=== PATIENT | female | born 1980 | race Caucasian/White ===

== ENCOUNTER → 2023-08-28 | Outpatient (CLI) | payer OTHER, SELFPAY ==
[2023-08-28 17:58] LABS: Absolute Lymphocyte Count 3.56 X10^3/uL (0.83-4.51); Absolute Neutrophil Count 7.2 X10^3/uL (2.0-7.7); Basophil# 0.05 X10^3/uL; Basophil% 0.4 % (0-1); Eosinophil# 0.13 X10^3/uL; Eosinophils% 1.1 % (0-5); Hematocrit 44.1 % (37-47); Hemoglobin 13.8 g/dL (12.0-15.0); Lymphocyte # 3.56 X10^3/ul (0.83-4.51); Lymphocyte % 30.3 % (19-41); Mean Corp Hgb Conc 31.3 g/dL (32-36); Mean Corpuscular Hgb 25.1 pg (27.0-32.0); Mean Corpuscular Volume 80.2 fL (81-99); Mean Platelet Vol. 11.2 fl (6.2-12.0); Monocyte# 0.76 X10^3/uL; Monocyte% 6.5 % (0-10); NRBC Flagged by Analyzer 0 % (0-5); Neutrophil # 7.21 X10^3/uL (2.7-7.7); Neutrophil % 61.4 % (47-70); Platelet Count 301 K/mm3 (150-450); RBC Distribution Width CV 13.3 % (11.6-14.6); RBC Distribution Width SD 37.7 fl (35.1-43.9); White Blood Count 11.8 K/mm3 (4.4-11.0)
[2023-08-28 18:30] LABS: Hemoglobin A1c 9.2 % (3.8-5.6)
[2023-08-28 18:40] LABS: ALB/GLOB Ratio 0.8 RATIO (0.9-2.4); AST(SGOT) 50 U/L (15-37); Alanine Aminotransfer ALT/SGPT 44 U/L (13-56); Albumin, Serum 3.8 g/dL (3.2-5.0); Alkaline Phosphatase 54 U/L (45-117); Anion Gap 11 (5-15); BUN 14 mg/dL (7-18); BUN/Creat Ratio 18.9 RATIO (10-20); Calcium,Total 10.2 mg/dL (8.5-10.1); Chloride 105 mmol/L (98-107); Cholesterol 243 mg/dL (200); Creatinine, Serum 0.74 mg/dL (0.55-1.02); EST Glomerular Filtration Rate 91 mL/min (>60); Est Glom Filt Rate - Afr Amer 110 mL/min (>60); Globulin 4.6 g/dL (2.2-4.2); Glucose 117 mg/dL (74-106); High Density Lipoprotein 41 mg/dL; Potassium 3.7 mmol/L (3.5-5.1); Protein, Total 8.4 g/dL (6.4-8.2); Sodium Level 137 mmol/L (136-145); Thyroid Stim Hormone (TSH) 1.43 uIU/mL (0.358-3.74); Triglycerides 240 mg/dL; Very Low Density Lipoprotein 48 mg/dL (5-40)
== END | disposition home or self-care (01) ==
PROVIDERS: Visit Provider Family Medicine
DX: E11.9 Type 2 diabetes mellitus without complications (principal)
CPT/HCPCS: 36415; 80053; 80061; 82043; 82570; 83036; 84443; 85025

== ENCOUNTER → 2023-09-01 | Outpatient (CLI) | payer BC, SELFPAY ==
[2023-09-01 13:06] LABS: PTHIN 22.9 pg/mL (18.4-80.1)
[2023-09-01 13:27] LABS: Hepatitis B Surface Antibody Non-Reactive; Hepatitis B Surface Antigen Non-Reactive (Nonreactive); Hepatitis C Antibody Non-Reactive (Nonreactive)
[2023-09-02 15:09] LABS: PROEL- Alpha-1 Globulin 0.4 g/dL (0.0-0.4); PROEL- Alpha-2 Globulin 1.1 g/dL (0.4-1.0); PROEL- Beta Globulin 1.4 g/dL (0.7-1.3); PROEL- Gamma Globulin 1.1 g/dL (0.4-1.8); PROEL-M-Spike Not Observed g/dL (Not Observed)
== END | disposition home or self-care (01) ==
LOC: MFPLAB 11:12 → MTLAB 11:17
PROVIDERS: PCP Family Medicine; Referring Provider Family Medicine; Visit Provider Family Medicine
DX: R79.89 Other specified abnormal findings of blood chemistry (principal); E83.52 Hypercalcemia; E88.09 Other disorders of plasma-protein metabolism, not elsewhere classified
CPT/HCPCS: 36415; 82784; 83970; 84165; 86334; 86706; 86803; 87340

== ENCOUNTER → 2023-09-18 | Outpatient (CLI) | payer BC, SELFPAY ==
[2023-09-18 13:33] LABS: ALB/GLOB Ratio 0.9 RATIO (0.9-2.4); AST(SGOT) 21 U/L (15-37); Alanine Aminotransfer ALT/SGPT 29 U/L (13-56); Albumin, Serum 3.8 g/dL (3.2-5.0); Alkaline Phosphatase 55 U/L (45-117); Anion Gap 9 (5-15); BUN 14 mg/dL (7-18); BUN/Creat Ratio 19.1 RATIO (10-20); Calcium,Total 8.9 mg/dL (8.5-10.1); Chloride 105 mmol/L (98-107); Creatinine, Serum 0.73 mg/dL (0.55-1.02); EST Glomerular Filtration Rate 92 mL/min (>60); Est Glom Filt Rate - Afr Amer 112 mL/min (>60); Globulin 4.4 g/dL (2.2-4.2); Glucose 101 mg/dL (74-106); Potassium 4.3 mmol/L (3.5-5.1); Protein, Total 8.2 g/dL (6.4-8.2); Sodium Level 136 mmol/L (136-145)
[2023-09-21 15:07] LABS: Albumin 3.9 g/dL (2.9-4.4); Alpha-1-Globulins 0.4 g/dL (0.0-0.4); Gamma Globulin 0.9 g/dL (0.4-1.8); Immunoglobulin A 157 mg/dL (87-352); Immunoglobulin G 978 mg/dL (586-1602); Immunoglobulin M 133 mg/dL (26-217); PROEL- TOTAL PROTEIN 7.4 g/dL (6.0-8.5)
== END | disposition home or self-care (01) ==
LOC: MTLAB 11:22
PROVIDERS: PCP Family Medicine; Referring Provider Family Medicine; Visit Provider Family Medicine
DX: E11.8 Type 2 diabetes mellitus with unspecified complications (principal)
CPT/HCPCS: 36415; 80053; 82784; 84165; 86334

== ENCOUNTER → 2023-11-11 | Outpatient (CLI) | payer BC, SELFPAY ==
[2023-11-11 10:10] LABS: Absolute Lymphocyte Count 2.72 X10^3/uL (0.83-4.51); Absolute Neutrophil Count 6.3 X10^3/uL (2.0-7.7); Basophil# 0.03 X10^3/uL; Basophil% 0.3 % (0-1); Eosinophil# 0.17 X10^3/uL; Eosinophils% 1.7 % (0-5); Hematocrit 43.9 % (37-47); Hemoglobin 13.7 g/dL (12.0-15.0); Lymphocyte # 2.72 X10^3/ul (0.83-4.51); Lymphocyte % 27.3 % (19-41); Mean Corp Hgb Conc 31.2 g/dL (32-36); Mean Corpuscular Volume 80.3 fL (81-99); Mean Platelet Vol. 10.2 fl (6.2-12.0); Monocyte# 0.68 X10^3/uL; Monocyte% 6.8 % (0-10); NRBC Flagged by Analyzer 0 % (0-5); Neutrophil # 6.34 X10^3/uL (2.7-7.7); Neutrophil % 63.6 % (47-70); Platelet Count 324 K/mm3 (150-450); RBC Distribution Width CV 12.8 % (11.6-14.6); RBC Distribution Width SD 37.1 fl (35.1-43.9); Red Blood Count 5.47 M/mm3 (4.2-5.4)
[2023-11-11 10:24] LABS: Hemoglobin A1c 6.2 % (3.8-5.6)
[2023-11-11 10:30] LABS: ALB/GLOB Ratio 0.9 RATIO (0.9-2.4); AST(SGOT) 15 U/L (15-37); Alanine Aminotransfer ALT/SGPT 27 U/L (13-56); Albumin, Serum 3.9 g/dL (3.2-5.0); Alkaline Phosphatase 63 U/L (45-117); Anion Gap 7 (5-15); BUN 13 mg/dL (7-18); BUN/Creat Ratio 16.1 RATIO (10-20); Calcium,Total 9.7 mg/dL (8.5-10.1); Chloride 102 mmol/L (98-107); Cholesterol 194 mg/dL (200); Creatinine, Serum 0.81 mg/dL (0.55-1.02); EST Glomerular Filtration Rate 82 mL/min (>60); Est Glom Filt Rate - Afr Amer 100 mL/min (>60); Globulin 4.2 g/dL (2.2-4.2); Glucose 92 mg/dL (74-106); High Density Lipoprotein 38 mg/dL; Protein, Total 8.1 g/dL (6.4-8.2); Sodium Level 136 mmol/L (136-145); Triglycerides 116 mg/dL; Very Low Density Lipoprotein 23 mg/dL (5-40)
== END | disposition home or self-care (01) ==
PROVIDERS: PCP Family Medicine; Referring Provider Family Medicine; Visit Provider Family Medicine
DX: E11.29 Type 2 diabetes mellitus with other diabetic kidney complication (principal)
CPT/HCPCS: 36415; 80053; 80061; 82043; 82570; 83036; 85025

== ENCOUNTER → 2024-02-03 | Outpatient (CLI) | payer BC, SELFPAY ==
[2024-02-03 12:24] LABS: Absolute Neutrophil Count 5.7 X10^3/uL (2.0-7.7); Basophil# 0.02 X10^3/uL; Basophil% 0.2 % (0-1); Eosinophils% 2.2 % (0-5); Hematocrit 42.9 % (37-47); Hemoglobin 13.5 g/dL (12.0-15.0); Lymphocyte % 29.4 % (19-41); Mean Corp Hgb Conc 31.5 g/dL (32-36); Mean Corpuscular Hgb 25.1 pg (27.0-32.0); Mean Corpuscular Volume 79.9 fL (81-99); Mean Platelet Vol. 10.9 fl (6.2-12.0); Monocyte# 0.59 X10^3/uL; Monocyte% 6.4 % (0-10); NRBC Flagged by Analyzer 0 % (0-5); Neutrophil # 5.65 X10^3/uL (2.7-7.7); Neutrophil % 61.5 % (47-70); Platelet Count 293 K/mm3 (150-450); RBC Distribution Width CV 14.1 % (11.6-14.6); RBC Distribution Width SD 40.7 fl (35.1-43.9); Red Blood Count 5.37 M/mm3 (4.2-5.4); White Blood Count 9.2 K/mm3 (4.4-11.0)
[2024-02-03 12:40] LABS: Microalbumin,Random Urine 53.6 mg/L (NO RANGE EST.); Microalbumin:Creatinine Ratio 50.6 mg/g CRE (<30 mg/g CRE)
[2024-02-03 12:49] LABS: ALB/GLOB Ratio 1.1 RATIO (0.9-2.4); AST(SGOT) 16 U/L (15-37); Alanine Aminotransfer ALT/SGPT 22 U/L (13-56); Albumin, Serum 3.9 g/dL (3.2-5.0); Alkaline Phosphatase 59 U/L (45-117); Anion Gap 2 (5-15); BUN 13 mg/dL (7-18); BUN/Creat Ratio 17.8 RATIO (10-20); Calcium,Total 9.6 mg/dL (8.5-10.1); Chloride 108 mmol/L (98-107); Cholesterol 121 mg/dL (200); Creatinine, Serum 0.73 mg/dL (0.55-1.02); EST Glomerular Filtration Rate 92 mL/min (>60); Est Glom Filt Rate - Afr Amer 111 mL/min (>60); Globulin 3.7 g/dL (2.2-4.2); Glucose 97 mg/dL (74-106); High Density Lipoprotein 46 mg/dL; Potassium 4.3 mmol/L (3.5-5.1); Protein, Total 7.6 g/dL (6.4-8.2); Sodium Level 138 mmol/L (136-145); Triglycerides 87 mg/dL; Very Low Density Lipoprotein 17 mg/dL (5-40)
[2024-02-03 13:58] LABS: Hemoglobin A1c 5.9 % (3.8-5.6)
== END | disposition home or self-care (01) ==
LOC: MTLAB 09:38
PROVIDERS: PCP Family Medicine; Referring Provider Family Medicine; Visit Provider Family Medicine
DX: E11.29 Type 2 diabetes mellitus with other diabetic kidney complication (principal)
CPT/HCPCS: 36415; 80053; 80061; 82043; 82570; 83036; 85025

== ENCOUNTER → 2024-06-08 | Outpatient (CLI) | payer BC, SELFPAY ==
[2024-06-08 09:05] LABS: Bacteria 0 SEEN /hpf (None Seen); Mucous, Urine 0 SEEN /hpf (<or=2+); Red Blood Cells-Urine 0 SEEN /hpf (0-5); White Blood Cells 0 SEEN /hpf (0-5)
[2024-06-08 10:16] LABS: Color, Urine Yellow (Yellow); Glucose, Dipstick Normal (Normal); Ketone-Dipstick Negative (Negative); Leukocyte Esterase-Dipstick Negative /ul (Negative); Nitrite-Dipstick Negative (Negative); Occult Blood-Urine Negative /ul (Negative); Protein-Dipstick Negative (Negative); Specific Gravity, Urine 1.005 (1.002-1.030); Urine Bilirubin Dipstick Negative (Negative); Urine Clarity Sl. Cloudy (Clear); Urine Urobilinogen Normal (Normal)
[2024-06-08 10:17] LABS: Absolute Lymphocyte Count 3.07 X10^3/uL (0.83-4.51); Absolute Neutrophil Count 6.5 X10^3/uL (2.0-7.7); Basophil# 0.03 X10^3/uL; Basophil% 0.3 % (0-1); Eosinophils% 1.9 % (0-5); Hematocrit 41.5 % (37-47); Hemoglobin 13.3 g/dL (12.0-15.0); Lymphocyte # 3.07 X10^3/ul (0.83-4.51); Lymphocyte % 29.3 % (19-41); Mean Corpuscular Hgb 25.5 pg (27.0-32.0); Mean Corpuscular Volume 79.5 fL (81-99); Mean Platelet Vol. 10.2 fl (6.2-12.0); Monocyte# 0.65 X10^3/uL; Monocyte% 6.2 % (0-10); NRBC Flagged by Analyzer 0 % (0-5); Neutrophil % 61.9 % (47-70); Platelet Count 283 K/mm3 (150-450); RBC Distribution Width CV 13.1 % (11.6-14.6); RBC Distribution Width SD 37.2 fl (35.1-43.9); Red Blood Count 5.22 M/mm3 (4.2-5.4); White Blood Count 10.5 K/mm3 (4.4-11.0)
[2024-06-08 10:22] LABS: Squamous Epithelial Cells - UA 0-5 SEEN /hpf (5-10)
[2024-06-08 10:43] LABS: Hemoglobin A1c 6.1 % (3.8-5.6)
[2024-06-08 10:51] LABS: AST(SGOT) 11 U/L (15-37); Alanine Aminotransfer ALT/SGPT 23 U/L (13-56); Albumin, Serum 3.9 g/dL (3.2-5.0); Alkaline Phosphatase 51 U/L (45-117); Anion Gap 8 (5-15); BUN 15 mg/dL (7-18); BUN/Creat Ratio 24.8 RATIO (10-20); Calcium,Total 9.5 mg/dL (8.5-10.1); Chloride 104 mmol/L (98-107); Cholesterol 120 mg/dL (200); EST Glomerular Filtration Rate 114 mL/min (>60); Est Glom Filt Rate - Afr Amer 138 mL/min (>60); Globulin 4.1 g/dL (2.2-4.2); Glucose 103 mg/dL (74-106); High Density Lipoprotein 53 mg/dL; Potassium 4.1 mmol/L (3.5-5.1); Sodium Level 137 mmol/L (136-145); Triglycerides 81 mg/dL; Very Low Density Lipoprotein 16 mg/dL (5-40)
[2024-06-08 13:41] LABS: Microalbumin,Random Urine 20.4 mg/L (NO RANGE EST.); Microalbumin:Creatinine Ratio 85.7 mg/g CRE (<30 mg/g CRE)
== END | disposition home or self-care (01) ==
LOC: MTLAB 08:58
PROVIDERS: PCP Family Medicine; Referring Provider Family Medicine; Visit Provider Family Medicine
DX: E11.8 Type 2 diabetes mellitus with unspecified complications (principal)
CPT/HCPCS: 80053; 80061; 81001; 82043; 82570; 83036; 85025

== ENCOUNTER → 2024-09-30 | Outpatient (CLI) | payer BC, SELFPAY ==
[2024-09-30 10:57] LABS: ALB/GLOB Ratio 1.4 RATIO (0.9-2.4); AST(SGOT) 18 U/L (<=31); Alanine Aminotransfer ALT/SGPT 14 U/L (<=34); Albumin, Serum 4.3 g/dL (3.5-5.0); Alkaline Phosphatase 58 U/L (35-104); Anion Gap 11 (5-15); BUN 20 mg/dL (4-19); Calcium,Total 9.5 mg/dL (7.6-11.0); Carbon Dioxide 21.6 mmol/L (21.0-32.0); Chloride 105 mmol/L (98-108); Creatinine, Serum 0.89 mg/dL (0.70-1.20); EST Glomerular Filtration Rate 82 (>60); Globulin 3.1 g/dL (2.2-4.2); Glucose 112 mg/dL (70-99); Potassium 4.2 mmol/L (3.3-5.1); Protein, Total 7.4 g/dL (5.9-8.4); Sodium Level 138 mmol/L (133-145); Total Bilirubin 0.64 mg/dL (0.00-1.30)
[2024-09-30 11:57] LABS: Microalbumin,Random Urine 49.8 mg/L (NO RANGE EST.); Microalbumin:Creatinine Ratio 805.8 mg/g CRE
== END | disposition home or self-care (01) ==
LOC: MTLAB 08:40
PROVIDERS: PCP Family Medicine; Referring Provider Family Medicine; Visit Provider Family Medicine
DX: E11.8 Type 2 diabetes mellitus with unspecified complications (principal)
CPT/HCPCS: 36415; 80053; 82043; 82570; 83036

== ENCOUNTER 2024-12-26 04:42 | Emergency (ER) | payer BC, SELFPAY ==
[2024-12-26 04:42] VITALS: BP 141/87; PULSE 85; RESP 16; TEMP 36.9; O2SAT 99; BMI 36.1
--- NOTE | 2024-12-26 04:54 | EX.ED.DYSGE1 ---
HPI History of Present Illness Chief Complaint: Bite Detail of Chief Complaint: Cat scratches left hand. Cat bites scalp. Informant: patient Onset/Context/Timing Onset: Today Context: Sudden Onset Timing: Continuous Current Severity: Moderate Maximum Severity: Moderate Narrative Narrative: 44-year-old female history of diabetes. Has both a dog and cat at home. The cat got scared by the dog. When the patient went to count a separate and removed from the cat scratched her hand on the left multiple times and bit her in the scalp several areas causing lacerations. This occurred within the last hour. She is unsure of her last tetanus that will be updated. She is right-hand dominant. Denies any other complaints. Said the cat is normally well mannered. Has not been sick. Prior similar symptoms: No Recent Illness/Hospitalization: No [facility], [facility] Medical History Kidney malignancy Home Medications ?Medication ?Instructions ?Recorded ?Last Taken ?Type losartan 100 mg tablet 100 mg PO DAILY 12/26/24 Unknown History metformin 1,000 mg tablet 1,000 mg PO BID 12/26/24 Unknown History norethindrone (contraceptive) 0.35 0.35 mg PO DAILY 12/26/24 Unknown History mg tablet (Deblitane) rosuvastatin 5 mg tablet 5 mg PO QPM 12/26/24 Unknown History spironolactone 50 mg tablet 50 mg PO DAILY 12/26/24 Unknown History Allergy/AdvReac Type Severity Reaction Status Date / Time No Known Allergies Allergy Verified 12/26/24 04:43 Surgical History H/O excision of mass H/O hernia repair Social History Smoking Status: Former smoker ROS ROS ED ROS Narrative Denies recent illness. Constitutional Constitutional ED: Denies chills Eyes Eyes: Denies blurry vision ENT ENT ED: Denies ear pain Cardiovascular Cardiovascular: Denies chest pain Respiratory/Chest Respiratory/Chest: Denies cough or dyspnea Gastrointestinal Gastrointestinal: Denies abdominal pain Genitourinary Genitourinary ED: Denies dysuria or hematuria Musculoskeletal Musculoskeletal: Denies arthralgias Integumentary Denies abscess Neurologic Neurologic: Denies headache(s) Psychiatric Psychiatric: Denies anxiety Endocrine Endocrinology: Denies cold intolerance Hematologic/Lymphatic Hematologic/Lymphatic: Reports none Allergic/Immunologic Allergic/Immunologic ED: Denies mouth swelling, tongue swelling or urticaria EXAM Physical Exam Narrative Exam Narrative: Well-appearing 44-year-old female. Vital signs stable afebrile. Companied by her . No acute distress. H EENT exam pupils round react light. Moist pink membranes. Right lateral posterior scalp there are at least two 1 inch lacerations on the repaired. No active bleeding. Neck nontender. Trachea midline. Lungs clear equal and symmetrical bilaterally. Heart regular rhythm no murmur. Chest wall ribs nontender. Abdomen soft nontender. Moving all 4 extremities. Normal range of motion. Normal strength. Multiple cat scratches to her left hand and fingers. Nothing needs repaired. She has full flexion extension all digits of the hand. There is no signs of flexor or extensor tenosynovitis. No swelling. Neurovascularly intact. Right upper extremity and legs are unremarkable. Back nontender. Neurologically she is awake alert. Answer questions following commands. Const Vital Signs: 12/26/24 04:42 Temperature 98.5 F Temperature Source Oral Pulse Rate 85 Respiratory Rate 16 Blood Pressure 141/87 H Blood Pressure Mean 105 Pulse Ox 99 Positive well nourished and well developed; Negative for cachectic, contractures or unkempt General Appearance ED: well developed and NAD; Negative for unkempt, cachectic, contractures, cyanotic, diaphoretic or pallor Nutritional Appearance: Negative for cachectic HEENT Reports moist mucous membranes HEENT Narrative: Right lateral posterior scalp 2 different lacerations from cat bites. Eyes PERRL and EOMs intact bilaterally Neck no lymphadenopathy, supple and no JVD Chest Wall inspection of chest normal and palpation of chest normal Resp normal respiratory effort and clear to auscultation bilaterally Cardio regular rate, regular rhythm, S1 normal heart sound, S2 normal heart sound and no murmurs GI normal to inspection, nondistended, normoactive bowel sounds, non-tender, non-distended and no masses Auscultation: normoactive bowel sounds Palpation: soft; Negative for tender or guarding Back/Spine no CVA tenderness Extremity normal to inspection Extremity Narrative: Except multiple cat scratches with dried blood on the left hand. Full flexion extension of all digits. No swelling. No flexor nor extensor tenosynovitis. No cellulitis. No lymphangitic streaking. General Extremety ED: Negative for edema or tenderness General Extremity: Negative for edema Neuro oriented x3 and CN's II-XII intact bilaterally Sensorium / Orientation: alert Motor Exam: strength 5/5 throughout Psych mental status grossly normal Appearance: Negative for unkempt Skin no rashes or lesions noted, No no wounds and skin turgor normal Skin Narrative: Cat scratches left hand. Cat bite lacerations right posterior scalp x 2. General Skin Exam: elasticity normal; Negative for jaundice or pallor Wounds: wounds noted MDM MDM MDM Narrative Medical decision making narrative: 44-year-old diabetic was scratched all over her left hand by her cat. It is at least 2 scalp lacerations. Tetanus will be updated. All wounds to be cleaned. She replaced on Augmentin 875 twice daily for 5 days for the hand injuries. I will need to repair the scalp lacerations. Discharge Plan Triage Chief Complaint: Bite ED Provider: Scooby Haas Dx/Rx/DC Orders Prescriptions: No Action metformin 1,000 mg tablet 1,000 mg PO BID norethindrone (contraceptive) [Deblitane] 0.35 mg tablet 0.35 mg PO DAILY losartan 100 mg tablet 100 mg PO DAILY spironolactone 50 mg tablet 50 mg PO DAILY rosuvastatin 5 mg tablet 5 mg PO QPM Primary Care Provider: Shahriar Hendrix Referrals: Shahriar Hendrix MD [Primary Care Provider] - Print Language: Setswana
[2024-12-26] MEDS: Lidocaine 1% /Epi 1:100 (20ml) 20 ML Vial INFILT (04:57)
--- OUTSIDE RECORDS SUMMARY | 2024-12-26 04:59 | XMS RPT_ITS | CCD ---
Author Organization [facility] Care Team Providers Care Senior Web Applications Developer Name Role Phone No, Physician Primary Care Provider Unavailabl e NO, PHYSICIAN Primary Care Unavailable ANGELICA BURNETT Referring Unavailable FRANK MORALES Consulting Unavailable FRANK MORALES Admitting Unavailable KLEBER JUAREZ Attending Unavaila DUONG Finn Consulting Unavailable No, Physician Primary Care Provider Unavailivonne Montalvo MD, Aleksandar Gardner Primary Care Provider Aleksandar Montalvo MD Primary Care Provider [phone] Etelvina, Physician Primary Care Provider UnavailZahra Hardin MD Primary Care Provider [phone] HEIDI PA Referring Unavailable HEIDI PA Attending Unavailable ZAHRA HENDRIX Primary Care Unavailable ZAHRA HENDRIX Primary Care Unavailable HEIDI PA Attending Unavailable ETELVINA, PHYSICIAN Primary Care Unavailable HEIDI PA Attending Unavailable 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 Zahra Hendrix MD Primary Care Provider [phone] Dr. Zahra Hendrix MD Attending Provider [phone] Dr. Zahra Hendrix MD Referring Provider Zahra Hendrix Referring Unavailable Zahra Hendrix Primary Care Unavailable Zahra Hendrix Attending Unavailable Zahra Hendrix Referring Unavailable Zahra Hendrix Primary Care Unavailable Zahra Hendrix Attending Unavailable Zahra Hendrix Referring Unavailable aZhra Hendrix Primary Care Unavailable Zahra Hendrix Attending Unavailable Zahra Hendrix Primary Care Unavailable Zahra Hendrix Attending Unavailable Zahra Hendrix Referring Unavailable HEIDI PA Attending Unavailable ZAHRA HENDRIX Primary Care Unavailable HEIDI PA Referring Unavailable ZAHRA HENDRIX Primary Care Unavailable HEIDI PA Referring Unavailable HEIDI PA Attending Unavailable Medications Current Medications Medication Drug Class(es) Dates Sig (Normalized) Sig (Original) Bacillus coagulans / Inulin (20 sources) take 2 capsules by mouth once daily in the morning Bacillus coagulans/inulin (PROBIOTIC WITH PREBIOTIC ORAL) Take 2 capsules by mouth every morning . Active take 2 capsules by m outh once daily in the morning Bacillus coagulans/inulin (PROBIOTIC WIT H PREBIOTIC ORAL) Take 2 capsules by mouth every morning . 0 Suspended take 2 capsules by m outh once daily in the morning Bacillus coagulans/inulin (PROBIOTIC WIT H PREBIOTIC ORAL) Take 2 capsules by mouth every morning . 0 Active cranberry extract/vitamin C (AZO CRANBERRY PLUS VIT C ORAL) (20 sources) take 2 tablets by mouth once daily cranberry extract/vitamin C (AZO CRANBERRY PLUS VIT C ORAL) Take 2 tablets by mouth nightly . Active take 2 tablets by mouth once aylin ly cranberry extract/vitamin C (AZO CRANBERRY PLUS VIT C ORAL) Take 2 tablets by mouth nightly . 0 Suspended take 2 tablets by mouth once aylin ly cranberry extract/vitamin C (AZO CRANBERRY PLUS VIT C ORAL) Take 2 tablets by mouth nightly . 0 Active doxycycline hyclate 100 mg oral tablet (2 sources) Tetracycline-class Drug Start: 08-05-2023 End: 08-12-2023 take 1 tablet by mouth twice daily doxycycline (VIBRA-TABS) 100 mg tablet Take 1 tablet by mouth two times a day for 7 days. 14 tablet 0 08/05/2023 08/12/2023 Active Comment on above: Take 1 tablet by jayy th two times a day for 7 days. ibuprofen 800 mg oral tablet (1 source) Nonsteroidal Anti-inflammatory Drug Start: 12-14-2020 End: 01-13-2021 take 1 tablet by mouth every six hours as needed ibuprofen (ADVIL,MOTRIN) 800 MG tablet Take 1 (one) tablet (800 mg total) by mouth every 6 (six) hours as needed for pain . 30 tablet 0 12/14/2020 01/13/2021 Active Lactobac no.41/Bifidobact no.7 (PROBIOTIC-10 ORAL) (13 sources) Lactobac no.41/Bifidobact no.7 (PROBIOTIC-10 ORAL) Take by mouth once daily. Active Lactobac no.41/B ifidobact no.7 (PROBIOTIC-10 ORAL) Take by mouth once daily. 0 Active Lactobac no.41/B ifidobact no.7 (PROBIOTIC-10 ORAL) Take by mouth. 0 Active Comment on above: Take by mouth. Take by mouth once d aily. LORazepam 1 mg oral tablet (5 sources) Benzodiazepine Start: 12-08-19 End: 12-09-19 LORazepam (ATIVAN) 1 MG tablet Indications: Liver lesion Take 2 (two) tablets (2 mg total) by mouth once as needed for anxiety (take 1-2 hours prior to your MRI) . 1 tablet 12/09/2023 Active losartan potassium 100 mg oral tablet (5 sources) Angiotensin 2 Receptor Elza Start: 11-19-19 take 1 tablet by mouth once daily losartan (COZAAR) 100 MG tablet Take 1 (one) tablet (100 mg total) by mouth daily . 11/19/2023 Active metFORMIN hydrochloride 1000 mg oral tablet (5 sources) Biguanide Start: 11-25-19 take 1 tablet by mouth twice daily metFORMIN (GLUCOPHAGE) 1000 MG tablet 1 (one) tablet by mouth twice a day 11/25/2023 Active naloxone (NARCAN) 4 mg/actuation [place] (4 sources) Start: 12-08-19 naloxone (NARCAN) 4 mg/actuation [place] Administer 1 spray into one nostril for known or suspected opioid overdose. If patient worsens or does not respond, may repeat in 2-3 minutes. . 2 each 1 12/08/2023 Active norethindrone 0.35 mg oral tablet (10 sources) Start: 08-05-19 24 End: 08-09-19 take 1 tablet by mouth once daily Norethindrone, Contraceptive, 0.35 mg tablet Take 1 tablet by mouth once daily. 90 tablet 3 08/08/2024 Active Comment on above: Take 1 tablet by jayy th once daily. polyethylene glycol 3350 141171 mg / potassium chloride 2970 mg / sodium bicarbonate 6740 mg / sodium chloride 5860 mg / sodium sulfate 90845 mg powder for oral solution (1 source) Osmotic Laxative Start: 11-01-19 End: 11-01-19 polyethylene glycol (Golytely) 236-22.74-6.74 -5.86 gram solution Take 4,000 mL by mouth once 1 day prior to surgery for 1 dose . 4000 mL 0 10/31/2020 10/31/2020 Active rosuvastatin calcium 5 mg oral tablet (5 sources) HMG-CoA Reductase Inhibitor Start: 11-19-19 take 1 tablet by mouth once daily rosuvastatin (CRESTOR) 5 MG tablet Take 1 (one) tablet (5 mg total) by mouth nightly . 11/19/2023 Active Start: 08-10-2023 take 5 mg by mouth once daily rosuvastatin 5 mg cpSP Take 5 mg by mouth once daily. 08/10/2023 Active spironolactone 50 mg oral tablet (20 sources) Aldosterone Antagonist Start: 05-27-2020 End: 05-27-2020 take 50 mg by mouth once daily 50 mg, Oral, Daily, First dose on 05/27/20 at 0900 CATEGORY C HAZARDOUS DRUG use safe handling precautions. Use reference link to view PPE guidelines. Minimize crushing/splitting only to situations where clinically necessary. Start: 04-13-2020 End: 08-08-2024 take 1 tablet by mouth once daily spironolactone (ALDACTONE) 50 mg tablet Take 1 tablet by mouth once daily. 90 tablet 4 08/08/2024 Active Comment on above: Take 1 tablet by jayy th once daily. Completed/Discontinued Medications Medication Drug Class(es) Dates Sig (Normalized) Sig (Original) acetaminophen 325 mg / HYDROcodone bitartrate 5 mg oral tablet (4 sources) Opioid Agonist Start: 05-27-2020 End: 06-11-2020 HYDROcodone-acetamin ophen (NORCO) 5-325 mg per tablet Indications: Pyelonephritis, acute , Nephrolithiasis Take one every 8 hours as needed. . 15 tablet 0 05/27/2020 06/11/2020 Discontinued calcium chloride 0.0014 meq/ml / potassium chloride 0.004 meq/ml / sodium chloride 0.103 meq/ml / sodium lactate 0.028 meq/ml injectable solution (1 source) Start: 06-11-2020 End: 06-11-2020 take 100 mL intravenous route every hour 100 mL/hr, Intravenous, Continuous, Starting Mon 21 at 1915, PACU (only) ceFAZolin 2000 mg injection (2 sources) Cephalosporin Antibacterial Start: 06-11-2020 End: 06-11-2020 ceFAZolin (ANCEF) IVPB 2 g (premix) cefTRIAXone 1000 mg injection (2 sources) Cephalosporin Antibacterial Start: 05-28-2020 End: 05-27-2020 take 1000 mg intravenous route every twenty-four hours 1,000 mg, Intravenous, at 100 mL/hr, Every 24 hours, First dose on Thu05/28/20 at 0000 Indication: UTI Start: 05-26-2020 End: 05-27-2020 cefTRIAXone (ROCEPHIN) IVPB 1 g (premix) cephalexin 500 mg oral capsule (20 sources) Cephalosporin Antibacterial Start: 12-14-2020 End: 12-29-2023 take 1 capsule by mouth twice daily cephALEXin (KEFLEX) 500 MG capsule Take 1 (one) capsule (500 mg total) by mouth 2 (two) times a day . 14 capsule 12/14/2020 12/29/2023 Discontinued (Patient's Request) Start: 10-06-2020 End: 10-16-2020 take 1 capsule by mouth three times daily cephALEXin (KEFLEX) 500 MG capsule Take 1 (one) capsule (500 mg total) by mouth 3 (three) times a day for 10 days . 30 capsule 0 10/06/2020 10/16/2020 Active Start: 05-19-2020 End: 05-27-2020 take 1 capsule by mouth four times daily cephALEXin (KEFLEX) 500 MG capsule Take 1 (one) capsule (500 mg total) by mouth 4 (four) times a day for 7 days . 28 capsule 0 05/19/2020 05/27/2020 Discontinued (Stop Taking at Discharge) cranberry fruit concentrate (AZO CRANBERRY ORAL) (11 sources) End: 08-08-2024 cranberry fruit concentrate (AZO CRANBERRY ORAL) Take by mouth once daily. 08/08/2024 Discontinued cranberry fruit concentrate (AZO CRANBERRY ORAL) Take by mouth once daily. Active cranberry fruit concentrate (AZO CRANBERRY ORAL) Take by mouth once daily. 0 Active cranberry fruit concentrate (AZO CRANBERRY ORAL) Take by mouth. 0 Active Comment on above: Take by mouth. Take by mouth once d aily. DAILY VITAMINS FOR WOMEN TAB (11 sources) Start: 04-10-2005 End: 08-08-2024 take 1 tablet by mouth once daily DAILY VITAMINS FOR WOMEN TAB Take by mouth once daily. 0 04/10/2005 08/08/2024 Discontinued Start: 04-10-2005 take 1 tablet by jayy th once daily DAILY VITAMINS FOR WOMEN TAB Take by mouth once daily. 0 04/10/2005 Active Start: 04-10-2005 DAILY VITAMINS FOR WOMEN TAB take one daily 0 04/10/2005 Active Comment on above: take one daily Take by mouth once d aily. 1 ml dexamethasone phosphate 4 mg/ml injection (2 sources) Corticosteroid Start: 2020 End: 2020 dexamethasone (DECADRON) injection diazePAM 5 mg oral tablet (9 sources) Benzodiazepine Start: 2020 End: 2020 take 1 tablet by mouth once, then take 1 tablet by mouth every hour diazePAM (VALIUM) 5 MG tablet Indications: Kidney stone Take 1 (one) tablet (5 mg total) by mouth once Take one hour prior to the procedure for 1 dose . 1 tablet 0 10/15/2020 11/23/2020 Discontinued docusate sodium 100 mg oral capsule (4 sources) Start: 2020 End: 2020 take 1 capsule by mouth three times daily as needed for constipation docusate sodium (COLACE) 100 MG capsule Take 1 (one) capsule (100 mg total) by mouth 3 (three) times a day as needed for constipation . 90 capsule 0 05/27/2020 06/11/2020 Discontinued Ethinyl Estradiol / Levonorgestrel (20 sources) Progestin, Estrogen, Progestin-containing Intrauterine Device Start: 2023 End: 2023 take 1 tablet by mouth once daily levonorgestrel-ethi nyl estradiol (RYANNE, Casey,) 0.15-0.03 mg per tab Indications: Encounter for surveillance of contraceptive pills Take 1 tablet by mouth once daily. 84 tablet 0 07/20/2023 08/05/2023 Discontinued Start: 07-20-2023 take 1 tablet by jayy th once daily levonorgestrel-ethinyl estradiol (RYANNE , 28,) 0.15-0.03 mg per tab Indications: Encounter for surveillance of contraceptive pills Take 1 tablet by mouth once daily. 84 tablet 0 07/20/2023 Active Start: 07-14-2023 End: 07-20-2023 take 1 tablet by mouth once daily levonorgestrel-ethinyl estradiol (LILLOW , 28,) 0.15-0.03 mg per tab Indications: Encounter for surveillance of contraceptive pills Take 1 tablet by mouth once daily. 84 tablet 0 07/14/2023 07/20/2023 Discontinued Start: 07-14-2023 take 1 tablet by jayy th once daily levonorgestrel-ethinyl estradiol (LILLOW , 28,) 0.15-0.03 mg per tab Indications: Encounter for surveillance of contraceptive pills Take 1 tablet by mouth once daily. 84 tablet 0 07/14/2023 Active Start: 07-31-2022 take 1 tablet by jayy th once daily levonorgestrel-ethinyl estradiol (LILLOW , 28,) 0.15-0.03 mg per tab Indications: Encounter for surveillance of contraceptive pills Take 1 tablet by mouth once daily. 84 tablet 4 07/31/2022 Active Start: 12-13-2021 End: 07-31-2022 take 1 tablet by mouth once daily levonorgestrel-ethinyl estradiol (LILLOW , 28,) 0.15-0.03 mg per tab Indications: Encounter for surveillance of contraceptive pills Take 1 tablet by mouth once daily. 84 tablet 4 12/13/2021 07/31/2022 Discontinued Start: 12-13-2021 take 1 tablet by jayy th once daily levonorgestrel-ethinyl estradiol (LILLOW , 28,) 0.15-0.03 mg per tab Indications: Encounter for surveillance of contraceptive pills Take 1 tablet by mouth once daily. 84 tablet 4 12/13/2021 Active Start: 07-29-2021 End: 12-13-2021 take 1 tablet by mouth once daily levonorgestrel-ethinyl estradiol (LILLOW , 28,) 0.15-0.03 mg per tab Indications: Encounter for surveillance of contraceptive pills Take 1 tablet by mouth once daily. 84 tablet 5 07/29/2021 12/13/2021 Discontinued Start: 07-29-2021 take 1 tablet by jayy th once daily levonorgestrel-ethinyl estradiol (LILLOW , 28,) 0.15-0.03 mg per tab Indications: Encounter for surveillance of contraceptive pills Take 1 tablet by mouth once daily. 84 tablet 5 07/29/2021 Active Start: 07-27-2020 End: 07-29-2021 take 1 tablet by mouth once daily levonorgestrel-ethinyl estradiol (LILLOW , 28,) 0.15-0.03 mg per tab Indications: Encounter for surveillance of contraceptive pills Take 1 tablet by mouth once daily. 84 tablet 5 07/27/2020 07/29/2021 Discontinued Start: 04-18-2020 End: 12-29-2023 take 1 tablet by mouth once daily in the morning [place], 28, 0.15-0.03 mg per tablet Take 1 (one) tablet by mouth every morning . 04/18/2020 12/29/2023 Discontinued (Patient's Request) Start: 04-18-2020 take 1 tablet by jayy th once daily in the morning [place], 28, 0.15-0.03 mg per tablet Take 1 (one) tablet by mouth every morning . 04/18/2020 Active Start: 04-18-2020 take 1 tablet by jayy th once daily in the morning [place], 28, 0.15-0.03 mg per tablet Take 1 (one) tablet by mouth every morning . 0 04/18/2020 Active Start: 04-18-2020 take 1 tablet by jayy th once daily in the morning [place], 28, 0.15-0.03 mg per tablet Take 1 tablet by mouth every morning . 0 04/18/2020 Suspended Start: 04-18-2020 take 1 tablet by jayy th once daily in the morning [place], 28, 0.15-0.03 mg per tablet Take 1 tablet by mouth every morning . 0 04/18/2020 Active Start: 04-18-2020 take 1 tablet by jayy th once daily [place], 28, 0.15-0.03 mg per tablet Take 1 tablet by mouth daily . 0 04/18/2020 Suspended Start: 04-18-2020 take 1 tablet by jayy th once daily [place], 28, 0.15-0.03 mg per tablet Take 1 tablet by mouth daily . 0 04/18/2020 Active End: 11-23-2020 take 1 tablet by mouth once daily in the morning, then take 0.15 tablet by mouth once levonorgestrel-ethinyl estradiol (NORDETTE) 0.15-0.03 mg per tablet Take 1 tablet by mouth every morning . 0 11/23/2020 Discontinued Comment on above: Take 1 tablet by jayy once daily. 20 ml fentaNYL 0.05 mg/ml injection (2 sources) Opioid Agonist Start: 06-11-2020 End: 06-11-2020 fentaNYL (SUBLIMAZE) injection gadoterate meglumine (DOTAREM) injection 17 mL (1 source) Start: 10-22-2020 End: 10-22-2020 gadoterate meglumine (DOTAREM) injection 17 mL 1 ml hydrALAZINE hydrochloride 20 mg/ml injection (1 source) Arteriolar Vasodilator Start: 06-11-2020 End: 06-11-2020 hydrALAZINE (APRESOLINE) injection 10 mg 1 ml HYDROmorphone hydrochloride 1 mg/ml injection (3 sources) Opioid Agonist Start: 06-11-2020 End: 06-11-2020 0.5 mg, Intravenous, Every 5 min PRN, Pain, Starting 06/11/20 at 1816, For 6 doses, PACU (only) [] Give if fentanyl not effective or not ordered. [] Do not give more than 3 mg total. Start: 05-26-2020 End: 05-27-2020 HYDROmorphone (DILAUDID) inj ection 1 mg 1 ml ketorolac tromethamine 30 mg/ml injection (2 sources) Nonsteroidal Anti-inflammatory Drug, Cyclooxygenase Inhibitor Start: 05-27-2020 End: 05-27-2020 take 15 mg intravenous route every six hours as needed 15 mg, Intravenous, Every 6 hours PRN, mild pain, Starting 05/27/20 at 0507, For 48 hours [] Ketorolac (TORADOL) has an automatic 48 hour stop date. Start: 05-19-2020 End: 05-19-2020 ketorolac (TORADOL) injectio n 15 mg 4 ml labetalol hydrochloride 5 mg/ml cartridge (1 source) beta-Adrenergic Elza Start: 06-11-2020 End: 06-11-2020 5 mg, Intravenous, Every 5 min PRN, SBP greater than 180 or DBP greater than 120, Starting 06/11/20 at 1816, For 4 doses, PACU (only) [] Do not give more than 20 mg total. [] Hold for HR less than 50. levoFLOXacin 750 mg oral tablet (4 sources) Quinolone Antimicrobial Start: 05-27-2020 End: 06-11-2020 take 1 tablet by mouth once daily levoFLOXacin (LEVAQUIN) 750 MG tablet Take 1 (one) tablet (750 mg total) by mouth daily . 7 tablet 0 05/27/2020 06/11/2020 Discontinued Lidocaine (2 sources) Antiarrhythmic, Amide Local Anesthetic Start: 06-11-2020 End: 06-11-2020 lidocaine 20 mg/mL (2 %) injection Meperidine (1 source) Opioid Agonist Start: 06-11-2020 End: 06-11-2020 12.5 mg, Intravenous, Every 5 min PRN, shivering, Starting 06/11/20 at 1816, For 2 doses, PACU (only) Do not give more than 25 mg total. RESTRICTED to use in rigors OR pain management in patients with a documented opioid allergy. Please select this medication s indication. Rigors 5 ml midazolam 1 mg/ml injection (2 sources) Benzodiazepine Start: 06-11-2020 End: 06-11-2020 midazolam (VERSED) injection miSOPROStol 0.2 mg oral tablet (5 sources) Prostaglandin E1 Analog Start: 08-05-2023 End: 08-08-2024 miSOPROStol (CYTOTEC) 200 mcg tablet Insert 2 tablets vaginally prior to the procedure. 2 tablet 08/05/2023 08/08/2024 Discontinued Comment on above: Insert 2 tablets vag inally prior to the procedure. naloxone (NARCAN) injection 0.1 mg (1 source) Start: 06-11-2020 End: 06-11-2020 naloxone (NARCAN) injection 0.1 mg naproxen 500 mg delayed release oral tablet (11 sources) Nonsteroidal Anti-inflammatory Drug Start: 05-19-2020 End: 06-18-2020 take 1 tablet by mouth twice daily as needed naproxen (EC NAPROSYN) 500 MG EC tablet Take 1 (one) tablet (500 mg total) by mouth 2 (two) times a day as needed . 30 tablet 0 05/19/2020 06/11/2020 Discontinued 2 ml ondansetron 2 mg/ml injection (20 sources) Serotonin-3 Receptor Antagonist Start: 06-11-2020 End: 06-11-2020 take 4 mg intravenous route every twenty-four hours as needed 4 mg, Intravenous, Once as needed, nausea, vomiting, Starting 06/11/20 at 1816, For 1 dose, PACU (only) Administer first as needed for nausea/vomiting, or as directed by anesthesia Start: 06-11-2020 End: 06-11-2020 ondansetron (ZOFRAN) injecti on Start: 05-27-2020 End: 11-23-2020 take 1 tablet by mouth every eight hours as needed ondansetron (ZOFRAN-ODT) 8 MG disintegrating tablet Dissolve 1 (one) tablet (8 mg total) on top of tongue every 8 (eight) hours as needed . 20 tablet 0 05/27/2020 11/23/2020 Discontinued Start: 05-26-2020 End: 05-27-2020 take 4 mg intravenous route every six hours as needed 4 mg, Intravenous, Every 6 hours PRN, nausea, vomiting, Starting 05/27/20 at 0507 Start: 05-19-2020 End: 06-11-2020 take 1 tablet by mouth every four hours as needed ondansetron (Zofran ODT) 4 MG disintegrating tablet Dissolve 1 (one) tablet (4 mg total) on top of tongue every 4 (four) hours as needed for nausea . 10 tablet 0 05/19/2020 06/11/2020 Discontinued phenazopyridine hydrochloride 200 mg oral tablet (20 sources) Start: 05-27-2020 End: 11-23-2020 phenazopyridine (PYRIDIUM) 200 MG tablet Take one every 8 hours as needed. Ok to substitute for OTC Azo if pyridium is not covered. . 90 tablet 0 05/27/2020 11/23/2020 Discontinued potassium citrate 15 meq extended release oral tablet (20 sources) Start: 01-06-2023 End: 01-01-2024 take 1 tablet by mouth once daily potassium citrate (UROCIT-K) 15 mEq TbER Take 1 (one) tablet (15 mEq total) by mouth daily . 30 tablet 11 01/06/2023 12/29/2023 Discontinued Start: 06-17-2021 End: 04-04-2023 take 1 tablet by mouth three times daily at mealtime potassium citrate (UROCIT-K) 15 mEq TbER Indications: Renal cell carcinoma, unspecified laterality (HCC) Take 1 (one) tablet (15 mEq total) by mouth 3 (three) times a day with meals . 180 tablet 3 04/09/2022 04/04/2023 Active Start: 04-29-2021 End: 04-24-2022 take 1 tablet by mouth twice daily potassium citrate (UROCIT-K) 15 mEq TbER Indications: Renal cell carcinoma, unspecified laterality (HCC) Take 1 (one) tablet (15 mEq total) by mouth 2 (two) times a day . 180 tablet 3 04/29/2021 06/17/2021 Discontinued (Reorder) Start: 04-22-2021 End: 04-26-2021 take 1 tablet by mouth twice daily potassium citrate (UROCIT-K) 15 mEq TbER Take 1 (one) tablet (15 mEq total) by mouth 2 (two) times a day . 60 tablet 11 04/22/2021 04/26/2021 Discontinued (Reorder) End: 08-08-2024 potassium citrate 99 mg cap Take by mouth once daily. 08/08/2024 Discontinued Comment on above: Take by mouth once d aily. 2 ml prochlorperazine 5 mg/ml injection (1 source) Phenothiazine Start: 2020 End: 2020 take 5 mg intravenous route every twenty-four hours as needed 5 mg, Intravenous, Once as needed, nausea, Starting 06/11/20 at 1816, For 1 dose, PACU (only) Administ er if ondansetron (Zofran), promethazine (Phenergan), and Metocolopramide (Reglan) ineffective or not ordered, or as directed by anesthesia, as needed for nausea/vomiting 10 ml propofol 10 mg/ml injection (2 sources) General Anesthetic Start: 2020 End: 2020 propofoL (DIPRIVAN) injection 72 hr scopolamine 0.0139 mg/hr transdermal system (1 source) Anticholinergic Start: 2020 End: 2020 scopolamine (TRANSDERM-SCOP) 1 mg over 3 days patch 1 patch 1000 ml sodium chloride 9 mg/ml injection (3 sources) Start: 2020 End: 2020 sodium chloride 0.9% (NS) Start: 05-27-2020 End: 05-27-2020 75 mL/hr, Intravenous, Catie nuous, Starting 05/27/20 at 0600, For 16 hours 125 mL/hr for 2 Liters, then convert to saline lock tamsulosin hydrochloride 0.4 mg oral capsule (6 sources) alpha-Adrenergic Elaz Start: 06-04-2020 End: 07-02-2020 take 1 capsule by mouth at bedtime tamsulosin (FLOMAX) 0.4 mg capsule Take 1 (one) capsule (0.4 mg total) by mouth at bedtime for 21 days . 21 capsule 0 06/04/2020 06/11/2020 Discontinued (Reorder) traMADol hydrochloride 50 mg oral tablet (20 sources) Opioid Agonist Start: 11-30-2020 End: 12-29-2023 take 1 tablet by mouth every six hours as needed for pain traMADoL (ULTRAM) 50 mg tablet Indications: Renal mass Take 1 (one) tablet (50 mg total) by mouth every 6 (six) hours as needed for pain . 10 tablet 11/30/2020 12/29/2023 Discontinued (Patient's Request) Start: 06-11-2020 End: 11-23-2020 take 1 tablet by mouth every six hours as needed for pain traMADoL (ULTRAM) 50 mg tablet Indications: Nephrolithiasis Take 1 (one) tablet (50 mg total) by mouth every 6 (six) hours as needed for pain . 10 tablet 0 06/11/2020 11/23/2020 Discontinued Problems Active Problems Problem Classification Problem Date Documented Date Episodic/Chronic Cancer of kidney and renal pelvis (20 sources) Renal cell carcinoma; Translations: [Malignant neoplasm of unspecified kidney, except renal pelvis] Onset: 10-09-2020 Chronic Contraceptive and procreative management (5 sources) Oral contraception; Translations: [Encounter for surveillance of contraceptive pills] Episodic Diabetes mellitus with complications (2 sources) Type 2 diabetes mellitus with unspecified complications; Translations: [Type 2 diabetes mellitus with other diabetic kidney complication] Onset: 03-03-2024 Chronic Diabetes mellitus without complication (3 sources) Type 2 diabetes mellitus; Translations: [Type 2 diabetes mellitus without complications] 08-08-2024 Chronic Diseases of white blood cells (1 source) Leukocytosis; Translations: [Elevated white blood cell count, unspecified] Chronic Disorders of lipid metabolism (13 sources) Mixed hyperlipidemia; Translations: [Mixed hyperlipidemia] Onset: 02-06-2021 02-06-2021 Chronic Essential hypertension (1 source) Hypertensive disorder; Translations: [Essential (primary) hypertension] 08-05-2023 Chronic Immunizations and screening for infectious disease (9 sources) Patient encounter status; Translations: [Encounter for screening for human papillomavirus (HPV)] Episodic Menstrual disorders (1 source) Mid-cycle bleeding; Translations: [Ovulation bleeding] 08-05-2023 Chronic Other diseases of kidney and ureters (20 sources) Renal mass; Translations: [Other specified disorders of kidney and ureter] Onset: 10-31-2020 Chronic Other female genital disorders (1 source) Abnormal uterine bleeding; Translations: [Abnormal uterine and vaginal bleeding, unspecified] 08-05-2023 Chronic Other female genital disorders (1 source) Pain in female genitalia on intercourse; Translations: [Unspecified dyspareunia] 08-05-2023 Chronic Other female genital disorders (1 source) Burning sensation of vagina; Translations: [Unspecified condition associated with female genital organs and menstrual cycle] Episodic Other female genital disorders (1 source) Polyp of cervix; Translations: [Polyp of cervix uteri] 08-05-2023 Episodic Other female genital disorders (1 source) Vaginal dryness; Translations: [Other specified noninflammatory disorders of vagina] 08-05-2023 Episodic Other liver diseases (3 sources) Lesion of liver; Translations: [Liver disease, unspecified] 12-08-2023 Chronic Other liver diseases (2 sources) Liver disease, unspecified; Translations: [Liver disease, unspecified] Onset: 12-24-2023 Chronic Other nutritional; endocrine; and metabolic disorders (4 sources) Obesity; Translations: [Obesity, unspecified] Chronic Other nutritional; endocrine; and metabolic disorders (13 sources) Obese class II; Translations: [Obesity, unspecified] Onset: 01-10-2021 01-10-2021 Chronic Other screening for suspected conditions (not mental disorders or infectious disease) (3 sources) Cancer cervix screening status; Translations: [Encounter for screening for malignant neoplasm of cervix] Onset: 08-11-2024 Episodic Other skin disorders (4 sources) Acne; Translations: [Acne, unspecified] Episodic Other skin disorders (1 source) Night sweats; Translations: [Generalized hyperhidrosis] 08-05-2023 Episodic Substance-related disorders (4 sources) Smoker; Translations: [Nicotine dependence, unspecified, uncomplicated] Chronic Unclassified (2 sources) Patient encounter status 08-08-2024 Urinary tract infections (8 sources) Acute urinary tract infection; Translations: [Acute pyelonephritis] Episodic Past or Other Problems Problem Classification Problem Date Documented Da te Episodic/Chronic Calculus of urinary tract (20 sources) Kidney stone; Translations: [Ureteric stone] Onset: 05-21-2020 05-21-2020 Episodic Diabetes mellitus without complication (13 sources) Impaired fasting glycemia; Translations: [Impaired fasting glucose] Onset: 02-06-2021 Resolved: 08-08-2024 02-06-2021 Episodic Results Test Name Value Interpretation Reference Range Facility CT ABDOMEN PELVIS WITH AND W ITHOUT IV CONTRAST ONLYon 12-02-2024 CT ABDOMEN PELVIS WITH AND WITHOUT IV CONTRAST ONLY EXAMINATION: CT ABDOMEN PELVIS WITH AND WITHOUT IV CONTRAST ONLY HISTORY: ORDERING SYSTEM PROVIDED HISTORY: Renal cell carcinoma, unspecified laterality (HCC), TECHNOLOGIST PROVIDED HISTORY: Illness/Other Reason for exam: Kidney cancer, active surveillance, renal cell carcinoma surveillance Encounter Type: Subsequent/Follow-up Additional signs and symptoms: . ORDERING SYSTEM PROVIDED DIAGNOSIS CODES: C64.9 Renal cell carcinoma, unspecified laterality (HCC) COMPARISON: CT abdomen and pelvis 12/04/2023, 10/06/2020. TECHNIQUE: Unenhanced helical imaging of the abdomen. Subsequently following the uneventful administration of 100 mL Isovue-370 IV contrast, helical imaging is repeated at 90 seconds delay through the abdomen and then at 300 seconds through the abdomen and pelvis. Multiplanar reformatted images are submitted. Dose reduction techniques were achieved by using automated exposure control and/or adjustment of mA and/or kV according to patient size and/or use of iterative reconstruction technique. FINDINGS: ABDOMEN: LOWER CHEST: The imaged lung bases are clear. SOLID ORGANS: The spleen, adrenals, pancreas, biliary ducts are within normal limits. No biliary or pancreatic duct dilatation. Cholelithiasis. No findings of cholecystitis. Liver morphology, density, size are normal. No hepatic lesions. The left kidney and ureter are normal. Patient is post partial nephrectomy at the right anteroinferior pole renal cortex with trace residual cortical scarring. No suspicious mass. No perinephric fluid collection. No urinary tract calculi and no hydronephrosis. BOWEL: The stomach, proximal small bowel and imaged portions of the colon are normal in course and caliber. No bowel wall thickening or pneumatosis. MESENTERY AND RETROPERITONEUM: The aorta and IVC are intact. Aortic caliber is normal. The IVC is adequately distended. No free fluid, fluid collection or adenopathy. OSSEOUS STRUCTURES: No acute osseous abnormality. ABDOMINAL WALL AND SOFT TISSUES: No acute abnormality. PELVIS: GENITOURINARY: The distal ureters, urinary bladder, vagina and imaged urethra are all within normal limits. Right ovarian 2.4 x 3.1 cm cyst. (Image 119, series 303). The uterus and left ovary are intact. No distal urinary tract calculi. BOWEL: Distal small bowel, cecum, ascending and distal descending as well as rectosigmoid colon all intact. No bowel wall thickening. Appendix is normal. MESENTERY: No free fluid, fluid collection or adenopathy. VASCULATURE: Pelvic vasculature is patent. OSSEOUS STRUCTURES: No acute osseous abnormality. ABDOMINAL WALL AND SOFT TISSUES: No acute abnormality. No inguinal adenopathy. IMPRESSION: 1. Status post right inferior pole anterior cortex renal mass resection with minimal cortical scarring. No findings of local recurrence. No postsurgical fluid collection. 2. No findings of metastatic disease in the abdomen or pelvis. 3. Cholelithiasis, stable. No findings of cholecystitis. 4. Normal appendix. No adenopathy. [employer] Workstation ID: [id number] Dictated by: ESTRELLA CAO on Sat Dec 03, 2024 4:49:45 AM EDT Transcribed by: KERRY SPENCE on Sat Dec 03, 2024 4:54:50 AM EDT Finalized by: ESTRELLA CAO on Sat Dec 03, 2024 5:57:33 PM EDT [facility] Comment on above: Order Comment: Injur y/Trauma or Illness?:Illness/Other How long have you had these symptoms (acute/chronic)?:Acute Reason for exam?:Kidney cancer, active surveillance, renal cell carcinoma surveillance Type of Exam?:Subsequent/Follow-up Additional signs and symptoms?:. POC CREATININE - Johnny 07-2 Creatinine [Mass/Vol] 0.7 mg/dL Normal 0.4-1.1 [facility] XR CHEST AP/PA AND LATon XR CHEST AP/PA AND LAT EXAMINATION: XR CHEST AP/PA AND LAT 12/02/2024 11:41 am HISTORY: ORDERING SYSTEM PROVIDED HISTORY: Renal cell carcinoma, unspecified laterality (HCC), TECHNOLOGIST PROVIDED HISTORY: Illness/Other Reason for exam: renal cell carcinoma surveillance Cancer History: Unknown Surgery, RadiationHistory: Unknown Encounter Type: Initial Additional signs and symptoms: . ORDERING SYSTEM PROVIDED DIAGNOSIS CODES: C64.9 Renal cell carcinoma, unspecified laterality (HCC) COMPARISON: 12/04/2023 FINDINGS: No focal consolidations or pleural effusions. Cardiomediastinal silhouette is unremarkable. No acute osseous abnormality. IMPRESSION: No acute disease. Workstation ID: [id number] Dictated by: AGUSTIN GRAY on ThuDec 02, 2024 1:03:57 PM EDT Transcribed by: AGUSTIN GRAY on ThuDec 02, 2024 1:03:57 PM EDT Finalized by: AGUSTIN GRAY on ThuDec 02, 2024 1:03:57 PM EDT [facility] Comment on above: Order Comment: Injur y/Trauma or Illness?:Illness/Other How long have you had these symptoms (acute/chronic)?:Acute Reason for exam?:renal cell carcinoma surveillance History of cancer?:Unknown Surgeries, chemotherapy, or radiation?:Unknown Type of Exam?:Initial Additional signs and symptoms?:. Microalb:Creat Ratio,Random URon 11-01-2024 MALB:CREAT 80.6 mg/g CRE Normal [facility] Comment on above: Order Comment: Order Date: 06/15/24 Order Info: [id number] - MIACRE Result Comment: AMENDED REPORT 11/01/24 1039 MALB:CREAT previously reported as: 805.8 mg/g CRE Performed By: #### L [id number], L502.0250, L500.4050 #### [facility] [address] [place], [address] Anion gap in Serum or Plasma Ordered By: Zahra Hendrix on 09-30-2024 Anion gap [Moles/Vol] 11 mmol/L 5-15 [facility] BUN/creatinine ratioOrdered By: Zahra Hendrix on 09-30-2024 Urea nitrogen/Creatinine [Mass ratio] 22.0 mg/mg High 10-20 [facility] Bilirubin, totalOrdered By: Zahra Hendrix on 09-30-2024 Bilirubin [Mass/Vol] 0.64 mg/dL 0.00-1.30 [facility] Carbon dioxide, total [Moles /volume] in Central venous bloodOrdered By: Zahra Hendrix on 09-30-2024 CO2 [Moles/Vol] 21.6 mmol/L 21.0-32.0 [facility] Chloride assayOrdered By: Ana Laura Hendrix on 09-30-2024 Chloride [Moles/Vol] 105 mmol/L 98-108 [facility] Comprehensive Metabolic Prof ilon 09-30-2024 Albumin [Mass/Vol] 4.3 g/dL Normal 3.5-5.0 [facility] Comment on above: Order Comment: Order Date: 06/15/24 Order Info: 0786-1 - CMP Performed By: #### L [id number], L502.0250, L500.4050 #### [facility] [address] [place], [address] Albumin/Globulin [Mass ratio] 1.4 {ratio} Normal 0.9-2.4 [facility] Comment on above: Order Comment: Order Date: 06/15/24 Order Info: 0786-1 - CMP Performed By: #### L [id number], L502.0250, L500.4050 #### [facility] [address] [place], [address] ALK PHOS 58 U/L Normal 35-104 [facility] Comment on above: Order Comment: Order Date: 06/15/24 Order Info: 0786-1 - CMP Performed By: #### L [id number], L502.0250, [id number] #### [facility] [address] [place], [address] ALT [Catalytic activity/Vol] 14 U/L Normal <=34 [facility] Comment on above: Order Comment: Order Date: 06/15/24 Order Info: 0786-1 - CMP Performed By: #### L [id number], L502.0250, L500.4050 #### [facility] [address] [place], [address] AST [Catalytic activity/Vol] 18 U/L Normal <=31 [facility] Comment on above: Order Comment: Order Date: 06/15/24 Order Info: 0786-1 - CMP Performed By: #### L [id number], L502.0250, L500.4050 #### [facility] [address] [place], [address] Bilirubin [Mass/Vol] 0.64 mg/dL Normal 0.00-1.30 [facility] Comment on above: Order Comment: Order Date: 06/15/24 Order Info: 0786-1 - CMP Performed By: #### L [id number], L502.0250, L500.4050 #### [facility] [address] [place], [address] BUN/CRE 22.0 RATIO High 10-20 [facility] Comment on above: Order Comment: Order Date: 06/15/24 Order Info: 0786-1 - CMP Performed By: #### L [id number], L502.0250, L500.4050 #### [facility] [address] [place], [address] Calcium [Mass/Vol] 9.5 mg/dL Normal 7.6-11.0 [facility] Comment on above: Order Comment: Order Date: 06/15/24 Order Info: 0786-1 - CMP Performed By: #### L [id number], L502.0250, L500.4050 #### [facility] [address] [place], [address] Chloride [Moles/Vol] 105 mmol/L Normal 98-108 [facility] Comment on above: Order Comment: Order Date: 06/15/24 Order Info: 0786-1 - CMP Performed By: #### L [id number], L502.0250, L500.4050 #### [facility] [address] [place], [address] CO2 [Moles/Vol] 21.6 mmol/L Normal 21.0-32.0 [facility] Comment on above: Order Comment: Order Date: 06/15/24 Order Info: 0786-1 - CMP Performed By: #### L [id number], L502.0250, [id number] #### [facility] [address] [place], [address] Creatinine [Mass/Vol] 0.89 mg/dL Normal 0.70-1.20 [facility] Comment on above: Order Comment: Order Date: 06/15/24 Order Info: 0786-1 - CMP Performed By: #### L [id number], L502.0250, L500.4050 #### [facility] [address] [place], [address] GAP 11 Normal 5-15 [facility] Comment on above: Order Comment: Order Date: 06/15/24 Order Info: 0786-1 - CMP Performed By: #### L [id number], L502.0250, L500.4050 #### [facility] [address] [place], [address] GFR/1.73 sq M.predicted among non-blacks MDRD (S/P/Bld) [Vol rate/Area] 82 mL/min/{1.73_m2} Normal >60 [facility] Comment on above: Order Comment: Order Date: 06/15/24 Order Info: 0786-1 - CMP Result Comment: mL/m in/1.73m2 CKD-EPI Creatinine Equation (2020) Performed By: #### L [id number], L502.0250, L500.4050 #### [facility] [address] [place], [address] Globulin (S) [Mass/Vol] 3.1 g/dL Normal 2.2-4.2 [facility] Comment on above: Order Comment: Order Date: 06/15/24 Order Info: 0786-1 - CMP Performed By: #### L [id number], L502.0250, L500.4050 #### [facility] [address] [place], [address] Glucose [Mass/Vol] 112 mg/dL High 70-99 [facility] Comment on above: Order Comment: Order Date: 06/15/24 Order Info: 0786-1 - CMP Performed By: #### L [id number], L502.0250, L500.4050 #### [facility] [address] [place], [address] Potassium [Moles/Vol] 4.2 mmol/L Normal 3.3-5.1 [facility] Comment on above: Order Comment: Order Date: 06/15/24 Order Info: 0786-1 - CMP Performed By: #### L 501.9985, L502.0250, [id number] #### [facility] [address] [place], [address] Sodium [Moles/Vol] 138 mmol/L Normal 133-145 [facility] Comment on above: Order Comment: Order Date: 06/15/24 Order Info: 0786-1 - CMP Performed By: #### L [id number], L502.0250, L500.4050 #### [facility] [address] [place], [address] T PROT 7.4 g/dL Normal 5.9-8.4 [facility] Comment on above: Order Comment: Order Date: 06/15/24 Order Info: 0786-1 - CMP Performed By: #### L [id number], L502.0250, [id number] #### [facility] [address] [place], [address] Urea nitrogen [Mass/Vol] 20 mg/dL High 4-19 [facility] Comment on above: Order Comment: Order Date: 06/15/24 Order Info: 0786-1 - CMP Performed By: #### L [id number], L502.0250, L500.4050 #### [facility] [address] [place], [address] Glomerular filtration rate ( GFR) estimation/1.73 sq m using serum, plasma, or whole bOrdered By: Zahra Hendrix on 09-30-2024 GFR/1.73 sq M.predicted among non-blacks MDRD (S/P/Bld) [Vol rate/Area] 82 mL/min/{1.73_m2} >60 [facility] Comment on above: mL/min/1.73m2 CKD-EP I Creatinine Equation (2020) Hemoglobin A1con 09-30-2024 HbA1c (Bld) [Mass fraction] 6.0 % High <=5.6 [facility] Comment on above: Order Comment: Order Date: 06/15/24 Order Info: 4548-4 - A1C Result Comment: Norm al < 5.7 % Prediabetic 5.7 - 6.4 % Diabetic >or= 6.5 % Please note range changes. Performed By: #### L [id number], L502.0250, L500.4050 #### [facility] [address] [place], [address] Hemoglobin A1c percentageOrd ered By: Zahra Hendrix on 09-30-2024 HbA1c (Bld) [Mass fraction] 6.0 % High <5.7 [facility] Comment on above: Normal < 5.7 % Predi abetic 5.7 - 6.4 % Diabetic >or= 6.5 % Please note range changes. Laboratory - Chemistry and C hemistry - challengeOrdered By: Zahra Hendrix on 09-30-2024 AST [Catalytic activity/Vol] 18 U/L <32 [facility] Potassium measurement (mass/ volume)Ordered By: Zahra Hendrix on 09-30-2024 Potassium (Unsp spec) [Mass/Vol] 4.2 mmol/L 3.3-5.1 [facility] Random urine creatinine [place] urement (mass/volume)Ordered By: Zahra Hendrix on 09-30-2024 Creatinine Unsp time (U) [Mass/Vol] 61.80 mg/dL 28.00-217.00 [facility] Serum creatinine measurement (mass/volume)Ordered By: Zahra Hendrix on 09-30-2024 Creatinine [Mass/Vol] 0.89 mg/dL 0.70-1.20 [facility] Serum globulin measurementOr dered By: Zahra Hendrix on 09-30-2024 Globulin (S) [Mass/Vol] 3.1 g/dL 2.2-4.2 [facility] Serum glucose measurement (m ass/volume)Ordered By: Zahra Hendrix on 09-30-2024 Glucose [Mass/Vol] 112 mg/dL High 70-99 [facility] Serum or plasma alanine meneses otransferase (ALT) measurementOrdered By: Zahra Hendrix on 09-30-2024 ALT [Catalytic activity/Vol] 14 U/L <35 [facility] Serum or plasma albumin [place] urement (mass/volume)Ordered By: Zahra Hendrix on 09-30-2024 Albumin [Mass/Vol] 4.3 g/dL 3.5-5.0 [facility] Serum or plasma albumin/glob ulin mass ratioOrdered By: Zahra Hendrix on 09-30-2024 Albumin/Globulin [Mass ratio] 1.4 {ratio} 0.9-2.4 [facility] Serum or plasma alkaline anali sphatase measurementOrdered By: Zahra Hendrix on 09-30-2024 ALP [Catalytic activity/Vol] 58 U/L 35-104 [facility] Serum or plasma calcium [place] urement (mass/volume)Ordered By: Zahra Hendrix on 09-30-2024 Calcium [Mass/Vol] 9.5 mg/dL 7.6-11.0 [facility] Serum or plasma urea nitroge n measurement (mass/volume)Ordered By: Zahra Hendrix on 09-30-2024 Urea nitrogen [Mass/Vol] 20 mg/dL High 4-19 [facility] Sodium levelOrdered By: Zahra Hendrix on 09-30-2024 Sodium [Moles/Vol] 138 mmol/L 133-145 [facility] Total proteinOrdered By: Joseph Hendrix on 09-30-2024 Protein [Mass/Vol] 7.4 g/dL 5.9-8.4 [facility] Urine albumin measurement [facility] detection limit of 20 mg/L or less (mass/volume)Ordered By: Zahra Hendrix on 09-30-2024 Albumin DL <= 20 mg/L (U) [Mass/Vol] 49.8 mg/L NO RANGE EST. [facility] DEJUAN SCREENING W TOMOon 08-11 DEJUAN SCREENING W TIKI * * *Final Report* * * DATE OF EXAM: Aug 11 2024 8:16AM [facility] 0582 - DEJUAN SCREENING W TIKI / PROCEDURE REASON: Encounter for screening mammogram for breast cancer * * * * Physician Interpretation * * * * RESULT: [address] [place] [address] #[id number] - DEJUAN SCREENING W TIKI HISTORY: 44 year-old patient seen for screening. Patient is asymptomatic in both breasts. Patient states no personal history of breast cancer. The patient has a family history of breast cancer. COMPARISON STUDIES: The present examination has been compared to prior imaging studies dated 10/15/2020 (mammogram), 10/16/2021 (mammogram) and 08/06/2023 (mammogram). MAMMOGRAM TECHNIQUE: The study was acquired using full field digital technology and interpreted from soft copy. Digital Breast Tomosynthesis (DBT) images were obtained and used to assist in the interpretation of this examination. MAMMOGRAM FINDINGS: The breasts are almost entirely fatty. No suspicious masses, calcifications or other abnormalities are seen in either breast. There are no significant interval changes. IMPRESSION: There is no mammographic evidence of malignancy in either breast. Routine screening mammogram is recommended. Annual mammogram will be due in 1 year. BI-RADS Category 1: Negative RISK: Based on the Tyrer-Cuzick (TC) risk assessment model, this patient has a 4.8% lifetime risk of developing breast cancer, meaning they are at average risk for developing breast cancer. However, this is only an estimate based on available history provided on the patient's questionnaire. We encourage all patients to talk with their providers about these results, further recommendations for managing breast health, and appropriate supplemental screening options if the patient has dense breast tissue. Interpreting Radiologist: Jessi Nunez M.D. Electronically signed on: 08/13/2024 Kiln Worker: [email or web address] Transcribe Date/Time: Aug 11 2024 8:05A Dictated by: JESSI NUNEZ MD This examination was interpreted and the report reviewed and electronically signed by: JESSI NUNEZ MD on Aug 13 2024 5:53AM EST [id number] Normal [facility] CNOVon 08-08-2024 CNOV Office Visit (OBGYWM ) CLARYGISELE Javier ([id number]) 1980 F Date Time Provider Department 08/08/24 9:00 AM LORETO PERALTA OBGYWM During your visit today, we recorded the following information about you: Blood pressure Weight Height Last Period 128/66 77.7 kg 1.483 m 07/05/24 Loreto Peralta APRN.WET END TESTER 08/08/2024 9:37 AM Signed 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 Gisele is a 44 year old who presents for an annual gynecologic exam without complaints. Still get period: Yes, 0326/2025 cycles 28 days with 1-3 of flow. Menses: cycles every 28 days and 1-3 days of flow. Contraception: progesterone only HPV vaccine: No Last Pap: 07/2023 normal HPV: 07/2023 negative History of abnormal pap: Yes ASCUS 2016 Last mammogram: 2023 normal Sexually active: Yes OB History Gravida0 Para0 Term0 Preterm0 AB0 Living0 SAB0 IAB0 Ectopic0 Multiple0 Live Births0 Internal Medicine Nurse History LMP: 07/05/2024, Having periods Age at Menarche: 13 Age at First : Age at Menopause: Internal Medicine Nurse History Comments: Sexual Activity: Yes; Male; levlen Contraception: Pill Menstrual Tracking History Flowsheet Row Office Visit from 08/08/2024 in OB/Gynecology Period Cycle (Days) 28 Period Duration (Days) 4 Menstrual Flow Light PAST MEDICAL HISTORY Diagnosis Date Calculus of kidney 05/27/2020 Uric acid Diabetes type 2, controlled (HCC) Pt reported August 2023 Hyperlipidemia, mixed 02/06/2021 Impaired fasting glucose 02/06/2021 Obesity, Class II, BMI 35-39.9 01/10/2021 Papillary renal cell carcinoma (HCC) 10/[address] Hussain Pa, Urology. Pyelonephritis 05/27/2020 Right UPJ stone PAST SURGICAL HISTORY Procedure Laterality Date CYSTOSCOPY, URETERAL STENT CHANGE/INSERTION 05/27/2020 CYSTOSCOPY,URETEROSCOP Y,LITHOTRIPSY Right 06/11/2020 LAPAROSC PARTIAL NEPHRECTOMY Right 11/30/2020 MYRINGOTOMY ASPIRAND/EUSTACHIAN TUBE NFLTJ ANES Myringotomy/tubes PAST SURGICAL HISTORY OF herniorrhaphy PAST SURGICAL HISTORY OF BOIL REMOVES FROM TAILBONE AREA TONSILLECTOMY PRIMARY/SECONDARY FAMILY HISTORY Problem Relation Age of Onset Diabetes Mother Hypertension Mother Kidney failure Mother other (pulmonary hypertension) Mother Diabetes Father No Known Problems Sister Hypertension Maternal Grandmother Diabetes Maternal Grandmother borderline Colon Cancer Maternal Grandfather Hypertension Maternal Grandfather Cancer Other uterine cancer Heart Other heart attack SOCIAL HISTORY Social History Tobacco Use Smoking status: Former Current packs/day: 0.00 Average packs/day: 1 pack/day for 10.8 years (10.8 ttl pk-yrs) Types: Cigarettes Start date: 05/11/1989 Quit date: 03/03/2000 Years since quittin.4 Smokeless tobacco: Never Vaping Use Vaping status: Never Used Substance Use Topics Alcohol use: Not Currently Drug use: Not Currently Types: Marijuana REVIEW OF SYSTEMS Abdomen: No abdominal pain, nausea, vomiting, diarrhea, or constipation. No bloating, early satiety, indigestion, or increased flatulence. Bladder: No dysuria, gross hematuria, urinary frequency, urinary urgency, or incontinence. Breast: No breast lumps, nipple d/c, overlying skin changes, redness or skin retraction. Allergies and current medication updated:Yes SENSITIVE EXAM: The sensitive examination was discussed with the Patient or Patient's Authorized Furnace Tapper. As applicable, any other physician, advance practice provider, medical student, or other health professional student that will be observing or involved in the sensitive examination for educational or training purposes was discussed with the Patient or Authorized Furnace Tapper. The Patient or Authorized Furnace Tapper has agreed to proceed with the sensitive examination. (Sensitive examination includes inspection and/or palpation of the breasts, pelvis, prostate and anorectal regions). EXAM: BP 128/66 Ht 4' 10.386 (1.48m) Wt 171 lb 3.2 oz (77.7kg) LMP 07/05/2024 BMI 35.31 kg/(m2). GENERAL: pleasant, female in no apparent distress HEENT: Normocephalic, atraumatic, mucus membranes moist, and no lesions DERMATOLOGY: Normal, without lesions, non-icteric, and non-hirsute BREAST: soft, non-tender, symmetric, no dominant mass, normal nipple-areolar complex, no lymphadenopathy, and no nipple discharge CHEST: Normal inspiratory effort ABDOMEN: soft, non-tender, and no masses PELVIC: external genitalia normal, normal Bartholin's glands, urethra, Braymer's glands, no vulvar lesions, no cervical lesions, physiologic discharge present, normal appearing perineal body and perianal region BIMANUAL: uterus normal size, shape and consistency, no adnexal masses, and non-tender RECTOVAGINAL: deferred. NEURO: alert and oriented x3,exam grossly non-focal EXTREMITIES: normal ASSESSMENT/PLAN: 1) Health maintenance: Pap/HPV up t (more content not included)... Normal [facility] CBC W/Diff, Automatedon 05-12 Absolute Lymph 3.07 X10 3/uL Normal 0.83-4.51 [facility] Comment on above: Order Comment: Order Date: 09/18/23 Order Info: 0779-1 - MIACRE Performed By: #### L 500.4050, L502.0250, L500.4100, L100.0100, L501.9985 #### [facility] [address] [place], [address] Absolute Neut 6.5 X10 3/uL Normal 2.0-7.7 [facility] Comment on above: Order Comment: Order Date: 09/18/23 Order Info: 0779-1 - MIACRE Performed By: #### L 500.4050, L502.0250, L500.4100, L100.0100, L501.9985 #### [facility] [address] [place], [address] Basophils/100 WBC (Bld) 0.3 % Normal 0-1 [facility] Comment on above: Order Comment: Order Date: 09/18/23 Order Info: 0779-1 - MIACRE Performed By: #### L 500.4050, L502.0250, L500.4100, L100.0100, L501.9985 #### [facility] [address] [place], [address] Eosinophils/100 WBC (Bld) 1.9 % Normal 0-5 [facility] Comment on above: Order Comment: Order Date: 09/18/23 Order Info: 0779-1 - MIACRE Performed By: #### L 500.4050, L502.0250, L500.4100, L100.0100, L501.9985 #### [facility] [address] [place], [address] Erythrocyte distribution width (RBC) [Ratio] 13.1 % Normal 11.6-14.6 [facility] Comment on above: Order Comment: Order Date: 09/18/23 Order Info: 0779-1 - MIACRE Performed By: #### L 500.4050, L502.0250, L500.4100, L100.0100, L501.9985 #### [facility] [address] [place], [address] Hematocrit (Bld) [Volume fraction] 41.5 % Normal 37-47 [facility] Comment on above: Order Comment: Order Date: 09/18/23 Order Info: 0779-1 - MIACRE Performed By: #### L 500.4050, L502.0250, L500.4100, L100.0100, L501.9985 #### [facility] [address] [place], [address] Hemoglobin (Bld) [Mass/Vol] 13.3 g/dL Normal 12.0-15.0 [facility] Comment on above: Order Comment: Order Date: 09/18/23 Order Info: 0779-1 - MIACRE Performed By: #### L 500.4050, L502.0250, L500.4100, L100.0100, L501.9985 #### [facility] [address] [place], [address] IG% 0.400 Normal 0.0-0.9 [facility] Comment on above: Order Comment: Order Date: 09/18/23 Order Info: 0779-1 - MIACRE Result Comment: IG% - Immature Granulocytes (promyelocytes, myelocytes and metamyelocytes) > 1% indicates that a LEFT SHIFT is Present. Performed By: #### L 500.4050, L502.0250, L500.4100, L100.0100, L501.9985 #### [facility] [address] [place], [address] Lymphocytes/100 WBC (Bld) 29.3 % Normal 19-41 [facility] Comment on above: Order Comment: Order Date: 09/18/23 Order Info: 0779-1 - MIACRE Performed By: #### L 500.4050, L502.0250, L500.4100, L100.0100, L501.9985 #### [facility] [address] [place], [address] MCH (RBC) [Entitic mass] 25.5 pg Low 27.0-32.0 [facility] Comment on above: Order Comment: Order Date: 09/18/23 Order Info: 0779-1 - MIACRE Performed By: #### L 500.4050, L502.0250, L500.4100, L100.0100, L501.9985 #### [facility] [address] [place], [address] MCHC (RBC) [Mass/Vol] 32.0 g/dL Normal 32-36 [facility] Comment on above: Order Comment: Order Date: 09/18/23 Order Info: 0779-1 - MIACRE Performed By: #### L 500.4050, L502.0250, L500.4100, L100.0100, L501.9985 #### [facility] [address] [place], [address] MCV (RBC) [Entitic vol] 79.5 fL Low 81-99 [facility] Comment on above: Order Comment: Order Date: 09/18/23 Order Info: 0779-1 - MIACRE Performed By: #### L 500.4050, L502.0250, L500.4100, L100.0100, L501.9985 #### [facility] [address] [place], [address] Monocytes/100 WBC (Bld) 6.2 % Normal 0-10 [facility] Comment on above: Order Comment: Order Date: 09/18/23 Order Info: 0779-1 - MIACRE Performed By: #### L 500.4050, L502.0250, L500.4100, L100.0100, L501.9985 #### [facility] [address] [place], [address] Neutrophils/100 WBC (Bld) 61.9 % Normal 47-70 [facility] Comment on above: Order Comment: Order Date: 09/18/23 Order Info: 0779-1 - MIACRE Performed By: #### L 500.4050, L502.0250, L500.4100, L100.0100, L501.9985 #### [facility] [address] [place], [address] Nucleated RBC (Bld) [#/Vol] 0 10*3/uL Normal 0-5 [facility] Comment on above: Order Comment: Order Date: 09/18/23 Order Info: 0779-1 - MIACRE Performed By: #### L 500.4050, L502.0250, L500.4100, L100.0100, L501.9985 #### [facility] [address] [place], [address] Platelet mean volume (Bld) [Entitic vol] 10.2 fL Normal 6.2-12.0 [facility] Comment on above: Order Comment: Order Date: 09/18/23 Order Info: 0779-1 - MIACRE Performed By: #### L 500.4050, L502.0250, L500.4100, L100.0100, L501.9985 #### [facility] [address] [place], [address] Platelets (Bld) [#/Vol] 283 10*3/uL Normal 150-450 [facility] Comment on above: Order Comment: Order Date: 09/18/23 Order Info: 0779-1 - MIACRE Performed By: #### L 500.4050, L502.0250, L500.4100, L100.0100, L501.9985 #### [facility] [address] [place], [address] RBC (Bld) [#/Vol] 5.22 10*6/uL Normal 4.2-5.4 [facility] Comment on above: Order Comment: Order Date: 09/18/23 Order Info: 0779-1 - MIACRE Performed By: #### L 500.4050, L502.0250, L500.4100, L100.0100, L501.9985 #### [facility] [address] [place], [address] RDW SD 37.2 fl Normal 35.1-43.9 [facility] Comment on above: Order Comment: Order Date: 09/18/23 Order Info: 0779-1 - MIACRE Performed By: #### L 500.4050, L502.0250, L500.4100, L100.0100, L501.9985 #### [facility] [address] [place], [address] WBC (Bld) [#/Vol] 10.5 10*3/uL Normal 4.4-11.0 [facility] Comment on above: Order Comment: Order Date: 09/18/23 Order Info: 0779-1 - MIACRE Performed By: #### L 500.4050, L502.0250, L500.4100, L100.0100, L501.9985 #### [facility] [address] [place], [address] Comprehensive Metabolic Prof ilon 06-08-2024 Albumin [Mass/Vol] 3.9 g/dL Normal 3.2-5.0 [facility] Comment on above: Order Comment: Order Date: 09/18/23 Order Info: 0779-1 - MIACRE Performed By: #### L 500.4050, L502.0250, L500.4100, L100.0100, L501.9985 #### [facility] [address] [place], [address] Albumin/Globulin [Mass ratio] 1.0 {ratio} Normal 0.9-2.4 [facility] Comment on above: Order Comment: Order Date: 09/18/23 Order Info: 0779-1 - MIACRE Performed By: #### L 500.4050, L502.0250, L500.4100, L100.0100, L501.9985 #### [facility] [address] [place], [address] ALK P 51 U/L Normal 45-117 [facility] Comment on above: Order Comment: Order Date: 09/18/23 Order Info: 0779-1 - MIACRE Performed By: #### L 500.4050, L502.0250, L500.4100, L100.0100, L501.9985 #### [facility] [address] [place], [address] ALT [Catalytic activity/Vol] 23 U/L Normal 13-56 [facility] Comment on above: Order Comment: Order Date: 09/18/23 Order Info: 0779-1 - MIACRE Performed By: #### L 500.4050, L502.0250, L500.4100, L100.0100, L501.9985 #### [facility] [address] [place], [address] AST [Catalytic activity/Vol] 11 U/L Low 15-37 [facility] Comment on above: Order Comment: Order Date: 09/18/23 Order Info: 0779-1 - MIACRE Performed By: #### L 500.4050, L502.0250, L500.4100, L100.0100, L501.9985 #### [facility] [address] [place], [address] Bilirubin [Mass/Vol] 1.10 mg/dL High 0.20-1.00 [facility] Comment on above: Order Comment: Order Date: 09/18/23 Order Info: 0779-1 - MIACRE Result Comment: For patients on eltrombopag therapy, use of Dimension [place] TBIL is not recommended. Performed By: #### L 500.4050, L502.0250, L500.4100, L100.0100, L501.9985 #### [facility] [address] [place], [address] BUN/CRE 24.8 RATIO High 10-20 [facility] Comment on above: Order Comment: Order Date: 09/18/23 Order Info: 0779-1 - MIACRE Performed By: #### L 500.4050, L502.0250, L500.4100, L100.0100, L501.9985 #### [facility] [address] [place], [address] CA,Total 9.5 mg/dL Normal 8.5-10.1 [facility] Comment on above: Order Comment: Order Date: 09/18/23 Order Info: 0779-1 - MIACRE Performed By: #### L 500.4050, L502.0250, L500.4100, L100.0100, L501.9985 #### [facility] [address] [place], [address] Chloride [Moles/Vol] 104 mmol/L Normal 98-107 [facility] Comment on above: Order Comment: Order Date: 09/18/23 Order Info: 0779-1 - MIACRE Performed By: #### L 500.4050, L502.0250, L500.4100, L100.0100, L501.9985 #### [facility] [address] [place], [address] CO2 [Moles/Vol] 25.0 mmol/L Normal 21.0-32.0 [facility] Comment on above: Order Comment: Order Date: 09/18/23 Order Info: 0779-1 - MIACRE Performed By: #### L 500.4050, L502.0250, L500.4100, L100.0100, L501.9985 #### [facility] [address] [place], [address] Creatinine [Mass/Vol] 0.60 mg/dL Normal 0.55-1.02 [facility] Comment on above: Order Comment: Order Date: 09/18/23 Order Info: 0779-1 - MIACRE Result Comment: The validity of the calculated GFR GFRAA in patients over 70 years has not been determined. Clinical correlation is essential. Performed By: #### L 500.4050, L502.0250, L500.4100, L100.0100, L501.9985 #### [facility] [address] [place], [address] EST GFR - AA 138 mL/min Normal >60 [facility] Comment on above: Order Comment: Order Date: 09/18/23 Order Info: 0779-1 - MIACRE Result Comment: Afri can Eritrean GFR Calc Performed By: #### L 500.4050, L502.0250, L500.4100, L100.0100, L501.9985 #### [facility] [address] [place], [address] GAP 8 Normal 5-15 [facility] Comment on above: Order Comment: Order Date: 09/18/23 Order Info: 0779-1 - MIACRE Performed By: #### L 500.4050, L502.0250, L500.4100, L100.0100, L501.9985 #### [facility] [address] [place], [address] GFR/1.73 sq M.predicted among non-blacks MDRD (S/P/Bld) [Vol rate/Area] 114 mL/min/{1.73_m2} Normal >60 [facility] Comment on above: Order Comment: Order Date: 09/18/23 Order Info: 0779-1 - MIACRE Result Comment: Non- GFR Calc Performed By: #### L 500.4050, L502.0250, L500.4100, L100.0100, L501.9985 #### [facility] [address] [place], [address] Globulin (S) [Mass/Vol] 4.1 g/dL Normal 2.2-4.2 [facility] Comment on above: Order Comment: Order Date: 09/18/23 Order Info: 0779-1 - MIACRE Performed By: #### L 500.4050, L502.0250, L500.4100, L100.0100, L501.9985 #### [facility] [address] [place], [address] Glucose [Mass/Vol] 103 mg/dL Normal 74-106 [facility] Comment on above: Order Comment: Order Date: 09/18/23 Order Info: 0779-1 - MIACRE Result Comment: Fast ing Glucose result from 100 to 125 mg/dL suggests IMPAIRED HOMEOSTASIS per A.D.A. criteria. Performed By: #### L 500.4050, L502.0250, L500.4100, L100.0100, L501.9985 #### [facility] [address] [place], [address] Potassium [Moles/Vol] 4.1 mmol/L Normal 3.5-5.1 [facility] Comment on above: Order Comment: Order Date: 09/18/23 Order Info: 0779-1 - MIACRE Performed By: #### L 500.4050, L502.0250, L500.4100, L100.0100, L501.9985 #### [facility] [address] [place], [address] Sodium [Moles/Vol] 137 mmol/L Normal 136-145 [facility] Comment on above: Order Comment: Order Date: 09/18/23 Order Info: 0779-1 - MIACRE Performed By: #### L 500.4050, L502.0250, L500.4100, L100.0100, L501.9985 #### [facility] [address] [place], [address] T PROT 8.0 g/dL Normal 6.4-8.2 [facility] Comment on above: Order Comment: Order Date: 09/18/23 Order Info: 0779-1 - MIACRE Performed By: #### L 500.4050, L502.0250, L500.4100, L100.0100, L501.9985 #### [facility] [address] [place], [address] Urea nitrogen [Mass/Vol] 15 mg/dL Normal 7-18 [facility] Comment on above: Order Comment: Order Date: 09/18/23 Order Info: 0779-1 - MIACRE Performed By: #### L 500.4050, L502.0250, L500.4100, L100.0100, L501.9985 #### [facility] [address] [place], [address] Hemoglobin A1con 06-08-2024 HbA1c (Bld) [Mass fraction] 6.1 % High 3.8-5.6 [facility] Comment on above: Order Comment: Order Date: 09/18/23 Order Info: 0779-1 - MIACRE Result Comment: Norm al < 5.7 % Prediabetic 5.7 - 6.4 % Diabetic >or= 6.5 % Please note range changes. Performed By: #### L 500.4050, L502.0250, L500.4100, L100.0100, L501.9985 #### [facility] [address] [place], [address] Lipid Profileon 06-08-2024 Cholesterol [Mass/Vol] 120 mg/dL Normal [address] [facility] Comment on above: Order Comment: Order Date: 09/18/23 Order Info: 0779-1 - MIACRE Result Comment: <200 mg/dL Desirable 200-240 mg/dL Borderline >240 mg/dL High Risk Performed By: #### L 500.4050, L502.0250, L500.4100, L100.0100, L501.9985 #### [facility] [address] [place], [address] Cholesterol in HDL [Mass/Vol] 53 mg/dL Normal [facility] Comment on above: Order Comment: Order Date: 09/18/23 Order Info: 0779-1 - MIACRE Result Comment: The drugs N-Acetylcysteine and Metamizole may falsely depress this assay. Reference Range HDL <40 mg/dL Low HDL Cholesterol HDL >or= 60 mg/dL High HDL Cholesterol Performed By: #### L 500.4050, L502.0250, L500.4100, L100.0100, L501.9985 #### [facility] [address] [place], [address] Cholesterol in LDL [Mass/Vol] 51 mg/dL Normal 0-130 [facility] Comment on above: Order Comment: Order Date: 09/18/23 Order Info: 0779-1 - MIACRE Performed By: #### L 500.4050, L502.0250, L500.4100, L100.0100, L501.9985 #### [facility] [address] [place], [address] Cholesterol in VLDL [Mass/Vol] 16 mg/dL Normal 5-40 [facility] Comment on above: Order Comment: Order Date: 09/18/23 Order Info: 0779-1 - MIACRE Performed By: #### L 500.4050, L502.0250, L500.4100, L100.0100, L501.9985 #### [facility] [address] [place], [address] Triglyceride [Mass/Vol] 81 mg/dL Normal [facility] Comment on above: Order Comment: Order Date: 09/18/23 Order Info: 0779-1 - MIACRE Result Comment: The drugs N-Acetylcysteine and Metamizole may falsely depress this assay. Serum Triglycerides Reference Interval Normal <150 mg/dL Borderline high 150 - 199 mg/dL High 200 - 499 mg/dL Very High > or = 500 mg/dL Performed By: #### L 500.4050, L502.0250, L500.4100, L100.0100, L501.9985 #### [facility] [address] [place], [place], [address] Microalb:Creat Ratio,Random URon 06-08-2024 Creatinine [Mass/Vol] 23.80 mg/dL Normal NO RANGE EST. [facility] Comment on above: Order Comment: Order Date: 09/18/23 Order Info: 0779-1 - MIACRE Performed By: #### L 500.4050, L502.0250, L500.4100, L100.0100, L501.9985 #### [facility] [address] [place], [address] MALB:CRE 85.7 mg/g CRE High <30 mg/g CRE [facility] Comment on above: Order Comment: Order Date: 09/18/23 Order Info: 0779-1 - MIACRE Performed By: #### L 500.4050, L502.0250, L500.4100, L100.0100, L501.9985 #### [facility] [address] [place], [address] MICROALBUMIN,UR 20.4 mg/L Normal NO RANGE EST. [facility] Comment on above: Order Comment: Order Date: 09/18/23 Order Info: 0779-1 - MIACRE Performed By: #### L 500.4050, L502.0250, L500.4100, L100.0100, L501.9985 #### [facility] [address] [place], [address] Urinalysis, Completeon 06-08 EPI,SQUAMOUS 0-5 SEEN Normal 5-10 [facility] Comment on above: Order Comment: Order Date: 09/18/23 Order Info: 0779-1 - MIACRE Performed By: #### L 500.4050, L502.0250, L500.4100, L100.0100, L501.9985 #### [facility] [address] [place], [address] BACTERIA 0 SEEN Normal None Seen [facility] Comment on above: Order Comment: Order Date: 09/18/23 Order Info: 0779-1 - MIACRE Performed By: #### L 500.4050, L502.0250, L500.4100, L100.0100, L501.9985 #### [facility] [address] [place], [address] Mucus Ql (Urine sed) 0 SEEN Normal [facility] Comment on above: Order Comment: Order Date: 09/18/23 Order Info: 0779-1 - MIACRE Performed By: #### L 500.4050, L502.0250, L500.4100, L100.0100, L501.9985 #### [facility] [address] [place], [address] RBC 0 SEEN Normal 0-5 [facility] Comment on above: Order Comment: Order Date: 09/18/23 Order Info: 0779-1 - MIACRE Performed By: #### L 500.4050, L502.0250, L500.4100, L100.0100, L501.9985 #### [facility] [address] [place], [address] WBC 0 SEEN Normal 0-5 [facility] Comment on above: Order Comment: Order Date: 09/18/23 Order Info: 0779-1 - MIACRE Performed By: #### L 500.4050, L502.0250, L500.4100, L100.0100, L501.9985 #### [facility] [address] [place], [address] CBC W/Diff, Automatedon - Absolute Lymph 2.70 X10 3/uL Normal 0.83-4.51 [facility] Comment on above: Order Comment: Order Date: 11/19/23 Order Info: 0184-1 - CBCD Performed By: #### L 500.4100, L501.9985, L502.0250, L100.0100, L500.4050 #### [facility] [address] [place], [address] Absolute Neut 5.7 X10 3/uL Normal 2.0-7.7 [facility] Comment on above: Order Comment: Order Date: 11/19/23 Order Info: 0184-1 - CBCD Performed By: #### L 500.4100, L501.9985, L502.0250, L100.0100, L500.4050 #### [facility] [address] [place], [address] Basophils/100 WBC (Bld) 0.2 % Normal 0-1 [facility] Comment on above: Order Comment: Order Date: 11/19/23 Order Info: 018-1 - CBCD Performed By: #### L 500.4100, L501.9985, L502.0250, L100.0100, L500.4050 #### [facility] [address] [place], [address] Eosinophils/100 WBC (Bld) 2.2 % Normal 0-5 [facility] Comment on above: Order Comment: Order Date: 11/19/23 Order Info: 0184-1 - CBCD Performed By: #### L 500.4100, L501.9985, L502.0250, L100.0100, L500.4050 #### [facility] [address] [place], [address] Erythrocyte distribution width (RBC) [Ratio] 14.1 % Normal 11.6-14.6 [facility] Comment on above: Order Comment: Order Date: 11/19/23 Order Info: 0184-1 - CBCD Performed By: #### L 500.4100, L501.9985, L502.0250, L100.0100, L500.4050 #### [facility] [address] [place], [address] Hematocrit (Bld) [Volume fraction] 42.9 % Normal 37-47 [facility] Comment on above: Order Comment: Order Date: 11/19/23 Order Info: 0184-1 - CBCD Performed By: #### L 500.4100, L501.9985, L502.0250, L100.0100, L500.4050 #### [facility] [address] [place], [address] Hemoglobin (Bld) [Mass/Vol] 13.5 g/dL Normal 12.0-15.0 [facility] Comment on above: Order Comment: Order Date: 11/19/23 Order Info: 0184-1 - CBCD Performed By: #### L 500.4100, L501.9985, L502.0250, L100.0100, L500.4050 #### [facility] [address] [place], [address] IG% 0.300 Normal 0.0-0.9 [facility] Comment on above: Order Comment: Order Date: 11/19/23 Order Info: 0184-1 - CBCD Result Comment: IG% - Immature Granulocytes (promyelocytes, myelocytes and metamyelocytes) > 1% indicates that a LEFT SHIFT is Present. Performed By: #### L 500.4100, L501.9985, L502.0250, L100.0100, L500.4050 #### [facility] [address] [place], [address] Lymphocytes/100 WBC (Bld) 29.4 % Normal 19-41 [facility] Comment on above: Order Comment: Order Date: 11/19/23 Order Info: 0184-1 - CBCD Performed By: #### L 500.4100, L501.9985, L502.0250, L100.0100, L500.4050 #### [facility] [address] [place], [address] MCH (RBC) [Entitic mass] 25.1 pg Low 27.0-32.0 [facility] Comment on above: Order Comment: Order Date: 11/19/23 Order Info: 0184-1 - CBCD Performed By: #### L 500.4100, L501.9985, L502.0250, L100.0100, L500.4050 #### [facility] [address] [place], [address] MCHC (RBC) [Mass/Vol] 31.5 g/dL Low 32-36 [facility] Comment on above: Order Comment: Order Date: 11/19/23 Order Info: 0184-1 - CBCD Performed By: #### L 500.4100, L501.9985, L502.0250, L100.0100, L500.4050 #### [facility] [address] [place], [address] MCV (RBC) [Entitic vol] 79.9 fL Low 81-99 [facility] Comment on above: Order Comment: Order Date: 11/19/23 Order Info: 0184-1 - CBCD Performed By: #### L 500.4100, L501.9985, L502.0250, L100.0100, L500.4050 #### [facility] [address] [place], [address] Monocytes/100 WBC (Bld) 6.4 % Normal 0-10 [facility] Comment on above: Order Comment: Order Date: 11/19/23 Order Info: 0184-1 - CBCD Performed By: #### L 500.4100, L501.9985, L502.0250, L100.0100, L500.4050 #### [facility] [address] [place], [address] Neutrophils/100 WBC (Bld) 61.5 % Normal 47-70 [facility] Comment on above: Order Comment: Order Date: 11/19/23 Order Info: 0184-1 - CBCD Performed By: #### L 500.4100, L501.9985, L502.0250, L100.0100, L500.4050 #### [facility] [address] [place], [address] Nucleated RBC (Bld) [#/Vol] 0 10*3/uL Normal 0-5 [facility] Comment on above: Order Comment: Order Date: 11/19/23 Order Info: 0184-1 - CBCD Performed By: #### L 500.4100, L501.9985, L502.0250, L100.0100, L500.4050 #### [facility] [address], [address] Platelet mean volume (Bld) [Entitic vol] 10.9 fL Normal 6.2-12.0 [facility] Comment on above: Order Comment: Order Date: 11/19/23 Order Info: 0184- - CBCD Performed By: #### L 500.4100, L501.9985, L502.0250, L100.0100, L500.4050 #### [facility] [address], [address] Platelets (Bld) [#/Vol] 293 10*3/uL Normal 150-450 [facility] Comment on above: Order Comment: Order Date: 11/19/23 Order Info: 0184-1 - CBCD Performed By: #### L 500.4100, L501.9985, L502.0250, L100.0100, L500.4050 #### [facility] [address], [address] RBC (Bld) [#/Vol] 5.37 10*6/uL Normal 4.2-5.4 [facility] Comment on above: Order Comment: Order Date: 11/19/23 Order Info: 0184-1 - CBCD Performed By: #### L 500.4100, L501.9985, L502.0250, L100.0100, L500.4050 #### [facility] [address] [place], [place], [id number] [phone] RDW SD 40.7 fl Normal 35.1-43.9 [facility] Comment on above: Order Comment: Order Date: 11/19/23 Order Info: 0184-1 - CBCD Performed By: #### L 500.4100, L501.9985, L502.0250, L100.0100, L500.4050 #### [facility] [address] [place], [address] WBC (Bld) [#/Vol] 9.2 10*3/uL Normal 4.4-11.0 [facility] Comment on above: Order Comment: Order Date: 11/19/23 Order Info: 0184-1 - CBCD Performed By: #### L 500.4100, L501.9985, L502.0250, L100.0100, L500.4050 #### [facility] [address] [place], [place], [id number] Comprehensive Metabolic Prof ilon 02-03-2024 Albumin [Mass/Vol] 3.9 g/dL Normal 3.2-5.0 [facility] Comment on above: Order Comment: Order Date: 09/18/23 Order Info: 0779-1 - MIACRE Performed By: #### L 500.4050, L502.0250, L500.4100, L100.0100, L501.9985 #### [facility] [address] [place], [address] Albumin/Globulin [Mass ratio] 1.1 {ratio} Normal 0.9-2.4 [facility] Comment on above: Order Comment: Order Date: 09/18/23 Order Info: 0779-1 - MIACRE Performed By: #### L 500.4050, L502.0250, L500.4100, L100.0100, L501.9985 #### [facility] [address] [place], [address] ALK P 59 U/L Normal 45-117 [facility] Comment on above: Order Comment: Order Date: 09/18/23 Order Info: 0779-1 - MIACRE Performed By: #### L 500.4050, L502.0250, L500.4100, L100.0100, L501.9985 #### [facility] [address] [place], [address] ALT [Catalytic activity/Vol] 22 U/L Normal 13-56 [facility] Comment on above: Order Comment: Order Date: 09/18/23 Order Info: 0779-1 - MIACRE Performed By: #### L 500.4050, L502.0250, L500.4100, L100.0100, L501.9985 #### [facility] [address] [place], [address] AST [Catalytic activity/Vol] 16 U/L Normal 15-37 [facility] Comment on above: Order Comment: Order Date: 09/18/23 Order Info: 0779-1 - MIACRE Performed By: #### L 500.4050, L502.0250, L500.4100, L100.0100, L501.9985 #### [facility] [address] [place], [address] Bilirubin [Mass/Vol] 0.90 mg/dL Normal 0.20-1.00 [facility] Comment on above: Order Comment: Order Date: 09/18/23 Order Info: 0779-1 - MIACRE Result Comment: For patients on eltrombopag therapy, use of Dimension [place]y TBIL is not recommended. Performed By: #### L 500.4050, L502.0250, L500.4100, L100.0100, L501.9985 #### [facility] [address] [place], [address] BUN/CRE 17.8 RATIO Normal 10-20 [facility] Comment on above: Order Comment: Order Date: 09/18/23 Order Info: 0779-1 - MIACRE Performed By: #### L 500.4050, L502.0250, L500.4100, L100.0100, L501.9985 #### [facility] [address] [place], [address] CA,Total 9.6 mg/dL Normal 8.5-10.1 [facility] Comment on above: Order Comment: Order Date: 09/18/23 Order Info: 0779-1 - MIACRE Performed By: #### L 500.4050, L502.0250, L500.4100, L100.0100, L501.9985 #### [facility] [address] [place], [address] Chloride [Moles/Vol] 108 mmol/L High 98-107 [facility] Comment on above: Order Comment: Order Date: 09/18/23 Order Info: 0779-1 - MIACRE Performed By: #### L 500.4050, L502.0250, L500.4100, L100.0100, L501.9985 #### [facility] [address] [place], [address] CO2 [Moles/Vol] 28.0 mmol/L Normal 21.0-32.0 [facility] Comment on above: Order Comment: Order Date: 09/18/23 Order Info: 0779-1 - MIACRE Performed By: #### L 500.4050, L502.0250, L500.4100, L100.0100, L501.9985 #### [facility] [address] [place], [address] Creatinine [Mass/Vol] 0.73 mg/dL Normal 0.55-1.02 [facility] Comment on above: Order Comment: Order Date: 09/18/23 Order Info: 0779-1 - MIACRE Result Comment: The validity of the calculated GFR GFRAA in patients over 70 years has not been determined. Clinical correlation is essential. Performed By: #### L 500.4050, L502.0250, L500.4100, L100.0100, L501.9985 #### [facility] [address] [place], [address] EST GFR - AA 111 mL/min Normal >60 [facility] Comment on above: Order Comment: Order Date: 09/18/23 Order Info: 0779-1 - MIACRE Result Comment: Afri can Eritrean GFR Calc Performed By: #### L 500.4050, L502.0250, L500.4100, L100.0100, L501.9985 #### [facility] [address] [place], [address] GAP 2 Low 5-15 [facility] Comment on above: Order Comment: Order Date: 09/18/23 Order Info: 0779-1 - MIACRE Performed By: #### L 500.4050, L502.0250, L500.4100, L100.0100, L501.9985 #### [facility] [address] [place], [address] GFR/1.73 sq M.predicted among non-blacks MDRD (S/P/Bld) [Vol rate/Area] 92 mL/min/{1.73_m2} Normal >60 [facility] Comment on above: Order Comment: Order Date: 09/18/23 Order Info: 0779-1 - MIACRE Result Comment: Non- GFR Calc Performed By: #### L 500.4050, L502.0250, L500.4100, L100.0100, L501.9985 #### [facility] [address] [place], [address] Globulin (S) [Mass/Vol] 3.7 g/dL Normal 2.2-4.2 [facility] Comment on above: Order Comment: Order Date: 09/18/23 Order Info: 0779-1 - MIACRE Performed By: #### L 500.4050, L502.0250, L500.4100, L100.0100, L501.9985 #### [facility] [address] [place], [address] Glucose [Mass/Vol] 97 mg/dL Normal 74-106 [facility] Comment on above: Order Comment: Order Date: 09/18/23 Order Info: 0779-1 - MIACRE Performed By: #### L 500.4050, L502.0250, L500.4100, L100.0100, L501.9985 #### [facility] [address] [place], [address] Potassium [Moles/Vol] 4.3 mmol/L Normal 3.5-5.1 [facility] Comment on above: Order Comment: Order Date: 09/18/23 Order Info: 0779-1 - MIACRE Performed By: #### L 500.4050, L502.0250, L500.4100, L100.0100, L501.9985 #### [facility] [address] [place], [address] Sodium [Moles/Vol] 138 mmol/L Normal 136-145 [facility] Comment on above: Order Comment: Order Date: 09/18/23 Order Info: 0779-1 - MIACRE Performed By: #### L 500.4050, L502.0250, L500.4100, L100.0100, L501.9985 #### [facility] [address] [place], [address] T PROT 7.6 g/dL Normal 6.4-8.2 [facility] Comment on above: Order Comment: Order Date: 09/18/23 Order Info: 0779-1 - MIACRE Performed By: #### L 500.4050, L502.0250, L500.4100, L100.0100, L501.9985 #### [facility] [address] [place], [address] Urea nitrogen [Mass/Vol] 13 mg/dL Normal 7-18 [facility] Comment on above: Order Comment: Order Date: 09/18/23 Order Info: 0779-1 - MIACRE Performed By: #### L 500.4050, L502.0250, L500.4100, L100.0100, L501.9985 #### [facility] [address] [place], [address] Hemoglobin A1con 02-03-2024 HbA1c (Bld) [Mass fraction] 5.9 % High 3.8-5.6 [facility] Comment on above: Order Comment: Order Date: 09/18/23 Order Info: 0779-1 - MIACRE Result Comment: Norm al < 5.7 % Prediabetic 5.7 - 6.4 % Diabetic >or= 6.5 % Please note range changes. Performed By: #### L 500.4050, L502.0250, L500.4100, L100.0100, L501.9985 #### [facility] [address] [place], [address] Lipid Profileon 02-03-2024 Cholesterol [Mass/Vol] 121 mg/dL Normal [address] [facility] Comment on above: Order Comment: Order Date: 09/18/23 Order Info: 0779-1 - MIACRE Result Comment: <200 mg/dL Desirable 200-240 mg/dL Borderline >240 mg/dL High Risk Performed By: #### L 500.4050, L502.0250, L500.4100, L100.0100, L501.9985 #### [facility] [address] [place], [address] Cholesterol in HDL [Mass/Vol] 46 mg/dL Normal [facility] Comment on above: Order Comment: Order Date: 09/18/23 Order Info: 0779-1 - MIACRE Result Comment: The drugs N-Acetylcysteine and Metamizole may falsely depress this assay. Reference Range HDL <40 mg/dL Low HDL Cholesterol HDL >or= 60 mg/dL High HDL Cholesterol Performed By: #### L 500.4050, L502.0250, L500.4100, L100.0100, L501.9985 #### [facility] [address] [place], [address] Cholesterol in LDL [Mass/Vol] 58 mg/dL Normal 0-130 [facility] Comment on above: Order Comment: Order Date: 09/18/23 Order Info: 0779-1 - MIACRE Performed By: #### L 500.4050, L502.0250, L500.4100, L100.0100, L501.9985 #### [facility] [address] [place], [address] Cholesterol in VLDL [Mass/Vol] 17 mg/dL Normal 5-40 [facility] Comment on above: Order Comment: Order Date: 09/18/23 Order Info: 0779-1 - MIACRE Performed By: #### L 500.4050, L502.0250, L500.4100, L100.0100, L501.9985 #### [facility] [address] [place], [address] Triglyceride [Mass/Vol] 87 mg/dL Normal [facility] Comment on above: Order Comment: Order Date: 09/18/23 Order Info: 0779-1 - MIACRE Result Comment: The drugs N-Acetylcysteine and Metamizole may falsely depress this assay. Serum Triglycerides Reference Interval Normal <150 mg/dL Borderline high 150 - 199 mg/dL High 200 - 499 mg/dL Very High > or = 500 mg/dL Performed By: #### L 500.4050, L502.0250, L500.4100, L100.0100, L501.9985 #### [facility] [address] [place], [address] Microalb:Creat Ratio,Random URon 02-03-2024 Creatinine [Mass/Vol] 106.00 mg/dL Normal NO RANGE EST . [facility] Comment on above: Order Comment: Order Date: 11/19/23 Order Info: 0779-1 - MIACRE Performed By: #### L 500.4100, L501.9985, L502.0250, L100.0100, L500.4050 #### [facility] [address] [place], [address] MALB:CRE 50.6 mg/g CRE High <30 mg/g CRE [facility] Comment on above: Order Comment: Order Date: 11/19/23 Order Info: 0779-1 - MIACRE Performed By: #### L 500.4100, L501.9985, L502.0250, L100.0100, L500.4050 #### [facility] [address] [place], [address] MICROALBUMIN,UR 53.6 mg/L Normal NO RANGE EST. [facility] Comment on above: Order Comment: Order Date: 11/19/23 Order Info: 0779-1 - MIACRE Performed By: #### L 500.4100, L501.9985, L502.0250, L100.0100, L500.4050 #### [facility] [address] [place], [place], [address] MR ABDOMEN WITH AND WITHOUT CONTRASTon 12-24-2023 MR ABDOMEN WITH AND WITHOUT CONTRAST EXAMINATION: MR ABDOMEN WITH AND WITHOUT CONTRAST HISTORY: ORDERING SYSTEM PROVIDED HISTORY: Metastatic disease evaluation; new liver lesion seen on CT. history of partial nephrectomy for renal cell carcinoma., TECHNOLOGIST PROVIDED HISTORY: Illness/Other Reason for exam: HX METS, EVAL NEW LIVER LESION HX OF PARTIAL NEPHRECTOMY FOR RCC Encounter Type: Subsequent/Follow-up Additional signs and symptoms: N/A ORDERING SYSTEM PROVIDED DIAGNOSIS CODES: K76.9 Liver lesion C64.9 Renal cell carcinoma, unspecified laterality (HCC) COMPARISON: CT from 12/04/2023. TECHNIQUE: MRI liver, with and without contrast. CONTRAST: GADOTERATE MEGLUMINE 0.5 MMOL/ML (376.9 MG/ML) INTRAVENOUS SOLUTION - 15 mL, FINDINGS: No pleural or pericardial effusion. No free fluid in the abdomen. Osseous structures are acutely intact. Stomach is negative. No bowel obstruction. No infectious or inflammatory bowel disease. Large and small bowel not completely imaged, limiting evaluation. No enteritis. There is no aortic aneurysm or large vessel occlusion present. No portal vein thrombus. IVC is widely patent. Renal veins are patent. There is no aortocaval, retroperitoneal or mesenteric adenopathy. Normal size and contour of the liver. There is a 1.5 cm arterial phase enhancing lesion in the periphery of the right liver demonstrating subtle increased T2-weighted signal as well. The lesion demonstrates loss of signal on the [id number]-pt-hrujl sequence when compared to the in-phase sequence, series 6, image 29. It appears to retain contrast on more delayed phase images, somewhat heterogenous in nature. It likely represents an adenoma. Additional focal areas of arterial phase enhancement also present in the liver, image 38 and image 19 with similar imaging characteristics, also likely representing small adenomas. None of the lesions in the liver demonstrate concerning washout characteristics to suggest primary neoplastic disease or metastatic disease. Cholelithiasis. No cholecystitis. No biliary ductal dilatation or choledocholithiasis present. Pancreas, spleen and kidneys demonstrate no acute abnormalities. Tiny left adrenal adenoma. No concerning adrenal mass. IMPRESSION: 1. Lesions in the liver likely represent adenomas. No evidence to suggest primary hepatic malignancy or metastatic disease. 2. Cholelithiasis without cholecystitis. 3. Benign left adrenal adenoma. DCW/[facility] Workstation ID: [id number] Dictated by: MICHAELA NGUYEN on ThuDec 28, 2023 2:48:52 PM EDT Transcribed by: SUNNY MAURICE on ThuDec 28, 2023 3:23:42 PM EDT Finalized by: MICHAELA NGUYEN on ThuDec 28, 2023 3:26:38 PM EDT Normal [facility] Comment on above: Order Comment: Injur y/Trauma or Illness?:Illness/Other How long have you had these symptoms (acute/chronic)?:Chronic Reason for exam?:HX METS, EVAL NEW LIVER LESION HX OF PARTIAL NEPHRECTOMY FOR RCC Type of Exam?:Subsequent/Follow-up Additional signs and symptoms?:N/A CBC W/Diff, Automatedon 07-0 Absolute Lymph 2.72 X10 3/uL Normal 0.83-4.51 [facility] Comment on above: Order Comment: Order Date: 09/18/23 Order Info: 0184-1 - CBCD Performed By: #### L 500.4050, L502.0250, L500.4100, L100.0100, L501.9985 #### [facility] [address] [place], [address] Absolute Neut 6.3 X10 3/uL Normal 2.0-7.7 [facility] Comment on above: Order Comment: Order Date: 09/18/23 Order Info: 0184- - CBCD Performed By: #### L 500.4050, L502.0250, L500.4100, L100.0100, L501.9985 #### [facility] [address] [place], [address] Basophils/100 WBC (Bld) 0.3 % Normal 0-1 [facility] Comment on above: Order Comment: Order Date: 09/18/23 Order Info: 0184-1 - CBCD Performed By: #### L 500.4050, L502.0250, L500.4100, L100.0100, L501.9985 #### [facility] [address] [place], [address] Eosinophils/100 WBC (Bld) 1.7 % Normal 0-5 [facility] Comment on above: Order Comment: Order Date: 09/18/23 Order Info: 0184-1 - CBCD Performed By: #### L 500.4050, L502.0250, L500.4100, L100.0100, L501.9985 #### [facility] [address] [place], [address] Erythrocyte distribution width (RBC) [Ratio] 12.8 % Normal 11.6-14.6 [facility] Comment on above: Order Comment: Order Date: 09/18/23 Order Info: 0184-1 - CBCD Performed By: #### L 500.4050, L502.0250, L500.4100, L100.0100, L501.9985 #### [facility] [address] [place], [address] Hematocrit (Bld) [Volume fraction] 43.9 % Normal 37-47 [facility] Comment on above: Order Comment: Order Date: 09/18/23 Order Info: 0184-1 - CBCD Performed By: #### L 500.4050, L502.0250, L500.4100, L100.0100, L501.9985 #### [facility] [address] [place], [address] Hemoglobin (Bld) [Mass/Vol] 13.7 g/dL Normal 12.0-15.0 [facility] Comment on above: Order Comment: Order Date: 09/18/23 Order Info: 0184-1 - CBCD Performed By: #### L 500.4050, L502.0250, L500.4100, L100.0100, L501.9985 #### [facility] [address] [place], [address] IG% 0.300 Normal 0.0-0.9 [facility] Comment on above: Order Comment: Order Date: 09/18/23 Order Info: 0184-1 - CBCD Result Comment: IG% - Immature Granulocytes (promyelocytes, myelocytes and metamyelocytes) > 1% indicates that a LEFT SHIFT is Present. Performed By: #### L 500.4050, L502.0250, L500.4100, L100.0100, L501.9985 #### [facility] [address] [place], [address] Lymphocytes/100 WBC (Bld) 27.3 % Normal 19-41 [facility] Comment on above: Order Comment: Order Date: 09/18/23 Order Info: 0184-1 - CBCD Performed By: #### L 500.4050, L502.0250, L500.4100, L100.0100, L501.9985 #### [facility] [address] [place], [address] MCH (RBC) [Entitic mass] 25.0 pg Low 27.0-32.0 [facility] Comment on above: Order Comment: Order Date: 09/18/23 Order Info: 018- - CBCD Performed By: #### L 500.4050, L502.0250, L500.4100, L100.0100, L501.9985 #### [facility] [address] [place], [address] MCHC (RBC) [Mass/Vol] 31.2 g/dL Low 32-36 [facility] Comment on above: Order Comment: Order Date: 09/18/23 Order Info: 01808-09 - CBCD Performed By: #### L 500.4050, L502.0250, L500.4100, L100.0100, L501.9985 #### [facility] [address] [place], [address] MCV (RBC) [Entitic vol] 80.3 fL Low 81-99 [facility] Comment on above: Order Comment: Order Date: 09/18/23 Order Info: 01808-09 - CBCD Performed By: #### L 500.4050, L502.0250, L500.4100, L100.0100, L501.9985 #### [facility] [address] [place], [address] Monocytes/100 WBC (Bld) 6.8 % Normal 0-10 [facility] Comment on above: Order Comment: Order Date: 09/18/23 Order Info: 018- - CBCD Performed By: #### L 500.4050, L502.0250, L500.4100, L100.0100, L501.9985 #### [facility] [address] [place], [address] Neutrophils/100 WBC (Bld) 63.6 % Normal 47-70 [facility] Comment on above: Order Comment: Order Date: 09/18/23 Order Info: 0184-1 - CBCD Performed By: #### L 500.4050, L502.0250, L500.4100, L100.0100, L501.9985 #### [facility] [address] [place], [address] Nucleated RBC (Bld) [#/Vol] 0 10*3/uL Normal 0-5 [facility] Comment on above: Order Comment: Order Date: 09/18/23 Order Info: 0184- - CBCD Performed By: #### L 500.4050, L502.0250, L500.4100, L100.0100, L501.9985 #### [facility] [address] [place], [address] Platelet mean volume (Bld) [Entitic vol] 10.2 fL Normal 6.2-12.0 [facility] Comment on above: Order Comment: Order Date: 09/18/23 Order Info: 0184-1 - CBCD Performed By: #### L 500.4050, L502.0250, L500.4100, L100.0100, L501.9985 #### [facility] [address] [place], [address] Platelets (Bld) [#/Vol] 324 10*3/uL Normal 150-450 [facility] Comment on above: Order Comment: Order Date: 09/18/23 Order Info: 0184-1 - CBCD Performed By: #### L 500.4050, L502.0250, L500.4100, L100.0100, L501.9985 #### [facility] [address] [place], [address] RBC (Bld) [#/Vol] 5.47 10*6/uL High 4.2-5.4 [facility] Comment on above: Order Comment: Order Date: 09/18/23 Order Info: 0184-1 - CBCD Performed By: #### L 500.4050, L502.0250, L500.4100, L100.0100, L501.9985 #### [facility] [address] [place], [place], [address] RDW SD 37.1 fl Normal 35.1-43.9 [facility] Comment on above: Order Comment: Order Date: 09/18/23 Order Info: 0184-1 - CBCD Performed By: #### L 500.4050, L502.0250, L500.4100, L100.0100, L501.9985 #### [facility] [address] [place], [address] WBC (Bld) [#/Vol] 10.0 10*3/uL Normal 4.4-11.0 [facility] Comment on above: Order Comment: Order Date: 09/18/23 Order Info: 0184-1 - CBCD Performed By: #### L 500.4050, L502.0250, L500.4100, L100.0100, L501.9985 #### [facility] [address] [place], [address] Comprehensive Metabolic Prof ilon 11-11-2023 Albumin [Mass/Vol] 3.9 g/dL Normal 3.2-5.0 [facility] Comment on above: Order Comment: Order Date: 09/18/23 Order Info: 0786-1 - CMP Order Info: [id number] - LIPID Performed By: #### L 500.4050, L502.0250, L500.4100, L100.0100, L501.9985 #### [facility] [address] [place], [place], [address] Albumin/Globulin [Mass ratio] 0.9 {ratio} Normal 0.9-2.4 [facility] Comment on above: Order Comment: Order Date: 09/18/23 Order Info: 0786-1 - CMP Order Info: [id number] - LIPID Performed By: #### L 500.4050, L502.0250, L500.4100, L100.0100, L501.9985 #### [facility] [address] [place], [address] ALK P 63 U/L Normal 45-117 [facility] Comment on above: Order Comment: Order Date: 09/18/23 Order Info: 0786-1 - CMP Order Info: [id number] - LIPID Performed By: #### L 500.4050, L502.0250, L500.4100, L100.0100, L501.9985 #### [facility] [address] [place], [address] ALT [Catalytic activity/Vol] 27 U/L Normal 13-56 [facility] Comment on above: Order Comment: Order Date: 09/18/23 Order Info: 0786-1 - CMP Order Info: [id number] - LIPID Performed By: #### L 500.4050, L502.0250, L500.4100, L100.0100, L501.9985 #### [facility] [address] [place], [address] AST [Catalytic activity/Vol] 15 U/L Normal 15-37 [facility] Comment on above: Order Comment: Order Date: 09/18/23 Order Info: 0786-1 - CMP Order Info: [id number] - LIPID Performed By: #### L 500.4050, L502.0250, L500.4100, L100.0100, L501.9985 #### [facility] [address] [place], [address] Bilirubin [Mass/Vol] 1.00 mg/dL Normal 0.20-1.00 [facility] Comment on above: Order Comment: Order Date: 09/18/23 Order Info: 0786-1 - CMP Order Info: [id number] - LIPID Result Comment: For patients on eltrombopag therapy, use of Dimension [place]y TBIL is not recommended. Performed By: #### L 500.4050, L502.0250, L500.4100, L100.0100, L501.9985 #### [facility] [address] [place], [address] BUN/CRE 16.1 RATIO Normal 10-20 [facility] Comment on above: Order Comment: Order Date: 09/18/23 Order Info: 0786-1 - CMP Order Info: [id number] - LIPID Performed By: #### L 500.4050, L502.0250, L500.4100, L100.0100, L501.9985 #### [facility] [address] [place], [address] CA,Total 9.7 mg/dL Normal 8.5-10.1 [facility] Comment on above: Order Comment: Order Date: 09/18/23 Order Info: 0786-1 - CMP Order Info: [id number] - LIPID Performed By: #### L 500.4050, L502.0250, L500.4100, L100.0100, L501.9985 #### [facility] [address] [place], [address] Chloride [Moles/Vol] 102 mmol/L Normal 98-107 [facility] Comment on above: Order Comment: Order Date: 09/18/23 Order Info: [id number] - CMP Order Info: [id number] - LIPID Performed By: #### L 500.4050, L502.0250, L500.4100, L100.0100, L501.9985 #### [facility] [address] [place], [address] CO2 [Moles/Vol] 27.0 mmol/L Normal 21.0-32.0 [facility] Comment on above: Order Comment: Order Date: 09/18/23 Order Info: [id number] - CMP Order Info: [id number] - LIPID Performed By: #### L 500.4050, L502.0250, L500.4100, L100.0100, L501.9985 #### [facility] [address] [place], [address] Creatinine [Mass/Vol] 0.81 mg/dL Normal 0.55-1.02 [facility] Comment on above: Order Comment: Order Date: 09/18/23 Order Info: [id number] - CMP Order Info: [id number] - LIPID Result Comment: The validity of the calculated GFR GFRAA in patients over 70 years has not been determined. Clinical correlation is essential. Performed By: #### L 500.4050, L502.0250, L500.4100, L100.0100, L501.9985 #### [facility] [address] [place], [address] EST GFR - AA 100 mL/min Normal >60 [facility] Comment on above: Order Comment: Order Date: 09/18/23 Order Info: [id number] - CMP Order Info: [id number] - LIPID Result Comment: Afri can Eritrean GFR Calc Performed By: #### L 500.4050, L502.0250, L500.4100, L100.0100, L501.9985 #### [facility] [address] [place], [place], [id number] GAP 7 Normal 5-15 [facility] Comment on above: Order Comment: Order Date: 09/18/23 Order Info: [id number] - CMP Order Info: [id number] - LIPID Performed By: #### L 500.4050, L502.0250, L500.4100, L100.0100, L501.9985 #### [facility] [address] [place], [place], [id number] GFR/1.73 sq M.predicted among non-blacks MDRD (S/P/Bld) [Vol rate/Area] 82 mL/min/{1.73_m2} Normal >60 [facility] Comment on above: Order Comment: Order Date: 09/18/23 Order Info: [id number] - CMP Order Info: [id number] - LIPID Result Comment: Non- GFR Calc Performed By: #### L 500.4050, L502.0250, L500.4100, L100.0100, L501.9985 #### [facility] [address] [place], [address] Globulin (S) [Mass/Vol] 4.2 g/dL Normal 2.2-4.2 [facility] Comment on above: Order Comment: Order Date: 09/18/23 Order Info: [id number] - CMP Order Info: [id number] - LIPID Performed By: #### L 500.4050, L502.0250, L500.4100, L100.0100, L501.9985 #### [facility] [address] [place], [address] Glucose [Mass/Vol] 92 mg/dL Normal 74-106 [facility] Comment on above: Order Comment: Order Date: 09/18/23 Order Info: [id number] - CMP Order Info: [id number] - LIPID Performed By: #### L 500.4050, L502.0250, L500.4100, L100.0100, L501.9985 #### [facility] [address] [place], [address] Potassium [Moles/Vol] 4.0 mmol/L Normal 3.5-5.1 [facility] Comment on above: Order Comment: Order Date: 09/18/23 Order Info: [id number] - CMP Order Info: [id number] - LIPID Performed By: #### L 500.4050, L502.0250, L500.4100, L100.0100, L501.9985 #### [facility] [address] [place], [address] Sodium [Moles/Vol] 136 mmol/L Normal 136-145 [facility] Comment on above: Order Comment: Order Date: 09/18/23 Order Info: [id number] - CMP Order Info: [id number] - LIPID Performed By: #### L 500.4050, L502.0250, L500.4100, L100.0100, L501.9985 #### [facility] [address] [place], [address] T PROT 8.1 g/dL Normal 6.4-8.2 [facility] Comment on above: Order Comment: Order Date: 09/18/23 Order Info: [id number] - CMP Order Info: [id number] - LIPID Performed By: #### L 500.4050, L502.0250, L500.4100, L100.0100, L501.9985 #### [facility] [address] [place], [address] Urea nitrogen [Mass/Vol] 13 mg/dL Normal 7-18 [facility] Comment on above: Order Comment: Order Date: 09/18/23 Order Info: [id number] - CMP Order Info: [id number] - LIPID Performed By: #### L 500.4050, L502.0250, L500.4100, L100.0100, L501.9985 #### [facility] [address] [place], [address] Hemoglobin A1con 11-11-2023 HbA1c (Bld) [Mass fraction] 6.2 % High 3.8-5.6 [facility] Comment on above: Order Comment: Order Date: 09/18/23 Order Info: [id number] - A1C Result Comment: Norm al < 5.7 % Prediabetic 5.7 - 6.4 % Diabetic >or= 6.5 % Please note range changes. Performed By: #### L 500.4050, L502.0250, L500.4100, L100.0100, L501.9985 #### [facility] [address] [place], [address] Lipid Profileon 11-11-2023 Cholesterol [Mass/Vol] 194 mg/dL Normal 200 [facility] Comment on above: Order Comment: Order Date: 09/18/23 Order Info: [id number] - CMP Order Info: [id number] - LIPID Result Comment: <200 mg/dL Desirable 200-240 mg/dL Borderline >240 mg/dL High Risk Performed By: #### L 500.4050, L502.0250, L500.4100, L100.0100, L501.9985 #### [facility] [address] [place], [address] Cholesterol in HDL [Mass/Vol] 38 mg/dL Low [facility] Comment on above: Order Comment: Order Date: 09/18/23 Order Info: [id number] - CMP Order Info: [id number] - LIPID Result Comment: The drugs N-Acetylcysteine and Metamizole may falsely depress this assay. Reference Range HDL <40 mg/dL Low HDL Cholesterol HDL >or= 60 mg/dL High HDL Cholesterol Performed By: #### L 500.4050, L502.0250, L500.4100, L100.0100, L501.9985 #### [facility] [address] [place], [address] Cholesterol in LDL [Mass/Vol] 133 mg/dL High 0-130 [facility] Comment on above: Order Comment: Order Date: 09/18/23 Order Info: [id number] - CMP Order Info: [id number] - LIPID Performed By: #### L 500.4050, L502.0250, L500.4100, L100.0100, L501.9985 #### [facility] [address] [place], [address] Cholesterol in VLDL [Mass/Vol] 23 mg/dL Normal 5-40 [facility] Comment on above: Order Comment: Order Date: 09/18/23 Order Info: [id number] - CMP Order Info: [id number] - LIPID Performed By: #### L 500.4050, L502.0250, L500.4100, L100.0100, L501.9985 #### [facility] [address] [place], [address] Triglyceride [Mass/Vol] 116 mg/dL Normal [facility] Comment on above: Order Comment: Order Date: 09/18/23 Order Info: [id number] - CMP Order Info: [id number] - LIPID Result Comment: The drugs N-Acetylcysteine and Metamizole may falsely depress this assay. Serum Triglycerides Reference Interval Normal <150 mg/dL Borderline high 150 - 199 mg/dL High 200 - 499 mg/dL Very High > or = 500 mg/dL Performed By: #### L 500.4050, L502.0250, L500.4100, L100.0100, L501.9985 #### [facility] [address] [place], [address] Microalb:Creat Ratio,Random URon 11-11-2023 Creatinine [Mass/Vol] 254.00 mg/dL Normal NO RANGE EST . [facility] Comment on above: Order Comment: Order Date: 09/18/23 Order Info: [id number] - MIACRE Performed By: #### L 500.4050, L502.0250, L500.4100, L100.0100, L501.9985 #### [facility] [address] [place], [address] MALB:CRE 63.0 mg/g CRE High <30 mg/g CRE [facility] Comment on above: Order Comment: Order Date: 09/18/23 Order Info: [id number] - MIACRE Performed By: #### L 500.4050, L502.0250, L500.4100, L100.0100, L501.9985 #### [facility] [address] [place], [address] MICROALBUMIN,UR 160.0 mg/L Normal NO RANGE EST. [facility] Comment on above: Order Comment: Order Date: 09/18/23 Order Info: [id number] - MIACRE Performed By: #### L 500.4050, L502.0250, L500.4100, L100.0100, L501.9985 #### [facility] [address] [place], [address] Albumin Elph [Mass/Vol]Order ed By: Zahra Hendrix on 09-01-2023 Albumin [Mass/Vol] 4.0 g/dL 2.9-4.4 [facility] No Panel InformationOrdered By: Zahra Hendrix on 09-01-2023 Addendum Document Comment . [facility] Comment on above: The SPE pattern demo nstrates an increase in the betafraction. This may be due to increases in transferrin, beta-lipoprotein (hypercholesterolemia), or immunoglobulins, asseen in polyclonal or monoclonal gammopathies. Ifclinically indicated, the presence of a monoclonalgammopathy may be confirmed by immunofixation or serum freelight chain quantitation.Performed at: [facility] [id number] Director: Derian Zuluaga PhD, Phone: [phone] Xncjc-9-Rvfyuhgti 0.4 g/dL 0.0-0.4 [facility] Uggva-3-Fjejdlpst 1.1 g/dL 0.4-1.0 [facility] Gamma Globulins 1.1 g/dL 0.4-1.8 [facility] Hepatitis B Surface Antigen Non-Reactive Nonreactive [facility] Hepatitis C Antibody Non-Reactive Nonreactive [facility] Comment on above: Non Reactive: < 0.8 Equivocal: >/= 0.8 to < 1.0 Reactive: >/= 1.0The CDC requires that a reactive/equivocal HCV antibody result be sent out for confirmation. HCV Quant by PCR testing. Parathyroid Hormone (Intact) 22.9 pg/mL 18.4-80.1 [facility] Protein Fractions Elph [Inte rp]Ordered By: Zahra Hendrix on 09-01-2023 Protein Fractions [Interp] Comment . [facility] Comment on above: Protein electrophore sis scan will follow via computer,mail, or enrollment clerk delivery. Serum albumin to globulin ra osvaldo by protein electrophoresisOrdered By: Zahra Hendrix on 09-01-2023 Albumin/Globulin Elph [Mass ratio] 1.0 0.7-1.7 [facility] Serum globulin measurement ( mass/volume)Ordered By: Zahra Hendrix on 09-01-2023 Globulin (S) [Mass/Vol] 4.0 g/dL 2.2-3.9 [facility] Serum hepatitis B virus surf jessi antibody IgG detectionOrdered By: Zahra Hendrix on 09-01-2023 HBV surface IgG Ql (S) Non-Reactive [facility] Comment on above: Non Reactive: Incons istent with immunity less than <10 mIU/mL Reactive: Consistent with immunity greater than or equal to 10 mIU/mL Serum or plasma beta globuli n measurement by electrophoresis (mass/volume)Ordered By: Zahra Hendrix on 09-01-2023 Beta globulin Elph [Mass/Vol] 1.4 g/dL 0.7-1.3 [facility] Serum or plasma protein mono clonal measurement by electrophoresis (mass/volume)Ordered By: Zahra Hendrix on 09-01-2023 Protein.monoclonal Elph [Mass/Vol] Not Observed g/dL Not Observed [facility] Total protein bloodOrdered B y: Zahra Hendrix on 09-01-2023 Protein [Mass/Vol] 8.0 g/dL 6.0-8.5 [facility] Absolute lymphocyte countOrd ered By: Zahra Hendrix on 08-28-2023 Lymphocytes Auto (Unsp spec) [#/Vol] 3.56 10*3/uL 0.83-4.51 [facility] Automated lymphocyte count a s percentage of total leukocytesOrdered By: Zahra Hendrix on 08-28-2023 Lymphocytes/100 WBC Auto (Unsp spec) 30.3 % 19-41 [facility] Basophil percentageOrdered B y: Zahra Hendrix on 08-28-2023 Basophils/100 WBC (Bld) 0.4 % 0-1 [facility] Bilirubin [Mass/Vol] 0.50 mg/dL 0.20-1.00 [facility] Comment on above: For patients on eltr ombopag therapy, use of Dimension [place] TBIL is not recommended. Chloride [Moles/Vol] 105 mmol/L 98-107 [facility] Cholesterol [Mass/Vol] 243 mg/dL <200 [facility] Comment on above: <200 mg/dL Desirable 200-240 mg/dL Borderline >240 mg/dL High Risk Eosinophils/100 WBC (Bld) 1.1 % 0-5 [facility] Glucose [Mass/Vol] 117 mg/dL 74-106 [facility] Comment on above: Fasting Glucose resu lt from 100 to 125 mg/dL suggests IMPAIRED HOMEOSTASIS per A.D.A. criteria. Hemoglobin (Bld) [Mass/Vol] 13.8 g/dL 12.0-15.0 [facility] Monocytes/100 WBC (Bld) 6.5 % 0-10 [facility] Neutrophils (Bld) [#/Vol] 7.2 10*3/uL 2.0-7.7 [facility] Neutrophils/100 WBC (Bld) 61.4 % 47-70 [facility] Potassium [Moles/Vol] 3.7 mmol/L 3.5-5.1 [facility] Protein [Mass/Vol] 8.4 g/dL 6.4-8.2 [facility] Sodium [Moles/Vol] 137 mmol/L 136-145 [facility] Triglyceride [Mass/Vol] 240 mg/dL <199 [facility] Comment on above: The drugs N-Acetylcy steine and Metamizole may falsely depress this assay.Serum Triglycerides Reference Interval Normal <150 mg/dL Borderline high 150 - 199 mg/dL High 200 - 499 mg/dL Very High > or = 500 mg/dL WBC (Bld) [#/Vol] 11.8 10*3/uL 4.4-11.0 [facility] Determination of erythrocyte mean corpuscular volume (MCV)Ordered By: Zahra Hendrix on 08-28-2023 MCV (RBC) [Entitic vol] 80.2 fL 81-99 [facility] Erythrocyte distribution wid th ratioOrdered By: Zahra Hendrix on 08-28-2023 Erythrocyte distribution width (RBC) [Ratio] 13.3 % 11.6-14.6 [facility] Erythrocyte distribution wid th standard deviationOrdered By: Zahra Hendrix on 08-28-2023 Erythrocyte distribution width (RBC) [Entitic vol] 37.7 fL 35.1-43.9 [facility] Hematocrit Auto (Bld) [Volum e fraction]Ordered By: Zahra Hendrix on 08-28-2023 Hematocrit (Bld) [Volume fraction] 44.1 % 37-47 [facility] Immature granulocytes/100 WB C Auto (Bld)Ordered By: Zahra Hendrix on 08-28-2023 Immature granulocytes/100 WBC (Bld) 0.300 % 0.0-0.9 [facility] Comment on above: IG% - Immature Granu locytes (promyelocytes, myelocytes and metamyelocytes) > 1% indicates that a LEFT SHIFT is Present. Laboratory - Chemistry and C hemistry - challengeOrdered By: Zahra Hendrix on 08-28-2023 Albumin/Globulin [Mass ratio] 0.8 {ratio} 0.9-2.4 [facility] ALP [Catalytic activity/Vol] 54 U/L 45-117 [facility] ALT [Catalytic activity/Vol] 44 U/L 13-56 [facility] Cholesterol in HDL [Mass/Vol] 41 mg/dL >40 [facility] Comment on above: The drugs N-Acetylcy steine and Metamizole may falsely depress this assay. Reference Range HDL <40 mg/dL Low HDL Cholesterol HDL >or= 60 mg/dL High HDL Cholesterol Cholesterol in LDL [Mass/Vol] 154 mg/dL 0-130 [facility] CO2 [Moles/Vol] 21.0 mmol/L 21.0-32.0 [facility] Globulin (S) [Mass/Vol] 4.6 g/dL 2.2-4.2 [facility] Urea nitrogen/Creatinine [Mass ratio] 18.9 mg/mg 10-20 [facility] - Hematology and Cell countsOrdered By: Zahra Hendrix on 08-28-2023 MCH (RBC) [Entitic mass] 25.1 pg 27.0-32.0 [facility] MCHC (RBC) [Mass/Vol] 31.3 g/dL 32-36 [facility] Nucleated RBC/100 WBC (Bld) [Ratio] 0 % 0-5 [facility] Platelet mean volume (Bld) [Entitic vol] 11.2 fL 6.2-12.0 [facility] Platelets (Bld) [#/Vol] 301 10*3/uL 150-450 [facility] No Panel InformationOrdered By: Zahra Hendrix on 08-28-2023 Estimated GFR (MDRD) Amer 110 mL/min >60 [facility] Comment on above: GFR Calc Estimated GFR (MDRD) Non-Af Amer 91 mL/min >60 [facility] Comment on above: Non- GFR Calc Urine Microalbumin/Creatinine Ratio 308.0 mg/g CRE <30 [facility] VLDL Cholesterol 48 mg/dL 5-40 [facility] RBC Auto (Bld) [#/Vol]Ordere d By: Zahra Hendrix on 08-28-2023 RBC (Bld) [#/Vol] 5.50 10*6/uL 4.2-5.4 [facility] Serum or plasma calcium [place] urement (mass/volume)Ordered By: Zahra Hendrix on 08-28-2023 Calcium [Mass/Vol] 10.2 mg/dL 8.5-10.1 [facility] Serum or plasma creatinine m easurement (mass/volume)Ordered By: Zahra Hendrix on 08-28-2023 Creatinine [Mass/Vol] 0.74 mg/dL 0.55-1.02 [facility] Comment on above: The validity of the calculated GFR & GFRAA in patients over 70 years has not been determined. Clinical correlation is essential. Serum or plasma thyroid stim ulating hormone (TSH) measurement (units/volume)Ordered By: Zahra Hendrix on 08-28-2023 TSH Qn 1.43 uIU/mL 0.358-3.74 [facility] Serum or plasma urea nitroge n measurement (mass/volume)Ordered By: Zahra Hendrix on 08-28-2023 Urea nitrogen [Mass/Vol] 14 mg/dL 7-18 [facility] Thin prep Papanicolaou smear with manual screeningOrdered By: Zahra Hendrix on 08-28-2023 Thin prep Papanicolaou smear with manual screening 3.8 g/dL 3.2-5.0 [facility] Thin prep Papanicolaou smear with manual screening 50 U/L 15-37 [facility] Thin prep Papanicolaou smear with manual screening 11 5-15 [facility] Thin prep Papanicolaou smear with manual screening 272.0 mg/L NO RANGE EST. [facility] Urine creatinine measurement (mass/volume)Ordered By: Zahra Hendrix on 08-28-2023 Creatinine (U) [Mass/Vol] 88.30 mg/dL NO RANGE EST. [facility] Whole blood hemoglobin A1c/t otal hemoglobin ratio (mass fraction)Ordered By: Zahra Hendrix on 08-28-2023 HbA1c (Bld) [Mass fraction] 9.2 % 3.8-5.6 [facility] Comment on above: Normal < 5.7 % Predi abetic 5.7 - 6.4 % Diabetic >or= 6.5 % Please note range changes. Trip 08-18-2023 RUKHSANA Telephone (OBGYWM) GISELE GALLAGHER ([id number]) 1980 F Date Time Provider Department 08/18/23 CASSI DAWN During your visit today, we recorded the following information about you: Cassi Dawn APRN.CNP 08/18/2023 2:34 PM Signed Please call lab to see if HPV can be added on. Cassi Dawn APRN.Angela Mcbride RN 08/18/2023 3:41 PM Signed Spoke to lab client services and they will add on HPV. Angela Vance RN Allergies As of Date: 08/18/2023 (No Known Allergies) Date Reviewed: 08/05/2023 Reviewed by: Cassi Dawn APRN.KAILEE - Fully Assessed Reason for Visit: Orders [681] Primary Visit Diagnosis:Screening for human papillomavirus (HPV) [Z11.51] Order(s):HPV W/GENOTYPE THIN PREP [SQHPVHRT] Order #: [id number] Prescriptions as of 08/19/2023 - spironolactone (ALDACTONE) 50 mg tablet Take 1 tablet by mouth once daily. - Norethindrone, Contraceptive, 0.35 mg tablet Take 1 tablet by mouth once daily. - miSOPROStol (CYTOTEC) 200 mcg tablet Insert 2 tablets vaginally prior to the procedure. - potassium citrate 99 mg cap Take by mouth once daily. - cranberry fruit concentrate (AZO CRANBERRY ORAL) Take by mouth once daily. - Lactobac no.41/Bifidobact no.7 (PROBIOTIC-10 ORAL) Take by mouth once daily. - DAILY VITAMINS FOR WOMEN TAB Take by mouth once daily. 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 0 - 34.0 pg [facility] MCHC (RBC) [Mass/Vol] 32.6 g/dL 30.5 - 36.0 g/dL [facility] MCV (RBC) [Entitic vol] 78.5 fL Low 80.0 - 100.0 fL [facility] Nucleated RBC (Bld) [#/Vol] <0.01 k/uL [facility] Platelet mean volume (Bld) [Entitic vol] 9.9 fL 9.0 - 12.7 fL [facility] Platelets (Bld) [#/Vol] 281 10*3/uL 150 - 400 k/uL [facility] RBC (Bld) [#/Vol] 5.59 10*6/uL High 3.90 - 5.2 0 m/uL [facility] WBC (Bld) [#/Vol] 10.95 10*3/uL 3.70 - 11 .00 k/uL [facility] Comprehensive metabolic 2000 panelon 08-05-2023 Albumin [Mass/Vol] 4.3 g/dL 3.9 - 4.9 g/dL [facility] ALP [Catalytic activity/Vol] 63 U/L 34 - 123 U/L [facility] ALT [Catalytic activity/Vol] 21 U/L 7 - 38 U/L [facility] Anion gap [Moles/Vol] 13 mmol/L 9 - 18 mmol/L [facility] AST [Catalytic activity/Vol] 38 U/L High 13 - 35 U/L [facility] Bilirubin [Mass/Vol] 0.4 mg/dL 0.2 - 1 .3 mg/dL [facility] Calcium [Mass/Vol] 10.1 mg/dL 8.5 - 10. 2 mg/dL [facility] Chloride [Moles/Vol] 100 mmol/L 97 - 10 5 mmol/L [facility] CO2 [Moles/Vol] 23 mmol/L 22 - 30 mmol/L [facility] Creatinine [Mass/Vol] 0.59 mg/dL 0.58 - 0.96 mg/dL [facility] Estimated Glomerular Filtration Rate 115 mL/min/1.73m >=60 mL/min/1.73m [facility] Glucose [Mass/Vol] 221 mg/dL High 74 - 99 mg/dL [facility] Potassium [Moles/Vol] 4.1 mmol/L 3.7 - 5.1 mmol/L [facility] Protein [Mass/Vol] 7.9 g/dL 6.3 - 8.0 g/dL [facility] Sodium [Moles/Vol] 136 mmol/L 136 - 144 mmol/L [facility] Urea nitrogen [Mass/Vol] 12 mg/dL 7 - 21 mg/d L [facility] UA DIP, URINE (POC)on 2021 BILIRUBIN UA (POCT) Negative Negative [facility] CLARITY UA (POCT) Clear [facility] COLOR UA (POCT) Yellow [facility] GLUCOSE UA (POCT) Negative Negative mg/dL [facility] HEMOGLOBIN/BLOOD UA (POCT) Large Abnormal Negative [facility] KETONE UA (POCT) Negative Negative mg/dL [facility] LEUKOCYTES UA (POCT) Negative Negative [facility] NITRITE UA (POCT) Negative Negative [facility] PH UA (POCT) 5.0 4.5 - 8.0 [facility] Protein Ql (U) 30 mg/dL Abnormal Negative mg/dL [facility] SPECIFIC GRAVITY UA (POCT) >=1.030 1.005 - 1.030 [facility] UROBILINOGEN UA (POCT) 0.2 E.U./dL Areli l E.U./dL [facility] POC Urinalysis Dipstick, Aut oOrdered By: Martínez Juan on 06-17-2021 Bilirubin Ql (U) Negative Negative [facility] Glucose Ql (U) Negative Normal, Negative mg/dL [facility] Hemoglobin Ql (U) Small Abnormal Negative [facility] Interpretation and review of laboratory results Abnormal [facility] Ketones Ql (U) Negative Negative mg/dL [facility] Leukocyte esterase Test strip Ql (U) Trace Abnormal Negative [facility] Nitrite Ql (U) Negative Negative [facility] pH (U) 5.5 [pH] [facility] Protein Ql (U) 30 Abnormal Negative mg/dL [facility] Specific gravity (U) [Rel density] 1.030 Abnormal [facility] Urobilinogen Qn (U) 0.2 mg/dL <2.0, 0. 2, Normal, Negative, 1.0, 2.0, <1.0 [facility] Basic metabolic 2000 panelOr dered By: Heidi Pa on 11-23-2020 Anion gap [Moles/Vol] 17 mmol/L 10 - 2 0 mmol/L [facility] Calcium [Mass/Vol] 10.0 mg/dL 8.4 - 10. 2 mg/dL [facility] Chloride [Moles/Vol] 102 mmol/L 98 - 10 8 mmol/L [facility] Creatinine [Mass/Vol] 0.66 mg/dL 0.40 - 1.10 [facility] GFR/1.73 sq M.predicted CKD-EPI (S/P/Bld) [Vol rate/Area] 111 >=60 mL/min/1.73 m2 [facility] Glucose [Mass/Vol] 77 mg/dL 65 - 99 mg/dL [facility] HCO3 [Moles/Vol] 23 mmol/L 21 - 32 mmol/L [facility] Interpretation and review of laboratory results Normal [facility] Potassium [Moles/Vol] 4.5 mmol/L 3.5 - 5.1 mmol/L [facility] Sodium [Moles/Vol] 137 mmol/L 135 - 145 mmol/L [facility] Urea nitrogen [Mass/Vol] 9 mg/dL 8 - 25 mg/d L [facility] Urea nitrogen/Creatinine [Mass ratio] 13.6 mg/mg [facility] The eGFR should be used for monitoring renal function only and not for medication dosing. [facility] CBC panel Auto (Bld)Ordered By: Reginald Shields on 11-23-2020 Erythrocyte distribution width (RBC) [Entitic vol] 13.5 % 11.6 - 14.8 % [facility] Hematocrit (Bld) [Volume fraction] 49.3 % High 36.0 - 46.0 % [facility] Hemoglobin (Bld) [Mass/Vol] 15.3 g/dL 12.0 - 16.0 g/dL [facility] Interpretation and review of laboratory results Abnormal [facility] MCH (RBC) [Entitic mass] 26.2 pg 26. 0 - 34.0 pg [facility] MCHC (RBC) [Mass/Vol] 31.0 g/dL 31.0 - 37.0 g/dL [facility] MCV (RBC) [Entitic vol] 84.4 fL 80.0 - 100.0 fL [facility] Nucleated RBC (Bld) [#/Vol] 0.00 10*3/uL [facility] Nucleated RBC/100 WBC (Bld) [Ratio] 0.0 % [facility] Platelet mean volume (Bld) [Entitic vol] 10.9 fL 9.4 - 12.4 fL [facility] Platelets (Bld) [#/Vol] 296 10*3/uL [facility] RBC (Bld) [#/Vol] 5.84 10*6/uL High [facility] ealth WBC (Bld) [#/Vol] 14.22 10*3/uL High [facility] CBC panel Auto (Bld)Ordered By: Heidi Pa on 10-29-2020 Erythrocyte distribution width (RBC) [Entitic vol] 13.8 % 11.6 - 14.8 % [facility] Hematocrit (Bld) [Volume fraction] 47.0 % High 36.0 - 46.0 % [facility] Hemoglobin (Bld) [Mass/Vol] 14.7 g/dL 12.0 - 16.0 g/dL [facility] Interpretation and review of laboratory results Abnormal [facility] MCH (RBC) [Entitic mass] 25.3 pg Low 26. 0 - 34.0 pg [facility] MCHC (RBC) [Mass/Vol] 31.3 g/dL 31.0 - 37.0 g/dL [facility] MCV (RBC) [Entitic vol] 80.8 fL 80.0 - 100.0 fL [facility] Nucleated RBC (Bld) [#/Vol] 0.00 10*3/uL [facility] Nucleated RBC/100 WBC (Bld) [Ratio] 0.0 % [facility] Platelet mean volume (Bld) [Entitic vol] 11.8 fL 9.4 - 12.4 fL [facility] Platelets (Bld) [#/Vol] 307 10*3/uL [facility] RBC (Bld) [#/Vol] 5.82 10*6/uL High [facility] ealt WBC (Bld) [#/Vol] 14.03 10*3/uL High [facility] Comprehensive metabolic 2000 panelOrdered By: Heidi Pa on 10-29-2020 Albumin [Mass/Vol] 3.9 g/dL 3.2 - 5.2 g/dL [facility] ALP [Catalytic activity/Vol] 61 U/L 40 - 140 U/L [facility] ALT [Catalytic activity/Vol] 22 U/L 14 - 65 U/L [facility] Anion gap [Moles/Vol] 15 mmol/L 10 - 2 0 mmol/L [facility] AST [Catalytic activity/Vol] 10 U/L 0 - 45 U/L [facility] Bilirubin [Mass/Vol] 0.4 mg/dL 0.0 - 1 .3 mg/dL [facility] Calcium [Mass/Vol] 9.6 mg/dL 8.4 - 10. 2 mg/dL [facility] Chloride [Moles/Vol] 105 mmol/L 98 - 10 8 mmol/L [facility] Creatinine [Mass/Vol] 0.91 mg/dL 0.40 - 1.10 [facility] GFR/1.73 sq M.predicted CKD-EPI (S/P/Bld) [Vol rate/Area] 79 >=60 mL/min/1.73 m2 [facility] Glucose [Mass/Vol] 189 mg/dL High 65 - 99 mg/dL [facility] HCO3 [Moles/Vol] 24 mmol/L 21 - 32 mmol/L [facility] Interpretation and review of laboratory results Abnormal [facility] Potassium [Moles/Vol] 4.3 mmol/L 3.5 - 5.1 mmol/L [facility] Protein [Mass/Vol] 8.6 g/dL High 6.0 - 8.0 g/dL [facility] Sodium [Moles/Vol] 140 mmol/L 135 - 145 mmol/L [facility] Urea nitrogen [Mass/Vol] 10 mg/dL 8 - 25 mg/d L [facility] Urea nitrogen/Creatinine [Mass ratio] 11.0 mg/mg [facility] The eGFR should be used for monitoring renal function only and not for medication dosing. [facility] Laboratory - Chemistry and C hemistry - challengeOrdered By: Heidi Pa on 10-29-2020 Bilirubin Ql (U) Negative Negative [facility] Glucose Ql (U) Negative Normal, Negative mg/dL [facility] Ketones Ql (U) Negative Negative mg/dL [facility] pH (U) 5.5 [pH] [facility] Specific gravity (U) [Rel density] 1.025 [facility] Urobilinogen Qn (U) 0.2 mg/dL <2.0, 0. 2, Normal, Negative, 1.0, 2.0, <1.0 [facility] Laboratory - Hematology and Cell countsOrdered By: Heidi Pa on 10-29-2020 Hemoglobin Ql (U) Small Abnormal Negative [facility] Laboratory - UrinalysisOrder ed By: Heidi Pa on 10-29-2020 Nitrite Ql (U) Negative Negative [facility] POC Urinalysis Dipstick, Aut oOrdered By: Heidi Pa on 10-29-2020 Interpretation and review of laboratory results Abnormal [facility] Leukocyte esterase Test strip Ql (U) Trace Abnormal Negative [facility] Protein Ql (U) 30 Abnormal Negative mg/dL [facility] XR CHEST AP/PA AND LATOrdere d By: Heidi Pa on 10-29-2020 No acute cardiopulmonary process. No suspicious focal airspace opacities. ST/lab Workstation ID: [id number] [facility] EXAMINATION: XR CHEST AP/PA AND LAT HISTORY: ORDERING SYSTEM PROVIDED HISTORY: renal mass staging, TECHNOLOGIST PROVIDED HISTORY: Illness/Other Reason for exam: pre-op for surgery for removal of right renal mass, pt states no chest symptoms at this time Cancer History: Unknown Surgery, RadiationHistory: Unknown Encounter Type: Initial Additional signs and symptoms: . ORDERING SYSTEM PROVIDED DIAGNOSIS CODES: N28.89 Renal mass COMPARISON: None. FINDINGS: Two-view chest x-ray. No pneumothorax, pleural effusion or focal airspace consolidation. Heart is normal in size. Bony thorax is unremarkable. [facility] [place], Rad In Fu ji Speechq - 10/29/2020 8:27 PM EDT EXAMINATION: XR CHEST AP/PA AND LAT HISTORY: ORDERING SYSTEM PROVIDED HISTORY: renal mass staging, TECHNOLOGIST PROVIDED HISTORY: Illness/Other Reason for exam: pre-op for surgery for removal of right renal mass, pt states no chest symptoms at this time Cancer History: Unknown Surgery, RadiationHistory: Unknown Encounter Type: Initial Additional signs and symptoms: . ORDERING SYSTEM PROVIDED DIAGNOSIS CODES: N28.89 Renal mass COMPARISON: None. FINDINGS: Two-view chest x-ray. No pneumothorax, pleural effusion or focal airspace consolidation. Heart is normal in size. Bony thorax is unremarkable. IMPRESSION: No acute cardiopulmonary process. No suspicious focal airspace opacities. ST/lab Workstation ID: [id number] [facility] RADIOLOGY SCANSOrdered By: Local Dirt on 10-22-2020 Ordered by an unspecified provider. [facility] Otheron 07-12-2020 Bilirubin Ql (U) Negative Negative [facility] Hemoglobin Ql (U) Moderate Abnormal Negative [facility] Interpretation and review of laboratory results Abnormal [facility] Nitrite Ql (U) Negative Negative [facility] pH (U) 5.5 [pH] [facility] Protein Ql (U) Negative Negative mg/dL [facility] Urobilinogen Qn (U) 0.2 mg/dL <2.0, 0. 2, Normal, Negative, 1.0, 2.0, <1.0 [facility] Urinalysison 07-12-2020 Glucose Ql (U) Negative Normal, Negative mg/dL [facility] Ketones Ql (U) Negative Negative mg/dL [facility] Leukocyte esterase Test strip Ql (U) Trace Abnormal Negative [facility] Specific gravity (U) [Rel density] 1.025 [facility] AIRWAY SUPRAGLOTTICon 2020 ABEL Cole 06/11/2020 4:47 PM Supraglottic Airway Mask ventilation: ventilated by mask Final type: LMA Final size: 3 Insertion attempts: 1 Placement verification: auscultation and end tidal CO2 Secured by: tape Lip/tooth/tongue trauma: no [facility] POC , Urineon 06-11 HCG ( test) Ql (U) Negative Negative [facility] Internal Control Pass [facility] Interpretation and review of laboratory results Normal [facility] Urine Aerobic Cultureon 05-12 Bacteria identified Aer cx Nom (Unsp spec) No Growth (<1,000 CFU/mL) [facility] Otheron 06-04-2020 Bilirubin Ql (U) Negative Negative [facility] Hemoglobin Ql (U) Large Abnormal Negative [facility] Interpretation and review of laboratory results Abnormal [facility] Nitrite Ql (U) Negative Negative [facility] pH (U) 5.0 [pH] [facility] Protein Ql (U) 300 Abnormal Negative mg/dL [facility] Urobilinogen Qn (U) 0.2 mg/dL <2.0, 0. 2, Normal, Negative, 1.0, 2.0, <1.0 [facility] Urinalysison 06-04-2020 Glucose Ql (U) Negative Normal, Negative mg/dL [facility] Ketones Ql (U) Negative Negative mg/dL [facility] Leukocyte esterase Test strip Ql (U) Small Abnormal Negative [facility] Specific gravity (U) [Rel density] 1.030 Abnormal [facility] US RENAL AND BLADDERon 05-27 1. There is a calcul us at the ureteropelvic junction/renal pelvis involving the right kidney measuring 7 x 8 x 3 mm in size with hydronephrosis of mild degree involving the right kidney, unchanged since the previous CT examination. 2. Normal left kidney and bladder. 3. Small approximately 16% postvoid residual. [employer] Workstation ID: [id number] [facility] EXAMINATION: RENAL, BLADDER ULTRASOUND: 05/26/2020 HISTORY: Stone. Right flank pain last Thursday and today. COMPARISON FILMS: Enhanced CT scan of the abdomen and pelvis: 05/20/2020. FINDINGS: Static images from real-time examination using grayscale, color sonography are provided which demonstrate there is mild hydronephrosis of the right kidney. There is no mass, perinephric fluid collections. The overall size of the right kidney is 12.7 x 5.2 x 6.7 cm with a volume of 230.9 mL. The cortical thickness is 1.1 cm. There is a echogenic focus with shadowing at the renal pelvis corresponding to the calculus seen on the previous examination, measuring 7.4 x 8.3 x 2.6 mm. No other calculi are seen. Left kidney measures 12.1 x 6.0 x 5.1 cm with a volume of 195.2 mL with cortical thickness of 1.6 cm. There is no mass, hydronephrosis, nephrolithiasis or perinephric fluid collections. The bladder is not well distended. The bladder measures 5.6 x 4.2 x 5.2 cm without thickening of the wall, internal echoes or septations. The prevoid volume is 63.7 mL. Due to incomplete distention the nondependent wall measures 5.4 mm. Left ureteral jet was noted. No right ureteral jet was seen under real-time. Postvoid the bladder measures 5.1 x 1.6 x 1.9 cm with residual volume of 8.1 mL. [facility], Rad In Fu ji Speechq - 05/27/2020 12:10 AM EST EXAMINATION: RENAL, BLADDER ULTRASOUND: 05/26/2020 HISTORY: Stone. Right flank pain last Thursday and today. COMPARISON FILMS: Enhanced CT scan of the abdomen and pelvis: 05/20/2020. FINDINGS: Static images from real-time examination using grayscale, color sonography are provided which demonstrate there is mild hydronephrosis of the right kidney. There is no mass, perinephric fluid collections. The overall size of the right kidney is 12.7 x 5.2 x 6.7 cm with a volume of 230.9 mL. The cortical thickness is 1.1 cm. There is a echogenic focus with shadowing at the renal pelvis corresponding to the calculus seen on the previous examination, measuring 7.4 x 8.3 x 2.6 mm. No other calculi are seen. Left kidney measures 12.1 x 6.0 x 5.1 cm with a volume of 195.2 mL with cortical thickness of 1.6 cm. There is no mass, hydronephrosis, nephrolithiasis or perinephric fluid collections. The bladder is not well distended. The bladder measures 5.6 x 4.2 x 5.2 cm without thickening of the wall, internal echoes or septations. The prevoid volume is 63.7 mL. Due to incomplete distention the nondependent wall measures 5.4 mm. Left ureteral jet was noted. No right ureteral jet was seen under real-time. Postvoid the bladder measures 5.1 x 1.6 x 1.9 cm with residual volume of 8.1 mL. IMPRESSION: 1. There is a calculus at the ureteropelvic junction/renal pelvis involving the right kidney measuring 7 x 8 x 3 mm in size with hydronephrosis of mild degree involving the right kidney, unchanged since the previous CT examination. 2. Normal left kidney and bladder. 3. Small approximately 16% postvoid residual. [employer]/alyssa Workstation ID: [id number] [facility] XR OR ABDOMEN 1 VIEWon 05-27 XR OR ABDOMEN 1 VIEW EXAMINATION: ONE SUPINE XRAY VIEW(S) OF THE ABDOMEN 05/27/2020 7:40 am COMPARISON: Abdomen and pelvis CT 05/19/2020 HISTORY: ORDERING SYSTEM PROVIDED HISTORY: cysto; TECHNOLOGIST PROVIDED HISTORY: Illness/Other Acuity: Acute Reason for Exam: cysto Type of Encounter: Initial Additional signs and symptoms: cysto Fluoro dose in mGy?:8.18 Intraprocedural imaging. TECHNIQUE: Fluoroscopy was provided by the radiology department for procedure. Radiologist was not present during examination. FLUOROSCOPY DOSE AND TYPE OR TIME AND EXPOSURES: Fluoroscopy time 26.5 seconds, Ka,r = 8.18 mGy FINDINGS: 6 spot images of the abdomen and pelvis were obtained. Cannulation of the right ureter via cystoscopy with instillation of contrast. Filling defect in the right renal collecting system corresponding with the calculus seen on CT. No significant right hydroureteronephrosis. Placement of a right ureteral stent in expected position. IMPRESSION: Intraprocedural fluoroscopic spot images as above. Please refer to the procedure note for further details. Workstation ID: [id number] Dictated by: MAGGIE PETERSON on [place] May 27, 2020 10:19:08 AM EST Transcribed by: MAGGIE PETERSON on [place] May 27, 2020 10:19:08 AM EST Finalized by: MAGGIE PETERSON on [place] May 27, 2020 10:19:08 AM EST [facility] Comment on above: Order Comment: Injur y/Trauma or Illness?:Illness/Other How long have you had these symptoms (acute/chronic)?:Acute Reason for exam?:cysto Type of Exam?:Initial Additional signs and symptoms?:cysto Fluoro time in minutes:.44 Fluoro dose in mGy?:8.18 XR OR Abdomen APon EXAMINATION: ONE SUPINE XRAY VIEW(S) OF THE ABDOMEN 05/27/2020 7:40 am COMPARISON: Abdomen and pelvis CT 05/19/2020 HISTORY: ORDERING SYSTEM PROVIDED HISTORY: cysto; TECHNOLOGIST PROVIDED HISTORY: Illness/Other Acuity: Acute Reason for Exam: cysto Type of Encounter: Initial Additional signs and symptoms: cysto Fluoro dose in mGy?:8.18 Intraprocedural imaging. TECHNIQUE: Fluoroscopy was provided by the radiology department for procedure. Radiologist was not present during examination. FLUOROSCOPY DOSE AND TYPE OR TIME AND EXPOSURES: Fluoroscopy time 26.5 seconds, Ka,r = 8.18 mGy FINDINGS: 6 spot images of the abdomen and pelvis were obtained. Cannulation of the right ureter via cystoscopy with instillation of contrast. Filling defect in the right renal collecting system corresponding with the calculus seen on CT. No significant right hydroureteronephrosis. Placement of a right ureteral stent in expected position. [facility], Rad In Fu ji Speechq - 05/27/2020 10:21 AM EST EXAMINATION: ONE SUPINE XRAY VIEW(S) OF THE ABDOMEN 05/27/2020 7:40 am COMPARISON: Abdomen and pelvis CT 05/19/2020 HISTORY: ORDERING SYSTEM PROVIDED HISTORY: cysto; TECHNOLOGIST PROVIDED HISTORY: Illness/Other Acuity: Acute Reason for Exam: cysto Type of Encounter: Initial Additional signs and symptoms: cysto Fluoro dose in mGy?:8.18 Intraprocedural imaging. TECHNIQUE: Fluoroscopy was provided by the radiology department for procedure. Radiologist was not present during examination. FLUOROSCOPY DOSE AND TYPE OR TIME AND EXPOSURES: Fluoroscopy time 26.5 seconds, Ka,r = 8.18 mGy FINDINGS: 6 spot images of the abdomen and pelvis were obtained. Cannulation of the right ureter via cystoscopy with instillation of contrast. Filling defect in the right renal collecting system corresponding with the calculus seen on CT. No significant right hydroureteronephrosis. Placement of a right ureteral stent in expected position. IMPRESSION: Intraprocedural fluoroscopic spot images as above. Please refer to the procedure note for further details. Workstation ID: [id number] [facility] XR OR FLUOROSCOPY TIMEon XR OR FLUOROSCOPY TIME This is an auto finalized result. Please refer to patient chart for further information. further information. further information. [facility] Comment on above: Order Comment: Injur y/Trauma or Illness?:Illness/Other How long have you had these symptoms (acute/chronic)?:Acute Reason for exam?:cysto Type of Exam?:Initial Additional signs and symptoms?:cysto Fluoro time in minutes:.44 Fluoro dose in mGy?:8.18 XR OR Fluoroscopy Timeon This is an auto finalized result. Please refer to patient chart for further information. [facility] BMPon 05-26-2020 Anion gap [Moles/Vol] 13 mmol/L 10 - 2 0 mmol/L [facility] Calcium [Mass/Vol] 9.7 mg/dL 8.4 - 10. 2 mg/dL [facility] Chloride [Moles/Vol] 106 mmol/L 98 - 10 8 mmol/L [facility] Creatinine [Mass/Vol] 1.01 mg/dL 0.40 - 1.10 [facility] GFR/1.73 sq M predicted among non-blacks MDRD (S/P/Bld) [Vol rate/Area] The eGFR should be used for monitoring renal function only and not for medication dosing. [facility] GFR/1.73 sq M.predicted CKD-EPI (S/P/Bld) [Vol rate/Area] 70 >=60 mL/min/1.73 m2 [facility] Glucose [Mass/Vol] 148 mg/dL High 65 - 99 mg/dL [facility] HCO3 [Moles/Vol] 22 mmol/L 21 - 32 mmol/L [facility] Potassium [Moles/Vol] 4.8 mmol/L 3.5 - 5.1 mmol/L [facility] Comment on above: moderate hemolysis, result may be falsely increased. Sodium [Moles/Vol] 136 mmol/L 135 - 145 mmol/L [facility] Urea nitrogen [Mass/Vol] 10 mg/dL 8 - 25 mg/d L [facility] Urea nitrogen/Creatinine [Mass ratio] 9.9 mg/mg Low [facility] CBC WITH AUTO DIFFERENTIALon 05-26-2020 Basophils (Bld) [#/Vol] 0.05 10*3/uL [facility] Basophils/100 WBC (Bld) 0.2 % [facility] Eosinophils (Bld) [#/Vol] 0.06 10*3/uL [facility] Eosinophils/100 WBC (Bld) 0.3 % [facility] Erythrocyte distribution width (RBC) [Entitic vol] 13.4 % 11.6 - 14.8 % [facility] Hematocrit (Bld) [Volume fraction] 47.5 % High 36.0 - 46.0 % [facility] Hemoglobin (Bld) [Mass/Vol] 15.1 g/dL 12.0 - 16.0 g/dL [facility] Immature granulocytes (Bld) [#/Vol] 0.16 10*3/uL [facility] Immature granulocytes/100 WBC (Bld) 0.70 % [facility] Comment on above: The IG parameter is the percentage of metamyelocytes, myelocytes and promyelocytes. An immature granulocyte count (IG) of 1% or more suggests the possibility of infection, an IG count of 3% is very likely related to an infection. Interpretation and review of laboratory results Abnormal [facility] Lymphocytes (Bld) [#/Vol] 2.30 10*3/uL [facility] Lymphocytes/100 WBC (Bld) 9.9 % [facility] MCH (RBC) [Entitic mass] 25.4 pg Low 26. 0 - 34.0 pg [facility] MCHC (RBC) [Mass/Vol] 31.8 g/dL 31.0 - 37.0 g/dL [facility] MCV (RBC) [Entitic vol] 79.8 fL Low 80.0 - 100.0 fL [facility] Monocytes (Bld) [#/Vol] 0.92 10*3/uL High [facility] Monocytes/100 WBC (Bld) 3.9 % [facility] Neutrophils (Bld) [#/Vol] 19.84 10*3/uL High [facility] Neutrophils/100 WBC (Bld) 85.0 % [facility] Nucleated RBC (Bld) [#/Vol] 0.00 10*3/uL [facility] Nucleated RBC/100 WBC (Bld) [Ratio] 0.0 % [facility] Platelet mean volume (Bld) [Entitic vol] 10.7 fL 9.4 - 12.4 fL [facility] Platelets (Bld) [#/Vol] 309 10*3/uL [facility] RBC (Bld) [#/Vol] 5.95 10*6/uL High [facility] WBC (Bld) [#/Vol] 23.33 10*3/uL [facility] Hepatic Function Panel (LFT) on 05-26-2020 Albumin [Mass/Vol] 3.9 g/dL 3.2 - 5.2 g/dL [facility] ALP [Catalytic activity/Vol] 56 U/L 40 - 140 U/L [facility] ALT [Catalytic activity/Vol] 27 U/L 14 - 65 U/L [facility] AST [Catalytic activity/Vol] 33 U/L 0 - 45 U/L [facility] Comment on above: moderate hemolysis, result may be falsely increased. Bilirubin [Mass/Vol] 0.5 mg/dL 0.0 - 1 .3 mg/dL [facility] Bilirubin.conjugated [Mass/Vol] mg/dL 0.0 - 0.4 mg/dL [facility] Protein [Mass/Vol] 8.6 g/dL High 6.0 - 8.0 g/dL [facility] Otheron 05-26-2020 Extra Tube Hold for add-ons. [facility] Comment on above: Auto resulted. Interpretation and review of laboratory results Abnormal [facility] URINALYSISon 05-26-2020 Bacteria Auto Ql (U) Many Abnormal None Se en /hpf [facility] Bilirubin Ql (U) Negative Negative [facility] Clarity Refractometry automated (U) Cloudy Abnormal Clear [facility] Color (U) Yellow Colorless, Yellow [facility] Epithelial cells.squamous Auto (Urine sed) [#/Area] 11 High [facility] Glucose Auto test strip (U) [Mass/Vol] Negative Negative mg/dL [facility] Hemoglobin Auto test strip Ql (U) Moderate Abnormal Negative [facility] Interpretation and review of laboratory results Abnormal [facility] Ketones (U) [Mass/Vol] Trace Abnormal Negat bunny mg/dL [facility] Leukocyte clumps Auto (Urine sed) [#/Area] Rare Abnormal None Seen /hpf [facility] Leukocyte esterase Auto test strip Ql (U) Large Abnormal Negative [facility] Mucus Auto (Urine sed) [#/Area] Rare None Seen, Rare /lpf [facility] Nitrite Auto test strip Ql (U) Negative Negative [facility] pH (U) 5.0 [pH] [facility] Protein (U) [Mass/Vol] 30 Abnormal Negat bunny mg/dL [facility] Comment on above: False positive resul ts may occur in urines with large amounts of hemoglobin, pH greater than 8.0, contrast medium, or disinfectants including ammonium compounds. RBC Auto (Urine sed) [#/Area] 8 High [facility] Specific gravity (U) [Rel density] 1.021 [facility] Transitional cells Computer assisted (U) [#/Area] <1 [facility] Urobilinogen (U) [Mass/Vol] <2.0 <2.0 mg/dL [facility] WBC Auto (Urine sed) [#/Area] 36 High [facility] Microscopic examination is performed on all urinalysis samples and only positive findings are reported. The test for blood on the chemical analytic portion of urinalysis may also be positive due to hemoglobinuria and myoglobinuria and if red blood cells are present they are quantified by microscopic examination. [facility] Urine Pregnancyon 05-26-2020 HCG ( test) Ql (U) Negative Negative [facility] Interpretation and review of laboratory results Normal [facility] Otheron 05-21-2020 Bilirubin Ql (U) Negative Negative [facility] Hemoglobin Ql (U) Moderate Abnormal Negative [facility] Interpretation and review of laboratory results Abnormal [facility] Nitrite Ql (U) Negative Negative [facility] pH (U) 5.5 [pH] [facility] Protein Ql (U) 30 Abnormal Negative mg/dL [facility] Urobilinogen Qn (U) 0.2 mg/dL <2.0, 0. 2, Normal, Negative, 1.0, 2.0, <1.0 [facility] Urinalysison 05-21-2020 Glucose Ql (U) Negative Normal, Negative mg/dL [facility] Ketones Ql (U) Negative Negative mg/dL [facility] Leukocyte esterase Test strip Ql (U) Small Abnormal Negative [facility] Specific gravity (U) [Rel density] 1.020 [facility] CBC WITH AUTO DIFFERENTIALon 05-19-2020 Erythrocyte distribution width (RBC) [Entitic vol] 13.4 % 11.6 - 14.8 % [facility] Hematocrit (Bld) [Volume fraction] 47.1 % High 36 - 46 % [facility] Hemoglobin (Bld) [Mass/Vol] 15.0 g/dL 12 - 16 g/dL [facility] MCH (RBC) [Entitic mass] 25.6 pg Low 26 - 34 pg [facility] MCHC (RBC) [Mass/Vol] 31.8 g/dL 31 - 37 g/dL [facility] MCV (RBC) [Entitic vol] 80.2 fL 80 - 100 fL [facility] Nucleated RBC (Bld) [#/Vol] 0.00 10*3/uL [facility] Nucleated RBC/100 WBC (Bld) [Ratio] 0.0 % [facility] Platelet mean volume (Bld) [Entitic vol] 10.3 fL 9.4 - 12.4 fL [facility] Platelets (Bld) [#/Vol] 307 10*3/uL [facility] RBC (Bld) [#/Vol] 5.87 10*6/uL [facility] ealt WBC (Bld) [#/Vol] 13.54 10*3/uL [facility] CT Abdomen Pelvis With IV Co ntrast Onlyon 05-19-2020 Interface, Rad In [facility] - 05/19/2020 6:43 AM EST EXAMINATION: CT ABDOMEN PELVIS WITH IV CONTRAST ONLY HISTORY: ORDERING SYSTEM PROVIDED HISTORY: right flank, rlq pain, TECHNOLOGIST PROVIDED HISTORY: Illness/Other 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 Coronal and sagittal reformations are performed. Dose reduction techniques were achieved by using automated exposure control and/or adjustment of mA and/or kV according to patient size and/or use of iterative reconstruction technique. FINDINGS: Lung bases are clear. Abdomen: Liver is homogeneous in attenuation without evidence for a focal lesion. Cholelithiasis. No pericholecystic inflammatory changes by CT. No abnormal biliary dilatation. Portal vein is patent. The spleen, adrenal glands and pancreas are unremarkable. No abdominal lymphadenopathy. There is motion degradation at the level of the kidneys. Symmetric enhancement of the kidneys. There is a stone within the right renal pelvis measuring 13 x 5 mm with density of 452 Hounsfield units. There is mild prominence of the right intrarenal collecting system. No left hydronephrosis. Pelvis: No hydroureter. No ureteral or bladder stone. Uterus and adnexa are unremarkable for age. No pelvic free fluid. No pelvic lymphadenopathy. Normal appendix. Small and large bowel without evidence for abnormal bowel thickening, masses or obstruction. No free air. No suspicious osteolytic or osteoblastic lesion. IMPRESSION: 1. Mild prominence of the right intrarenal collecting system with 13 x 5 mm stone within the right renal pelvis. No ureteral or bladder stone. 2. Cholelithiasis. No pericholecystic inflammatory changes by CT. 3. Normal appendix. 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 Coronal and sagittal reformations are performed. Dose reduction techniques were achieved by using automated exposure control and/or adjustment of mA and/or kV according to patient size and/or use of iterative reconstruction technique. FINDINGS: Lung bases are clear. Abdomen: Liver is homogeneous in attenuation without evidence for a focal lesion. Cholelithiasis. No pericholecystic inflammatory changes by CT. No abnormal biliary dilatation. Portal vein is patent. The spleen, adrenal glands and pancreas are unremarkable. No abdominal lymphadenopathy. There is motion degradation at the level of the kidneys. Symmetric enhancement of the kidneys. There is a stone within the right renal pelvis measuring 13 x 5 mm with density of 452 Hounsfield units. There is mild prominence of the right intrarenal collecting system. No left hydronephrosis. Pelvis: No hydroureter. No ureteral or bladder stone. Uterus and adnexa are unremarkable for age. No pelvic free fluid. No pelvic lymphadenopathy. Normal appendix. Small and large bowel without evidence for abnormal bowel thickening, masses or obstruction. No free air. No suspicious osteolytic or osteoblastic lesion. [facility] 1. Mild prominence o f the right intrarenal collecting system with 13 x 5 mm stone within the right renal pelvis. No ureteral or bladder stone. 2. Cholelithiasis. No pericholecystic inflammatory changes by CT. 3. Normal appendix. [facility] Workstation ID: [id number] [facility] Chem 7on 05-19-2020 Anion gap [Moles/Vol] 14 mmol/L 10 - 2 0 mmol/L [facility] Chloride [Moles/Vol] 105 mmol/L 98 - 10 8 mmol/L [facility] Creatinine [Mass/Vol] 0.83 mg/dL 0.40 - 1.10 [facility] GFR/1.73 sq M predicted among non-blacks MDRD (S/P/Bld) [Vol rate/Area] The eGFR should be used for monitoring renal function only and not for medication dosing. [facility] GFR/1.73 sq M.predicted CKD-EPI (S/P/Bld) [Vol rate/Area] 89 >=60 mL/min/1.73 m2 [facility] GFR/1.73 sq M.predicted CKD-EPI (S/P/Bld) [Vol rate/Area] 103 >=60 mL/min/1.73 m2 [facility] Glucose [Mass/Vol] 168 mg/dL High 65 - 99 mg/dL [facility] HCO3 [Moles/Vol] 25 mmol/L 21 - 32 mmol/L [facility] Interpretation and review of laboratory results Abnormal [facility] Potassium [Moles/Vol] 3.9 mmol/L 3.5 - 5.1 mmol/L [facility] Sodium [Moles/Vol] 140 mmol/L 135 - 145 mmol/L [facility] Urea nitrogen [Mass/Vol] 14 mg/dL 8 - 25 mg/d L [facility] Urea nitrogen/Creatinine [Mass ratio] 16.9 mg/mg [facility] MORPHOLOGYon 05-19-2020 RBC morphology finding Nom (Bld) Normal [facility] Comment on above: RBC Indices confirme d with manual peripheral smear review. Manual Differentialon 2020 Band form neutrophils/100 WBC (Bld) 0.0 % [facility] Basophils (Bld) [#/Vol] 0.00 10*3/uL [facility] Basophils/100 WBC (Bld) 0.0 % [facility] Blasts/100 WBC (Bld) 0.0 % [facility] Eosinophils (Bld) [#/Vol] 0.49 10*3/uL [facility] Eosinophils/100 WBC (Bld) 3.6 % [facility] Lymphocytes (Bld) [#/Vol] 4.27 10*3/uL High [facility] Lymphocytes/100 WBC (Bld) 24.3 % [facility] Metamyelocytes/100 WBC (Bld) 0.0 % [facility] Monocytes (Bld) [#/Vol] 0.73 10*3/uL [facility] Monocytes/100 WBC (Bld) 5.4 % [facility] Myelocytes/100 WBC (Bld) 0.0 % [facility] Neutrophils (Bld) [#/Vol] 8.06 10*3/uL High [facility] Neutrophils/100 WBC (Bld) 59.5 % [facility] Other cells/100 WBC Manual cnt (Bld) 0.0 % [facility] Plasma cells/100 WBC (Bld) 0.0 % [facility] Promyelocytes/100 WBC (Bld) 0.0 % [facility] Variant lymphocytes/100 WBC (Bld) 7.2 % [facility] Otheron 05-19-2020 Interpretation and review of laboratory results Abnormal [facility] URINALYSISon 05-19-2020 Bacteria Auto Ql (U) Rare Abnormal None Se en /hpf [facility] Bilirubin Ql (U) Negative Negative [facility] th Clarity Refractometry automated (U) Clear Clear [facility] Color (U) Yellow Colorless, Yellow [facility] Epithelial cells.squamous Auto (Urine sed) [#/Area] 2 [facility] Glucose Auto test strip (U) [Mass/Vol] Negative Negative mg/dL [facility] Hemoglobin Auto test strip Ql (U) Large Abnormal Negative [facility] Hyaline casts Auto (Urine sed) [#/Area] 0-2 0 - 2 /lpf [facility] Interpretation and review of laboratory results Abnormal [facility] Ketones (U) [Mass/Vol] Negative Negat bunny mg/dL [facility] Leukocyte esterase Auto test strip Ql (U) Trace Abnormal Negative [facility] Mucus Auto (Urine sed) [#/Area] Rare None Seen, Rare /lpf [facility] Nitrite Auto test strip Ql (U) Negative Negative [facility] pH (U) 5.5 [pH] [facility] Protein (U) [Mass/Vol] 100 Abnormal Negat bunny mg/dL [facility] RBC Auto (Urine sed) [#/Area] 7 High [facility] Specific gravity (U) [Rel density] 1.030 High [facility] Urobilinogen (U) [Mass/Vol] <2.0 <2.0 mg/dL [facility] WBC Auto (Urine sed) [#/Area] 13 High [facility] Microscopic examination is performed on all urinalysis samples and only positive findings are reported. The test for blood on the chemical analytic portion of urinalysis may also be positive due to hemoglobinuria and myoglobinuria and if red blood cells are present they are quantified by microscopic examination. [facility] Urine Pregnancyon 05-19-2020 HCG ( test) Ql (U) Negative Negative [facility] Interpretation and review of laboratory results Normal [facility] Vital Signs Date Time Vital Sign Value Performing Clinician Faci lity 08-08-2024 08:59-0400 Body height 148.3 cm Loreto Lisha RAPID EXTRACTOR OPERATOR.WET END TESTER Work Phone: [facility] 08-08-2024 08:59-0400 Body mass index (BMI) [Ratio] 35.31 kg/m2 Loreto Whippany RAPID EXTRACTOR OPERATOR.WET END TESTER Work Phone: [facility] 08-08-2024 08:59-0400 Body weight 77.66 kg Loreto Lisha RAPID EXTRACTOR OPERATOR.WET END TESTER Work Phone: [facility] 08-08-2024 08:59-0400 Diastolic blood pressure 66 mm[Hg] Loreto Whippany RAPID EXTRACTOR OPERATOR.WET END TESTER Work Phone: [facility] 08-08-2024 08:59-0400 Systolic blood pressure 128 mm[Hg] Loreto Whippany RAPID EXTRACTOR OPERATOR.WET END TESTER Work Phone: [facility] 08-05-2023 08:14-0400 Body height 148 cm Cassi Hasylvie RAPID EXTRACTOR OPERATOR.WET END TESTER Work Phone: [facility] 08-05-2023 08:14-0400 Body weight 88.81 kg Cassi Haury RAPID EXTRACTOR OPERATOR.WET END TESTER Work Phone: [facility] 08-05-2023 08:14-0400 Diastolic blood pressure 90 mm[Hg] Cassi Haury RAPID EXTRACTOR OPERATOR.WET END TESTER Work Phone: [facility] 08-05-2023 08:14-0400 Heart rate 118 /min Cassi Dawn RAPID EXTRACTOR OPERATOR.WET END TESTER Work Phone: [facility] 08-05-2023 08:14-0400 Respiratory rate 12 /min Cassi Haury RAPID EXTRACTOR OPERATOR.WET END TESTER Work Phone: [facility] 08-05-2023 08:14-0400 SaO2% (BldA) [Mass fraction] 97 % Cassi Haury RAPID EXTRACTOR OPERATOR.WET END TESTER Work Phone: [facility] 08-05-2023 08:14-0400 Systolic blood pressure 146 mm[Hg] Cassi Haury RAPID EXTRACTOR OPERATOR.WET END TESTER Work Phone: [facility] 01-06-2023 11:31-0400 Diastolic blood pressure 92 mm[Hg] Heidi Pa MD Work Phone: [facility] 01-06-2023 11:31-0400 Systolic blood pressure 141 mm[Hg] Heidi Pa MD Work Phone: [facility] 01-06-2023 11:30-0400 Heart rate 111 /min Heidi Pa MD Work Phone: [facility] 01-06-2023 11:30-0400 SaO2% (BldA) [Mass fraction] 98 % Heidi Pa MD Work Phone: [facility] 07-31-2022 09:35-0400 Body height 148.6 cm Loreto Lisha RAPID EXTRACTOR OPERATOR.WET END TESTER Work Phone: [facility] 07-31-2022 09:35-0400 Body weight 92.53 kg Loreto Whippany RAPID EXTRACTOR OPERATOR.WET END TESTER Work Phone: [facility] 07-31-2022 09:35-0400 Diastolic blood pressure 88 mm[Hg] Loreto Whippany RAPID EXTRACTOR OPERATOR.WET END TESTER Work Phone: [facility] 07-31-2022 09:35-0400 Heart rate 108 /min Loreto Lisha RAPID EXTRACTOR OPERATOR.WET END TESTER Work Phone: [facility] 07-31-2022 09:35-0400 Respiratory rate 14 /min Loreto Lisha RAPID EXTRACTOR OPERATOR.WET END TESTER Work Phone: [facility] 07-31-2022 09:35-0400 SaO2% (BldA) [Mass fraction] 97 % Loreto Whippany RAPID EXTRACTOR OPERATOR.WET END TESTER Work Phone: [facility] 07-31-2022 09:35-0400 Systolic blood pressure 140 mm[Hg] Loreto Lisha RAPID EXTRACTOR OPERATOR.WET END TESTER Work Phone: [facility] 12-10-2021 09:11-0400 Diastolic blood pressure 93 mm[Hg] Heidi Pa MD Work Phone: [facility] 12-10-2021 09:11-0400 Heart rate 87 /min Heidi Pa MD Work Phone: [facility] 12-10-2021 09:11-0400 SaO2% (BldA) [Mass fraction] 98 % Heidi Pa MD Work Phone: [facility] 12-10-2021 09:11-0400 Systolic blood pressure 148 mm[Hg] Heidi Pa MD Work Phone: [facility] 07-29-2021 10:00-0400 Body height 146.7 cm Loreto Whippany RAPID EXTRACTOR OPERATOR.WET END TESTER Work Phone: [facility] 07-29-2021 10:00-0400 Body weight 89.81 kg Loreto Lisha RAPID EXTRACTOR OPERATOR.WET END TESTER Work Phone: [facility] 06-17-2021 09:33-0500 Diastolic blood pressure 95 mm[Hg] Heidi Pa MD Work Phone: [facility] 06-17-2021 09:33-0500 Heart rate 125 /min Heidi Pa MD Work Phone: [facility] 06-17-2021 09:33-0500 SaO2% (BldA) [Mass fraction] 96 % Heidi Pa MD Work Phone: [facility] 06-17-2021 09:33-0500 Systolic blood pressure 140 mm[Hg] Heidi Pa MD Work Phone: [facility] 12-17-2020 08:51-0400 Diastolic blood pressure 92 mm[Hg] Heidi Pa MD Work Phone: [facility] 12-17-2020 08:51-0400 Heart rate 100 /min Heidi Pa MD Work Phone: [facility] 12-17-2020 08:51-0400 SaO2% (BldA) [Mass fraction] 98 % Heidi Pa MD Work Phone: [facility] 12-17-2020 08:51-0400 Systolic blood pressure 134 mm[Hg] Heidi Pa MD Work Phone: [facility] 11-23-2020 13:18-0400 Body height 149.9 cm Jeanne Ondecker DO Work Phone: [facility] 11-23-2020 13:18-0400 Body mass index (BMI) [Ratio] 37.96 kg/m2 Jeanne Ondecker DO Work Phone: [facility] 11-23-2020 13:18-0400 Body temperature 99.1 [degF] Jeanne Ondecker DO Work Phone: [facility] 11-23-2020 13:18-0400 Body weight 85.25 kg Jeanne Ondecker DO Work Phone: [facility] 11-23-2020 13:18-0400 Diastolic blood pressure 97 mm[Hg] Jeanne Ondecker DO Work Phone: [facility] 11-23-2020 13:18-0400 Heart rate 86 /min Jeanne Ondecker DO Work Phone: [facility] 11-23-2020 13:18-0400 Respiratory rate 16 /min Jeanne Ondecker DO Work Phone: [facility] 11-23-2020 13:18-0400 SaO2% (BldA) [Mass fraction] 98 % Jeanne Ondecker DO Work Phone: [facility] 11-23-2020 13:18-0400 Systolic blood pressure 149 mm[Hg] Jeanne Buckner DO Work Phone: [facility] 10-29-2020 08:46-0400 Body mass index (BMI) [Ratio] 38.25 kg/m2 Heidi Pa MD Work Phone: [facility] 10-29-2020 08:46-0400 Body weight 85.91 kg Heidi Pa MD Work Phone: [facility] 10-29-2020 08:46-0400 Diastolic blood pressure 97 mm[Hg] Heidi Pa MD Work Phone: [facility] 10-29-2020 08:46-0400 Heart rate 121 /min Heidi Pa MD Work Phone: [facility] 10-29-2020 08:46-0400 Systolic blood pressure 156 mm[Hg] Heidi Pa MD Work Phone: [facility] 10-01-2020 09:04-0400 Diastolic blood pressure 83 mm[Hg] Heidi Pa MD Work Phone: [facility] 10-01-2020 09:04-0400 Heart rate 80 /min Heidi Pa MD Work Phone: [facility] 10-01-2020 09:04-0400 SaO2% (BldA) [Mass fraction] 97 % Heidi Pa MD Work Phone: [facility] 10-01-2020 09:04-0400 Systolic blood pressure 133 mm[Hg] Heidi Pa MD Work Phone: [facility] 07-12-2020 14:01-0500 BP Diastolic 91 mm[Hg] Rasheeda Boyer [facility] 07-12-2020 14:01-0500 BP Systolic 132 mm[Hg] Rasheeda Boyer [facility] 07-12-2020 14:01-0500 Pulse (Heart Rate) 88 /min Rahseeda Boyer [facility] 07-12-2020 14:01-0500 Pulse Oximetry 97 % Rasheeda Boyer [facility] 06-11-2020 19:00-0500 Body Temperature 97.9 [degF] [facility] 06-11-2020 19:00-0500 BP Diastolic 86 mm[Hg] [facility] 06-11-2020 19:00-0500 BP Systolic 131 mm[Hg] [facility] 06-11-2020 19:00-0500 Pulse (Heart Rate) 86 /min [facility] 06-11-2020 19:00-0500 Pulse Oximetry 98 % [facility] 06-11-2020 19:00-0500 Respiratory Rate 14 /min [facility] 06-11-2020 12:51-0500 BMI (Body Mass Index) 39.18 kg/m2 [facility] 06-11-2020 12:51-0500 Body weight 88 kg [facility] 06-11-2020 12:51-0500 Height 149.9 cm [facility] 06-04-2020 10:29-0500 BMI (Body Mass Index) 40.4 kg/m2 [facility] 06-04-2020 10:29-0500 Body weight 90.72 kg [facility] 06-04-2020 10:29-0500 BP Diastolic 99 mm[Hg] [facility] 06-04-2020 10:29-0500 BP Systolic 154 mm[Hg] [facility] 06-04-2020 10:29-0500 Height 149.9 cm [facility] 06-04-2020 10:29-0500 Pulse (Heart Rate) 96 /min [facility] 06-04-2020 10:29-0500 Pulse Oximetry 96 % [facility] 05-27-2020 14:13-0500 Body Temperature 97.81 [degF] Generic [facility] 05-27-2020 14:13-0500 BP Diastolic 87 mm[Hg] Generic [facility] 05-27-2020 14:13-0500 BP Systolic 150 mm[Hg] Generic [facility] 05-27-2020 14:13-0500 Pulse (Heart Rate) 85 /min [facility] 05-27-2020 14:13-0500 Pulse Oximetry 96 % [facility] 05-27-2020 12:50-0500 Respiratory Rate 14 /min [facility] 05-27-2020 03:57-0500 BMI (Body Mass Index) 40.4 kg/m2 [facility] 05-27-2020 03:57-0500 Body weight 90.72 kg Generic [facility] 05-27-2020 03:57-0500 Height 149.9 cm [facility] 05-27-2020 01:56-0500 Body Temperature 98.4 [degF] [facility] 05-27-2020 01:56-0500 BP Diastolic 100 mm[Hg] [facility] 05-27-2020 01:56-0500 BP Systolic 177 mm[Hg] [facility] 05-27-2020 01:56-0500 Pulse (Heart Rate) 87 /min [facility] 05-27-2020 01:56-0500 Pulse Oximetry 98 % [facility] 05-27-2020 01:56-0500 Respiratory Rate 16 /min [facility] 05-21-2020 09:16-0500 BMI (Body Mass Index) 40.4 kg/m2 [facility] 05-21-2020 09:16-0500 Body weight 90.72 kg [facility] 05-21-2020 09:16-0500 BP Diastolic 93 mm[Hg] [facility] 05-21-2020 09:16-0500 BP Systolic 150 mm[Hg] [facility] 05-21-2020 09:16-0500 Height 149.9 cm [facility] 05-21-2020 09:16-0500 Pulse (Heart Rate) 69 /min [facility] 05-21-2020 09:16-0500 Pulse Oximetry 98 % [facility] 05-19-2020 06:38-0500 BP Diastolic 87 mm[Hg] [facility] 05-19-2020 06:38-0500 BP Systolic 157 mm[Hg] [facility] 05-19-2020 06:38-0500 Pulse (Heart Rate) 83 /min [facility] 05-19-2020 06:38-0500 Pulse Oximetry 98 % [facility] 05-19-2020 06:38-0500 Respiratory Rate 18 /min [facility] 05-19-2020 04:17-0500 BMI (Body Mass Index) 40.4 kg/m2 [facility] 05-19-2020 04:17-0500 Body Temperature 98.29 [degF] [facility] 05-19-2020 04:17-0500 Body weight 90.72 kg [facility] 05-19-2020 04:17-0500 Height 149.9 cm [facility] Encounters Encounter Date Encounter Type Care Provider Facility Start: 12-02-2024 End: 12-02-2024 ambulatory [facility] Start: 09-30-2024 End: 09-30-[address] Zahra Hendrix MD Work Phone: [facility] Work Phone: Start: 09-30-2024 End: 09-30-[address] Zahra Hendrix MD -Laboratory [place] Work Phone: Start: 09-30-2024 End: 09-30-2024 ambulatory Zahra Hendrix Facility:[facility] Start: 08-15-2024 End: 10-15-2024 Follow-up encounter Cassi Dawn APRN.CNP Work Phone: OB/Gynecology Start: 08-11-2024 End: 08-11-2024 ambulatory CASSI DAWN Facility:[facility] Start: 08-11-2024 End: 08-11-2024 Subsequent hospital visit by physician Screen Mammo [facility] Mammogram Start: 08-08-2024 End: 08-08-2024 ambulatory LORETO PERALTA Facility:[facility] Start: 08-08-2024 End: 08-08-2024 Patient encounter procedure Loreto Peralta APRN.WET END TESTER Work Phone: OB/Gynecology Comment on above: Encounter for gyneco logical examination (general) (routine) without abnormal findings (Primary Dx); Encounter for screening mammogram for breast cancer Start: 08-08-2024 End: 08-08-2024 Patient encounter status Loreto Peralta RAPID EXTRACTOR OPERATOR.WET END TESTER Work Phone: [facility] Start: 06-08-2024 End: 06-08-2024 ambulatory [facility] Facility:[facility] Start: 05-26-2024 End: 05-26-2024 ambulatory Anne Jonas [facility] [place] Start: 02-03-2024 End: 02-03-2024 ambulatory [facility] Facility:[facility] Start: 12-29-2023 End: 12-29-2023 Office outpatient visit 25 minutes Heidi Pa MD Work Phone: [facility] Comment on above: Kidney stone (Primar y Dx) Start: 12-29-2023 End: 12-29-2023 Orders Only Heidi Pa MD Work Phone: [facility] Start: 12-24-2023 End: 12-24-2023 ambulatory HEIDI PA [facility] Start: 12-09-2023 End: 12-09-2023 Orders Only Heidi Pa MD Work Phone: [facility] Comment on above: Liver lesion Start: 12-08-2023 End: 12-08-2023 Orders Only Heidi Pa MD Work Phone: [facility] Comment on above: Liver lesion (Primar y Dx); Renal cell carcinoma, unspecified laterality (HCC) Liver lesion (Primar y Dx) Start: 11-18-2023 End: 11-18-2023 Orders Only Aaron Damon RN [facility] Comment on above: Renal cell carcinoma , unspecified laterality (HCC) (Primary Dx) Start: 11-11-2023 End: 11-11-2023 ambulatory Zahra Hendrix Facility:[facility] Start: 09-01-2023 End: 09-01-2023 ambulatory [facility] Work Phone: Start: 09-01-2023 End: 09-01-2023 Patient encounter procedure [facility] Work Phone: Start: 08-28-2023 End: 08-28-2023 ambulatory [facility] Work Phone: Start: 08-28-2023 End: 08-28-2023 Patient encounter procedure [facility] Start: 08-18-2023 Telephone encounter Cassi armijo APRN.WET END TESTER Work Phone: OB/Gynecology Comment on above: Orders Start: 08-07-2023 Documentation procedure Mammog richard Coordinator [facility] Start: 08-07-2023 Letter encounter Mammography Coordinator [facility] Department Start: 08-05-2023 End: 08-05-2023 Patient encounter procedure Cassi Dawn APRN.WET END TESTER Work Phone: OB/Gynecology Comment on above: Encounter for gyneco logical examination (general) (routine) with abnormal findings (Primary Dx); Encounter for screening mammogram for breast cancer; Hypertension, unspecified type; Abnormal uterine bleeding; Screening for cervical cancer; Encounter for screening for human papillomavirus (HPV); Intermenstrual bleeding; Cervical polyp; Dyspareunia in female; Vaginal dryness; Night sweats Start: 08-05-2023 End: 08-05-2023 Patient encounter status Cassi Dawn APRN.WET END TESTER Work Phone: [facility] Work Phone: Start: 07-20-2023 Telephone encounter Loreto fountain APRN.WET END TESTER Work Phone: OB/Gynecology Comment on above: Medication Problem Start: 07-15-2023 ambulatory Aleksandar freire MD Work Phone: Internal Medicine [facility] Start: 01-06-2023 End: 01-06-2023 Refill Martínez Juan RN [facility] Comment on above: Renal cell carcinoma , unspecified laterality (HCC) Start: 01-06-2023 End: 01-06-2023 Office outpatient visit 25 minutes Heidi Pa MD Work Phone: [facility] Comment on above: Renal cell carcinoma , unspecified laterality (HCC) (Primary Dx); Kidney stone Start: 07-31-2022 End: 07-31-2022 Patient encounter procedure Loreto Lisha RAPID EXTRACTOR OPERATOR.WET END TESTER Work Phone: OB/Gynecology Comment on above: Encounter for gyneco logical examination (general) (routine) without abnormal findings (Primary Dx); Encounter for screening mammogram for breast cancer; Encounter for surveillance of contraceptive pills Start: 07-31-2022 End: 07-31-2022 Patient encounter status Loreto Lihsa RAPID EXTRACTOR OPERATOR.WET END TESTER Work Phone: OB/Gynecology Start: 12-13-2021 Refill Loreto Whippany RAPID EXTRACTOR OPERATOR.WET END TESTER Work Phone: OB/Gynecology Comment on above: Refill Request Start: 12-10-2021 End: 12-10-2021 Office outpatient visit 25 minutes Heidi Pa MD Work Phone: [facility] Comment on above: Renal cell carcinoma , unspecified laterality (HCC) (Primary Dx) Start: 10-11-2021 Orders Only Martínez Juan RN [facility] Comment on above: Renal cell carcinoma , unspecified laterality (HCC) (Primary Dx) Start: 10-06-2021 Refill Loreto Lisha RAPID EXTRACTOR OPERATOR.WET END TESTER Work Phone: OB/Gynecology Comment on above: Refill Request Start: 07-29-2021 End: 07-29-2021 Patient encounter procedure Loreto Whippany RAPID EXTRACTOR OPERATOR.WET END TESTER Work Phone: OB/Gynecology Comment on above: Encounter for gyneco logical examination (general) (routine) without abnormal findings (Primary Dx); Encounter for surveillance of contraceptive pills; Encounter for screening mammogram for breast cancer; Vaginal burning; Screening for malignant neoplasm of cervix; Encounter for screening for human papillomavirus (HPV) Start: 07-29-2021 End: 07-29-2021 Patient encounter status Loreto Peralta APRN.KAILEE Work Phone: OB/Gynecology Start: 06-17-2021 End: 06-17-2021 Office outpatient visit 25 minutes Heidi Pa MD Work Phone: [facility] Comment on above: Renal cell carcinoma , unspecified laterality (HCC) (Primary Dx) Start: 05-27-2021 Orders Only Martínez Juan RN [facility] Comment on above: Renal cell carcinoma , unspecified laterality (HCC) (Primary Dx) Start: 04-26-2021 Refill Martínez Juan RN [facility] Comment on above: Renal cell carcinoma , unspecified laterality (HCC) (Primary Dx) Start: 12-17-2020 End: 12-17-2020 Postop follow up visit related to original px Heidi Pa MD Work Phone: [facility] Comment on above: Renal cell carcinoma , unspecified laterality (HCC) (Primary Dx) Start: 11-30-2020 End: 11-30-2020 Orders Only Heidi Pa MD Work Phone: [facility] Comment on above: Renal mass (Primary Dx); Leukocytosis, unspecified type Start: 11-26-2020 End: 11-26-2020 Documentation procedure Kaden Dubois MD Work Phone: [facility] Start: 11-23-2020 End: 11-23-2020 Office consultation new/estab patient 60 min Heidi Pa MD Work Phone: [facility] Comment on above: Preop examination (P rimary Dx); Kidney mass; Preop cardiovascular exam; Smoker; Obesity, unspecified classification, unspecified obesity type, unspecified whether serious comorbidity present; Acne, unspecified acne type Start: 11-23-2020 End: 11-23-2020 Patient encounter status Heidi Pa MD Work Phone: [facility] Start: 11-23-2020 End: 11-23-2020 Preprocedural examination done Heidi Pa MD Work Phone: [facility] Start: 10-31-2020 End: 10-31-2020 Admission to same day surgery center Heidi Pa MD Work Phone: [facility] Comment on above: Renal mass (Primary Dx) Start: 10-29-2020 End: 10-29-2020 Subsequent hospital visit by physician Heidi Pa MD Work Phone: [facility] Comment on above: Arrived Start: 10-29-2020 End: 10-29-2020 Office outpatient visit 40 minutes Heidi Pa MD Work Phone: [facility] Comment on above: Acute UTI (Primary D x); Renal mass Start: 10-22-2020 End: 10-22-2020 Subsequent hospital visit by physician Heidi Pa MD Work Phone: [facility] Comment on above: Arrived Start: 10-15-2020 End: 10-15-2020 Orders Only Heidi Pa MD Work Phone: [facility] Comment on above: Kidney stone (Primar y Dx) Start: 10-09-2020 End: 10-09-2020 Orders Only Kaden Wang LPN [facility] Comment on above: Acute UTI (Primary D x) Start: 10-05-2020 End: 10-05-2020 Orders Only Martínez Juan RN [facility] Comment on above: Uric acid kidney sto ne (Primary Dx); Urinary tract infection without hematuria, site unspecified Start: 10-01-2020 End: 10-01-2020 Office outpatient visit 25 minutes Heidi Pa MD Work Phone: [facility] Comment on above: Uric acid kidney sto ne (Primary Dx); Urinary tract infection without hematuria, site unspecified Start: 07-12-2020 End: 07-12-2020 Orders Only Kaden Felipe [facility] Comment on above: Kidney stone (Primar y Dx) Start: 07-12-2020 End: 07-12-2020 Office outpatient visit 10 minutes Rasheeda Thakur Merlin Work Phone: [facility] Comment on above: Kidney stone (Primar y Dx) Start: 06-11-2020 End: 06-11-2020 Anesthesia consultation Pawel Heath Work Phone: [facility] Start: 06-11-2020 End: 06-11-2020 Subsequent hospital visit by physician Heidi Pa Work Phone: [facility] Comment on above: Nephrolithiasis (Anabel kaden Dx); Kidney stone Start: 06-04-2020 End: 06-04-2020 Office outpatient visit 40 minutes [employer] Work Phone: [facility] Comment on above: Kidney stone (Primar y Dx) Start: 05-27-2020 End: 05-27-2020 Patient encounter procedure PHYSICIAN [facility] Start: 05-27-2020 End: 05-27-2020 [facility]: [facility] Comment on above: Nephrolithiasis (Anabel kaden Dx); Kidney stone; Pyelonephritis, acute Start: 05-26-2020 End: 05-27-2020 Emergency department patient visit Graham Rojas Work Phone: [facility] Comment on above: Right ureteral calcu shabnam (Primary Dx); Acute UTI Start: 05-21-2020 End: 05-21-2020 Orders Only Martínez Juan [facility] Comment on above: Kidney stone (Primar y Dx) Start: 05-21-2020 End: 05-21-2020 Office outpatient new 60 minutes [employer] Pa Work Phone: [facility] Comment on above: Kidney stone (Primar y Dx) Start: 05-19-2020 End: 05-19-2020 Emergency department patient visit Oleg Pa Work Phone: [facility] Comment on above: Kidney stone on righ t side (Primary Dx) Procedures Date Procedure Procedure Detail Performing Clinician Start: 09-30-2024 Urine microalbumin/creatinine ratio measurement Dr. Zahra Hendrix MD Work Phone: Start: 12-29-2023 Follow-up visit Follow-up ZAHRA HENDRIX Start: 08-06-2023 Mammography Heidi Pa MD Work Phone: Start: 08-05-2023 Microscopic observation [Identifier] in Cervix by Cyto stain Heidi Pa MD Work Phone: Start: 10-16-2021 Mammography Heidi Pa MD Work Phone: Start: 07-29-2021 Urnls dip stick/tablet rgnt auto w/o microscopy Loreto Whippany RAPID EXTRACTOR OPERATOR.WET END TESTER Work Phone: Start: 06-17-2021 Urnls dip stick/tablet rgnt auto w/o microscopy Heidi Pa MD Work Phone: Start: 01-08-2021 Adult depression screening assessment [facility] RAPID EXTRACTOR OPERATOR.WET END TESTER Work Phone: Start: 11-23-2020 Basic metabolic panel calcium total Heidi Pa MD Work Phone: Start: 10-29-2020 Comprehensive metabolic panel Heidi duong MD Work Phone: Start: 10-29-2020 Radiologic exam chest 2 views Heidi duong MD Work Phone: Start: 10-29-2020 Urnls dip stick/tablet rgnt auto w/o microscopy Heidi Pa MD Work Phone: Start: 10-22-2020 RADIOLOGY SCANS Provider Not In Syst em Start: 10-15-2020 Mammography Heidi Pa MD Work Phone: Start: 07-12-2020 Urnls dip stick/tablet rgnt auto w/o microscopy Rasheeda Ofelázaro Boyer Work Phone: Start: 06-11-2020 AIRWAY SUPRAGLOTTIC Blade Sr Work Phone: Start: 06-11-2020 Choriogonadotropin ( test) [Presence] in Urine Pawel Heath Work Phone: Start: 06-04-2020 Bacteria identified in Unspecified specimen by Aerobe culture Heidi Pa Work Phone: Start: 06-04-2020 Urnls dip stick/tablet rgnt auto w/o microscopy Heidi Pa Work Phone: Start: 05-27-2020 Radiologic exam abdomen 1 view Duong Ibarra Work Phone: Start: 05-27-2020 XR OR FLUOROSCOPY TIME Duong Ibarra Work Phone: Start: 05-26-2020 Ultrasonography of retroperitoneum Angelica Mily Burnett Work Phone: Start: 05-26-2020 Basic metabolic 2000 panel - Serum or Plasma Angelica Burnett Work Phone: Start: 05-26-2020 Choriogonadotropin ( test) [Presence] in Urine Angelica Burnett Work Phone: Start: 05-26-2020 Complete blood count with white cell differential, automated Angelica Mily Burnett Work Phone: Start: 05-26-2020 Complete blood count with white cell differential, manual Angelica Mily Burnett Work Phone: Start: 05-26-2020 Hepatic function 2000 panel - Serum or Plasma Angelica Majanoe Burnett Work Phone: Start: 05-26-2020 LAVENDER TOP Graham Dianna Egal Work Phone: Start: 05-26-2020 LIGHT BLUE TOP Graham Dianna Egal Work Phone: Start: 05-26-2020 MINT GREEN TOP Graham Bustamante Egal Work Phone: Start: 05-26-2020 RAINBOW DRAW Graham Bustamante Egal Work Phone: Start: 05-26-2020 Urinalysis Graham Bustamante Egal Work Phone: Start: 05-21-2020 Urnls dip stick/tablet rgnt auto w/o microscopy Raunak Pa Work Phone: Start: 05-19-2020 Ct abdomen & pelvis w/contrast material Oleg Pa Work Phone: Start: 05-19-2020 Choriogonadotropin ( test) [Presence] in Urine Oleg Pa Work Phone: Start: 05-19-2020 Urinalysis Oleg Pa Work Phone: Start: 05-19-2020 Basic metabolic 1998 panel - Serum or Plasma Oleg Pa Work Phone: Start: 05-19-2020 Complete blood count with white cell differential, automated Oleg Pa Work Phone: Start: 05-19-2020 Complete blood count with white cell differential, manual Oleg Pa Work Phone: Start: 05-19-2020 Manual Differential panel - Blood Oleg Pa Work Phone: Start: 05-19-2020 Red blood cell morphology Oleg Pa Work Phone: Plan of Treatment Date Care Activity Detail Author Start: 01-10-2031 Tetanus vaccination Tetanus: Every 10yrs [facility] Start: 01-10-2031 Urine microalbumin profile [facility] Start: 08-04-2028 Screening for malignant neoplasm of cervix [facility] Start: 08-04-2026 Screening for malignant neoplasm of cervix Pap Smear [facility] Start: 07-29-2026 HPV TESTING HPV TESTING [facility] Start: 07-29-2026 PAP TESTING PAP TESTING [facility] Start: 07-29-2026 Screening for malignant neoplasm of cervix [facility] Start: 08-17-2025 End: 08-17-2025 Patient encounter procedure Mammogram Comment on above: Encounter for screening mammogram for br east cancer [Z12.31] ANNUAL Start: 08-11-2025 Screening for malignant neoplasm of breast Mammogram Screening [facility] Start: 01-09-2025 Influenza vaccination Influenza Vaccine (Season Ended) [facility] Start: 12-28-2024 End: 12-28-2024 Patient encounter procedure 12/28/2024 10:30 AM EDT Office Visit [facility] [address] [place] [address] Dr Boyle [address] [place] [id number] Heidi Pa MD [address] [address] [facility] Start: 08-11-2024 End: 08-11-2024 Patient encounter procedure 08/11/2024 8:10 AM EDT Appointment Mammogram [address] [place] [address] MAMMOGRAM SCREENING Mammogram Comment on above: MAMMOGRAM SCREENING Start: 08-10-2024 End: 08-10-2024 Patient encounter procedure 08/10/2024 7:30 AM EDT Appointment Mammogram [address] [place] [address] Encounter for screening mammogram for breast cancer [Z12.31] Mammogram Comment on above: Encounter for screening mammogram for br east cancer [Z12.31] Start: 08-08-2024 End: 08-08-2024 Patient encounter procedure 08/08/2024 9:00 AM EDT Office Visit OB/Gynecology [address] [place] [address] Loreto ePralta APRN.WET END TESTER [address] [place] [address] Annual OB/Gynecology Comment on above: Annual Start: 08-05-2024 Screening for malignant neoplasm of breast [facility] Start: 07-20-2024 HPV TESTING HPV TESTING [facility] Start: 07-20-2024 PAP TESTING PAP TESTING [facility] Start: 02-05-2024 Hemoglobin A1c measurement A1C [facility] Start: 01-10-2024 Covid-19 Vaccine ( season) Covid-19 Vaccine () [facility] Start: 01-10-2024 Influenza vaccination [facility] Start: 12-29-2023 End: 12-29-2023 Patient encounter procedure [facility] Start: 12-24-2023 End: 12-24-2023 Patient encounter procedure 12/24/2023 11:15 AM EDT Appointment [facility] [address] [place] [address] Heidi Pa MD [address] [place] [address] [facility] Start: 12-04-2023 End: 12-04-2023 Patient encounter procedure [facility] Start: 11-05-2023 Hemoglobin A1c measurement HbA1C [facility] Start: 09-04-2023 Serum immunofixation [facility] Start: 08-05-2023 End: 11-04-2023 Hemoglobin A1c in Blood [facility] Work Phone: Comment on above: Expected: 08/05/2023, Expires: Start: 08-05-2023 End: 11-04-2023 Thyrotropin [Units/volume] in Serum or Plasma [facility] Work Phone: Comment on above: Expected: 08/05/2023, Expires: Start: 08-05-2023 End: 11-04-2023 Thyroxine (T4) free [Mass/volume] in Serum or Plasma [facility] Work Phone: Comment on above: Expected: 08/05/2023, Expires: Start: 07-09-2023 End: 07-08-2024 CT of abdomen and pelvis CT Abdomen Pelvis With And Without Contrast Imaging Routine Renal cell carcinoma, unspecified laterality (HCC) Kidney stone Expected: 07/09/2023, Expires: 07/08/2024 [facility] Work Phone: Comment on above: Expected: 07/09/2023, Expires: 5 Start: 05-11-2023 Behavioral Health Screening Behavioral Health Screening [facility] Start: 05-11-2023 Depression Assessment Depression Assessment [facility] Start: 01-09-2023 Covid-19 Vaccine () Covid-19 Vaccine () [facility] Start: 01-09-2023 Influenza vaccination [facility] Start: 10-16-2022 Mammography MAMMOGRAM [facility] Start: 10-16-2022 Screening for malignant neoplasm of breast [facility] Start: 06-12-2022 End: 06-12-2023 CT Abdomen With And Without Contrast CT Abdomen With And Without Contrast Imaging Routine Renal cell carcinoma, unspecified laterality (HCC) Expected: 06/12/2022, Expires: 06/12/2023 [facility] Comment on above: Expected: 06/12/2022, Expires: 4 Start: 06-12-2022 End: 06-12-2023 Standard chest X-ray XR Chest AP/PA and LAT Imaging Routine Renal cell carcinoma, unspecified laterality (HCC) Expected: 06/12/2022, Expires: 06/12/2023 [facility] Comment on above: Expected: 06/12/2022, Expires: 4 Start: 05-11-2022 DEPRESSION ASSESSMENT DEPRESSION ASSESSMENT [facility] Start: 01-16-2022 Hepatitis B surface antibody level LDL Cholesterol [facility] Start: 01-10-2022 Annual PCP Team Chronic Disease Visit Annual PCP Team Chronic Disease Visit [facility] Start: 01-09-2022 Influenza vaccination [facility] Start: 01-08-2022 Adult depression screening assessment DEPRESSION SCREENING [facility] Start: 12-09-2021 End: 12-09-2021 Patient encounter procedure 12/09/2021 Office Visit Urology Heidi Pa MD [address] [address] [facility] Start: 12-02-2021 End: 12-02-2021 Patient encounter procedure 12/02/2021 Appointment Radiology Heidi Pa MD [address] [place] [address] [facility] [address] Scan Start: 11-07-2021 Influenza vaccination INFLUENZA (#1) [facility] Comment on above: Postponed from 01/09/2021 (Declined at t his time) Start: 10-15-2021 Mammography MAMMOGRAM [facility] Start: 10-15-2021 Screening for malignant neoplasm of breast Mammogram [facility] Start: 10-15-2021 Screening mammography Mammogram [facility] Start: 07-29-2021 End: 09-28-2021 Microscopic observation [Identifier] in Vaginal fluid by Gram stain BACT/BELLE VAG GRAM STAIN Microbiology Routine Vaginal burning Expected: 07/29/2021, Expires: 09/28/2021 [facility] Work Phone: Comment on above: Expected: 07/29/2021, Expires: 2 Start: 06-17-2021 End: 06-17-2022 CT Abdomen With And Without Contrast CT Abdomen With And Without Contrast Imaging Routine Renal cell carcinoma, unspecified laterality (HCC) Expected: 06/17/2021, Expires: 06/17/2022 [facility] Comment on above: Expected: 06/17/2021, Expires: 3 Start: 06-17-2021 End: 06-17-2021 Patient encounter procedure [facility] Start: 06-03-2021 End: 06-03-2021 Patient encounter procedure [facility] CT Scan Start: 04-15-2021 End: 04-15-2021 Patient encounter procedure 04/15/2021 Office Visit Urology Heidi Pa MD [address] [place] [address] [phone] [facility] Start: 01-30-2021 COVID-19 VACCINE (3 - Booster for Moderna series) COVID-19 VACCINE (3 - Booster for Moderna series) [facility] Start: 01-09-2021 Influenza vaccination [facility] Start: 12-24-2020 End: 12-24-2020 Follow-up encounter 12/24/2020 Follow-Up Urology Heidi Pa MD [address] [place] [address] [phone] [facility] Start: 12-17-2020 End: 12-17-2021 CT Abdomen With And Without Contrast CT Abdomen With And Without Contrast Imaging Routine Renal cell carcinoma, unspecified laterality (HCC) Expected: 12/17/2020, Expires: 12/17/2021 [facility] Comment on above: Expected: 12/17/2020, Expires: Start: 11-30-2020 End: 11-30-2020 Admission to same day surgery center 11/30/2020 Surgery Heidi Pa MD [address] [place] [address] [phone] ROBOTIC ASSISTED LAPAROSCOPIC PARTIAL NEPHRECTOMYWITH INTRA OPERATIVE ULTRASOUND [facility] Comment on above: ROBOTIC ASSISTED LAPAROSCOPIC PARTIAL NE PHRECTOMYWITH INTRA OPERATIVE ULTRASOUND Start: 11-30-2020 Subsequent hospital visit by physician 11/30/2020 Hospital Encounter Heidi Pa MD [address] [place] [address] [phone] [facility] Start: 11-23-2020 End: 11-23-2020 Patient encounter procedure 11/23/2020 Office Visit Pre-Admission Testing [facility] Start: 10-25-2020 COVID-19 VACCINE (3 - Booster for Moderna series) COVID-19 VACCINE (3 - Booster for Moderna series) [facility] Start: 10-22-2020 End: 10-22-2020 Patient encounter procedure 10/22/2020 Appointment Radiology Heidi Pa MD [address] [place] [address] [phone] [facility] Start: 10-09-2020 End: 10-09-2021 MRI of abdomen MR Abdomen With And Without Contrast Imaging Routine Acute UTI Expected: 10/09/2020, Expires: 10/09/2021 [facility] Comment on above: Expected: 10/09/2020, Expires: 2 Start: 10-01-2020 End: 10-01-2020 Office Visit 10/01/2020 Office Visit Urology Heidi Pa MD [address] [place] [address] [phone] [facility] Start: 09-27-2020 COVID-19 Vaccine (3 - Moderna risk 4-dose series) COVID-19 Vaccine (3 - Moderna risk 4-dose series) [facility] Start: 09-27-2020 COVID-19 Vaccine (3 - Moderna risk series) COVID-19 Vaccine (3 - Moderna risk series) [facility] Start: 09-24-2020 End: 09-24-2020 Appointment 09/24/2020 Appointment Radiology Heidi Pa MD [address] [place] [address] [phone] [facility] Start: 09-08-2020 End: 06-11-2021 Radiography of [id number] XR Abdomen AP Imaging Routine Nephrolithiasis Expected: 09/08/2020, Expires: 06/11/2021 [facility] Comment on above: Expected: 09/08/2020, Expires: 2 Start: 09-08-2020 End: 06-11-2021 Ultrasonography of retroperitoneum US Renal and Bladder Imaging Routine Nephrolithiasis Expected: 09/08/2020, Expires: 06/11/2021 [facility] Comment on above: Expected: 09/08/2020, Expires: 2 Start: 2020 Screening mammography Mammogram [facility] Start: 06-11-2020 End: 06-11-2020 Hospital Encounter [facility] Comment on above: CYSTOSCOPY WITH RETROGRADE STONE MANIPUL ATION STENT INSERTION Laser lithotripsy Fluoroscopy- C Arm Start: 06-08-2020 End: 06-04-2021 Covid-19/Influenza Order Algorithm Covid-19/Influenza Order Algorithm Microbiology Routine Kidney stone Expected: 06/08/2020, Expires: 06/04/2021 [facility] Comment on above: Expected: 06/08/2020, Expires: 2 Start: 06-07-2020 End: 06-07-2020 Office Visit 06/07/2020 Office Visit Lab Heidi Pa MD [address] [place] [address] [phone] [facility] Start: 05-28-2020 End: 05-28-2020 Hospital Encounter [facility] Comment on above: Kidney stone CYSTOSCOPY WITH RETR OGRADE STONE MANIPULATION STENT INSERTION Laser lithotripsy Fluoroscopy- C Arm Start: 05-25-2020 End: 05-25-2020 Anesthesia Event 05/25/2020 Anesthesia Event Michaela Foley MD [address] [place] [address] [phone] [facility] Start: 05-25-2020 End: 05-21-2021 Covid-19/Influenza Order Algorithm Covid-19/Influenza Order Algorithm Microbiology Routine Kidney stone Expected: 05/25/2020, Expires: 05/21/2021 [facility] Comment on above: Expected: 05/25/2020, Expires: 2 Start: 05-24-2020 End: 05-24-2020 Office Visit 05/24/2020 Office Visit Lab Heidi Pa MD [address] [place] [address] [phone] [facility] [place] Start: 01-10-2020 Influenza vaccination given Sequential Influenza Vaccine (#1) [facility] Start: 2010 Screening for malignant neoplasm of cervix [facility] Start: 2001 Screening for malignant neoplasm of cervix Pap Smear [facility] Start: 07-18-1999 Hepatitis B Vaccine (1 of 3 - 19+ 3-dose series) Hepatitis B Vaccine (1 of 3 - 19+ 3-dose series) [facility] Start: 07-18-1999 Pneumococcal vaccination Pneumococcal Vaccine (1 of 2 - PCV) [facility] Start: 1998 Anxiety Screening Anxiety Screening [facility] Start: 1998 Depression Screening Depression Screening [facility] Start: 1998 Hepatitis C antibody, confirmatory test Hepatitis C Screening [facility] Start: 1998 Hepatitis C screening Hepatitis C Screening [facility] Start: 1996 COVID-19 Vaccine (1 of 2) COVID-19 Vaccine (1 of 2) [facility] Start: 07-18-1995 HIV screening HIV Screening [facility] Start: 1992 Adolescent depression screening assessment Depression Screening (PHQ9) [facility] Start: 1992 COVID-19 Vaccine (1) COVID-19 Vaccine (1) [facility] Start: 1992 Depression screening using PHQ-9 (Patient Health Questionnaire 9) score [facility] Start: 1990 Diabetic foot examination Diabetic Foot Exam [facility] Start: 1990 Glaucoma screening [facility] Start: 1990 Hepatitis B screening Urine Albumin:Creatinine Ratio [facility] Start: 1990 Urine screening for protein Urine Microalbumin [facility] Start: 1986 PNEUMOCOCCAL (1 - PCV) PNEUMOCOCCAL (1 - PCV) [facility] Start: 1986 Pneumococcal Vaccine: Ped or At-Risk (1 - PCV) Pneumococcal Vaccine: Ped or At-Risk (1 - PCV) [facility] Start: 1986 Pneumococcal Vaccine: Ped or At-Risk (1 of 2 - PCV) Pneumococcal Vaccine: Ped or At-Risk (1 of 2 - PCV) [facility] Start: 1986 Pneumococcal Vaccine: Ped or At-Risk (1 of 2 - PPSV23) Pneumococcal Vaccine: Ped or At-Risk (1 of 2 - PPSV23) [facility] Start: 1986 Pneumococcal Vaccine: Ped or At-Risk (1 of 4 - PCV13) Pneumococcal Vaccine: Ped or At-Risk (1 of 4 - PCV13) [facility] Start: 07-18-1983 History and physical examination, annual for health maintenance Wellness Visit [facility] Start: 1980 HEPATITIS B (1 of 3 - 3-dose series) HEPATITIS B (1 of 3 - 3-dose series) [facility] Start: 1980 Screening for malignant neoplasm of cervix Pap Smear [facility] Start: 1980 Screening mammography Mammogram [facility] Start: 1980 Tetanus vaccination Tetanus: Every 10yrs [facility] AIRWAY SUPRAGLOTTIC Supraglottic Airway VT Charge Routine 06/11/2020 4:47 PM EST [facility] End: 06-04-2021 Bacteria identified Aer cx Nom (Unsp spec) Urine Aerobic Culture Microbiology Routine Kidney stone 1 Occurrences starting 06/04/2020 until 06/04/2021 [facility] Comment on above: 1 Occurrences starting 06/04/2020 until 06/04/2021 Bacteria identified Aer cx Nom (Unsp spec) [facility] End: 05-27-2020 Bacteria identified Aer cx Nom (Unsp spec) Urine Aerobic Culture Microbiology Routine Once for 1 Occurrences starting 05/27/2020 until 05/27/2020 [facility] Comment on above: Once for 1 Occurrences starting 05/27/19 until 05/27/2020 End: 07-12-2021 Bacteria identified Aer cx Nom (Unsp spec) Urine Aerobic Culture Microbiology Routine Kidney stone 1 Occurrences starting 07/12/2020 until 07/12/2021 [facility] Comment on above: 1 Occurrences starting 07/12/2020 until 07/12/2021 End: 10-05-2021 Bacteria identified in Unspecified specimen by Aerobe culture Urine Aerobic Culture Microbiology Routine Urinary tract infection without hematuria, site unspecified 1 Occurrences starting 10/05/2020 until 10/05/2021 [facility] Comment on above: 1 Occurrences starting 10/05/2020 until 10/05/2021 End: 10-29-2021 Bacteria identified in Unspecified specimen by Aerobe culture Urine Aerobic Culture Microbiology Routine Acute UTI 1 Occurrences starting 10/29/2020 until 10/29/2021 [facility] Comment on above: 1 Occurrences starting 10/29/2020 until 10/29/2021 Basic metabolic 2000 panel - Serum or Plasma [facility] Comment on above: Ordered: 11/23/2020 End: 05-27-2022 Basic metabolic 2000 panel - Serum or Plasma Basic Metabolic Panel Lab Routine Renal cell carcinoma, unspecified laterality (HCC) 1 Occurrences starting 05/27/2021 until 05/27/2022 [facility] Work Phone: Comment on above: 1 Occurrences starting 05/27/2021 until 05/27/2022 End: 10-11-2022 Basic metabolic 2000 panel - Serum or Plasma Basic Metabolic Panel Lab Routine Renal cell carcinoma, unspecified laterality (HCC) 1 Occurrences starting 10/11/2021 until 10/11/2022 [facility] Work Phone: Comment on above: 1 Occurrences starting 10/11/2021 until 10/11/2022 End: 06-12-2023 Basic metabolic 2000 panel - Serum or Plasma Basic Metabolic Panel Lab Routine Renal cell carcinoma, unspecified laterality (HCC) 6 months for 8 Occurrences starting 12/10/2021 until 06/12/2023 [facility] Work Phone: Comment on above: 6 months for 8 Occurrences starting 06/2021 until 06/12/2023 End: 11-17-2024 Basic metabolic 2000 panel - Serum or Plasma Basic Metabolic Panel Lab Routine Renal cell carcinoma, unspecified laterality (HCC) 1 Occurrences starting 11/18/2023 until 11/17/2024 [facility] Work Phone: Comment on above: 1 Occurrences starting 11/18/2023 until 11/17/2024 CBC panel - Blood by Automated count [facility] Comment on above: Ordered: 11/23/2020 Covid-19/Influenza O rder Algorithm Covid-19/Influenza Order Algorithm Microbiology Routine Kidney stone 06/08/2020 8:05 AM EST [facility] End: 09-07-2025 DBT Breast - bilateral screening DEJUAN SCREENING W TIKI Radiology Routine Encounter for gynecological examination (general) (routine) without abnormal findings Encounter for screening mammogram for breast cancer 1 Occurrences starting 08/08/2024 until 09/07/2025 [facility] Work Phone: Comment on above: 1 Occurrences starting 08/08/2024 until 09/07/2025 End: 08-11-2024 DBT Breast - bilateral screening [facility] Work Phone: Comment on above: ONCE for 1 Occurrences starting 08/12/19 25 until 08/11/2024 Endometrial bx w/wo endocervix bx w/o dilat spx ENDOMETRIAL BIOPSY Procedures Routine Intermenstrual bleeding Ordered: 08/05/2023 [facility] Work Phone: Comment on above: Ordered: 08/05/2023 HPV W/GENOTYPE THIN PREP HPV W/G ENOTYPE THIN PREP Lab Routine Screening for human papillomavirus (HPV) 08/05/2023 8:55 AM EDT [facility] Work Phone: IgA [Mass/volume] in Serum or Plasma [facility] IgG [Mass/volume] in Serum or Plasma [facility] IgM [Mass/volume] in Serum or Plasma [facility] Kidney Stone Analysis [facility] Comment on above: Release Upon Ordering for 1 Occurrences starting 06/11/2020 End: 08-30-2023 DEJUAN SCREENING DEJUAN SCREENING Radiology Routine Encounter for gynecological examination (general) (routine) without abnormal findings Encounter for screening mammogram for breast cancer 1 Occurrences starting 07/31/2022 until 08/30/2023 [facility] Work Phone: Comment on above: 1 Occurrences starting 07/31/2022 until 08/30/2023 End: 08-13-2024 MG Breast Screening DEJUAN SCREENING Radiology Routine Encounter for screening mammogram for breast cancer 1 Occurrences starting 07/15/2023 until 08/13/2024 [facility] Work Phone: Comment on above: 1 Occurrences starting 07/15/2023 until 08/13/2024 End: 09-03-2024 MG Breast Screening DEJUAN SCREENING Radiology Routine Encounter for screening mammogram for breast cancer 1 Occurrences starting 08/05/2023 until 09/03/2024 [facility] Work Phone: Comment on above: 1 Occurrences starting 08/05/2023 until 09/03/2024 End: 12-07-2024 MR Abdomen WO and W contrast IV MR Abdomen With And Without Contrast Imaging Routine Liver lesion Renal cell carcinoma, unspecified laterality (HCC) 1 Occurrences starting 12/08/2023 until 12/07/2024 [facility] Work Phone: Comment on above: 1 Occurrences starting 12/08/2023 until 12/07/2024 End: 10-22-2020 MRI of abdomen MR Abdomen With And Without Contrast Imaging Routine Acute UTI Once for 1 Occurrences starting 10/22/2020 until 10/22/2020 [facility] Comment on above: Once for 1 Occurrences starting 10/23/19 until 10/22/2020 MRI of abdomen MR Abdomen With And Without Contrast Imaging Routine Acute UTI 10/22/2020 2:23 PM EDT [facility] PAP FLUID CERVICAL SCREENING PAP FLUID CERVICAL SCREENING Lab Routine Screening for malignant neoplasm of cervix Encounter for screening for human papillomavirus (HPV) Ordered: 07/29/2021 [facility] Work Phone: Comment on above: Ordered: 07/29/2021 PAP TEST PAP TEST Lab Rou riley Encounter for gynecological examination (general) (routine) with abnormal findings Screening for cervical cancer Encounter for screening for human papillomavirus (HPV) 08/05/2023 8:55 AM EDT [facility] Work Phone: End: 06-11-2020 Retrograde pyelogram XR OR Retrograde Pyelogram Imaging Routine One time imaging One time imaging for 1 Occurrences starting 06/11/2020 until 06/11/2020 [facility] Comment on above: One time imaging One time imaging for 1 Occurrences starting 06/11/2020 until 06/11/2020 Retrograde pyelogram XR OR Retro grade Pyelogram Imaging Routine 06/11/2020 7:16 PM EST [facility] End: 08-28-2022 Screening mammography bi 2-view breast inc cad DEJUAN SCREENING Radiology Routine Encounter for surveillance of contraceptive pills Encounter for gynecological examination (general) (routine) without abnormal findings Encounter for screening mammogram for breast cancer 1 Occurrences starting 07/29/2021 until 08/28/2022 [facility] Work Phone: Comment on above: 1 Occurrences starting 07/29/2021 until 08/28/2022 Standard chest X-ray XR Chest AP /PA and LAT Imaging Routine Renal mass 10/29/2020 11:34 AM EDT [facility] End: 06-17-2022 Standard chest X-ray XR Chest AP/PA and LAT Imaging Routine Renal cell carcinoma, unspecified laterality (HCC) 1 Occurrences starting 06/17/2021 until 06/17/2022 [facility] Work Phone: Comment on above: 1 Occurrences starting 06/17/2021 until 06/17/2022 End: 01-07-2024 Standard chest X-ray XR Chest AP/PA and LAT Imaging Routine Renal cell carcinoma, unspecified laterality (HCC) Kidney stone 1 Occurrences starting 01/06/2023 until 01/07/2024 [facility] Comment on above: 1 Occurrences starting 01/06/2023 until 01/07/2024 End: 09-03-2024 US Pelvis transvaginal US FEMALE PELVIS TRANSVAG Radiology Routine Abnormal uterine bleeding 1 Occurrences starting 08/05/2023 until 09/03/2024 [facility] Work Phone: Comment on above: 1 Occurrences starting 08/05/2023 until 09/03/2024 [facility] Immunizations Immunization Date Immunization Notes Care Provider Brendon franklin 01-10-2021 tetanus toxoid, reduced diphtheria toxoid, and acellular pertussis vaccine, adsorbed Loreto Whippany RAPID EXTRACTOR OPERATOR.WET END TESTER Work Phone: [facility] Work Phone: 08-30-2020 Moderna SARS-CoV-2 Vaccination Jeanne Onbeckyckumu DO Work Phone: [facility] 08-02-2020 Moderna SARS-CoV-2 Vaccination Jeanne Onbeckycker DO Work Phone: [facility] 07-08-2016 influenza virus vaccine, unspecified formulation Aleksandar Montalvo MD Work Phone: [facility] 03-23-2008 influenza virus vaccine, unspecified formulation Loreto Whippany RAPID EXTRACTOR OPERATOR.WET END TESTER Work Phone: [facility] Work Phone: 03-19-2006 influenza virus vaccine, unspecified formulation Loreto Lisha RAPID EXTRACTOR OPERATOR.WET END TESTER Work Phone: [facility] Work Phone: Payers Date Payer Category Payer Self-pay 2023 [facility] BLUE CARD PPO OOS [id number] 2023 Unknown [id number] 2019 Unknown [id number] 2019 Unknown [id number] 2013 Unknown [id number] 1980 Unknown [id number] 1980 Unknown [id number] [id number] 1980 Unknown [id number] [id number] 1980 Unknown [id number] [id number] 1980 Unknown [id number] 1980 Unknown [id number] [facility] [id number] Unknown [id number] Unknown [id number] Unknown [id number] Unknown [id number] Social History Date Type Detail Facility Start: 05-19-2020 End: 08-28-2023 Tobacco smoking status FLIS Current every day smoker [facility] Start: 05-11-1989 End: 03-03-2000 History of tobacco use Cigarette Smoker [facility] Start: 05-19-2020 End: 08-05-2023 Cigarettes smoked current (pack per day) - Reported [facility] Start: 05-19-2020 End: 01-10-2021 Tobacco use and exposure Never used [facility] Start: 05-19-2020 End: 12-29-2023 Alcohol intake Lifetime non-drinker (finding) [facility] Start: 05-19-2020 End: 01-08-2021 History SDOH Alcohol Frequency 1 [facility] Start: 1980 Sex Assigned At Not on file [facility] Start: 07-19-2021 End: 12-03-2021 Exposure to SARS-CoV-2 (event) Not sure [facility] Start: 11-23-2020 End: 12-29-2023 Tobacco Comment 4 cigs per day [facility] Start: 01-10-2021 Tobacco smoking status FLIS Ex-smoker [facility] Start: 05-11-1989 End: 03-03-2000 History of tobacco use Current smoker [facility] Start: 07-29-2021 Alcohol intake Current drinker of alcohol (finding) [facility] Start: 01-08-2021 History SDOH Alcohol Frequency 2 [facility] Start: 06-29-2013 History SDOH Alcohol Comment Rarely [facility] Start: 01-08-2021 History SDOH Social Connections Living 3 [facility] Start: 01-08-2021 History SDOH Physical Activity DPW 0 [facility] Start: 01-08-2021 History SDOH Financial 5 [facility] Start: 01-08-2021 Education 21 [facility] Start: 1980 Sex Assigned At Female [facility] Start: 07-31-2022 End: 08-08-2024 Alcohol intake Ex-drinker (finding) [facility] Start: 07-12-2020 End: 08-05-2023 Alcohol Use Disorder Identification Test - Consumption [AUDIT-C] [facility] How often to you hav e a drink containing alcohol? Never [facility] Average Number of Drinks Not on file [facility] Start: 05-19-2020 Gender identity Identifies as female gender (finding) [facility] Start: 05-19-2020 Sexual orientation Heterosexual (finding) [facility] Do you belong to any clubs or organizations such as restorationist groups, unions, fraternal or athletic groups, or school groups? No [facility] Are you now , , , , never or living with a partner? [facility] How often to you hav e a drink containing alcohol? Monthly or less [facility] How many standard dr inks containing alcohol do you have on a typical day? 1 or 2 [facility] Do you feel stress - tense, restless, nervous, or anxious, or unable to sleep at night because your mind is troubled all the time - these days [OSQ] Only a little [facility] (I/We) worried wheanamika er (my/our) food would run out before (I/we) got money to buy more. Never true [facility] Start: 08-28-2023 Tobacco smoking status FLIS Unknown if ever smoked [facility] Medical Equipment Procedure Code Equipment Code Equipment Origin al Text Equipment Identifier Dates Stent 6fr X 24cm Ureter Percuflex - [id number] Start: 05-27-2020 Stent 6fr X 24cm Ureter W/O Wire - [id number] FDA Start: 06-11-2020 Stent 6fr X 24cm Ureter Percuflex - [id number] Start: 06-11-2020 Hemostat 2 X 14i n Surgicel 195 - [id number] FDA Start: 11-30-2020 Functional Status Date Assessment Result Facility 07-03-2014 Are you deaf, or do you have serious difficulty hearing No 07/03/2014 10:28 AM Narda Almonte MA No [facility] 07-03-2014 Are you blind, or do you have serious difficulty seeing, even when wearing glasses No 07/03/2014 10:28 AM Narda Alomnte MA No [facility] 07-03-2014 Do you have serious difficulty walking or climbing stairs No 07/03/2014 10:28 AM Narda Almonte MA [facility] 07-03-2014 Do you have difficul ty dressing or bathing No 07/03/2014 10:28 AM Narda Almonte MA [facility] 07-03-2014 Because of a physica l, mental, or emotional condition, do you have difficulty doing errands alone such as visiting a physician's office or shopping No 07/03/2014 10:28 AM Narda Almonte MA [facility] Mental Status Date Assessment Result Facility 07-03-2014 Because of a physica l, mental, or emotional condition, do you have serious difficulty concentrating, remembering, or making decisions No 07/03/2014 10:28 AM Narda Almonte MA [facility] Clinical Notes 10-01-2020 to 08-11-2024 [facility] - 08/11/2024 8:10 AM Loreto Fontanez APRN.WET END TESTER - 08/08/2024 8:52 AM Anne Gonzalez LPN - 05/26/2024 4:21 PM Heidi Shah MD - 12/29/2023 10:17 AM EDT Note Date & Type Note Facility 08-11-2024 History of Presen t illness Narrative Radiology Service Progress Note PATIENT NAME: Gisele GALLAGHER DATE OF SERVICE: August 11, 2024 TIME: 8:33 AM PATIENT IDENTITY VERIFICATION COMPLETED USING TWO (2) IDENTIFIERS: Name and Date of confirmed by patient verbally. FALL SCREENING: Has the patient had 2 falls in the last year or 1 fall with injury or currently using an Ambulatory Assistive Device (Walker, Cane, Wheelchair, Crutches, etc.)? No PATIENT GENDER DATA: Assigned female at . status: : No status: NO. PATIENT RELEVANT IMPLANT DATA REVIEWED: Not Applicable PATIENT PRESENTS WITH AN IMPLANTABLE OR ATTACHED FINISHED GOODS PLANNER: No RADIOLOGY DEPARTMENT: Mammography PERIPHERAL IV DATA: Not applicable SIGNED BY: Caryl Vargas August 11, 2024 8:33 AM documented in this encounter [facility] 08-11-2024 Note HNO ID: [id number] Author: [facility] Service: ? Author Type: [employer] And Gas [employer]der Type: Progress Notes Filed: 08/11/2024 08:33 Note Text: Radiology Service Progress Note PATIENT NAME: Gisele GALLAGHER DATE OF SERVICE: August 11, 2024 TIME: 8:33 AM PATIENT IDENTITY VERIFICATION COMPLETED USING TWO (2) IDENTIFIERS: Name and Date of confirmed by patient verbally. FALL SCREENING: Has the patient had 2 falls in the last year or 1 fall with injury or currently using an Ambulatory Assistive Device (Walker, Cane, Wheelchair, Crutches, etc.)? No PATIENT GENDER DATA: Assigned female at . status: : No status: NO. PATIENT RELEVANT IMPLANT DATA REVIEWED: Not Applicable PATIENT PRESENTS WITH AN IMPLANTABLE OR ATTACHED FINISHED GOODS PLANNER: No RADIOLOGY DEPARTMENT: Mammography PERIPHERAL IV DATA: Not applicable SIGNED BY: Caryl Vargas August 11, 2024 8:33 AM [facility] 08-08-2024 Note HNO ID: [id number] Author: LORETO PERALTA APRN.WET END TESTER Service: ? Author Type: Nurse Practitioner Type: Progress Notes Filed: 08/08/2024 09:37 Note Text: 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 Gisele is a 44 year old who presents for an annual gynecologic exam without complaints. Still get period: Yes, cycles 28 days with 1-3 of flow. Menses: cycles every 28 days and 1-3 days of flow. Contraception: progesterone only HPV vaccine: No Last Pap: 07/2023 normal HPV: 07/2023 negative History of abnormal pap: Yes ASCUS 2016 Last mammogram: 2023 normal Sexually active: Yes OB History Gravida0 Para0 Term0 Preterm0 AB0 Living0 SAB0 IAB0 Ectopic0 Multiple0 Live Births0 Internal Medicine Nurse History LMP: 07/05/2024, Having periods Age at Menarche: 13 Age at First : Age at Menopause: Internal Medicine Nurse History Comments: Sexual Activity: Yes; Male; levlen Contraception: Pill Menstrual Tracking History Flowsheet Row Office Visit from 08/08/2024 in OB/Gynecology Period Cycle (Days) 28 Period Duration (Days) 4 Menstrual Flow Light PAST MEDICAL HISTORY Diagnosis Date Calculus of kidney 05/27/2020 Uric acid Diabetes type 2, controlled (HCC) Pt reported August 2023 Hyperlipidemia, mixed 02/06/2021 Impaired fasting glucose 02/06/2021 Obesity, Class II, BMI 35-39.9 01/10/2021 Papillary renal cell carcinoma (HCC) 10/[address] Hussain Pa, Urology. Pyelonephritis 05/27/2020 Right UPJ stone PAST SURGICAL HISTORY Procedure Laterality Date CYSTOSCOPY, URETERAL STENT CHANGE/INSERTION 05/27/2020 CYSTOSCOPY,URETEROSCOPY,LITHOTR IPSY Right 06/11/2020 LAPAROSC PARTIAL NEPHRECTOMY Right 11/30/2020 MYRINGOTOMY ASPIRAND/EUSTACHIAN TUBE NFLTJ ANES Myringotomy/tubes PAST SURGICAL HISTORY OF herniorrhaphy PAST SURGICAL HISTORY OF BOIL REMOVES FROM TAILBONE AREA TONSILLECTOMY PRIMARY/SECONDARY FAMILY HISTORY Problem Relation Age of Onset Diabetes Mother Hypertension Mother Kidney failure Mother other (pulmonary hypertension) Mother Diabetes Father No Known Problems Sister Hypertension Maternal Grandmother Diabetes Maternal Grandmother borderline Colon Cancer Maternal Grandfather Hypertension Maternal Grandfather Cancer Other uterine cancer Heart Other heart attack SOCIAL HISTORY Social History Tobacco Use Smoking status: Former Current packs/day: 0.00 Average packs/day: 1 pack/day for 10.8 years (10.8 ttl pk-yrs) Types: Cigarettes Start date: 05/11/1989 Quit date: 03/03/2000 Years since quittin.4 Smokeless tobacco: Never Vaping Use Vaping status: Never Used Substance Use Topics Alcohol use: Not Currently Drug use: Not Currently Types: Marijuana REVIEW OF SYSTEMS Abdomen: No abdominal pain, nausea, vomiting, diarrhea, or constipation. No bloating, early satiety, indigestion, or increased flatulence. Bladder: No dysuria, gross hematuria, urinary frequency, urinary urgency, or incontinence. Breast: No breast lumps, nipple d/c, overlying skin changes, redness or skin retraction. Allergies and current medication updated:Yes SENSITIVE EXAM: The sensitive examination was discussed with the Patient or Patient's Authorized Furnace Tapper. As applicable, any other physician, advance practice provider, medical student, or other health professional student that will be observing or involved in the sensitive examination for educational or training purposes was discussed with the Patient or Authorized Furnace Tapper. The Patient or Authorized Furnace Tapper has agreed to proceed with the sensitive examination. (Sensitive examination includes inspection and/or palpation of the breasts, pelvis, prostate and anorectal regions). EXAM: BP 128/66 Ht 4' 10.386 (1.48m) Wt 171 lb 3.2 oz (77.7kg) LMP 07/05/2024 BMI 35.31 kg/(m2). GENERAL: pleasant, female in no apparent distress HEENT: Normocephalic, atraumatic, mucus membranes moist, and no lesions DERMATOLOGY: Normal, without lesions, non-icteric, and non-hirsute BREAST: soft, non-tender, symmetric, no dominant mass, normal nipple-areolar complex, no lymphadenopathy, and no nipple discharge CHEST: Normal inspiratory effort ABDOMEN: soft, non-tender, and no masses PELVIC: external genitalia normal, normal Bartholin's glands, urethra, Braymer's glands, no vulvar lesions, no cervical lesions, physiologic discharge present, normal appearing perineal body and perianal region BIMANUAL: uterus normal size, shape and consistency, no adnexal masses, and non-tender RECTOVAGINAL: deferred. NEURO: alert and oriented x3,exam grossly non-focal EXTREMITIES: normal ASSESSMENT/PLAN: 1) Health maintenance: Pap/HPV up to date. Mammogram ordered. Nutrition, exercise and routine health maintenance exams reviewed. Calcium/Vitamin D supplementation information provided. Colon cancer screening: start at age 45 2) Contraception: Progestin - only contraceptives. Contraceptive (more content not included)... [facility] 08-08-2024 History of Presen t illness Narrative 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 Gisele is a 44 year old who presents for an annual gynecologic exam without complaints. Still get period: Yes, cycles 28 days with 1-3 of flow. Menses: cycles every 28 days and 1-3 days of flow. Contraception: progesterone only HPV vaccine: No Last Pap: 07/2023 normal HPV: 07/2023 negative History of abnormal pap: Yes ASCUS 2016 Last mammogram: 2023 normal Sexually active: Yes OB History Gravida0 Para0 Term0 Preterm0 AB0 Living0 SAB0 IAB0 Ectopic0 Multiple0 Live Births0 Internal Medicine Nurse History LMP: 07/05/2024, Having periods Age at Menarche: 13 Age at First : Age at Menopause: Internal Medicine Nurse History Comments: Sexual Activity: Yes; Male; levlen Contraception: Pill Menstrual Tracking History Flowsheet Row Office Visit from 08/08/2024 in OB/Gynecology Period Cycle (Days) 28 Period Duration (Days) 4 Menstrual Flow Light PAST MEDICAL HISTORY Diagnosis Date Calculus of kidney 05/27/2020 Uric acid Diabetes type 2, controlled (HCC) Pt reported August 2023 Hyperlipidemia, mixed 02/06/2021 Impaired fasting glucose 02/06/2021 Obesity, Class II, BMI 35-39.9 01/10/2021 Papillary renal cell carcinoma (HCC) 10/[address] Hussain Pa, Urology. Pyelonephritis 05/27/2020 Right UPJ stone PAST SURGICAL HISTORY Procedure Laterality Date CYSTOSCOPY, URETERAL STENT CHANGE/INSERTION 05/27/2020 CYSTOSCOPY,URETEROSCOPY,LITHOTR IPSY Right 06/11/2020 LAPAROSC PARTIAL NEPHRECTOMY Right 11/30/2020 MYRINGOTOMY ASPIR&/EUSTACHIAN TUBE NFLTJ ANES Myringotomy/tubes PAST SURGICAL HISTORY OF herniorrhaphy PAST SURGICAL HISTORY OF BOIL REMOVES FROM TAILBONE AREA TONSILLECTOMY PRIMARY/SECONDARY <AGE 12 FAMILY HISTORY Problem Relation Age of Onset Diabetes Mother Hypertension Mother Kidney failure Mother other (pulmonary hypertension) Mother Diabetes Father No Known Problems Sister Hypertension Maternal Grandmother Diabetes Maternal Grandmother borderline Colon Cancer Maternal Grandfather Hypertension Maternal Grandfather Cancer Other uterine cancer Heart Other heart attack SOCIAL HISTORY Social History Tobacco Use Smoking status: Former Current packs/day: 0.00 Average packs/day: 1 pack/day for 10.8 years (10.8 ttl pk-yrs) Types: Cigarettes Start date: 05/11/1989 Quit date: 03/03/2000 Years since quittin.4 Smokeless tobacco: Never Vaping Use Vaping status: Never Used Substance Use Topics Alcohol use: Not Currently Drug use: Not Currently Types: Marijuana REVIEW OF SYSTEMS Abdomen: No abdominal pain, nausea, vomiting, diarrhea, or constipation. No bloating, early satiety, indigestion, or increased flatulence. Bladder: No dysuria, gross hematuria, urinary frequency, urinary urgency, or incontinence. Breast: No breast lumps, nipple d/c, overlying skin changes, redness or skin retraction. Allergies and current medication updated:Yes SENSITIVE EXAM: The sensitive examination was discussed with the Patient or Patient's Authorized Furnace Tapper. As applicable, any other physician, advance practice provider, medical student, or other health professional student that will be observing or involved in the sensitive examination for educational or training purposes was discussed with the Patient or Authorized Furnace Tapper. The Patient or Authorized Furnace Tapper has agreed to proceed with the sensitive examination. (Sensitive examination includes inspection and/or palpation of the breasts, pelvis, prostate and anorectal regions). EXAM: BP 128/66 Ht 4' 10.386 (1.48m) Wt 171 lb 3.2 oz (77.7kg) LMP 07/05/2024 BMI 35.31 kg/(m^2). GENERAL: pleasant, female in no apparent distress HEENT: Normocephalic, atraumatic, mucus membranes moist, and no lesions DERMATOLOGY: Normal, without lesions, non-icteric, and non-hirsute BREAST: soft, non-tender, symmetric, no dominant mass, normal nipple-areolar complex, no lymphadenopathy, and no nipple discharge CHEST: Normal inspiratory effort ABDOMEN: soft, non-tender, and no masses PELVIC: external genitalia normal, normal Bartholin's glands, urethra, Braymer's glands, no vulvar lesions, no cervical lesions, physiologic discharge present, normal appearing perineal body and perianal region BIMANUAL: uterus normal size, shape and consistency, no adnexal masses, and non-tender RECTOVAGINAL: deferred. NEURO: alert and oriented x3,exam grossly non-focal EXTREMITIES: normal ASSESSMENT/PLAN: 1) Health maintenance: Pap/HPV up to date. Mammogram ordered. Nutrition, exercise and routine health maintenance exams reviewed. Calcium/Vitamin D supplementation information provided. Colon cancer screening: start at age 45 2) Contraception: Progestin - only contraceptives. Contraceptive options reviewed and information provided. 3) STD screening: Declined STD check. 4) Follow up one year or sooner as needed Loreto Peralta APRN.WET END TESTER documented in this encounter [facility] 05-26-2024 History of Presen t illness Narrative POPULATION HEALTH NAVIGATION OUTREACH Action/FYI Spoke to Patient, she has transferred care to another PCP. PCP updated Reason for Outreach Care Gap/HCC or Scheduling Wellness Visits Care Gaps due: Physical Annual Wellness Visit Follow-up Appointment Patient Contacted: Spoke to patient/parent/or legal guardian Patient identified by name and : Yes Care Gap/HCC/Scheduling Wellness actions taken: PCP field updated Navigation Signature: Anne Jonas LPN May 26, 2024 4:21 PM documented in this encounter [facility] 05-26-2024 Note HNO ID: [id number] Author: ANNE JONAS LPN Service: ? Author Type: LICENSED NURSE Type: Progress Notes Filed: 05/26/2024 16:22 Note Text: POPULATION HEALTH NAVIGATION OUTREACH Action/FYI Spoke to Patient, she has transferred care to another PCP. PCP updated Reason for Outreach Care Gap/HCC or Scheduling Wellness Visits Care Gaps due: Physical Annual Wellness Visit Follow-up Appointment Patient Contacted: Spoke to patient/parent/or legal guardian Patient identified by name and : Yes Care Gap/HCC/Scheduling Wellness actions taken: PCP field updated Navigation Signature: Anne Jonas LPN May 26, 2024 4:21 PM [facility] 12-29-2023 Note Urology Clinic Note - Reason for visit/Chief complaint: Nephrolithiasis Renal cell carcinoma - Urologic history: [id number] CTRSS- 1.5 R renal pelvic stone No left ureteral stones No left renal stone WBC- 13 GFR- WNL INITIAL VISIT R ureteral stent placement Fluoroscopy reviewed- stone not easily visualized Urine culture- no growth R URS- 80% uric acid, 20% deborah ox 24 hour urine Vol- 1.8 PH- 5.3 Normal Ca, Ox, CA, urine Uric acid 2021-May-17 US- no stones or hydronephrosis Small right renal stone R anterior lower pole renal mass about 2 cm MRI- R renal mass about 2 cm suspicious for RCC Exophytic, anterior R robotic partial nephrectomy - 2.5 cm, G1, papillary RCC, + margin 24 hour urine Normal Vol, Ca, Ox, Cris PH- 5.3(low) Elevated sodium BMP- Potassium 4.1, GFR- 101 CT- no evidence of recurrence Subcentimeter adrenal adenoma Previous non obstructing stone no longer present CXR- negative CT- no evidence of recurrence Subcentimeter adrenal adenoma(stable) Previous non obstructing stone no longer present CXR- negative CT- no evidence of recurrence Subcentimeter adrenal adenoma(stable) MRI liver- benign adenomas CXR- negative History of present illness: Gisele Gallagher is a 43 y.o. female with nephrolithiasis here for follow up for an incidentally found renal mass. 12/29/23 Interval hx- here for cancer surveillance. No issues at this time. Trying to push fluids more. 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 Gen: WDWN Psych- alert and oriented Neuro- Grossly intact Eyes- No jaundice MSK- Normal Gait. Normal range of motion. Resp: non-labored. ?No increased work of breathing. Records review: Independently reviewed Stone analysis- none Laboratory results review: Chemistry Component Value Date/Time NA 137 12/04/2023 0854 K 4.5 12/04/2023 0854 CL 102 12/04/2023 0854 BUN 13 12/04/2023 0854 CREATININE 0.8 12/04/2023 0930 CREATININE 0.71 12/04/2023 0854 Component Value Date/Time CALCIUM 9.7 12/04/2023 0854 ALKPHOS 61 10/29/2020 1152 AST 10 10/29/2020 1152 ALT 22 10/29/2020 1152 BILITOT 0.4 10/29/2020 1152 - Radiograph review: Images and report independently reviewed See timeline above for details. - Assessment: Gisele Gallagher is a 43 y.o. female with nephrolithiasis and renal cell carcinoma of the right kidney s/p robotic partial nephrectomy November 2020. Intermediate risk due to positive margin. Reviewed and discussed pathology with the patient in great detail. Patient will need 5 years of surveillance as below - BMP on initial post op follow-up to establish baseline(done in the ER) - Repeat abdominal imaging at 6, 12, 24, 36, 48, and 60, then as needed moths - Annual CXR for 5 years - Annual BMP My ongoing relationship with Gisele Gallgaher requires continued responsibility and cognitive effort of being the focal point for all services related to chronic condition(s). Plan: - return to clinic 1 year with basic metabolic panel, CT renal, cxr - discontinue potassium citrate. Patient to push citric acid intake with diet - I discussed diagnostics options, treatment options and risks and benefits of all options. Discussed alternative opinions and referral for 2nd/3rd opinion. Also discussed availability of clinical trial when/if appropriate. Patients recommended to read all package inserts for any medications prescribed and schedule another appointment should they have any concerns. Heidi Pa MD AUTHENTICATED BY HEIDI PA, ON 12/29/2023 11:24:43 [facility] 12-29-2023 History of Presen t illness Narrative Urology Clinic Note ? Reason for visit/Chief complaint: Nephrolithiasis Renal cell carcinoma ? Urologic history: [id number]-Xwc CTRSS- 1.5 R renal pelvic stone No left ureteral stones No left renal stone WBC- 13 GFR- WNL INITIAL VISIT R ureteral stent placement Fluoroscopy reviewed- stone not easily visualized Urine culture- no growth R URS- 80% uric acid, 20% deborah ox 24 hour urine Vol- 1.8 PH- 5.3 Normal Ca, Ox, CA, urine Uric acid US- no stones or hydronephrosis Small right renal stone R anterior lower pole renal mass about 2 cm MRI- R renal mass about 2 cm suspicious for RCC Exophytic, anterior R robotic partial nephrectomy - 2.5 cm, G1, papillary RCC, + margin 24 hour urine Normal Vol, Ca, Ox, Cris PH- 5.3(low) Elevated sodium BMP- Potassium 4.1, GFR- 101 CT- no evidence of recurrence Subcentimeter adrenal adenoma Previous non obstructing stone no longer present CXR- negative CT- no evidence of recurrence Subcentimeter adrenal adenoma(stable) Previous non obstructing stone no longer present CXR- negative CT- no evidence of recurrence Subcentimeter adrenal adenoma(stable) MRI liver- benign adenomas CXR- negative History of present illness: Gisele Gallagher is a 43 y.o. female with nephrolithiasis here for follow up for an incidentally found renal mass. 12/29/23 Interval hx- here for cancer surveillance. No issues at this time. Trying to push fluids more. Review of systems: Const: Denies weight loss, bone pain Endocrine- no night sweats HEENT: Denies new changes in vision CV: Denies C/P Pulm: Denies SOB Abd: Denies constipation, diarrhea, nausea, vomiting Neuro: Denies numbness, tingling MSK: Denies weakness Psych- denies depression : See HPI Medical History: none Surgical History: Hernia repair as a kid(umbilical) Robotic partial nephrectomy ? 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 Life expectancy: greater than10 years Physical Exam: There were no vitals filed for this visit. Gen: WDWN Psych- alert and oriented Neuro- Grossly intact Eyes- No jaundice MSK- Normal Gait. Normal range of motion. Resp: non-labored. ?No increased work of breathing. Records review: Independently reviewed Stone analysis- none Laboratory results review: Chemistry Component Value Date/Time NA 137 12/04/2023 0854 K 4.5 12/04/2023 0854 CL 102 12/04/2023 0854 BUN 13 12/04/2023 0854 CREATININE 0.8 12/04/2023 0930 CREATININE 0.71 12/04/2023 0854 Component Value Date/Time CALCIUM 9.7 12/04/2023 0854 ALKPHOS 61 10/29/2020 1152 AST 10 10/29/2020 1152 ALT 22 10/29/2020 1152 BILITOT 0.4 10/29/2020 1152 ? Radiograph review: Images and report independently reviewed See timeline above for details. ? Assessment: Gisele Gallagher is a 43 y.o. female with nephrolithiasis and renal cell carcinoma of the right kidney s/p robotic partial nephrectomy November 2020. Intermediate risk due to positive margin. Reviewed and discussed pathology with the patient in great detail. Patient will need 5 years of surveillance as below - BMP on initial post op follow-up to establish baseline(done in the ER) - Repeat abdominal imaging at 6, 12, 24, 36, 48, and 60, then as needed moths - Annual CXR for 5 years - Annual BMP My ongoing relationship with Gisele Gallagher requires continued responsibility and cognitive effort of being the focal point for all services related to chronic condition(s). Plan: - return to clinic 1 year with basic metabolic panel, CT renal, cxr - discontinue potassium citrate. Patient to push citric acid intake with diet ? I discussed diagnostics options, treatment options and risks and benefits of all options. Discussed alternative opinions and referral for 2nd/3rd opinion. Also discussed availability of clinical trial when/if appropriate. Patients recommended to read all package inserts for any medications prescribed and schedule another appointment should they have any concerns. Heidi Pa MD documented in this encounter [facility] 08-18-2023 Miscellaneous Notes Spoke to lab client services and they will add on HPV. Angela Vance RN Please call lab to see if HPV can be added on. Cassi Dawn APRN.KAILEE documented in this encounter [facility] 08-07-2023 Miscellaneous Notes August 07, 2023 PID: [id number] Gisele Gallagher [address] [place] [address] Dear Ms. Gallagher, We are pleased to inform you that the results of your recent breast imaging exam on 08/06/2023 are normal. Early detection of cancer is very important. We also understand recommendations regarding breast cancer screening are controversial. Please discuss with your primary care provider which strategy is best for you and whether a mammogram is right for you. Your imaging studies and report will be kept on file at [facility] as part of your permanent medical record and are available for your continuing care. Thank you for allowing us to help in meeting your health care needs. Sincerely, Dr. Lua Interpreting Radiologist [facility] (Normal over 40) documented in this encounter [facility] 08-05-2023 Instructions Cassi Dawn APRN.CNP - 08/05/2023 8:26 AM EDT Lubricants and moisturizers list The [id number] vaginal moisturizer and lubricant products can be confusing to sort through, especially since there are no FDA requirements for how they can be marketed or labeled. In general there are 3 categories of products: Vaginal lubricants should be used at the time of intercourse to decrease friction. Long acting vaginal moisturizers are used at least twice weekly to increase vaginal (internal) lubrication and elasticity. Vulvar moisturizers are for external use for vulvar comfort and do not impact vaginal lubrication or elasticity. Vaseline petroleum products and oils (baby oil, coconut, olive oil,) can make condoms break, so should not be used with condoms. In many women, these can cause infections. However, if you have sore spots on the vulva (outer lips), then petroleum jelly can sometimes be helpful. All of the products listed below are over the counter. Many can be bought in any [employer] or online. Also, many [employer] stores do carry high-quality lubricant products. VAGINAL LUBRICANTS: (For use during sexual activity) Lubricants should be applied to the outside and opening of the vagina at the time of sexual activity. The lubricant can also be applied to the penis or a device. Silicone based lubricants should not be used on silicone vibrators or toys. Both silicone and water based lubricants are condom compatible. If you use a water based lubricant, it is also important to choose a lubricant with low osmolality since lubricants with high osmolality increase the chance of irritation and infection. Osmolality information can be hard to find. All of the following lubricants have a low osmolality, are pH balanced, and are preservative free. WATER BASED LUBRICANTS Good Clean Love (made of organic ingredients) Pulse H2Oh! Sylk Natural System Ana Laura PreSeed (Does not impact sperm motility and can be used if trying to conceive, also good for those with multiple sensitivities, though may not work as well) SILICONE BASED LUBRICANTS Uber lube Replens Silky Smooth Pulse Aloe-ahh Wet [place] ANA LAURA Premium Personal Lubricant PINK Silicone Lubricant [employer] silk Pulse is a hands free personal lubricant warming dispenser and is sold with water or silicone based lubricant pods that some women prefer for travel. LONG ACTING VAGINAL MOISTURIZERS: (For regular use inside vagina to maintain moisture) Long acting vaginal moisturizers should be used at least twice weekly on a regular basis. Many women find they need to use a moisturizer 3-5 times/week. In addition, it is important to not only apply the moisturizer inside the vagina, but also to apply to the vestibule (the external area surrounding the opening of the vagina). Women who are not sexually active often find that the regular use of a long acting vaginal moisturizer makes them feel more comfortable. Software Testing Specialist beware: many lubricants are labeled as moisturizers to make them more appealing to consumers (even though they don t function as a true moisturizer). Replens Long Acting Vaginal Moisturizer (Available in all drugstores) HyaloGyn Vaginal Hydrating Gel (hybrid moisturizer, but can function as lubricant too) Revaree (hyaluronic acid) VULVAR MOISTURIZERS: (For external use) Replens Moisture Restore Comfort Gel is to be used externally for dry vulvar skin. Aquaphor can also be applied externally for comfort. [place] Aloe [place]: Many people are allergic to aloe, so keep this in mind with products like this that have aloe in it. Medicine Mama s V magic: Not much medical studies on this, but many patients swear by it, has oil, beeswax and honey in it- best used externally only. Calcium and Vitamin D Supplementation (from the National Institutes of Health Office of Dietary Supplements 2011) Calcium is required by the body for blood vessel, muscle, hormone and nerve functioning. Most of the body's calcium is stored in the bones and teeth where it supports structure and function. Bone is continuously broken down and reformed. When bone breakdown exceeds formation, especially in postmenopausal women, bone loss can increase the risk of osteoporosis and fractures. In addition to low calcium intake, women who smoke, have a family history of osteoporosis, are thin, or , or who take certain medications such as cancer chemotherapy, seizure mediations and steroids are at increased risk of osteoporosis. The calcium requirements in women change with age. The National Institutes of Health (NIH) recommends: 1000mg elemental calcium for premenopausal women age 19-50 1200mg elemental calcium for postmenopausal women and all women over 50 Milk, yogurt, and cheese are rich natural sources of calcium and are the major food contributors in the [place]. For example, 8oz of milk (whole, lowfat or skim) contains about 300mg calcium, 8oz of yogurt contains 415mg. Nondairy sources include salmon and sardines and vegetables, such as [place]zeri cabbage, kale, and broccoli. Foods fortified with calcium include many fruit juices, tofu and cereals. For more food calcium content information, visit http://ods.od.nih.gov/factsheet s/calcium. Calcium supplements come in several different forms. Remember that the recommendations are for millgrams (mg) of elemental calcium which may be less than the total weight of the supplement. The amount of elemental calcium is required to be printed on the label. Calcium carbonate is the least expensive form. It must be taken on a full stomach to be properly absorbed. Some patients may experience gas or constipation. Calcium phosphate and calcium citrate may be taken either with or without food and tend to have less side effects but are generally more expensive. Because of its ability to neutralize stomach acid, calcium carbonate is found in some yybf-ska-trorxdo antacid products, such as Tums and Rolaids . Depending on its strength, each chewable pill or softchew provides 200 to 400 mg of elemental calcium. The percentage of calcium absorbed depends on the total amount of elemental calcium consumed at one time. Absorption is highest in doses <500mg. So a woman who takes 1,000mg/day of calcium from supplements should split the dose and take 500mg at two separate times during the day. Too much calcium can cause kidney stones, constipation, difficulty absorbing other nutrients and calcium buildup in blood vessels. Women under 50 should not exceed 2500mg/day (2000mg/day for women over 50) of calcium from food and supplements. Excessive alcohol and caffeine intake can inhibit absorption of calcium. Calcium can reduce the absorption of some medications if taken at the same time of day (bisphosphonates, thyroid medication, Phenytoin and other seizure medications, some antibiotics and iron supplements). Vitamin D promotes calcium absorption in the gut and maintains adequate blood levels of calcium and phosphate for normal bone growth and bone remodeling. Vitamin D also helps regulate cell growth as well as nerve, muscle and immune system function. Vitamin D is produced in the skin as a result of ultraviolet sunlight rays and must be altered in the liver and kidney to become its active form. Recommended intake according to the National Institutes of Health is 600 International Units (IU) for girls and women ages 1-70 and 800 IU for women over 70. Very few foods in nature contain vitamin D. The flesh of fatty fish (such as salmon, tuna, and mackerel) and fish liver oils are among the best sources. Small amounts of vitamin D are found in beef liver, cheese, mushrooms and egg yolks. Most people meet at least some of their vitamin D needs through exposure to sunlight. Season, time of day, length of day, cloud cover, smog, skin melanin content, and sunscreen are among the factors that affect UV radiation exposure and vitamin D synthesis. Despite the importance of the sun for vitamin D synthesis, it is prudent to limit exposure of skin to sunlight and avoid tanning beds. UV radiation is a carcinogen responsible for most of the estimated 1.5 million skin cancers that occur annually in the [place]. Lifetime cumulative UV damage to skin is also responsible for some age-associated dryness and other cosmetic changes. In supplements and fortified foods, vitamin D is available in two forms, D2 (ergocalciferol) and D3 (cholecalciferol). The two are equivalent at normal supplement doses. For women who require high supplement doses because of vitamin D deficiency, D3 may work better to raise blood levels. Some medications can prevent proper absorption of Vitamin D. These include laxatives, corticosteroids like prednisone, the seizure drugs phenobarbital and phenytoin, the weight-loss drug orlistat ( Xenical and AlliTM) and the cholesterol-lowering drug cholestyramine (Questran , LoCholest , and Prevalite ). Talk to your doctor about adjusting your recommended daily vitamin D dosage if you take these medications. You should not exceed 4000 mg of vitamin D supplementation daily unless specifically prescribed by your doctor. documented in this encounter [facility] 08-05-2023 History of Presen t illness Narrative Gisele is a 43 year old who presents for an annual gynecologic exam with complaints, vaginal dryness, pain with intercourse, night sweats, and irregular bleeding . Renal carcinoma removed 2020. Menses: cycles every 14-28 days and 4-5 days of flow. Has been experiencing intermenstrual bleeding. Contraception: combined hormonal contraceptives HPV vaccine: No Last Pap: 08/06/2021 normal HPV: 08/05/2021 negative History of abnormal pap: Yes ASCUS 2017 Last mammogram: 2021 normal Sexually active: Yes History of STDS: None Patient concerns for STD exposure: No. Pain with intercourse: Yes Postcoital bleeding: Rarely Hot flashes: No Night sweats: Yes Vaginal dryness: Yes Exercise: none OB History T0 L0 SAB0 IAB0 Ectopic0 Multiple0 Live Births0 Internal Medicine Nurse History LMP: 07/10/2022 (Exact Date), Having periods Age at Menarche: Age at First : Age at Menopause: Internal Medicine Nurse History Comments: Sexual Activity: Yes; Male; levlen Contraception: Pill PAST MEDICAL HISTORY Diagnosis Date Calculus of kidney 05/27/2020 Uric acid Hyperlipidemia, mixed 02/06/2021 Impaired fasting glucose 02/06/2021 Obesity, Class II, BMI 35-39.9 01/10/2021 Papillary renal cell carcinoma (HCC) 10/[address] Hussain Pa, Urology. Pyelonephritis 05/27/2020 Right UPJ stone PAST SURGICAL HISTORY Procedure Laterality Date CYSTOSCOPY, URETERAL STENT CHANGE/INSERTION 05/27/2020 CYSTOSCOPY,URETEROSCOPY,LITHOTR IPSY Right 06/11/2020 LAPAROSC PARTIAL NEPHRECTOMY Right 11/30/2020 MYRINGOTOMY ASPIR&/EUSTACHIAN TUBE NFLTJ ANES Myringotomy/tubes PAST SURGICAL HISTORY OF herniorrhaphy PAST SURGICAL HISTORY OF BOIL REMOVES FROM TAILBONE AREA TONSILLECTOMY PRIMARY/SECONDARY <AGE 12 FAMILY HISTORY Problem Relation Age of Onset Diabetes Mother Hypertension Mother Kidney failure Mother other (pulmonary hypertension) Mother Diabetes Father No Known Problems Sister Hypertension Maternal Grandmother Diabetes Maternal Grandmother borderline Colon Cancer Maternal Grandfather Hypertension Maternal Grandfather Cancer Other uterine cancer Heart Other heart attack SOCIAL HISTORY Social History Tobacco Use Smoking status: Former Packs/day: 1.00 Years: 10.00 Additional pack years: 0.00 Total pack years: 10.00 Types: Cigarettes Start date: 05/11/1989 Quit date: 03/03/2000 Years since quittin.4 Smokeless tobacco: Never Vaping Use Vaping Use: Never used Substance Use Topics Alcohol use: Not Currently Drug use: Not Currently REVIEW OF SYSTEMS Abdomen: No abdominal pain, nausea, vomiting, diarrhea, or constipation. No bloating, early satiety, indigestion, or increased flatulence. Bladder: No dysuria, gross hematuria, urinary frequency, urinary urgency, or incontinence. Breast: No breast lumps, nipple d/c, overlying skin changes, redness or skin retraction. Allergies and current medication updated:Yes EXAM: BP 146/90[Cassi notified of blood presure- patient advised to let PCP know as she reports it has been running about the same.[ Pulse 118 Resp 12 Ht 4' 10.25 (1.48m) Wt 195 lb 12.8 oz (88.8kg) SpO2 97% LMP 07/09/2023 BMI 40.55 kg/(m^2). GENERAL: pleasant, female in no apparent distress HEENT: Normocephalic, atraumatic, mucus membranes moist, and no lesions NECK: Supple, full range of motion, no adenopathy DERMATOLOGY: Normal, without lesions, non-icteric, and non-hirsute BREAST: soft, non-tender, symmetric, no dominant mass, normal nipple-areolar complex, no lymphadenopathy, and no nipple discharge CHEST: Normal inspiratory effort ABDOMEN: soft, non-tender, and no masses PELVIC: external genitalia normal, normal Bartholin's glands, urethra, Braymer's glands, no vulvar lesions, good vaginal support, physiologic discharge present, normal appearing perineal body and perianal region + <0.5 cervical polyp noted to 7:00 position, stenotic os, friable cervix BIMANUAL: uterus normal size, shape and consistency, no adnexal masses, and non-tender RECTOVAGINAL: deferred. NEURO: alert and oriented x3,exam grossly non-focal EXTREMITIES: normal ASSESSMENT/PLAN: 1) Health maintenance: Pap/HPV done for friable cervix. Nutrition, exercise and routine health maintenance exams reviewed. Mammogram ordered and encouraged. Calcium/Vitamin D supplementation information provided. 2) Contraception: Progestin - only contraceptives. Contraceptive options reviewed and information provided. 3) STD screening: Declined STD check. 4) Follow up one year or sooner as needed Hypertension, unspecified type - ICD9: 401.9, ICD10: I10 - Reviewed that combined OCP would be contraindicated with hypertension - risk of cardiovascular events, stroke - Progesterone only options reviewed - Opts for progesterone only pill. R/B/A reviewed. - Recommend follow up with PCP - Recommend follow up with urologist to confirm contraception is okay to continue (renal carcinoma history) Abnormal uterine bleeding - ICD9: 626.9, ICD10: N93.9 Intermenstrual bleeding - ICD9: 626.6, ICD10: N92.3 - Recommend labs and ultrasound, as well as EMB - Polyp noted on cervix and friable cervix - Discussed possibility of perimenopause - Bleeding is not heavy, but irregular - Reviewed option of Mirena IUD Cervical polyp - ICD9: 622.7, ICD10: N84.1 - Remove with EMB - Friable cervix, Doxycyline sent Dyspareunia in female - ICD9: 625.0, ICD10: N94.10 Vaginal dryness - ICD9: 625.8, ICD10: N89.8 - Lubricant and moisturizer list provided via patient instructions - Consider estrogen cream after work up for abnormal bleeding Night sweats - ICD9: 780.8, ICD10: R61 - Consider non hormonal options after work up for intermenstrual bleeding Gisele takes spirolactone for a history of acne. Asking for refill. Reviewed risks of use with potassium supplement and she verbalizes understanding. States that her urologist will likely be discontinuing the potassium. Normal potassium level in May 2023. CMP today. Cassi Dawn APRN.CNP Medical Decision Making: Problems: Moderate: New problem with uncertain prognosis and 2+ stable chronic illnesses Data: Unique test(s) ordered: 3+ Risk: Low: Low risk from testing/treatment Moderate: Drug management Medical Decision Making Level: 4 - Moderate documented in this encounter [facility] 07-20-2023 Miscellaneous Notes RX sent. Loreto Peralta APRN.KAILEE She would like it sent to [facility] in [place] Received a fax from [facility] stating that they no longer provide services to this pt. I sent her OCP to them. Please contact pt to update pharmacy. Thank you, Loreto Peralta APRN.WET END TESTER documented in this encounter [facility] 01-06-2023 History of Presen t illness Narrative Urology Clinic Note ? Reason for visit/Chief complaint: Nephrolithiasis Renal cell carcinoma ? Urologic history: [id number] CTRSS- 1.5 R renal pelvic stone No left ureteral stones No left renal stone WBC- 13 GFR- WNL INITIAL VISIT R ureteral stent placement Fluoroscopy reviewed- stone not easily visualized Urine culture- no growth R URS- 80% uric acid, 20% deborah ox 24 hour urine Vol- 1.8 PH- 5.3 Normal Ca, Ox, CA, urine Uric acid US- no stones or hydronephrosis Small right renal stone R anterior lower pole renal mass about 2 cm MRI- R renal mass about 2 cm suspicious for RCC Exophytic, anterior R robotic partial nephrectomy - 2.5 cm, G1, papillary RCC, + margin 24 hour urine Normal Vol, Ca, Ox, Cris PH- 5.3(low) Elevated sodium BMP- Potassium 4.1, GFR- 101 CT- no evidence of recurrence Subcentimeter adrenal adenoma Previous non obstructing stone no longer present CXR- negative CT- no evidence of recurrence Subcentimeter adrenal adenoma(stable) Previous non obstructing stone no longer present CXR- negative History of present illness: Gisele Gallagher is a 42 y.o. female with nephrolithiasis here for follow up for an incidentally found renal mass. 01/06/23 Interval hx- here for cancer surveillance. No flank pain, lower urinary tract symptoms, gross hematuria. Overall doing well. Review of systems: Const: Denies weight loss, bone pain Endocrine- no night sweats HEENT: Denies new changes in vision CV: Denies C/P Pulm: Denies SOB Abd: Denies constipation, diarrhea, nausea, vomiting Neuro: Denies numbness, tingling MSK: Denies weakness Psych- denies depression : See HPI Medical History: none Surgical History: Hernia repair as a kid(umbilical) Robotic partial nephrectomy ? 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 Life expectancy: greater than10 years Physical Exam: PACU Vitals 01/06/23 1131 BP: (!) 141/92 Pulse: SpO2: Gen: WDWN Psych- alert and oriented Neuro- Grossly intact Eyes- No jaundice MSK- Normal Gait. Normal range of motion. Resp: non-labored. ?No increased work of breathing. Records review: Independently reviewed Stone analysis- none Laboratory results review: Chemistry Component Value Date/Time NA 135 12/01/2022 0914 K 4.2 12/01/2022 0914 CL 102 12/01/2022 0914 BUN 9 12/01/2022 0914 CREATININE 0.80 12/01/2022 0914 Component Value Date/Time CALCIUM 9.4 12/01/2022 0914 ALKPHOS 61 10/29/2020 1152 AST 10 10/29/2020 1152 ALT 22 10/29/2020 1152 BILITOT 0.4 10/29/2020 1152 ? Radiograph review: Images and report independently reviewed See timeline above for details. ? Assessment: Gisele Gallagher is a 42 y.o. female with nephrolithiasis and renal cell carcinoma of the right kidney s/p robotic partial nephrectomy November 2020. Intermediate risk due to positive margin. Reviewed and discussed pathology with the patient in great detail. Patient will need 5 years of surveillance as below - BMP on initial post op follow-up to establish baseline(done in the ER) - Repeat abdominal imaging at 6, 12, 24, 36, 48, and 60, then as needed moths - Annual CXR for 5 years - Annual BMP Her recent CT shows no stone formation. We opted to decrease her dosage of potassium citrate as she continues to work on her diet. She will take only one pill daily. Continue with BMP every 6 months. Plan: - return to clinic 1 year with basic metabolic panel, CT renal, cxr - cont potassium citrate(cut down to 1 pill per day) - standing BMP ordered for every 6 months ?I spent a total of 30 minutes on this case with > 50% of this time in face to face communication with the patient during examination and consultation and the remainder of the time spent independently reviewing medical records, imaging, pathology, and coordinating subsequent care. ? I discussed diagnostics options, treatment options and risks and benefits of all options. Discussed alternative opinions and referral for 2nd/3rd opinion. Also discussed availability of clinical trial when/if appropriate. Patients recommended to read all package inserts for any medications prescribed and schedule another appointment should they have any concerns. Heidi Pa MD documented in this encounter [facility] 07-31-2022 History of Presen t illness Narrative Security Installation Sales Technician offered: Patient declines. Gisele is a 42 year old who presents for an annual gynecologic exam with complaints, vaginal dryness and pain with intercourse. Menses: cycles every 28 days and 1-2 days of flow. Contraception: combined hormonal contraceptives HPV vaccine: No Last Pap: 08/06/2021 normal HPV: 08/05/2021 negative History of abnormal pap: Yes Last mammogram: 2021normal Sexually active: Yes Pain with intercourse: Yes Postcoital bleeding: No Hot flashes: Yes Vaginal dryness: Yes OB History T0 L0 SAB0 IAB0 Ectopic0 Multiple0 Live Births0 Internal Medicine Nurse History LMP: 07/12/2021 (Within Days), Having periods Age at Menarche: Age at First : Age at Menopause: Internal Medicine Nurse History Comments: Sexual Activity: Yes; Male; levlen Contraception: Pill PAST MEDICAL HISTORY Diagnosis Date Calculus of kidney 05/27/2020 Uric acid Hyperlipidemia, mixed 02/06/2021 Impaired fasting glucose 02/06/2021 Obesity, Class II, BMI 35-39.9 01/10/2021 Papillary renal cell carcinoma (HCC) 10/[address] Hussain Pa, Urology. Pyelonephritis 05/27/2020 Right UPJ stone PAST SURGICAL HISTORY Procedure Laterality Date CYSTOSCOPY, URETERAL STENT CHANGE/INSERTION 05/27/2020 CYSTOSCOPY,URETEROSCOPY,LITHOTR IPSY Right 06/11/2020 LAPAROSC PARTIAL NEPHRECTOMY Right 11/30/2020 MYRINGOTOMY ASPIR&/EUSTACHIAN TUBE NFLTJ ANES Myringotomy/tubes PAST SURGICAL HISTORY OF herniorrhaphy PAST SURGICAL HISTORY OF BOIL REMOVES FROM TAILBONE AREA TONSILLECTOMY PRIMARY/SECONDARY <AGE 12 FAMILY HISTORY Problem Relation Age of Onset Diabetes Mother Hypertension Mother Kidney failure Mother other (pulmonary hypertension) Mother Diabetes Father No Known Problems Sister Hypertension Maternal Grandmother Diabetes Maternal Grandmother borderline Colon Cancer Maternal Grandfather Hypertension Maternal Grandfather Cancer Other uterine cancer Heart Other heart attack SOCIAL HISTORY Social History Tobacco Use Smoking status: Former Packs/day: 1.00 Years: 10.00 Pack years: 10.00 Types: Cigarettes Start date: 05/11/1989 Quit date: 03/03/2000 Years since quittin.4 Smokeless tobacco: Never Vaping Use Vaping Use: Never used Substance Use Topics Alcohol use: Yes Comment: Rarely Drug use: No REVIEW OF SYSTEMS Abdomen: No abdominal pain, nausea, vomiting, diarrhea, or constipation. No bloating, early satiety, indigestion, or increased flatulence. Bladder: No dysuria, gross hematuria, urinary frequency, urinary urgency, or incontinence. Breast: No breast lumps, nipple d/c, overlying skin changes, redness or skin retraction. Allergies and current medication updated:Yes EXAM: LMP 07/12/2021 GENERAL: pleasant, female in no apparent distress HEENT: Normocephalic, atraumatic, and no lesions NECK: Supple, full range of motion, no adenopathy, and thyroid normal DERMATOLOGY: Normal, without lesions, non-icteric, and non-hirsute BREAST: soft, non-tender, symmetric, no dominant mass, normal nipple-areolar complex, no lymphadenopathy, and no nipple discharge CHEST: Normal inspiratory effort ABDOMEN: soft, non-tender, and no masses PELVIC: external genitalia normal, normal Bartholin's glands, urethra, Braymer's glands, no vulvar lesions, no cervical lesions, good vaginal support, physiologic discharge present, normal appearing perineal body and perianal region BIMANUAL: uterus normal size, shape and consistency, no adnexal masses, and non-tender RECTOVAGINAL: deferred. NEURO: alert and oriented x3,exam grossly non-focal EXTREMITIES: normal ASSESSMENT/PLAN: 1) Health maintenance: Pap/HPV up to date. Mammogram up to date . Nutrition, exercise and routine health maintenance exams reviewed. 2) Contraception: combined hormonal contraceptives. Contraceptive options reviewed and information provided. 3) STD screening: Declined STD check. 4) Follow up one year or sooner as needed 5) recommended to the patient that she can use coconut oil, Replens, or Revaree to help with vaginal dryness. If that does not give her relief we can discuss vaginal estrogen. Loreto Peralta APRN.CNP documented in this encounter [facility] 12-13-2021 Miscellaneous Notes Patient lost her job and now needing prescriptions sent to [facility] instead of [facility] home delivery. Please cancel previous RX and file pending orders. Thank you. Laurie Majano RN documented in this encounter [facility] 12-10-2021 History of Presen t illness Narrative Urology Clinic Note ? Reason for visit/Chief complaint: Nephrolithiasis Renal cell carcinoma ? Urologic history: [id number] CTRSS- 1.5 R renal pelvic stone No left ureteral stones No left renal stone WBC- 13 GFR- WNL INITIAL VISIT R ureteral stent placement Fluoroscopy reviewed- stone not easily visualized Urine culture- no growth R URS- 80% uric acid, 20% deborah ox 24 hour urine Vol- 1.8 PH- 5.3 Normal Ca, Ox, CA, urine Uric acid US- no stones or hydronephrosis Small right renal stone R anterior lower pole renal mass about 2 cm MRI- R renal mass about 2 cm suspicious for RCC Exophytic, anterior R robotic partial nephrectomy - 2.5 cm, G1, papillary RCC, + margin 24 hour urine Normal Vol, Ca, Ox, Cris PH- 5.3(low) Elevated sodium BMP- Potassium 4.1, GFR- 101 CT- no evidence of recurrence Subcentimeter adrenal adenoma Previous non obstructing stone no longer present CXR- negative Pending: Annual surveillance for RCC History of present illness: Gisele Gallagher is a 41 y.o. female with nephrolithiasis here for follow up for an incidentally found renal mass. 12/09/21 Interval hx- here for cancer surveillance. No new issues. Had to move to [facility] as her grandfather had a stroke and grandmother has dementia. No flank pain, unexplained weight loss. Taking potassium citrates 2-3 x daily Review of systems: Const: Denies weight loss, bone pain Endocrine- no night sweats HEENT: Denies new changes in vision CV: Denies C/P Pulm: Denies SOB Abd: Denies constipation, diarrhea, nausea, vomiting Neuro: Denies numbness, tingling MSK: Denies weakness Psych- denies depression : See HPI Medical History: none Surgical History: Hernia repair as a kid(umbilical) Robotic partial nephrectomy ? 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 Life expectancy: greater than10 years Physical Exam: PACU Vitals 12/10/21 0911 BP: (!) 148/93 Pulse: 87 SpO2: 98% Gen: WDWN Psych- alert and oriented Neuro- Grossly intact Eyes- No jaundice MSK- Normal Gait. Normal range of motion. Resp: non-labored. ?No increased work of breathing. Records review: Independently reviewed Stone analysis- none Laboratory results review: Chemistry Component Value Date/Time NA 140 11/06/2021 0856 K 4.1 11/06/2021 0856 CL 106 11/06/2021 0856 BUN 12 11/06/2021 0856 CREATININE 0.76 11/06/2021 0856 Component Value Date/Time CALCIUM 9.1 11/06/2021 0856 ALKPHOS 61 10/29/2020 1152 AST 10 10/29/2020 1152 ALT 22 10/29/2020 1152 BILITOT 0.4 10/29/2020 1152 ? Radiograph review: Images and report independently reviewed See timeline above for details. ? Assessment: Gisele Gallagher is a 41 y.o. female with nephrolithiasis and renal cell carcinoma of the right kidney s/p robotic partial nephrectomy November 2020. Intermediate risk due to positive margin. Reviewed and discussed pathology with the patient in great detail. Patient will need 5 years of surveillance as below - BMP on initial post op follow-up to establish baseline(done in the ER) - Repeat abdominal imaging at 6, 12, 24, 36, 48, and 60, then as needed moths - Annual CXR for 5 years - Annual BMP Her recent CT shows the previously noted right non obstructing stone is no longer present. We will continue potassium citrate and obtain BMPs at 6 month intervals Plan: - return to clinic 1 year with basic metabolic panel, CT renal, cxr - cont potassium citrate - standing BMP ordered for every 6 months ?I spent a total of 30 minutes on this case with > 50% of this time in face to face communication with the patient during examination and consultation and the remainder of the time spent independently reviewing medical records, imaging, pathology, and coordinating subsequent care. ? I discussed diagnostics options, treatment options and risks and benefits of all options. Discussed alternative opinions and referral for 2nd/3rd opinion. Also discussed availability of clinical trial when/if appropriate. Patients recommended to read all package inserts for any medications prescribed and schedule another appointment should they have any concerns. Heidi Pa MD documented in this encounter [facility] 07-29-2021 History of Presen t illness Narrative Gisele is a 41 year old who presents for an annual gynecologic exam with complaints, vaginal itching. Cancerous tumor on kidney removed last year. Menses: cycles every 28 days and 1-2 days of flow. Contraception: combined hormonal contraceptives HPV vaccine: No Last Pap: 07/28/2019 normal HPV: 07/26/2019 negative History of abnormal pap: Yes Last mammogram: 2020normal Sexually active: Yes Pain with intercourse: some Postcoital bleeding: No Vaginal dryness: Yes OB History T0 L0 SAB0 IAB0 Ectopic0 Multiple0 Live Births0 Internal Medicine Nurse History LMP: 07/12/2021 (Within Days), Having periods Age at Menarche: Age at First : Age at Menopause: Internal Medicine Nurse History Comments: Sexual Activity: Yes; Male; levlen Contraception: Pill PAST MEDICAL HISTORY Diagnosis Date Calculus of kidney 05/27/2020 Uric acid Hyperlipidemia, mixed 02/06/2021 Impaired fasting glucose 02/06/2021 Obesity, Class II, BMI 35-39.9 01/10/2021 Papillary renal cell carcinoma (HCC) 10/[address] Hussain Pa, Urology. Pyelonephritis 05/27/2020 Right UPJ stone PAST SURGICAL HISTORY Procedure Laterality Date CYSTOSCOPY, URETERAL STENT CHANGE/INSERTION 05/27/2020 CYSTOSCOPY,URETEROSCOPY,LITHOTR IPSY Right 06/11/2020 LAPAROSC PARTIAL NEPHRECTOMY Right 11/30/2020 MYRINGOTOMY ASPIR&/EUSTACHIAN TUBE NFLTJ ANES Myringotomy/tubes PAST SURGICAL HISTORY OF herniorrhaphy PAST SURGICAL HISTORY OF BOIL REMOVES FROM TAILBONE AREA TONSILLECTOMY PRIMARY/SECONDARY <AGE 12 FAMILY HISTORY Problem Relation Age of Onset Diabetes Mother Hypertension Mother Kidney failure Mother other (pulmonary hypertension) Mother Diabetes Father No Known Problems Sister Hypertension Maternal Grandmother Diabetes Maternal Grandmother borderline Colon Cancer Maternal Grandfather Hypertension Maternal Grandfather Cancer Other uterine cancer Heart Other heart attack SOCIAL HISTORY Social History Tobacco Use Smoking status: Former Smoker Packs/day: 1.00 Years: 10.00 Pack years: 10.00 Start date: 05/11/1989 Quit date: 03/03/2000 Years since quittin.4 Smokeless tobacco: Never Used Vaping Use Vaping Use: Never used Substance Use Topics Alcohol use: Yes Comment: Rarely Drug use: No REVIEW OF SYSTEMS Abdomen: No abdominal pain, nausea, vomiting, diarrhea, or constipation. No bloating, early satiety, indigestion, or increased flatulence. Bladder: No dysuria, gross hematuria, urinary frequency, urinary urgency, or incontinence. Breast: No breast lumps, nipple d/c, overlying skin changes, redness or skin retraction. Allergies and current medication updated:Yes EXAM: Ht 4' 9.75 (1.47m) Wt 198 lb (89.8kg) LMP 07/12/2021 BMI 41.73 kg/(m^2). GENERAL: pleasant, female in no apparent distress HEENT: Normocephalic, atraumatic, mucus membranes moist and no lesions NECK: Supple, full range of motion, no adenopathy and thyroid normal DERMATOLOGY: Normal, without lesions, non-icteric and non-hirsute BREAST: soft, non-tender, symmetric, no dominant mass, normal nipple-areolar complex, no lymphadenopathy and no nipple discharge CHEST: Normal inspiratory effort ABDOMEN: soft, non-tender and no masses PELVIC: external genitalia normal, normal Bartholin's glands, urethra, Braymer's glands, no vulvar lesions, no cervical lesions, good vaginal support, physiologic discharge present, normal appearing perineal body and perianal region, +cervix right red and very friable BIMANUAL: uterus normal size, shape and consistency, no adnexal masses, non-tender and no cervical motion tenderness RECTOVAGINAL: deferred. NEURO: alert and oriented x3,exam grossly non-focal EXTREMITIES: normal ASSESSMENT/PLAN: 1) Health maintenance: Pap done with HPV. Mammogram up to date . Nutrition, exercise and routine health maintenance exams reviewed. Calcium/Vitamin D supplementation information provided. 2) Contraception: combined hormonal contraceptives. Contraceptive options reviewed and information provided. 3) STD screening: Declined STD check. 4) Follow up one year or sooner as needed 5) BVC done. Loreto Peralta APRN.KAILEE documented in this encounter [facility] 06-17-2021 History of Presen t illness Narrative Urology Clinic Note ? Reason for visit/Chief complaint: Nephrolithiasis Renal cell carcinoma ? Urologic history: Lkkz-[id number]-Tbv CTRSS- 1.5 R renal pelvic stone No left ureteral stones No left renal stone WBC- 13 GFR- WNL INITIAL VISIT R ureteral stent placement Fluoroscopy reviewed- stone not easily visualized Urine culture- no growth R URS- 80% uric acid, 20% deborah ox 24 hour urine Vol- 1.8 PH- 5.3 Normal Ca, Ox, CA, urine Uric acid US- no stones or hydronephrosis Small right renal stone R anterior lower pole renal mass about 2 cm MRI- R renal mass about 2 cm suspicious for RCC Exophytic, anterior R robotic partial nephrectomy - 2.5 cm, G1, papillary RCC, + margin 24 hour urine Normal Vol, Ca, Ox, Cris PH- 5.3(low) Elevated sodium Pending: repeat 24 hour urine 6 month post op scan for RCC History of present illness: Gisele Gallagher is a 40 y.o. female with nephrolithiasis here for follow up for an incidentally found renal mass. 06/17/21 Interval hx- she is here today to go over her 24 hour urine. No new issues at this time. Has joined a few cancer related groups and is in good spirits. Does not feel she is passing a stone. Review of systems: Const: Denies weight loss, bone pain Endocrine- no night sweats HEENT: Denies new changes in vision CV: Denies C/P Pulm: Denies SOB Abd: Denies constipation, diarrhea, nausea, vomiting Neuro: Denies numbness, tingling MSK: Denies weakness Psych- denies depression : See HPI Medical History: none Surgical History: Hernia repair as a kid(umbilical) Robotic partial nephrectomy ? 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 Life expectancy: greater than10 years Physical Exam: PACU Vitals 06/17/21 0933 BP: (!) 140/95 Pulse: (!) 125 SpO2: 96% Gen: WDWN Psych- alert and oriented Neuro- Grossly intact Eyes- No jaundice MSK- Normal Gait. Normal range of motion. Resp: non-labored. ?No increased work of breathing. Records review: Independently reviewed Stone analysis- none Laboratory results review: Chemistry Component Value Date/Time NA 138 06/01/2021 0915 K 4.8 06/01/2021 0915 CL 105 06/01/2021 0915 BUN 12 06/01/2021 0915 CREATININE 0.72 06/01/2021 0915 Component Value Date/Time CALCIUM 9.9 06/01/2021 0915 ALKPHOS 61 10/29/2020 1152 AST 10 10/29/2020 1152 ALT 22 10/29/2020 1152 BILITOT 0.4 10/29/2020 1152 ? Radiograph review: Images and report independently reviewed See timeline above for details. ? Assessment: Gisele Gallagher is a 40 y.o. female with nephrolithiasis and renal cell carcinoma of the right kidney s/p robotic partial nephrectomy. Intermediate risk due to positive margin. Reviewed and discussed pathology with the patient in great detail. Patient will need 5 years of surveillance as below - BMP on initial post op follow-up to establish baseline(done in the ER) - Repeat abdominal imaging at 6, 12, 24, 36, 48, and 60, then as needed moths - Annual CXR for 5 years - Annual BMP She has persistently low urine pH despite dietary modifications. Discussed options. She is at a higher risk for uric acid stones. Discussed options and decided to proceed with potassium citrate supplementation Plan: - still needs to get her [address] renal mass protocol which she will do in May. BMP as well in May or jun and follow up with me after per patient preference - Rx for potassium citrate provided ? I discussed diagnostics options, treatment options and risks and benefits of all options. Discussed alternative opinions and referral for 2nd/3rd opinion. Also discussed availability of clinical trial when/if appropriate. Patients recommended to read all package inserts for any medications prescribed and schedule another appointment should they have any concerns. Heidi Pa MD Urology Clinic Note ? Reason for visit/Chief complaint: Nephrolithiasis Renal cell carcinoma ? Urologic history: Ofji-Xzncy-Dmc CTRSS- 1.5 R renal pelvic stone No left ureteral stones No left renal stone WBC- 13 GFR- WNL INITIAL VISIT R ureteral stent placement Fluoroscopy reviewed- stone not easily visualized Urine culture- no growth R URS- 80% uric acid, 20% deborah ox 24 hour urine Vol- 1.8 PH- 5.3 Normal Ca, Ox, CA, urine Uric acid US- no stones or hydronephrosis Small right renal stone R anterior lower pole renal mass about 2 cm MRI- R renal mass about 2 cm suspicious for RCC Exophytic, anterior R robotic partial nephrectomy - 2.5 cm, G1, papillary RCC, + margin 2020- 24 hour urine Normal Vol, Ca, Ox, Cris PH- 5.3(low) Elevated sodium CT a/p - no evidence of recurrence or local mets BMP- Potassium 4.8, normal renal function Pending: RCC surveillance History of present illness: Gisele Gallagher is a 40 y.o. female with nephrolithiasis here for follow up for nephrolithiasis and RCC of the kidney. 06/17/21 Interval hx- no new issues at this time. No unexplained weight loss, gross hematuria, flank pain. Urine- pH- 5.5 Review of systems: Const: Denies weight loss, bone pain Endocrine- no night sweats HEENT: Denies new changes in vision CV: Denies C/P Pulm: Denies SOB Abd: Denies constipation, diarrhea, nausea, vomiting Neuro: Denies numbness, tingling MSK: Denies weakness Psych- denies depression : See HPI Medical History: none Surgical History: Hernia repair as a kid(umbilical) Robotic partial nephrectomy ? 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 Life expectancy: greater than10 years Physical Exam: PACU Vitals 06/17/21 0933 BP: (!) 140/95 Pulse: (!) 125 SpO2: 96% Gen: WDWN Psych- alert and oriented Neuro- Grossly intact Eyes- No jaundice MSK- Normal Gait. Normal range of motion. Resp: non-labored. ?No increased work of breathing. Records review: Independently reviewed Stone analysis- none Laboratory results review: Chemistry Component Value Date/Time NA 138 06/01/2021 0915 K 4.8 06/01/2021 0915 CL 105 06/01/2021 0915 BUN 12 06/01/2021 0915 CREATININE 0.72 06/01/2021 0915 Component Value Date/Time CALCIUM 9.9 06/01/2021 0915 ALKPHOS 61 10/29/2020 1152 AST 10 10/29/2020 1152 ALT 22 10/29/2020 1152 BILITOT 0.4 10/29/2020 1152 ? Radiograph review: Images and report independently reviewed See timeline above for details. ? Assessment: Gisele Gallagher is a 40 y.o. female with nephrolithiasis(uric acid) and renal cell carcinoma of the right kidney s/p robotic partial nephrectomy. Intermediate risk due to positive margin. Reviewed and discussed pathology with the patient in great detail. Patient will need 5 years of surveillance as below - BMP on initial post op follow-up to establish baseline(done in the ER) - Repeat abdominal imaging at 6, 12, 24, 36, 48, and 60, then as needed moths - Annual CXR for 5 years - Annual BMP Images were independently reviewed and discussed in detail with the patient. Patient voiced understanding. She is doing well with the potassium citrate and her UA today shows a pH of 5.5 which is improved. Our goal is to get her to 6. Plan: - RTC 6 months with CXR, CT renal mass protocol in 6 months - Continue potassium citrate. Rx changed to 15 meq TID from BID ? I discussed diagnostics options, treatment options and risks and benefits of all options. Discussed alternative opinions and referral for 2nd/3rd opinion. Also discussed availability of clinical trial when/if appropriate. Patients recommended to read all package inserts for any medications prescribed and schedule another appointment should they have any concerns. Heidi Pa MD documented in this encounter [facility] 12-17-2020 History of Presen t illness Narrative Urology Clinic Note ? Reason for visit/Chief complaint: Nephrolithiasis Small renal mass ? Urologic history: Ksqm-[id number]-Dqp CTRSS- 1.5 R renal pelvic stone No left ureteral stones No left renal stone WBC- 13 GFR- WNL INITIAL VISIT R ureteral stent placement Fluoroscopy reviewed- stone not easily visualized Urine culture- no growth R URS- 80% uric acid, 20% deborah ox 24 hour urine Vol- 1.8 PH- 5.3 Normal Ca, Ox, CA, urine Uric acid US- no stones or hydronephrosis Small right renal stone R anterior lower pole renal mass about 2 cm MRI- R renal mass about 2 cm suspicious for RCC Exophytic, anterior R robotic partial nephrectomy - 2.5 cm, G1, papillary RCC, + margin Pending: repeat 24 hour urine Renal cell carcinoma surveillance History of present illness: Gisele Gallagher is a 40 y.o. female with nephrolithiasis here for follow up for an incidentally found renal mass. 12/17/20 Interval hx- s/p right partial nephrectomy. Did great after surgery but noticed her midline abdominal wound opened up. She went to the ER and was given an Rx for antibiotics. No fevers/chills. Review of systems: Const: Denies weight loss, bone pain Endocrine- no night sweats HEENT: Denies new changes in vision CV: Denies C/P Pulm: Denies SOB Abd: Denies constipation, diarrhea, nausea, vomiting Neuro: Denies numbness, tingling MSK: Denies weakness Psych- denies depression : See HPI Medical History: none Surgical History: Hernia repair as a kid(umbilical) ? 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 Life expectancy: greater than10 years Physical Exam: PACU Vitals 12/17/20 0851 BP: (!) 134/92 Pulse: (!) 100 SpO2: 98% Gen: WDWN Psych- alert and oriented Neuro- Grossly intact Eyes- No jaundice MSK- Normal Gait. Normal range of motion. Resp: non-labored. ?No increased work of breathing. Midline abdominal incision with superficial dehiscence, no necrotic tissue or purulence. Mild tenderness when packing the wound. All remaining incisions are CDI. Records review: Independently reviewed Stone analysis- none Laboratory results review: Chemistry Component Value Date/Time NA 141 12/01/2020 0654 K 4.6 12/01/2020 0654 CL 103 12/01/2020 0654 BUN 8 12/01/2020 0654 CREATININE 0.65 12/01/2020 0654 Component Value Date/Time CALCIUM 9.6 12/01/2020 0654 ALKPHOS 61 10/29/2020 1152 AST 10 10/29/2020 1152 ALT 22 10/29/2020 1152 BILITOT 0.4 10/29/2020 1152 ? Radiograph review: Images and report independently reviewed See timeline above for details. ? Assessment: Gisele Gallagher is a 40 y.o. female with nephrolithiasis and renal cell carcinoma of the right kidney s/p robotic partial nephrectomy. Intermediate risk due to positive margin. Reviewed and discussed pathology with the patient in great detail. Patient will need 5 years of surveillance as below - BMP on initial post op follow-up to establish baseline(done in the ER) - Repeat abdominal imaging at 6, 12, 24, 36, 48, and 60, then as needed moths - Annual CXR for 5 years - Annual BMP Plan: - RTC [address] renal mass protocol prior - continue antibiotics, wet to dry dressing this week ? I discussed diagnostics options, treatment options and risks and benefits of all options. Discussed alternative opinions and referral for 2nd/3rd opinion. Also discussed availability of clinical trial when/if appropriate. Patients recommended to read all package inserts for any medications prescribed and schedule another appointment should they have any concerns. Heidi Pa MD documented in this encounter [facility] 11-26-2020 Miscellaneous Notes Spoke to patient she currently does not have a PCP is establishing with a new PC in January. She also has not been referred to a parachute repairer. Please notify patient there is concern of her consistently elevated white count. Patient reported when Charley Arreola called that she is not having any signs or symptoms of infection. Please request information from patient's primary care physician as to whether the underlying cause has been investigated or if she has been referred to a parachute repairer. Patient's current elevated white count of 14.22 is improvedFrom previous CBCs, therefore she is acceptable for us to proceed for her planned procedure. I would recommend that she follow-up with her primary care physician for further evaluation and management and may benefit from referral to a parachute repairer. Please notify patient surgeon. documented in this encounter [facility] 11-26-2020 History of Presen t illness Narrative See PAT H&P documented in this encounter [facility] 11-26-2020 Miscellaneous Notes Please notify patient there is concern of her consistently elevated white count. Patient reported when Charley Arreola called that she is not having any signs or symptoms of infection. Please request information from patient's primary care physician as to whether the underlying cause has been investigated or if she has been referred to a parachute repairer. Patient's current elevated white count of 14.22 is improvedFrom previous CBCs, therefore she is acceptable for us to proceed for her planned procedure. I would recommend that she follow-up with her primary care physician for further evaluation and management and may benefit from referral to a parachute repairer. Please notify patient surgeon. documented in this encounter [facility] 11-26-2020 Miscellaneous Notes Spoke to patient. Denies any signs or symptoms of infection, Results faxed to surgeon patient has no PCP. Please contact patient regarding PAT blood work showing an elevated WBC. Please ask if patient has had any signs or symptoms of infection including urinary tract infection. If patient has had signs or symptoms of urinary tract infection please obtain urine for urinalysis and culture. Please send results to PCP and surgeon. Patient Instructions for [facility]: MAIN OR Prior to surgery: Please contact your Surgeon's office for the scheduled time of your surgery. Report to the Surgery Family Waiting Area in the [facility] of [facility] 2 hours prior to your surgery. You may use the [employer] parking available at the Green Entrance /or park in the [facility] - a voucher for parking will be provided to you. One family member may accompany you back into the Pre-Op Area. If your surgeon has given you special guidelines for eating and drinking prior to surgery, follow their instructions. o If not, the evening before surgery you may eat a low-fat meal up until midnight. Do not eat anything, including gum, cough drops, hard candy or mints after midnight. Clear liquids, including water, Gatorade and black coffee (no dairy or creamer products), up to two hours prior to surgery are permitted. Do not smoke, chew tobacco or drink alcohol for 24 hours before surgery. Please take any medications you have been instructed to take the morning of your surgery with small sips of water. Please be sure to wear comfortable, appropriate clothing. Please remove all jewelry and piercings, including wedding rings. RINGS WILL BE CUT OFF IF UNABLE TO REMOVE. Leave all valuable items at home. Shower using Dial soap or as advised by your Surgeon's office. Do not apply any makeup or lotions. Gel or acrylic nails must be removed from both ring fingers. Remove all nail norwegian/product for surgeries involving extremities. Please remember to bring both your insurance card and a photo ID with you on the day of surgery. After your surgery: If you are having outpatient surgery you must have a licensed local company refrigerated truck driver to take you home. The expectation is that this local company refrigerated truck driver will remain at the hospital for the duration of your procedure. You are advised to have a family member with you for at least 24 hours after being under Anesthesia. documented in this encounter [facility] 11-26-2020 Miscellaneous Notes Please contact patient regarding PAT blood work showing an elevated WBC. Please ask if patient has had any signs or symptoms of infection including urinary tract infection. If patient has had signs or symptoms of urinary tract infection please obtain urine for urinalysis and culture. Please send results to PCP and surgeon. Patient Instructions for [facility]: MAIN OR Prior to surgery: Please contact your Surgeon's office for the scheduled time of your surgery. Report to the Surgery Family Waiting Area in the [facility] 2 hours prior to your surgery. You may use the [employer] parking available at the Green Entrance /or park in the [facility] - a voucher for parking will be provided to you. One family member may accompany you back into the Pre-Op Area. If your surgeon has given you special guidelines for eating and drinking prior to surgery, follow their instructions. o If not, the evening before surgery you may eat a low-fat meal up until midnight. Do not eat anything, including gum, cough drops, hard candy or mints after midnight. Clear liquids, including water, Gatorade and black coffee (no dairy or creamer products), up to two hours prior to surgery are permitted. Do not smoke, chew tobacco or drink alcohol for 24 hours before surgery. Please take any medications you have been instructed to take the morning of your surgery with small sips of water. Please be sure to wear comfortable, appropriate clothing. Please remove all jewelry and piercings, including wedding rings. RINGS WILL BE CUT OFF IF UNABLE TO REMOVE. Leave all valuable items at home. Shower using Dial soap or as advised by your Surgeon's office. Do not apply any makeup or lotions. Gel or acrylic nails must be removed from both ring fingers. Remove all nail norwegian/product for surgeries involving extremities. Please remember to bring both your insurance card and a photo ID with you on the day of surgery. After your surgery: If you are having outpatient surgery you must have a licensed local company refrigerated truck driver to take you home. The expectation is that this local company refrigerated truck driver will remain at the hospital for the duration of your procedure. You are advised to have a family member with you for at least 24 hours after being under Anesthesia. documented in this encounter [facility] 11-23-2020 History and physical note Assessment and Plan 1. Preop examination Medically acceptable for elective procedure pending review of the following ordered tests: Basic Metabolic Panel, CBC 2. Kidney mass Primary management per surgical team. Patient provided instructions on preoperative management of medications including withholding Aspirin, NSAIDS, and specific Herbal Supplements. 3. Preop cardiovascular exam Patient denies any active cardiac conditions and has a revised cardiac risk index of 0. Patient denied any current cardiac symptoms and has greater than 4 METS of functional capacity and is at acceptable cardiac risk for elective surgery based on 2014 ACC/AHA guidelines. DVT prophylaxis deferred to surgical service. Recommend utilization of 2016 ACCP guidelines. Apfel score is 2. (Score/Risk of PONV = 0/10%, 1/21%, 2/39%, 3/61%, 4/79%). This score has been externally validated. 4. Smoker Patient currently not manifesting any signs or symptoms of decompensated pulmonary disease and has been counseled on smoking cessation. Patient was advised of potential perioperative adverse effects associated with smoking such as increased risk for post-operative pulmonary complications, poor wound healing, and increased risk for infections. Recommend aggressive pulmonary toilet and lung expansion modalities including deep breathing and IS after surgery and perioperative nebulizers as needed. 5. Obesity, unspecified classification, unspecified obesity type, unspecified whether serious comorbidity present Body mass index is 37.96 kg/m . Patient will require close monitoring of respiratory status while on IV opiates. Continuous pulse oximetry recommended. Please see SEAMUS risk assessment. Recommend SEAMUS protocol with utilization of ETCO2 monitoring for patients with or at risk for SEAMUS while on IV opiates. Recommended therapeutic lifestyle changes including healthy diet and exercise as tolerated to help with weight loss. 6. Acne, unspecified acne type patient instructed to continue spironolactone directed.. 7. Kidney stones occurred in 2020 status post stent placement Chief Complaint Patient presents with Pre-operative Medical Risk Stratification History of Present Illness Gisele Gallagher is a 40 y.o. female who presents for preoperative medical risk stratification consult at the request of Heidi Pa MD prior to ROBOTIC ASSISTED LAPAROSCOPIC PARTIAL NEPHRECTOMYWITH INTRA OPERATIVE ULTRASOUND on 11/30/20. This patient was diagnosed with renal mass (N28.89) and is scheduled to undergo the above procedure on 11/30/2020. She is very healthy and healthy overall and denies any cardiac history. She does not follows debone supervisor for any reason. She denies any history of high blood pressure her blood pressure is just a little bit elevated at 149/97. She does admit to being under a lot of stress since being diagnosed with a kidney mass. She plans to follow-up with her primary care provider if blood pressure remains elevated. She has no history of stroke or blood clots. She has no history of lung disease. She has no history of sleep apnea. She does snore but is never told that stops breathing while she sleeps. She has no known history of liver disease. She has had a kidney stone this past year and underwent stent placement for it. She denies any history of diabetes. She does take spironolactone on a daily basis for acne. She has had anesthesia in the past and has tolerated well without complications of postoperative nausea vomiting or difficulty waking up. She can walk up 2 flights of stairs without shortness of breath or chest pain. She denies any alcohol use but does smoke cigarettes daily. She smokes about 4 cigarettes/day and reports that she has decreased her intake. She denies any active chest pain, dyspnea, extremity swelling. She denies any abdominal pain or flank pain. Please see below regarding status of active medical conditions and assessment and plan regarding details of preoperative medical risk stratification. Past Medical History: Diagnosis Date Kidney stones No past medical history pertinent negatives. Past Surgical History: Procedure Laterality Date CYSTO RETRO STONE MANIPULATION STENT INSERTION Right 06/11/2020 Procedure: CYSTOSCOPY WITH RETROGRADE STONE MANIPULATION STENT INSERTION Laser lithotripsy Fluoroscopy- C Arm; Surgeon: Heidi Pa MD; Location: Main OR; Service: Urology CYSTO RETROGRADE PYELOGRAM Right 05/27/2020 Procedure: CYSTOSCOPY WITH RETROGRADE PYELOGRAM AND RIGHT STENT PLACEMENT; Surgeon: Duong Ibarra MD; Location: [facility]; Service: Urology CYSTO RETROGRADE PYELOGRAM Right 06/11/2020 Procedure: CYSTOSCOPY WITH RETROGRADE PYELOGRAM; Surgeon: Heidi Pa MD; Location: Main OR; Service: Urology CYSTO URETERAL STENT REMOVAL Right 06/11/2020 Procedure: CYSTOSCOPY WITH URETERAL STENT REMOVAL; Surgeon: Heidi Pa MD; Location: Main OR; Service: Urology CYSTO URETEROSCOPY Right 06/11/2020 Procedure: CYSTOSCOPY WITH URETEROSCOPY; Surgeon: Heidi Pa MD; Location: Main OR; Service: Urology HERNIA REPAIR Social History Tobacco Use Smoking status: Current Every Day Smoker Packs/day: 0.25 Types: Cigarettes Smokeless tobacco: Never Used Tobacco comment: 4 cigs per day Substance Use Topics Alcohol use: Never Family History Problem Relation Age of Onset Kidney failure Mother Diabetes Father Hypertension Father No Known Problems Sister Prior to Admission medications Medication Sig Taking? Dose Jamil Freeman, 28, 0.15-0.03 mg per tablet Take 1 tablet by mouth every morning . Yes 1 tablet, Oral, Every morning Bacillus coagulans/inulin (PROBIOTIC WITH PREBIOTIC ORAL) Take 2 capsules by mouth every morning . Yes 2 capsules, Oral, Every morning cranberry extract/vitamin C (AZO CRANBERRY PLUS VIT C ORAL) Take 2 tablets by mouth nightly . Yes 2 tablets, Oral, Nightly spironolactone (ALDACTONE) 50 MG tablet Take 50 mg by mouth every morning . Yes 50 mg, Oral, Every morning diazePAM (VALIUM) 5 MG tablet Take 1 (one) tablet (5 mg total) by mouth once Take one hour prior to the procedure for 1 dose . 5 mg, Oral, Once, Take one hour prior to the procedure levonorgestrel-ethinyl estradiol (NORDETTE) 0.15-0.03 mg per tablet Take 1 tablet by mouth every morning . 1 tablet, Oral, Every morning ondansetron (ZOFRAN-ODT) 8 MG disintegrating tablet Dissolve 1 (one) tablet (8 mg total) on top of tongue every 8 (eight) hours as needed . 8 mg, Oral, Every 8 hours PRN phenazopyridine (PYRIDIUM) 200 MG tablet Take one every 8 hours as needed. Ok to substitute for OTC Azo if pyridium is not covered. . Take one every 8 hours as needed. Ok to substitute for OTC Azo if pyridium is not covered. traMADoL (ULTRAM) 50 mg tablet Take 1 (one) tablet (50 mg total) by mouth every 6 (six) hours as needed for pain . 50 mg, Oral, Every 6 hours PRN Allergies Allergen Reactions No Known Allergies Review of Systems Constitution: (negative) HENT: (negative) Eyes: (negative) Respiratory: - As above Cardiovascular: - As above Gastrointestinal: (negative) Genitourinary: - As above Musculoskeletal: (negative) Skin: (negative) Neurological: (negative) Hematological: (negative) Physical Exam BP (!) 149/97 Pulse 86 Temp 99.1 F (37.3 C) (Oral) Resp 16 Ht 4' 11 Wt 85.2 kg (187 lb 15.1 oz) SpO2 98% BMI 37.96 kg/m Constitutional: Conversant, in no acute distress Eyes: No Scleral Icterus, no ptosis. Pupils equal and round. Ears/nose/mouth/throat: Nose and ears appear normal. Oropharynx clear. Neck: Trachea midline, no goiter Respiratory: Clear to auscultation, normal respiratory effort. Cardiovascular: Regular rate and rhythm. No peripheral edema. Pulses palpable at the ankle. Gastrointestinal: Abdomen soft, nontender, no masses noted. Genitourinary: No suprapubic tenderness. Musculoskeletal: No calf tenderness with palpation, no digital cyanosis or clubbing. Skin: No rashes, Normal turgor and temperature. Neurologic: No focal deficits noted. Psychiatric: Appropriate affect, Alert and Oriented x 3. Data Preprocedure Sleep Apnea Assessment - Mild Risk (1/3) Sleep Apnea in the patient's Active Problem List or Medical History: no 1. History of apparent airway obstruction during sleep: (1 point for this category) Do you snore frequently, or snore loud enough to be heard through a closed door?: no Do you awaken from sleep with a choking sensation or have periods during sleep when someone has observed you pausing between breaths?: no 2. Somnolence of the patient: (1 point for this category) Do you find yourself frequently sleepy despite adequate hours of sleep the night before?: no Do you fall asleep easily while: watching TV, reading, riding in or driving a car?: no 3. Predisposing physician characteristics: (1 point for this category, 2 points if the BMI ? 40) BMI (Calculated): 37.9 Recent Results (from the past 1825 days) XR CHEST AP/PA AND LAT 10/29/2020 (Final) Status: Normal Narrative EXAMINATION: XR CHEST AP/PA AND LAT HISTORY: ORDERING SYSTEM PROVIDED HISTORY: renal mass staging, TECHNOLOGIST PROVIDED HISTORY: Illness/Other Reason for exam: pre-op for surgery for removal of right renal mass, pt states no chest symptoms at this time Cancer History: Unknown Surgery, RadiationHistory: Unknown Encounter Type: Initial Additional signs and symptoms: . ORDERING SYSTEM PROVIDED DIAGNOSIS CODES: N28.89 Renal mass COMPARISON: None. FINDINGS: Two-view chest x-ray. No pneumothorax, pleural effusion or focal airspace consolidation. Heart is normal in size. Bony thorax is unremarkable. Impression No acute cardiopulmonary process. No suspicious focal airspace opacities. ST/lab Workstation ID: [id number] documented in this encounter [facility] 11-23-2020 Instructions Jeanne Buckner DO - 11/23/2020 2:03 PM EDT Preoperative Medication Instructions In preparation for surgery please continue all of your current medications with the following changes: Gisele Gallagher Home Medication Instructions Prior to Surgery ARABELLA:[id number] Printed on:11/23/20 1403 Medication Information Take last dose on Take the morning of surgery Comment(s) Altavera, 28, 0.15-0.03 mg per tablet Take 1 tablet by mouth every morning . Yes as scheduled Bacillus coagulans/inulin (PROBIOTIC WITH PREBIOTIC ORAL) Take 2 capsules by mouth every morning . Yes as scheduled cranberry extract/vitamin C (AZO CRANBERRY PLUS VIT C ORAL) Take 2 tablets by mouth nightly . Hold spironolactone (ALDACTONE) 50 MG tablet Take 50 mg by mouth every morning . No Please take your evening medications as usual on the evening prior to surgery. STOP Aspirin (and medications that contain aspirin, such as Norma [place], Pepto-Bismol, Anacin), antiinflammatory medications such as Advil, Motrin, Ibuprofen, Naproxen, Aleve, Norma [place], Pepto-Bismol, Anacin, Diclofenac, Voltaren, Daypro, Etodolac, Ketoprofen, Meloxicam, Piroxicam, Relafen, Nabumetone, etc. Also discontinue Vitamin C, Vitamin E, Wolverine-3 Fatty Acid, Fish Oil or Lovaza, as well as all herbal medications and supplements. Take last dose on 11/23/2020. Tylenol (acetaminophen) is acceptable, but be careful to follow the label directions. On the morning of surgery, with a small amount of water, take ONLY the medications listed above in the column Take the morning of surgery. If you are using Eye Drops or Inhalers, please bring them to the hospital. If you have sleep apnea and have a CPAP/BIPAP device, please bring it with you on the day of surgery. documented in this encounter [facility] 11-23-2020 Miscellaneous Notes Patient Instructions for [facility]: MAIN OR Prior to surgery: Please contact your Surgeon's office for the scheduled time of your surgery. Report to the Surgery Family Waiting Area in the [place] are of [facility] 2 hours prior to your surgery. You may use the [employer] parking available at the Green Entrance /or park in the [facility] Parking [facility]age - a voucher for parking will be provided to you. One family member may accompany you back into the Pre-Op Area. If your surgeon has given you special guidelines for eating and drinking prior to surgery, follow their instructions. o If not, the evening before surgery you may eat a low-fat meal up until midnight. Do not eat anything, including gum, cough drops, hard candy or mints after midnight. Clear liquids, including water, Gatorade and black coffee (no dairy or creamer products), up to two hours prior to surgery are permitted. Do not smoke, chew tobacco or drink alcohol for 24 hours before surgery. Please take any medications you have been instructed to take the morning of your surgery with small sips of water. Please be sure to wear comfortable, appropriate clothing. Please remove all jewelry and piercings, including wedding rings. RINGS WILL BE CUT OFF IF UNABLE TO REMOVE. Leave all valuable items at home. Shower using Dial soap or as advised by your Surgeon's office. Do not apply any makeup or lotions. Gel or acrylic nails must be removed from both ring fingers. Remove all nail norwegian/product for surgeries involving extremities. Please remember to bring both your insurance card and a photo ID with you on the day of surgery. After your surgery: If you are having outpatient surgery you must have a licensed local company refrigerated truck driver to take you home. The expectation is that this local company refrigerated truck driver will remain at the hospital for the duration of your procedure. You are advised to have a family member with you for at least 24 hours after being under Anesthesia. documented in this encounter [facility] 10-29-2020 Miscellaneous Notes Addended by: ELISABETH CADENA on: 10/29/2020 01:53 PM Modules accepted: Orders documented in this encounter [facility] 10-29-2020 History of Presen t illness Narrative Urology Clinic Note ? Reason for visit/Chief complaint: Nephrolithiasis Small renal mass ? Urologic history: Yyti-Slkkg-Org CTRSS- 1.5 R renal pelvic stone No left ureteral stones No left renal stone WBC- 13 GFR- WNL INITIAL VISIT R ureteral stent placement Fluoroscopy reviewed- stone not easily visualized Urine culture- no growth R URS- 80% uric acid, 20% deborah ox 24 hour urine Vol- 1.8 PH- 5.3 Normal Ca, Ox, CA, urine Uric acid US- no stones or hydronephrosis Small right renal stone R anterior lower pole renal mass about 2 cm MRI- R renal mass about 2 cm suspicious for RCC Exophytic, anterior Pending: repeat 24 hour urine after renal mass is treated R partial nephrectomy CBC, CMP Chest x-ray History of present illness: Gisele Gallagher is a 40 y.o. female with nephrolithiasis here for follow up for an incidentally found renal mass. Denies any constitutional symptoms, bone pain, gross hematuria, flank pain, weight loss, dyspnea. Review of systems: Const: Denies weight loss, bone pain Endocrine- no night sweats HEENT: Denies new changes in vision CV: Denies C/P Pulm: Denies SOB Abd: Denies constipation, diarrhea, nausea, vomiting Neuro: Denies numbness, tingling MSK: Denies weakness Psych- denies depression : See HPI Medical History: none Surgical History: Hernia repair as a kid(umbilical) ? 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 Life expectancy: greater than10 years Physical Exam: PACU Vitals 10/29/20 0846 BP: (!) 156/97 Pulse: (!) 121 Gen: WDWN Psych- alert and oriented Neuro- Grossly intact Eyes- No jaundice MSK- Normal Gait. Normal range of motion. Resp: non-labored. ?No increased work of breathing. Records review: Independently reviewed Stone analysis- none Laboratory results review: Chemistry Component Value Date/Time NA 138 10/06/2020 0633 K 4.4 10/06/2020 0633 CL 108 10/06/2020 0633 BUN 11 10/06/2020 0633 CREATININE 0.85 10/06/2020 06 Component Value Date/Time CALCIUM 9.4 10/06/2020 0633 ALKPHOS 65 10/06/2020 0633 AST 18 10/06/2020 0633 ALT 23 10/06/2020 0633 BILITOT 0.3 10/06/2020 06 ? Radiograph review: Images and report independently reviewed See timeline above for details. ? Assessment: Gisele Gallagher is a 40 y.o. female with nephrolithiasis and incidentally found right renal mass. We had an extensive discussion about the renal mass and the likelihood that this is cancer or a benign tumor like an oncocytoma, angiomyolipoma, complex cyst, or metastatic lesion. We discussed observation, biopsy, robotic-assisted laparoscopic partial or radical nephrectomy, and open partial or radical nephrectomy. Our discussion per the AUA guidelines in regards to renal mass biopsy First, patients should understand that RMB is generally a safe diagnostic test. The risk of complications is low with the most common being renal hematoma (4.9%), clinically significant pain (1.2%), gross hematuria (1.0%), pneumothorax (0.6%) and hemorrhage requiring transfusion (0.4%). While the risk of post-procedure hemorrhage is small, these risks may be amplified by aspirin, NSAIA, second or third generation antiplatelet agents (i.e. dipyridamole, clopidogrel), vitamin K/factor X inhibitors (i.e. warfarin, apixaban), and low molecular weight heparin (i.e. enoxaprin). Temporary discontinuation of these agents is advised if the risk/benefit ratio allows. Importantly, there are no reported cases of RCC tumor seeding in the contemporary literature with modern biopsy techniques, which typically utilize a coaxial sheath. In addition, patients should be informed that a RMB diagnostic of malignancy and histologic subtype tends to be highly accurate. The sensitivity (97.5% (median 100, 95% CI 78 100)), specificity (96.2% (median 100, 95% CI 75 100)), and positive predictive value (99.8% (median 100, 95% CI 97 100)) of core RMB are excellent and a diagnosis of malignancy can be trusted with certainty. In addition, histologic determination of RCC subtype is highly accurate.162,[id number] However, patients should be informed that the non-diagnostic rate of RMB is approximately 14% which can be substantially reduced with repeat biopsy. On the other hand, RMB carries a significant negative predictive value (NPV), suggesting that a non-malignant biopsy result may not truly indicate that a benign entity is present. In the systematic review performed by Eric et al., the NPV was 63% indicating that among patients undergoing extirpation despite a negative biopsy, 37% had malignant disease on final surgical pathology.162 As this comprised a select population with high risk clinical and imaging features, it likely represents the upper limit of NPV for RMB. In addition, the accuracy of tumor grade diagnosis with RMB is highly variable, ranging from 52-76% in the literature. Sixteen percent (16%) of tumors were upgraded from low-grade to high-grade at surgical pathology. This is particularly pertinent for patients with small renal masses, where 80-90% of tumors are low-grade and the detection of high-grade tumors is of paramount importance. Hence, this represents a significant limitation of RMB. Furthermore, oncocytic neoplasms may present a challenge for RMB. After a long conversation about the pros and cons of the different strategies, the patient would like to proceed with a robot assisted right partial nephrectomy. Informed consent was obtained. Plan: - CBC, CMP, CXR - to the OR for right partial nephrectomy - 24 hour urine after renal mass is treated ? I discussed diagnostics options, treatment options and risks and benefits of all options. Discussed alternative opinions and referral for 2nd/3rd opinion. Also discussed availability of clinical trial when/if appropriate. Patients recommended to read all package inserts for any medications prescribed and schedule another appointment should they have any concerns. Heidi Pa MD documented in this encounter [facility] 10-01-2020 History of Presen t illness Narrative Urology Clinic Note ? Reason for visit/Chief complaint: nephrolithiasis ? Urologic history: Qson-Tmymz-Gbj CTRSS- 1.5 R renal pelvic stone No left ureteral stones No left renal stone WBC- 13 GFR- WNL INITIAL VISIT R ureteral stent placement Fluoroscopy reviewed- stone not easily visualized Urine culture- no growth R URS- 80% uric acid, 20% deborah ox 24 hour urine Vol- 1.8 PH- 5.3 Normal Ca, Ox, CA, urine Uric acid US- no stones or hydronephrosis Pending: repat 24 hour urine History of present illness: Gisele Gallagher is a 40 y.o. female with nephrolithiasis here for follow up. No new issues at this time. Obtained her US and 24 hour urine. No new issues at this time. Drinks 50-60 oz of water daily. No flank pain, fevers/chills, nausea/vomiting. Review of systems: Const: Denies weight loss, bone pain Endocrine- no night sweats HEENT: Denies new changes in vision CV: Denies C/P Pulm: Denies SOB Abd: Denies constipation, diarrhea, nausea, vomiting Neuro: Denies numbness, tingling MSK: Denies weakness Psych- denies depression : See HPI Medical History: none Surgical History: Hernia repair as a kid ? Social History: Place of residence: [place] Occupation: [employer] Marital status: Tobacco: yes EtOH:no Illicit drugs: no Family History: History of nephrolithiasis- no ECO Anticoagulation- no ? Life expectancy: greater than10 years Physical Exam: PACU Vitals 10/01/20 0904 BP: 133/83 Pulse: 80 SpO2: 97% Gen: WDWN Psych- alert and oriented Neuro- Grossly intact Eyes- No jaundice MSK- Normal Gait. Normal range of motion. Resp: non-labored. ?No increased work of breathing. Records review: Independently reviewed Stone analysis- none Laboratory results review: Chemistry Component Value Date/Time NA 136 05/26/20201937 K 4.8 05/26/20201937 CL 106 05/26/20201937 BUN 10 05/26/20201937 CREATININE 1.01 05/26/20201937 Component Value Date/Time CALCIUM 9.7 05/26/20201937 ALKPHOS 56 05/26/20201937 AST 33 05/26/20201937 ALT 27 05/26/20201937 BILITOT 0.5 05/26/20201937 ? Radiograph review: Images and report independently reviewed See timeline above for details. ? Assessment: Gisele Gallagher is a 40 y.o. female with nephrolithiasis here for follow up. Stone is predominantly uric acid. 24 hour urine shows slightly lower than adequate volume and very low urine pH. We discussed AUA guidelines for medical/dietary management of patients with stones and specifically uric acid stones. 1. All stone formers should increase their PO hydration to produce 2.5 L of urine daily 2. Patients with uric acid stones or calcium stones and relatively high urinary uric acid should limit intake of non-dairy animal protein. 3. We may offer potassium citrate to patients with uric acid and cystine stones to raise urinary pH to an optimal level. 4. Clinicians should not routinely offer allopurinol as first-line therapy to patients with uric acid stones. Images were independently reviewed and discussed in detail with the patient. Patient voiced understanding. Plan: - RTC in 3-6 months for repeat 24 hour urine. ? I discussed diagnostics options, treatment options and risks and benefits of all options. Discussed alternative opinions and referral for 2nd/3rd opinion. Also discussed availability of clinical trial when/if appropriate. Patients recommended to read all package inserts for any medications prescribed and schedule another appointment should they have any concerns. Heidi Pa MD documented in this encounter [facility] note Diagnosis Uric acid kidney stone- Primary Uric acid nephrolithiasis Urinary tract infection without hematuria, site unspecified [facility] Diagnosis Uric acid kidney stone- Primary Uric acid nephrolithiasis Urinary tract infection without hematuria, site unspecified [facility]* Diagnosis Acute UTI- Primary Urinary tract infection, site not specified [facility]* Diagnosis Kidney stone- Primary Calculus of kidney [facility]* Diagnosis Acute UTI Urinary tract infection, site not specified [facility]* Diagnosis Acute UTI- Primary Urinary tract infection, site not specified Renal mass Unspecified disorder of kidney and ureter [facility]* Diagnosis Renal mass Unspecified disorder of kidney and ureter [facility]* Diagnosis Renal mass- Primary Unspecified disorder of kidney and ureter Renal mass- Primary Unspecified disorder of kidney and ureter Renal mass Unspecified disorder of kidney and ureter [facility]* Diagnosis Renal mass- Primary Unspecified disorder of kidney and ureter Preop examination- Primary Unspecified pre-operative examination Kidney mass Unspecified disorder of kidney and ureter Preop cardiovascular exam Pre-operative cardiovascular examination Smoker Tobacco use disorder Obesity, unspecified classification, unspecified obesity type, unspecified whether serious comorbidity present Acne, unspecified acne type Renal mass Unspecified disorder of kidney and ureter [facility]* Diagnosis Renal mass- Primary Unspecified disorder of kidney and ureter Preop examination- Primary Unspecified pre-operative examination Kidney mass Unspecified disorder of kidney and ureter Preop cardiovascular exam Pre-operative cardiovascular examination Smoker Tobacco use disorder Obesity, unspecified classification, unspecified obesity type, unspecified whether serious comorbidity present Acne, unspecified acne type Renal mass Unspecified disorder of kidney and ureter [facility]* Diagnosis Renal mass- Primary Unspecified disorder of kidney and ureter Leukocytosis, unspecified type [facility]* Diagnosis Renal cell carcinoma, unspecified laterality (HCC)- Primary [facility]* Diagnosis Renal cell carcinoma, unspecified laterality (HCC)- Primary documented in this encounter [facility]* Diagnosis Renal cell carcinoma, unspecified laterality (HCC)- Primary documented in this encounter [facility] note* Diagnosis Renal cell carcinoma, unspecified laterality (HCC)- Primary documented in this encounter [facility] note* Diagnosis Encounter for gynecological examination (general) (routine) without abnormal findings- Primary Encounter for surveillance of contraceptive pills Surveillance of previously prescribed contraceptive pill Encounter for screening mammogram for breast cancer Vaginal burning Other specified symptom associated with female genital organs Screening for malignant neoplasm of cervix Screening for malignant neoplasm of the cervix Encounter for screening for human papillomavirus (HPV) Special screening examination for human papillomavirus (HPV) documented in this encounter [facility] note* Diagnosis Encounter for surveillance of contraceptive pills Surveillance of previously prescribed contraceptive pill documented in this encounter [facility] note* Diagnosis Renal cell carcinoma, unspecified laterality (HCC)- Primary documented in this encounter [facility] note* Diagnosis Renal cell carcinoma, unspecified laterality (HCC)- Primary documented in this encounter [facility] note* Diagnosis Encounter for surveillance of contraceptive pills Surveillance of previously prescribed contraceptive pill documented in this encounter [facility] note* Diagnosis Encounter for gynecological examination (general) (routine) without abnormal findings- Primary Encounter for screening mammogram for breast cancer Encounter for surveillance of contraceptive pills Surveillance of previously prescribed contraceptive pill documented in this encounter [facility] note* Diagnosis Renal cell carcinoma, unspecified laterality (HCC)- Primary Kidney stone Calculus of kidney documented in this encounter [facility] note* Diagnosis Renal cell carcinoma, unspecified laterality (HCC) documented in this encounter [facility] note* Diagnosis Encounter for screening mammogram for breast cancer documented in this encounter [facility] note* Diagnosis Encounter for surveillance of contraceptive pills Surveillance of previously prescribed contraceptive pill documented in this encounter [facility] note* Diagnosis Encounter for gynecological examination (general) (routine) with abnormal findings- Primary Encounter for screening mammogram for breast cancer Hypertension, unspecified type Abnormal uterine bleeding Unspecified disorder of menstruation and other abnormal bleeding from female genital tract Screening for cervical cancer Screening for malignant neoplasm of the cervix Encounter for screening for human papillomavirus (HPV) Special screening examination for human papillomavirus (HPV) Intermenstrual bleeding Metrorrhagia Cervical polyp Mucous polyp of cervix Dyspareunia in female Vaginal dryness Other specified symptom associated with female genital organs Night sweats Generalized hyperhidrosis documented in this encounter [facility] note* Diagnosis Screening for human papillomavirus (HPV)- Primary Special screening examination for human papillomavirus (HPV) documented in this encounter [facility] noteNo assessment information availableWJ.W. [facility] Work Phone: Evaluation note* Diagnosis Renal cell carcinoma, unspecified laterality (HCC)- Primary documented in this encounter [facility] note* Diagnosis Liver lesion- Primary Other specified disorders of liver Renal cell carcinoma, unspecified laterality (HCC) documented in this encounter [facility] note* Diagnosis Liver lesion- Primary Other specified disorders of liver documented in this encounter [facility] note* Diagnosis Liver lesion Other specified disorders of liver documented in this encounter [facility] note* Diagnosis Kidney stone- Primary Calculus of kidney documented in this encounter [facility] note* Diagnosis Encounter for gynecological examination (general) (routine) without abnormal findings- Primary Encounter for screening mammogram for breast cancer documented in this encounter [facility] note* Diagnosis Encounter for screening mammogram for breast cancer documented in this encounter [facility] for referral (narrative)* Diagnostic Procedure Only (Routine) - Authorized Specialty Diagnoses / Procedures Referred By Michell haskins Referred To Contact [facility] Diagnoses Encounter for surveillance of contraceptive pills Encounter for gynecological examination (general) (routine) without abnormal findings Encounter for screening mammogram for breast cancer Procedures DEJUAN SCREENING SCREENING MAMMOGRAPHY BI 2-VIEW BREAST INC Loreto Cardona APRN.CNP [address] [place] [address] [facility] [address] [place] [phone] Referral ID Status Reason Start Date Expiration Date Visits Requested Visits Authorized [id number] Authorized Auto-Generat ed Referral 07/29/2021 08/28/2022 1 1 [facility] Diagnostic Procedure Only (Routine) - Pending Review Specialty Diagnoses / Procedures Referred By Contluis angel t Referred To Contact [facility] Diagnoses Encounter for gynecological examination (general) (routine) without abnormal findings Encounter for screening mammogram for breast cancer Procedures DEJUAN SCREENING SCREENING MAMMOGRAPHY BI 2-VIEW BREAST INC CAD Loreto Peralta APRN.WET END TESTER [address] [place] [address] [facility] [address] [place] [phone] Referral ID Status Reason Start Date Expiration Date Visits Requested Visits Authorized [id number] Pending Review Auto-Generat ed Referral 07/31/2022 08/30/2023 1 1 [facility] for referral (narrative)* Diagnostic Procedure Only (Routine) - Pending Review Specialty Diagnoses / Procedures Referred By Michell haskins Referred To Contact [facility] Diagnoses Encounter for screening mammogram for breast cancer Procedures DEJUAN SCREENING SCREENING MAMMOGRAPHY BI 2-VIEW BREAST INC Aleksandar Rivas MD [address] [place] [address] [facility] [address] [place] [phone] Referral ID Status Reason Start Date Expiration Date Visits Requested Visits Authorized [id number] Pending Review Auto-Generat ed Referral 07/15/2023 08/13/2024 1 1 [facility] for referral (narrative)* Outpatient Procedure (Routine) - Pending Review Specialty Diagnoses / Procedures Referred By Michell haskins Referred To Contact [facility] Diagnoses Intermenstrual bleeding Procedures ENDOMETRIAL BIOPSY ENDOMETRIAL BX W/WO ENDOCERVIX BX W/O DILAT SPX Cassi Dawn APRN.CNP [address] [place] [address] [facility] [address] [place] [id number] Referral ID Status Reason Start Date Expiration Date Visits Requested Visits Authorized [id number] Pending Review Auto-Generat ed Referral 08/05/2023 08/04/2024 1 1 * Diagnostic Procedure Only (Routine) - Authorized Specialty Diagnoses / Procedures Referred By Michell t Referred To Contact [facility] Diagnoses Abnormal uterine bleeding Procedures US FEMALE PELVIS TRANSVAG US TRANSVAGINAL Cassi Dawn APRN.CNP [address] [place] [address] [place] [address] Referral ID Status Reason Start Date Expiration Date Visits Requested Visits Authorized [id number] Authorized Auto-Generat ed Referral 08/05/2023 09/03/2024 1 1 * Diagnostic Procedure Only (Routine) - Authorized Specialty Diagnoses / Procedures Referred By Michell t Referred To Contact [facility] Diagnoses Encounter for screening mammogram for breast cancer Procedures DEJUAN SCREENING SCREENING MAMMOGRAPHY BI 2-VIEW BREAST INC CAD Cassi Dawn APRN.CNP [address] [place] [address] [facility] [address] [place] [phone] Referral ID Status Reason Start Date Expiration Date Visits Requested Visits Authorized [id number] Authorized Auto-Generat ed Referral 08/05/2023 09/03/2024 1 1 [facility]No reason for referral information availableWJ.W. [facility] Work Phone: Reason for visit Narrative* Diagnostic Procedure Only (Routine) - Closed Specialty Diagnoses / Procedures Referred By Michell t Referred To Contact [facility] Diagnoses Encounter for screening mammogram for breast cancer Procedures DEJUAN SCREENING SCREENING MAMMOGRAPHY BI 2-VIEW BREAST INC CAD Cassi Dawn APRN.CNP [address] [place] [address] Phone: tel: fax: [facility] [address] [place] [address] Referral ID Status Reason Start Date Expiration Date V isits Requested Visits Authorized [id number] Closed Auto-Generate d Referral 08/05/2023 09/03/2024 1 1 [facility] Discharge Instructions * Attachments The following attachments cannot be sent through Care Everywhere. * Kidney Stone (Lithuanian) documented in this encounter* Discharge Instr - Other Orders* Vidya Newell RN - 06/11/2020 6:16 PM EST GENERAL POST-OPERATIVE PATIENT INSTRUCTIONS ANESTHESIA PRECAUTIONS: A responsible adult must stay with you for at least 24 hours after surgery. You may feel light headed,, dizzy, or nauseated during this time. Do not operate a vehicle (car, bike, motorcycle, judicial registrar) machinery or power tools. Do not make any important decisions or drink any alcoholic beverages for 24 hours. Children should remain quiet today. No riding of bicycles, motorcycles, skateboards, playing on swings etc. Drink plenty of fluids today. Eat light, small, frequent meals today. Resume regular diet tomorrow. FOLLOW-UP: Please make an appointment with your physician for follow-up. Call your physician immediately if you have any fevers greater than 101, drainage from your wound that is not clear or looks infected, persistent bleeding, increasing abdominal pain, problems urinating, or persistent nausea/vomiting. DIET: You may eat any foods that you can tolerate. It is a good idea to eat a high fiber diet and take in plenty of fluids to prevent constipation. If you do become constipated you may want to take amild laxative or take ducolax tablets on a daily basis until your bowel habits are regular. Constipation can be very uncomfortable, along with straining, after recent surgery. ACTIVITY: You are encouraged to cough and deep breathe or use your incentive spirometer if you weregiven one, every 15-30 minutes when awake. This will help prevent respiratory complications and lowgrade fevers post-operatively if you had a general anesthetic. You are encouraged to walk and engage in light activity for the next two weeks. MEDICATIONS: Try to take narcotic medications and anti-inflammatory medications, such as ibuprofen,naprosyn, etc., with food. This will minimize stomach upset from the medication. Should you developnausea and vomiting from the pain medication, or develop a rash, please discontinue the medication and contact your physician. You should not drive, make important decisions, or operate machinery when taking narcotic pain medication. Do not take tylenol or tylenol products with narcotic medications. QUESTIONS: Please feel free to call your physician or the hospital chain machine operator if you have any questions, and they will be glad to assist you. documented in this encounter Assessments Diagnosis Kidney stone on right side- Primary Diagnosis Kidney stone- Primary Calculus of kidney Diagnosis Kidney stone- Primary Calculus of kidney Kidney stone Calculus of kidney Diagnosis Kidney stone- Primary Calculus of kidney Right ureteral calculus- Primary Calculus of ureter Acute UTI Urinary tract infection, site not specified Kidney stone Calculus of kidney Diagnosis Kidney stone- Primary Calculus of kidney Kidney stone Calculus of kidney Diagnosis Kidney stone- Primary Calculus of kidney Nephrolithiasis Calculus of kidney Diagnosis Kidney stone- Primary Calculus of kidney Nephrolithiasis- Primary Calculus of kidney Kidney stone Calculus of kidney Pyelonephritis, acute Acute pyelonephritis without lesion of renal medullary necrosis Diagnosis Kidney stone- Primary Calculus of kidney Diagnosis Kidney stone- Primary Calculus of kidney Advance Directives No Advanced Directives Records FoundDocuments on File Type Date Recorded Patient Furnace Tapper Expl anation Advance Directives and Livin g Will 05/19/2020 5:02 AM Documents on File Type Date Recorded Patient Furnace Tapper Expl anation Advance Directives and Livin g Will 05/27/2020 4:56 AM Latest Code Status on File Code Status Date Activated Date Inactivated Comments Full Code 05/27/2020 5:08 AM 05/27/2020 4:58 PM Latest Code Status on File Code Status Date Activated Date Inactivated Comments Full Code 05/27/2020 5:08 AM Documents on File Type Date Recorded Patient Furnace Tapper Expl anation Advance Directives and Livin g Will 06/11/2020 4:56 AM Latest Code Status on File Code Status Date Activated Date Inactivated Comments Full Code 05/27/2020 5:08 AM 05/27/2020 4:58 PM Documents on File Type Date Recorded Patient Furnace Tapper Expl anation Advance Directives and Livin g Will 05/27/2020 4:56 AM Documents on File Type Date Recorded Patient Furnace Tapper Expl anation Advance Directives and Livin g Will 06/11/2020 4:56 AM Documents on File Type Date Recorded Patient Furnace Tapper Expl anation Advance Directives and Livin g Will 09/24/2020 11:30 AM Documents on File Type Date Recorded Patient Furnace Tapper Expl anation Advance Directives and Livin g Will 10/06/2020 6:27 AM Documents on File Type Date Recorded Patient Furnace Tapper Expl anation Advance Directives and Livin g Will 10/06/2020 6:27 AM Documents on File Type Date Recorded Patient Furnace Tapper Expl anation Advance Directives and Livin g Will 10/22/2020 6:27 AM Documents on File Type Date Recorded Patient Furnace Tapper Expl anation Advance Directives and Livin g Will 10/29/2020 11:21 AM Documents on File Type Date Recorded Patient Furnace Tapper Expl anation Advance Directives and Livin g Will 11/23/2020 11:21 AM Documents on File Type Date Recorded Patient Furnace Tapper Expl anation Advance Directives and Livin g Will 11/30/2020 11:21 AM Latest Code Status on File Code Status Date Activated Date Inactivated Comments Full Code 11/30/2020 9:54 AM Full Code 05/27/2020 5:08 AM 05/27/2020 4:58 PM Documents on File Type Date Recorded Patient Furnace Tapper Expl anation Advance Directives and Livin g Will 12/14/2020 4:29 AM Latest Code Status on File Code Status Date Activated Date Inactivated Comments Full Code 11/30/2020 9:54 AM 12/01/2020 1:34 PM Documents on File Type Date Recorded Patient Furnace Tapper Expl anation Advance Directives and Livin g Will 12/14/2020 4:29 AM Latest Code Status on File Code Status Date Activated Date Inactivated Comments Full Code 11/30/2020 9:54 AM 12/01/2020 1:34 PM Full Code 05/27/2020 5:08 AM 05/27/2020 4:58 PM Documents on File Type Date Recorded Patient Furnace Tapper Expl anation Advance Directives and Livin g Will 06/03/2021 8:04 AM Latest Code Status on File Code Status Date Activated Date Inactivated Comments Full Code 11/30/2020 9:54 AM 12/01/2020 1:34 PM Code Status History Code Status Date Activated Date Inactivated Comments Full Code 05/27/2020 5:08 AM 05/27/2020 4:58 PM Latest Code Status on File Code Status Date Activated Date Inactivated Comments Full Code 11/30/2020 9:54 AM 12/01/2020 1:34 PM Code Status History Code Status Date Activated Date Inactivated Comments Full Code 05/27/2020 5:08 AM 05/27/2020 4:58 PM Date Activated Date Inactivated Comments 11/30/2020 9:54 AM 12/01/2020 1:34 PM Date Activated Date Inactivated Comments 05/27/2020 5:08 AM 05/27/2020 4:58 PM Date Activated Date Inactivated Comments 11/30/2020 9:54 AM 12/01/2020 1:34 PM Date Activated Date Inactivated Comments 05/27/2020 5:08 AM 05/27/2020 4:58 PM History of Present Illness * Heidi Pa MD - 05/21/2020 9:25 AM EST Urology Clinic Note ? Reason for visit/Chief complaint: nephrolithiasis ? Urologic history: Cidx-Uiboh-Xau 2021-Jan-9 CTRSS- 1.5 r renal pelvic stone No left ureteral stones No left renal stone WBC- 13 GFR- WNL INITIAL VISIT URS Pending: Right URS History of present illness: Gisele Gallagher is a 39 y.o. female who was diagnosed with a R UPJ stone over the weekend. No fevers/chills since then. Pain has been minimal and is doing well at this time. NO gross hematuria. Review of systems: Const: Denies weight loss, bone pain Endocrine- no night sweats HEENT: Denies new changes in vision CV: Denies C/P Pulm: Denies SOB Abd: Denies constipation, diarrhea, nausea, vomiting Neuro: Denies numbness, tingling MSK: Denies weakness Psych- denies depression : See HPI Medical History: none Surgical History: Hernia repair as a kid ? Social History: ? Place of residence: [place] ? Occupation: [employer] ? Marital status: ? Tobacco: yes ? EtOH:no ? Illicit drugs: no Family History: ? History of nephrolithiasis- no ECO Anticoagulation- no ? Life expectancy: greater than10 years Physical Exam: PACU Vitals 05/21/20 0916 BP: (!) 150/93 Pulse: 69 SpO2: 98% Gen: WDWN Psych- alert and oriented Neuro- Grossly intact Eyes- No jaundice MSK- Normal Gait. Normal range of motion. Resp: non-labored. ?No increased work of breathing. Records review: Independently reviewed Stone analysis- none Laboratory results review: Chemistry Component Value Date/Time NA 140 05/19/2020423 K 3.9 05/19/2020423 CL 105 05/19/2020 042 BUN 14 05/19/20204 CREATININE 0.83 05/19/2020 0424 No results found for: CALCIUM, ALKPHOS, AST, ALT, BILITOT ? Radiograph review: Images and report independently reviewed See timeline above for details. ? Assessment: Gisele Gallagher is a 39 y.o. female with a 1.4 cm right renal pelvis stone - Discussed all options for the patients stone disease. Discussed rates of passage depending on stone size. Discussed risks, benefits, alternatives to minimally invasive surgery including open surgery and percutaneous nephrolithotomy, endoscopic intervention including ureteroscopy with or without stent placement, surveillance, and trial of passage. Patient voiced understanding and agreed to proceed with right ureteroscopy. Discussed behavioral modifications and dietary changes with the patient including drinking >2L water/day, and eating a low salt diet. Plan: - To the OR for R URS this coming Thursday - red flags discussed to return to the hospital - Finish keflex - Recommended smoking cessation ? ? I discussed diagnostics options, treatment options and risks and benefits of all options. Discussed alternative opinions and referral for 2nd/3rd opinion. Also discussed availability of clinical trial when/if appropriate. ? Patients recommended to read all package inserts for any medications prescribed and schedule another appointment should they have any concerns. Heidi Pa MD documented in this encounter* Heidi Pa MD - 05/21/2020 9:25 AM EST Urology Clinic Note ? Reason for visit/Chief complaint: nephrolithiasis ? Urologic history: Szon-Covhc-Vuz 2021-Jan-9 CTRSS- 1.5 r renal pelvic stone No left ureteral stones No left renal stone WBC- 13 GFR- WNL INITIAL VISIT URS Pending: Right URS History of present illness: Gisele Gallagher is a 39 y.o. female who was diagnosed with a R UPJ stone over the weekend. No fevers/chills since then. Pain has been minimal and is doing well at this time. NO gross hematuria. Review of systems: Const: Denies weight loss, bone pain Endocrine- no night sweats HEENT: Denies new changes in vision CV: Denies C/P Pulm: Denies SOB Abd: Denies constipation, diarrhea, nausea, vomiting Neuro: Denies numbness, tingling MSK: Denies weakness Psych- denies depression : See HPI Medical History: none Surgical History: Hernia repair as a kid ? Social History: ? Place of residence: [place] ? Occupation: [employer] ? Marital status: ? Tobacco: yes ? EtOH:no ? Illicit drugs: no Family History: ? History of nephrolithiasis- no ECO Anticoagulation- no ? Life expectancy: greater than10 years Physical Exam: PACU Vitals 05/21/20 0916 BP: (!) 150/93 Pulse: 69 SpO2: 98% Gen: WDWN Psych- alert and oriented Neuro- Grossly intact Eyes- No jaundice MSK- Normal Gait. Normal range of motion. Resp: non-labored. ?No increased work of breathing. Records review: Independently reviewed Stone analysis- none Laboratory results review: Chemistry Component Value Date/Time NA 140 05/19/2020423 K 3.9 05/19/2020423 CL 105 05/19/20204 BUN 14 05/19/2020423 CREATININE 0.83 05/19/2020423 No results found for: CALCIUM, ALKPHOS, AST, ALT, BILITOT ? Radiograph review: Images and report independently reviewed See timeline above for details. ? Assessment: Gisele Gallagher is a 39 y.o. female with a 1.4 cm right renal pelvis stone - Discussed all options for the patients stone disease. Discussed rates of passage depending on stone size. Discussed risks, benefits, alternatives to minimally invasive surgery including open surgery and percutaneous nephrolithotomy, endoscopic intervention including ureteroscopy with or without stent placement, surveillance, and trial of passage. Patient voiced understanding and agreed to proceed with right ureteroscopy. Discussed behavioral modifications and dietary changes with the patient including drinking >2L water/day, and eating a low salt diet. Plan: - To the OR for R URS this coming Thursday - red flags discussed to return to the hospital - Finish keflex - Recommended smoking cessation ? ? I discussed diagnostics options, treatment options and risks and benefits of all options. Discussed alternative opinions and referral for 2nd/3rd opinion. Also discussed availability of clinical trial when/if appropriate. ? Patients recommended to read all package inserts for any medications prescribed and schedule another appointment should they have any concerns. Heidi Pa MD documented in this encounter* Heidi Pa MD - 05/21/2020 9:25 AM EST Urology Clinic Note ? Reason for visit/Chief complaint: nephrolithiasis ? Urologic history: Muuv-Eauny-Zwf CTRSS- 1.5 r renal pelvic stone No left ureteral stones No left renal stone WBC- 13 GFR- WNL INITIAL VISIT URS Pending: Right URS History of present illness: Gisele Gallagher is a 39 y.o. female who was diagnosed with a R UPJ stone over the weekend. No fevers/chills since then. Pain has been minimal and is doing well at this time. NO gross hematuria. Review of systems: Const: Denies weight loss, bone pain Endocrine- no night sweats HEENT: Denies new changes in vision CV: Denies C/P Pulm: Denies SOB Abd: Denies constipation, diarrhea, nausea, vomiting Neuro: Denies numbness, tingling MSK: Denies weakness Psych- denies depression : See HPI Medical History: none Surgical History: Hernia repair as a kid ? Social History: ? Place of residence: [place] ? Occupation: [employer] ? Marital status: ? Tobacco: yes ? EtOH:no ? Illicit drugs: no Family History: ? History of nephrolithiasis- no ECO Anticoagulation- no ? Life expectancy: greater than10 years Physical Exam: PACU Vitals 05/21/20 0916 BP: (!) 150/93 Pulse: 69 SpO2: 98% Gen: WDWN Psych- alert and oriented Neuro- Grossly intact Eyes- No jaundice MSK- Normal Gait. Normal range of motion. Resp: non-labored. ?No increased work of breathing. Records review: Independently reviewed Stone analysis- none Laboratory results review: Chemistry Component Value Date/Time NA 140 05/19/2020 0424 K 3.9 05/19/2020 0424 CL 105 05/19/2020 0424 BUN 14 05/19/2020 0424 CREATININE 0.83 05/19/2020 0424 No results found for: CALCIUM, ALKPHOS, AST, ALT, BILITOT ? Radiograph review: Images and report independently reviewed See timeline above for details. ? Assessment: Gisele Gallagher is a 39 y.o. female with a 1.4 cm right renal pelvis stone - Discussed all options for the patients stone disease. Discussed rates of passage depending on stone size. Discussed risks, benefits, alternatives to minimally invasive surgery including open surgery and percutaneous nephrolithotomy, endoscopic intervention including ureteroscopy with or without stent placement, surveillance, and trial of passage. Patient voiced understanding and agreed to proceed with right ureteroscopy. Discussed behavioral modifications and dietary changes with the patient including drinking >2L water/day, and eating a low salt diet. Plan: - To the OR for R URS this coming Thursday - red flags discussed to return to the hospital - Finish keflex - Recommended smoking cessation ? ? I discussed diagnostics options, treatment options and risks and benefits of all options. Discussed alternative opinions and referral for 2nd/3rd opinion. Also discussed availability of clinical trial when/if appropriate. ? Patients recommended to read all package inserts for any medications prescribed and schedule another appointment should they have any concerns. Heidi Pa MD documented in this encounter* Heidi Pa MD - 06/04/2020 10:31 AM EST Urology Clinic Note ? Reason for visit/Chief complaint: nephrolithiasis ? Urologic history: [id number]-Tzd CTRSS- 1.5 r renal pelvic stone No left ureteral stones No left renal stone WBC- 13 GFR- WNL INITIAL VISIT R ureteral stent placement Fluoroscopy reviewed- stone not easily visualized Urine culture- no growth Pending: Right URS History of present illness: Gisele Gallagher is a 39 y.o. female who was diagnosed with a R UPJ stone over the weekend. No fevers/chills since then. Pain has been minimal and is doing well at this time. NO gross hematuria. Interval- Went to the hospital on May 27 for pyelonephritis and had an urgent stent placed by Dr. Ibarra. Doing fine with the stent other than frequency and occasional dysuria. Starting to have flank discomfort today. Review of systems: Const: Denies weight loss, bone pain Endocrine- no night sweats HEENT: Denies new changes in vision CV: Denies C/P Pulm: Denies SOB Abd: Denies constipation, diarrhea, nausea, vomiting Neuro: Denies numbness, tingling MSK: Denies weakness Psych- denies depression : See HPI Medical History: none Surgical History: Hernia repair as a kid ? Social History: ? Place of residence: [place] ? Occupation: [employer] ? Marital status: ? Tobacco: yes ? EtOH:no ? Illicit drugs: no Family History: ? History of nephrolithiasis- no ECO Anticoagulation- no ? Life expectancy: greater than10 years Physical Exam: There were no vitals filed for this visit. Gen: WDWN Psych- alert and oriented Neuro- Grossly intact Eyes- No jaundice MSK- Normal Gait. Normal range of motion. Resp: non-labored. ?No increased work of breathing. Records review: Independently reviewed Stone analysis- none Laboratory results review: Chemistry Component Value Date/Time NA 136 05/26/20201937 K 4.8 05/26/2020 193 CL 106 05/26/2020 193 BUN 10 05/26/20201937 CREATININE 1.01 05/26/20201937 Component Value Date/Time CALCIUM 9.7 05/26/2020 193 ALKPHOS 56 05/26/2020 193 AST 33 05/26/2020 193 ALT 27 05/26/20201937 BILITOT 0.5 05/26/20201937 ? Radiograph review: Images and report independently reviewed See timeline above for details. ? Assessment: Gisele Gallagher is a 39 y.o. female with a 1.4 cm right renal pelvis stone. Stent in place - Discussed all options for the patients stone disease. Discussed PCNL, URS, ESWL. I did not definitively see her stone on fluoroscopy during her stent placement by Dr. Ibarra. I offered her PCNL but considering the size I think that her best option would be ureteroscopy. Discussed behavioral modifications and dietary changes with the patient including drinking >2L water/day, and eating a low salt diet. Plan: - To the OR for R URS stent exchange this coming Thursday, - urine culture ? ? I discussed diagnostics options, treatment options and risks and benefits of all options. Discussed alternative opinions and referral for 2nd/3rd opinion. Also discussed availability of clinical trial when/if appropriate. ? Patients recommended to read all package inserts for any medications prescribed and schedule another appointment should they have any concerns. Heidi Pa MD documented in this encounter* Heidi Pa MD - 05/21/2020 9:25 AM EST Urology Clinic Note ? Reason for visit/Chief complaint: nephrolithiasis ? Urologic history: Pwjd-Vyvuk-Qrn CTRSS- 1.5 r renal pelvic stone No left ureteral stones No left renal stone WBC- 13 GFR- WNL INITIAL VISIT URS Pending: Right URS History of present illness: Gisele Gallagher is a 39 y.o. female who was diagnosed with a R UPJ stone over the weekend. No fevers/chills since then. Pain has been minimal and is doing well at this time. NO gross hematuria. Review of systems: Const: Denies weight loss, bone pain Endocrine- no night sweats HEENT: Denies new changes in vision CV: Denies C/P Pulm: Denies SOB Abd: Denies constipation, diarrhea, nausea, vomiting Neuro: Denies numbness, tingling MSK: Denies weakness Psych- denies depression : See HPI Medical History: none Surgical History: Hernia repair as a kid ? Social History: ? Place of residence: [place] ? Occupation: [employer] ? Marital status: ? Tobacco: yes ? EtOH:no ? Illicit drugs: no Family History: ? History of nephrolithiasis- no ECO Anticoagulation- no ? Life expectancy: greater than10 years Physical Exam: PACU Vitals 05/21/20 0916 BP: (!) 150/93 Pulse: 69 SpO2: 98% Gen: WDWN Psych- alert and oriented Neuro- Grossly intact Eyes- No jaundice MSK- Normal Gait. Normal range of motion. Resp: non-labored. ?No increased work of breathing. Records review: Independently reviewed Stone analysis- none Laboratory results review: Chemistry Component Value Date/Time NA 140 05/19/2020 0424 K 3.9 05/19/2020 0424 CL 105 05/19/2020 0424 BUN 14 05/19/2020 0424 CREATININE 0.83 05/19/2020 0424 No results found for: CALCIUM, ALKPHOS, AST, ALT, BILITOT ? Radiograph review: Images and report independently reviewed See timeline above for details. ? Assessment: Gisele Gallagher is a 39 y.o. female with a 1.4 cm right renal pelvis stone - Discussed all options for the patients stone disease. Discussed rates of passage depending on stone size. Discussed risks, benefits, alternatives to minimally invasive surgery including open surgery and percutaneous nephrolithotomy, endoscopic intervention including ureteroscopy with or without stent placement, surveillance, and trial of passage. Patient voiced understanding and agreed to proceed with right ureteroscopy. Discussed behavioral modifications and dietary changes with the patient including drinking >2L water/day, and eating a low salt diet. Plan: - To the OR for R URS this coming Thursday - red flags discussed to return to the hospital - Finish keflex - Recommended smoking cessation ? ? I discussed diagnostics options, treatment options and risks and benefits of all options. Discussed alternative opinions and referral for 2nd/3rd opinion. Also discussed availability of clinical trial when/if appropriate. ? Patients recommended to read all package inserts for any medications prescribed and schedule another appointment should they have any concerns. Heidi Pa MD documented in this encounter* Heidi Pa MD - 06/04/2020 10:31 AM EST Urology Clinic Note ? Reason for visit/Chief complaint: nephrolithiasis ? Urologic history: Aczg-Whhqs-Uur CTRSS- 1.5 r renal pelvic stone No left ureteral stones No left renal stone WBC- 13 GFR- WNL INITIAL VISIT R ureteral stent placement Fluoroscopy reviewed- stone not easily visualized Urine culture- no growth Pending: Right URS History of present illness: Gisele Gallagher is a 39 y.o. female who was diagnosed with a R UPJ stone over the weekend. No fevers/chills since then. Pain has been minimal and is doing well at this time. NO gross hematuria. Interval- Went to the hospital on May 27 for pyelonephritis and had an urgent stent placed by Dr. Ibarra. Doing fine with the stent other than frequency and occasional dysuria. Starting to have flank discomfort today. Review of systems: Const: Denies weight loss, bone pain Endocrine- no night sweats HEENT: Denies new changes in vision CV: Denies C/P Pulm: Denies SOB Abd: Denies constipation, diarrhea, nausea, vomiting Neuro: Denies numbness, tingling MSK: Denies weakness Psych- denies depression : See HPI Medical History: none Surgical History: Hernia repair as a kid ? Social History: ? Place of residence: [place] ? Occupation: [employer] ? Marital status: ? Tobacco: yes ? EtOH:no ? Illicit drugs: no Family History: ? History of nephrolithiasis- no ECO Anticoagulation- no ? Life expectancy: greater than10 years Physical Exam: There were no vitals filed for this visit. Gen: WDWN Psych- alert and oriented Neuro- Grossly intact Eyes- No jaundice MSK- Normal Gait. Normal range of motion. Resp: non-labored. ?No increased work of breathing. Records review: Independently reviewed Stone analysis- none Laboratory results review: Chemistry Component Value Date/Time NA 136 05/26/20201937 K 4.8 05/26/20201937 CL 106 05/26/20201937 BUN 10 05/26/20201937 CREATININE 1.01 05/26/20201937 Component Value Date/Time CALCIUM 9.7 05/26/20201937 ALKPHOS 56 05/26/20201937 AST 33 05/26/20201937 ALT 27 05/26/20201937 BILITOT 0.5 05/26/20201937 ? Radiograph review: Images and report independently reviewed See timeline above for details. ? Assessment: Gisele Gallagher is a 39 y.o. female with a 1.4 cm right renal pelvis stone. Stent in place - Discussed all options for the patients stone disease. Discussed PCNL, URS, ESWL. I did not definitively see her stone on fluoroscopy during her stent placement by Dr. Ibarra. I offered her PCNL but considering the size I think that her best option would be ureteroscopy. Discussed behavioral modifications and dietary changes with the patient including drinking >2L water/day, and eating a low salt diet. Plan: - To the OR for R URS stent exchange this coming Thursday, - urine culture ? ? I discussed diagnostics options, treatment options and risks and benefits of all options. Discussed alternative opinions and referral for 2nd/3rd opinion. Also discussed availability of clinical trial when/if appropriate. ? Patients recommended to read all package inserts for any medications prescribed and schedule another appointment should they have any concerns. Heidi Pa MD documented in this encounter* Kelsie Gupta, WET END TESTER - 05/27/2020 6:39 AM EST [facility] PROGRESS NOTE Assessment and Plan Gisele Gallagher is a 39 y.o. female patient of Physician No with hno significant past medical history who presented with right flank pain. Right flank pain Nephrolithiasis Hydronephrosis Worsening right flank pain with chills WBC 23K, afebrile, Cr 1.01 CT A/P () mild prominence of the right intra renal collecting system with 13x5 mm stone within the right renal pelvis, no ureteral or bladder stone Renal US (05/26/2020) calculus x-ray ureteropelvic junction/renal pelvis involving the right kidney measuring 7x8x3 mm in size with hydronephrosis of mild degree involving the right kidney, unchanged since previous CT examination; normal left kidney and bladder, small 60% post void residual Urinalysis with many bacteria, large leukocyte esterase, moderate blood Urine cx pending Urology consulted; S/p ureteral stent placement (05/27) Instructed to f/u with her urologist (Dr Pa) to arrange definitive ESWL Plan to go home on Levaquin; Big Arm, Pyridium, Colace and Zofran per Dr Ibarra Plan to monitor pt 6-8 hours post op and if no s/s of sepsis, ok to d/c home Obesity BMI 40 Encourage weight loss, exercise Tobacco dependence 1/2 ppd cigarette smoker Counseled on cessation for 4 min Declined nicotine replacement Family Contact Information: Code Status: Full Code Quality Measures DVT Prophylaxis: Ambulation Davis Catheter: Absent Disposition Discharge Location: Anticipate home Estimated Discharge Date: Anticipate today pending no s/s of sepsis postop Outpatient Testing: F/u with Dr Pa Subjective Pt walking around room. States she is feeling much better. States she has voided x3 since stent placement. States urine bloody. States pain is much better and c/o pressure in bladder region only. Denies any chest pain, pressure of discomfort. Denies any SOB, cough, congestion. Tolerating PO intake. Review of Systems All systems have been reviewed and are negative except as noted in HPI or below Objective BP (!) 163/103 (BP Location: Left arm, Patient Position: Sitting) Pulse 87 Temp 97.8 F (36.6 C)(Oral) Resp 16 Ht 4' 11 Wt 90.7 kg (200 lb) BMI 40.40 kg/m Physical Examination General Appearance: alert, well appearing, and in no acute distress HEENT: Head- normocephalic; Eyes- PERRLA, EOMI; Ears- external auditory canals clear, hearing intact; Nose- no nasal discharge; Throat- oropharynx normal Cardiovascular: regular rate and rhythm; normal S1, S2; no murmurs, rubs, clicks or gallops; no peripheral edema Respiratory: lungs clear to auscultation; without wheezes, rales or rhonchi Abdomen: soft, non-tender, non-distended; positive bowel sounds. Obese Neurological: alert, oriented x 3, normal speech; no focal findings or movement disorder noted Musculoskeletal: no significant deformity or tenderness to palpation Skin: normal coloration, texture and turgor; no lesions or eruptions Psych: normal mood and affect Results/Medications Reviewed 05/27/20 6:39 AM Laboratory, Microbiology, Radiology, Medications and Transcriptions documented in this encounter* Rasheeda Boyer CNP - 07/12/2020 2:12 PM EST Subjective Patient ID: Gisele Gallagher is a 39 y.o. female. HPI Patient stated that she was able to pull her stent out without a problem. She a couple of days later felt she had a UTI so she went to a urgent care who Rx her a antibiotic. She stated that she went axe throwing and developed some right flank pain. Review of Systems Constitutional: Negative. Respiratory: Negative. Cardiovascular: Negative. Gastrointestinal: Negative. Genitourinary: Negative. Objective Physical Exam Constitutional: Appearance: Normal appearance. Neck: Musculoskeletal: Normal range of motion. Cardiovascular: Rate and Rhythm: Normal rate and regular rhythm. Pulmonary: Effort: Pulmonary effort is normal. Abdominal: Palpations: Abdomen is soft. Musculoskeletal: Normal range of motion. Skin: General: Skin is warm and dry. Neurological: Mental Status: She is alert and oriented to person, place, and time. Psychiatric: Mood and Affect: Mood normal. Assessment/Plan: UA was obtained. Some blood in the urine (pt is on menses) otherwise looks negative will culture. Discussed 24 hr urine and KUB follow up. Follow up as before with results There are no diagnoses linked to this encounter. documented in this encounter* Rasheeda Boyer CNP - 07/12/2020 2:12 PM EST Subjective Patient ID: Gisele Gallagher is a 39 y.o. female. HPI Patient stated that she was able to pull her stent out without a problem. She a couple of days later felt she had a UTI so she went to a urgent care who Rx her a antibiotic. She stated that she went axe throwing and developed some right flank pain. Review of Systems Constitutional: Negative. Respiratory: Negative. Cardiovascular: Negative. Gastrointestinal: Negative. Genitourinary: Negative. Objective Physical Exam Constitutional: Appearance: Normal appearance. Neck: Musculoskeletal: Normal range of motion. Cardiovascular: Rate and Rhythm: Normal rate and regular rhythm. Pulmonary: Effort: Pulmonary effort is normal. Abdominal: Palpations: Abdomen is soft. Musculoskeletal: Normal range of motion. Skin: General: Skin is warm and dry. Neurological: Mental Status: She is alert and oriented to person, place, and time. Psychiatric: Mood and Affect: Mood normal. Assessment/Plan: UA was obtained. Some blood in the urine (pt is on menses) otherwise looks negative will culture. Discussed 24 hr urine and KUB follow up. Follow up as before with results There are no diagnoses linked to this encounter. documented in this encounter Reason for Referral Status Reason Specialty Diagnoses / Procedures Referred By Contact Referred To Contact New Request Radiology Diagnoses Nephrolithiasis Procedures US Renal and Bladder Heidi Pa MD [address] [facility] [address] [place] [address] Status Reason Specialty Diagnoses / Procedures Referred By Contact Referred To Contact New Request Radiology Diagnoses Acute UTI Procedures MR Abdomen With And Without Contrast Heidi Pa MD [address] [place] [address] Status Reason Specialty Diagnoses / Procedures Referre d By Contact Referred To Contact Closed Radiology Diagnoses Acute UTI Procedures MR Abdomen With And Without Contrast Heidi Pa MD [address] [place] [address] Status Reason Specialty Diagnoses / Procedures Referred By Contact Referred To Contact Authorized Hematology Diagnoses Renal mass Leukocytosis, unspecified type Heidi Pa MD [address] [place] [address] Status Reason Specialty Diagnoses / Procedures Referred By Contact Referred To Contact New Request Radiology Diagnoses Renal cell carcinoma, unspecified laterality (HCC) Procedures CT Abdomen With And Without Contrast Heidi Pa MD [address] [place] [address] Specialty Diagnoses / Procedures Referred By Contac t Referred To Contact Radiology Diagnoses Renal cell carcinoma, unspecified laterality (HCC) Procedures CT Abdomen With And Without Contrast Heidi Pa MD [address] [place] [address] Referral ID Status Reason Start Date Expiration Date V isits Requested Visits Authorized [id number] New Request 06/17/2021 06/17/2022 1 1 Referral ID Status Reason Start Date Expiration Date V isits Requested Visits Authorized [id number] New Request 06/12/2022 06/12/2023 1 1 Specialty Diagnoses / Procedures Referred By Contac t Referred To Contact Radiology Diagnoses Renal cell carcinoma, unspecified laterality (HCC) Kidney stone Procedures CT Abdomen Pelvis With And Without Contrast Heidi Pa MD [address] [place] [address] Referral ID Status Reason Start Date Expiration Date V isits Requested Visits Authorized [id number] Pending Review 07/09/2023 07/08/2024 1 1 Specialty Diagnoses / Procedures Referred By Contac t Referred To Contact Radiology Diagnoses Liver lesion Renal cell carcinoma, unspecified laterality (HCC) Procedures MR Abdomen With And Without Contrast Heidi Pa MD [address] [facility] [address] [place] [address] Referral ID Status Reason Start Date Expiration Date V isits Requested Visits Authorized [id number] New Request 12/08/2023 12/07/2024 1 1 Summary Purpose Family History No Family History Records FoundNo Family History Records FoundNo Family History Records FoundNo Family History Records FoundNo Family History Records FoundNo Family History Records Found Procedure Findings Note Intraprocedural fluoroscopic spot images as above. Please refer to the procedure note for further details. Workstation ID: [id number] Chief Complaint and Reason for Visit Chief Complaint SENT HERE TO DRAW AT [facility] Chief Complaint Admit Date EORDER September 30, 2024 8:39a m Additional Source Comments Reason for Visit (unrecogniz ed section and content) Reason Comments Flank Pain Reason Comments Consult ER F/U kidney stone Reason Comments Follow-up stent Status Reason Specialty Diagnoses / Procedures Referre d By Contact Referred To Contact Diagnoses Kidney stone Kidney stone [N20.0] Procedures VT CYSTOSCOPY,INSERT URETERAL STENT CYSTOSCOPY WITH RETROGRADE STONE MANIPULATION STENT INSERTION Laser lithotripsy Fluoroscopy- C Arm Status Reason Specialty Diagnoses / Procedures Referre d By Contact Referred To Contact Diagnoses Nephrolithiasis Infected right ureteral stone Reason Comments Follow-up UTI s/s per patient, recent stent pull Reason Comments Follow-up KUB and Litholink Status Reason Specialty Diagnoses / Procedures Referre d By Contact Referred To Contact Closed Radiology Diagnoses Acute UTI Procedures MR Abdomen With And Without Contrast Heidi Pa MD [address] [facility] [address] [place] [address] Reason Comments Follow-up review MRI Reason Comments Pre-operative Medical Risk Stratificatio n Reason Comments Follow-up postop wound check Reason Onset Date Comments Medication Refill 04/26/2021 Reason Comments Follow-up CT review Reason Comments Yearly Exam Reason Comments Refill Request Reason Onset Date Comments Refill Request 12/13/2021 Reason Comments Internal Medicine Nurse Exam Specialty Diagnoses / Procedures Referred By Michell haskins Referred To Contact [facility] Diagnoses Annual Procedures Annual Self [facility] [address] [place] [address] Referral ID Status Reason Start Date Expiration Date V isits Requested Visits Authorized [id number] Closed Financial Clearance Required - Self Pay Patient Cleared - True Self-Pay required payment collected 05/22/2022 08/20/2022 1 1 Reason Comments Follow-up CT result discussion Reason Onset Date Comments Medication Refill 01/06/2023 Reason Comments Medication Problem Reason Comments Internal Medicine Nurse Exam Specialty Diagnoses / Procedures Referred By Michell t Referred To Contact [facility] Diagnoses Intermenstrual bleeding Procedures ENDOMETRIAL BIOPSY ENDOMETRIAL BX W/WO ENDOCERVIX BX W/O DILAT SPX Cassi Dawn APRN.WET END TESTER [address] [place] [address] [address] [place] [address] Referral ID Status Reason Start Date Expiration Date Visits Requested Visits Authorized [id number] Pending Review Auto-Generat ed Referral 08/05/2023 08/04/2024 1 1 Reason Comments Orders Reason Comments Follow-up Yearly follow up Lab s and imaging review Reason Comments [facility] Jennifer Robles RN - 05/19/2020 5:38 AM Jennifer Rivera RN - 05/19/2020 4:25 AM Oleg Shah MD - 05/19/2020 4:17 AM Jennifer Rivera RN - 05/19/2020 4:15 AM EST ED Notes (unrecognized secti on and content) PT TO CT VIA [facility]. PT TOLERATE WELL. DR. PA TO UPDATE PT PRIOR TO TRANSPORT PT AMBULATE TO BATHROOM FOR URINE SAMPLE [facility] ED Attending Note: NAME: Gisele Gallagher 39 y.o. CSN: [id number] PCP: Physician No History: Chief Complaint: Flank Pain HPI: The history was obtained from the patient. Gisele is a 39 y.o. female who presents with a chief complaint of Flank Pain. Patient 39-year-old female presents with flank pain. Patient states she has right-sided flank pain rating in the right groin no vaginal discharge or bleeding, some urinary hesitancy, started about 1 hour ago, severe, caused her to vomit have severe nausea. Pain has not relented. No chest pain shortness of breath, no blood in urine No history of kidney stone, denies any chance of Pain radiates to the right lower quadrant PMHx: History reviewed. No pertinent past medical history. PMSx: Past Surgical History: Procedure Laterality Date HERNIA REPAIR FAM. Hx: History reviewed. No pertinent family history. SOC. Hx: Social History Socioeconomic History Marital status: Spouse name: Not on file Number of children: Not on file Years of education: Not on file Highest education level: Not on file Occupational History Not on file Social Needs Financial resource strain: Not on file Food insecurity Worry: Not on file Inability: Not on file Transportation needs Medical: Not on file Non-medical: Not on file Tobacco Use Smoking status: Current Every Day Smoker Packs/day: 0.50 Types: Cigarettes Smokeless tobacco: Never Used Substance and Sexual Activity Alcohol use: Never Frequency: Never Drug use: Never Sexual activity: Not on file Lifestyle Physical activity Days per week: Not on file Minutes per session: Not on file Stress: Not on file Relationships Social connections Talks on phone: Not on file Gets together: Not on file Attends taoist service: Not on file Active member of club or organization: Not on file Attends meetings of clubs or organizations: Not on file Relationship status: Not on file Other Topics Concern Not on file Social History Narrative Not on file MEDs: No current outpatient medications on file prior to encounter. ALL: No Known Allergies PACU Vitals 05/19/20 0417 BP: (!) 179/103 Pulse: 78 Resp: 18 Temp: 98.3 F (36.8 C) SpO2: 99% Review of Systems Constitutional: Negative for activity change and appetite change. HENT: Negative for congestion and sinus pain. Eyes: Negative for pain and visual disturbance. Respiratory: Negative for cough, chest tightness, shortness of breath and wheezing. Cardiovascular: Negative for chest pain and leg swelling. Gastrointestinal: Positive for nausea and vomiting. Negative for abdominal pain and diarrhea. Genitourinary: Positive for difficulty urinating and flank pain. Negative for dysuria. Musculoskeletal: Negative for joint swelling. Skin: Negative for rash. Neurological: Negative for dizziness, weakness and numbness. All other systems reviewed and are negative. Physical Exam Vitals signs and nursing note reviewed. Constitutional: Appearance: Normal appearance. HENT: Head: Normocephalic and atraumatic. Right Ear: External ear normal. Left Ear: External ear normal. Nose: Nose normal. Mouth/Throat: Mouth: Mucous membranes are moist. Eyes: Extraocular Movements: Extraocular movements intact. Conjunctiva/sclera: Conjunctivae normal. Pupils: Pupils are equal, round, and reactive to light. Neck: Musculoskeletal: Normal range of motion. Cardiovascular: Rate and Rhythm: Normal rate and regular rhythm. Pulses: Normal pulses. Heart sounds: Normal heart sounds. No murmur. No gallop. Pulmonary: Effort: Pulmonary effort is normal. Breath sounds: Normal breath sounds. No stridor. No wheezing, rhonchi or rales. Abdominal: General: There is no distension. Palpations: Abdomen is soft. Tenderness: There is abdominal tenderness (Mild tenderness palpation of right lower quadrant without rebound or guarding, remainder the abdomen soft nontender). There is right CVA tenderness. There is no guarding. Musculoskeletal: Normal range of motion. Right lower leg: No edema. Left lower leg: No edema. Skin: General: Skin is warm. Findings: No rash. Neurological: General: No focal deficit present. Mental Status: She is alert and oriented to person, place, and time. Mental status is at baseline. Psychiatric: Mood and Affect: Mood normal. Laboratory & Radiological Imaging (if done): Recent Results (from the past 24 hour(s)) Chem 7 Collection Time: 05/19/20 4:24 AM Result Value Ref Range Sodium 140 135 - 145 mmol/L Potassium 3.9 3.5 - 5.1 mmol/L Chloride 105 98 - 108 mmol/L Bicarbonate 25 21 - 32 mmol/L Creatinine 0.83 0.40 - 1.10 mg/dL Glucose 168 (H) 65 - 99 mg/dL BUN 14 8 - 25 mg/dL eGFR 89 >=60 mL/min/1.73 m2 eGFR 103 >=60 mL/min/1.73 m2 BUN/Creatinine Ratio 16.9 10.0 - 20.0 Anion Gap 14 10 - 20 mmol/L CBC Auto Differential Collection Time: 05/19/20 4:24 AM Result Value Ref Range WBC 13.54 (H) 4.50 - 11.00 K/mcL RBC 5.87 (H) 4.00 - 5.20 M/mcL Hemoglobin 15.0 12.0 - 16.0 g/dL Hematocrit 47.1 (H) 36.0 - 46.0 % MCV 80.2 80.0 - 100.0 fL MCH 25.6 (L) 26.0 - 34.0 pg MCHC 31.8 31.0 - 37.0 g/dL Platelets 307 150 - 400 K/mcL RDW - CV 13.4 11.6 - 14.8 % MPV 10.3 9.4 - 12.4 fL Nucleated RBC 0.0 % Nucleated RBC Abs 0.00 0.00 - 0.00 K/mcL CBC and Diff Morphology Collection Time: 05/19/20 4:24 AM Result Value Ref Range RBC Morphology Normal Manual Differential Collection Time: 05/19/20 4:24 AM Result Value Ref Range Neutrophils 59.5 % Lymphocytes 24.3 % Monocytes 5.4 % Eosinophils 3.6 % Basophils 0.0 % Band Neut 0.0 % Metamyelocytes 0.0 % Myelocyte 0.0 % Promyelocytes 0.0 % Blasts 0.0 % Lymph Atypical 7.2 % Plasma Cells 0.0 % Other 0.0 % Neutrophils Abs 8.06 (H) 1.70 - 7.00 K/mcL Lymphocytes Abs 4.27 (H) 0.90 - 4.00 K/mcL Monocytes Abs 0.73 0.30 - 0.90 K/mcL Eosinophils Abs 0.49 0.00 - 0.50 K/mcL Basophils Abs 0.00 0.00 - 0.30 K/mcL Urinalysis Collection Time: 05/19/20 4:27 AM Result Value Ref Range Color, Urine Yellow Colorless, Yellow Clarity, Urine Clear Clear Specific Chandler 1.030 (H) 1.005 - 1.025 pH, Urine 5.5 5.0 - 7.0 Protein, Urine 100 (A) Negative mg/dL Glucose, Urine Negative Negative mg/dL Ketones, Urine Negative Negative mg/dL Bilirubin, Urine Negative Negative Urobilinogen, Urine <2.0 <2.0 mg/dL Blood, Urine Large (A) Negative Nitrite, Urine Negative Negative Leukocyte Esterase, Urine Trace (A) Negative WBCs, Urine 13 (H) 0 - 5 /hpf RBCs, Urine 7 (H) 0 - 3 /hpf Bacteria, Urine Rare (A) None Seen /hpf Squamous Epithelial 2 0 - 4 /hpf Hyaline Casts 0-2 0 - 2 /lpf Mucus, Urine Rare None Seen, Rare /lpf Urine Collection Time: 05/19/20 4:27 AM Result Value Ref Range Beta-hCG, Ur, Qual Negative Negative CT Abdomen Pelvis With IV Contrast Only Preliminary Result 1. Mild prominence of the right intrarenal collecting system with 13 x 5 mm stone within the right renal pelvis. No ureteral or bladder stone. 2. Cholelithiasis. No pericholecystic inflammatory changes by CT. 3. Normal appendix. [facility]/ Workstation ID: [id number] ED Course / Medical Decision Making: Patient with sudden onset nausea vomiting and flank pain, will get kidney stone study given location of pain and urinary hesitancy CT with mild prominence of the right intrarenal collecting system with a large stone in the right renal pelvis but not in the ureter. Urinalysis unremarkable 13 whites, rare bacteria, doubt infection more likely irritation. White blood cell count was mildly elevated at 13.54, room remainder of lab work negative. Will have follow- up with urology, Given white count will start on antibiotic to prevent further infection till she follows up with urology, Clinical Impression: 1. Kidney stone on right side Oleg Pa MD [facility] Emergency Department (Please note that portions of this note have been completed with a voice recognition software. Efforts were made to correct any errors, but occasionally words are mis-transcribed.) Oleg Pa MD 05/19/20 0616 PT ARRIVES TO THE ED WITH COMPLAINT OF RIGHT FLANK PAIN THAT STARTED 1 HOUR AGO AND WOKE HER UP OUT OF HER SLEEP. PT RATES PAIN AT 5/10. PT IS NOT COMPLAINING OF ANY ISSUES WITH URINATION. PT IS ALERT AND ORIENTED X3. Bed: 20 Expected date: Expected time: Means of arrival: Comments: next documented in this encounter Report to [facility] staff. To [place] per [facility] at this time. Called [facility] for update. New ETA 0220 Pt resting quietly on cart. Denies needs. Call light in reach. Updated on transport should be here in a little bit. [facility] dispatch phones and states they will have a truck here in approx 60 minutes. Pt updated on and appreciative of same. [facility] called back and states will attempt to have a crew here by 0200 Called [facility] field installation technician. States he is finishing a call and will contact dispatch to see if they can get an earlier ETA. [facility] to [facility] ETA 0930. [facility] states they were unable to find an earlier ETA. This nurse updated pt on poc. Gown placed on pt. And warm blanket provided. PT aware and agreeable with transfer. Awaiting pharmacy to verify ATB. order. This nurse spoke with [facility] [place]. Updated on poc. Pt in ultrasound. Pt sittiing up in bed. Call light within reach. Ultrasound bedside. [facility] ED Provider Note: NAME: Gisele Gallagher 39 y.o. CSN: [id number] PCP: Physician No History: Chief Complaint: Flank Pain HPI: The history was obtained from the patient. She is a 39 y.o. female who presents with a chief complaint of Flank Pain. Patient states she was seen here last week and diagnosed with a right urinary tract stone she has since seen the urologist Dr. Pa and is scheduled to have surgery on Thursday this is now Thursday night. She states that she had been doing well with minimal discomfort until this evening. She states now she is having increased pain since around 4 PM this evening she took naproxen at home but did not have anything stronger and is having increasing pain. She finished her Keflex yesterday. She said no vomiting no diarrhea no other illness type symptoms had a negative Covid test last week. PMHx: History reviewed. No pertinent past medical history. PMSx: Past Surgical History: Procedure Laterality Date HERNIA REPAIR FAM. Hx: History reviewed. No pertinent family history. SOC. Hx: Social History Socioeconomic History Marital status: Spouse name: Not on file Number of children: Not on file Years of education: Not on file Highest education level: Not on file Occupational History Not on file Social Needs Financial resource strain: Not on file Food insecurity Worry: Not on file Inability: Not on file Transportation needs Medical: Not on file Non-medical: Not on file Tobacco Use Smoking status: Current Every Day Smoker Packs/day: 0.50 Types: Cigarettes Smokeless tobacco: Never Used Substance and Sexual Activity Alcohol use: Never Frequency: Never Drug use: Never Sexual activity: Not on file Lifestyle Physical activity Days per week: Not on file Minutes per session: Not on file Stress: Not on file Relationships Social connections Talks on phone: Not on file Gets together: Not on file Attends taoist service: Not on file Active member of club or organization: Not on file Attends meetings of clubs or organizations: Not on file Relationship status: Not on file Other Topics Concern Not on file Social History Narrative Not on file MEDs: Previous Medications Medication Sig [place], 28, 0.15-0.03 mg per tablet Take 1 tablet by mouth daily . [] cephALEXin (KEFLEX) 500 MG capsule Take 1 (one) capsule (500 mg total) by mouth 4 (four) times a day for 7 days . naproxen (EC NAPROSYN) 500 MG EC tablet Take 1 (one) tablet (500 mg total) by mouth 2 (two) times a day as needed . ondansetron (Zofran ODT) 4 MG disintegrating tablet Dissolve 1 (one) tablet (4 mg total) on top of tongue every 4 (four) hours as needed for nausea . spironolactone (ALDACTONE) 50 MG tablet Take 50 mg by mouth daily . ALL: Allergies Allergen Reactions No Known Allergies ROS: Positives and pertinent negatives as per HPI. All other systems were reviewed and are negative. Physical Exam: Patient Vitals for the past 24 hrs: BP Temp Temp src Pulse Resp SpO2 05/26/20 2334 (!) 177/109 98.5 F (36.9 C) 78 16 99 % 05/26/20 2250 (!) 163/79 82 18 100 % 05/26/20 1930 (!) 157/93 98.5 F (36.9 C) Oral 88 18 98 % Physical Exam Vitals signs and nursing note reviewed. Constitutional: General: She is not in acute distress. Appearance: She is well-developed. HENT: Head: Normocephalic and atraumatic. Eyes: Conjunctiva/sclera: Conjunctivae normal. Neck: Musculoskeletal: Normal range of motion and neck supple. Cardiovascular: Rate and Rhythm: Normal rate and regular rhythm. Pulmonary: Effort: Pulmonary effort is normal. No respiratory distress. Breath sounds: Normal breath sounds. Abdominal: General: There is no distension. Palpations: Abdomen is soft. Tenderness: There is abdominal tenderness. Comments: Patient has tenderness in the right flank around to the right lower abdomen. Musculoskeletal: Normal range of motion. General: No tenderness or deformity. Skin: General: Skin is warm. Findings: No rash. Neurological: General: No focal deficit present. Mental Status: She is alert and oriented to person, place, and time. Cranial Nerves: No cranial nerve deficit. Motor: No abnormal muscle tone. Coordination: Coordination normal. Psychiatric: Behavior: Behavior normal. Thought Content: Thought content normal. Judgment: Judgment normal. Laboratory & Radiological Imaging (if done): Labs Reviewed URINALYSIS - Abnormal; Notable for the following components: Result Value Clarity, Urine Cloudy (*) Protein, Urine 30 (*) Ketones, Urine Trace (*) Blood, Urine Moderate (*) Leukocyte Esterase, Urine Large (*) WBCs, Urine 36 (*) RBCs, Urine 8 (*) Bacteria, Urine Many (*) WBC Clumps, Urine Rare (*) Squamous Epithelial 11 (*) All other components within normal limits Narrative: Microscopic examination is performed on all urinalysis samples and only positive findings are reported. The test for blood on the chemical analytic portion of urinalysis may also be positive due to hemoglobinuria and myoglobinuria and if red blood cells are present they are quantified by microscopic examination. BASIC METABOLIC PANEL - Abnormal; Notable for the following components: Glucose 148 (*) BUN/Creatinine Ratio 9.9 (*) All other components within normal limits Narrative: The eGFR should be used for monitoring renal function only and not for medication dosing. HEPATIC FUNCTION PANEL - Abnormal; Notable for the following components: Total Protein 8.6 (*) All other components within normal limits CBC WITH AUTO DIFFERENTIAL - Abnormal; Notable for the following components: WBC 23.33 (*) RBC 5.95 (*) Hematocrit 47.5 (*) MCV 79.8 (*) MCH 25.4 (*) Neutrophils Abs 19.84 (*) Monocytes Abs 0.92 (*) All other components within normal limits HCG URINE, QUALITATIVE - Normal CBC AND DIFFERENTIAL Narrative: The following orders were created for panel order CBC w/ Diff. Procedure Abnormality Status --------- ------ CBC Auto Differential[[id number]] Abnormal Final result Please view results for these tests on the individual orders. US Renal and Bladder Preliminary Result 1. There is a calculus at the ureteropelvic junction/renal pelvis involving the right kidney measuring 7 x 8 x 3 mm in size with hydronephrosis of mild degree involving the right kidney, unchanged since the previous CT examination. 2. Normal left kidney and bladder. 3. Small approximately 16% postvoid residual. [employer] Workstation ID: [id number] Procedures: Procedures ED Course / Medical Decision Making: Patient's infection appears to be getting worse in both the urinalysis and with her increased leukocytosis and the hematology evaluation. She was started on Rocephin here in the emergency room ultrasound shows the stone still present. I discussed this with her hospitalist service and they agree that the patient needs to be transferred where urology is present. We have no urology here non destructive testing supervisor over the weekend and so she has to be transferred down to [place] in [place]. She will be transferred there for urology evaluation IV antibiotics and further treatment. She was transferred in stable condition Clinical Impression: 1. Right ureteral calculus 2. Acute UTI Disposition: Patient is being transfered to [facility]. Angelica Burnett PA-C Physicians Laboratory Inspector [facility] Emergency Department Angelica Burnett PA-C 05/27/20 0001 PT REPORTS SHE WAS DIAGNOSED WITH KIDNEY STONES ON Thursday LAST WEEK. HAS FOLLOW UP WITH DR PA UROLOGIST THROUGH [facility] ON Thursday BUT STATES PAIN RETURNED TODAY AND SHE CAN NOT GET RELIEF.REPORTS SHE IS STILL ABLE TO VOID. PT ALREADY DX WITH KIDNEY STONE, DUE TO HAVE SURGERY 05/28 TESTED NEGATIVE FOR COVID 05/25 HAVING PAIN AT THIS TIME documented in this encounter ED Attestation Note - Graham Rojas MD - 05/26/2020 8:12 PM ESTQuick Note - Kerry Keen RN - 06/11/2020 7:15 PM ESTOp Note - Heidi Pa MD - 06/11/2020 4:56 PM EST Miscellaneous Notes (unrecog nized section and content) ED Attestation I was in the emergency department available for consultation documented in this encounter Pt ambulates to bathroom with steady gait voids without difficulty, sits in chair, fluids taken. Patient denies distress or concerns OPERATIVE REPORT Clinician: Heidi Pa MD OR Staff: Fiberglass Quality Technician: Dari Encarnacion RN; Odessa Sanford RN Pension Manager: Jaxon Roldan, TECHNOLOGIST Fiberglass Quality Technician Relief: Odessa Sanford RN Scrub Person Relief: Jessi Rutherford RN Scrub Person: ST Su II Anesthesia Staff: Anesthesiologist: Pawel Heath MD MILLING SUPERVISOR: Virgen Webb CRNA Anesthesiologist Laboratory Inspector: ABEL Cole Surgeon(s):Surgeon(s) and Role: * Heidi Pa MD - Primary Patient Name: Gisele Gallagher MR #: [id number] FINDINGS: 1. Cystourethroscopy -bladder and urethra are free of any gross tumors, masses, or lesions. 2. Renal stones were cleared on the right 3. Mainframe Systems Administrator films- Stone was not radio-opaque 4. There was no purulence noted upon placement of the wire/stent. 5. Retrograde pyelogram: Right- Delicate calyces, no filling defects, normal ureteral contour. Stone was visualized in the renal pelvis as a filling defect. 6. Stent placed in normal anatomic position on the right PREOPERATIVE DIAGNOSIS: 1. Right Hydronephrosis (N13.2) 2. Right Flank Pain (N10.9) 3. Right Kidney Stone Patient Active Problem List Diagnosis Kidney stone Nephrolithiasis POSTOPERATIVE DIAGNOSIS: Same as above PROCEDURES PERFORMED: 1. Cystoscopy. 2. Right ureteroscopy with holmium laser lithotripsy and stone extraction with Right JJ ureteral stent exchange with strings 3. Right retrograde pyelogram 4. Fluoroscopy < 1 hour with intraoperative interpretation of radiographic images (retrograde) by surgeon ANESTHESIA: General anesthesia. IMPLANTS: Right double-J ureteral stent (6 x 24 Citizen [place]) [employer] with strings COMPLICATIONS: None DISPOSITION: Stable, to recovery room ESTIMATED BLOOD LOSS: < 5 mL SPECIMEN: Stone for analysis, PLAN: KRISTA, KUB, 24 hour urine in 3 months INDICATIONS FOR THE PROCEDURE: Gisele Gallagher is a 39 y.o. y/o female who presents with right kidney stone associated with pain. She previously had a stent placed for sepsis. Her most recent culture after antibiotics was negative. Risks, benefits, and alternatives were discussed with the patient; they elected to proceed with ureteroscopy. The risks of the procedure included bleeding, infection, injury to urethra, bladder, kidney, ureter, and need for further procedures were discussed with the patient preoperatively. They voiced understanding of these risks and gave their written consent to proceed with ureteroscopy. DESCRIPTION OF THE PROCEDURE: After receiving a dose of intravenous antibiotics, the patient was taken to the operating room and placed supine on the operating room table. After the induction of general anesthesia, the patient was repositioned in the dorsal lithotomy position and the external genitalia were prepped and draped in the standard sterile surgical fashion. A check-list time out was performed. Stovall cystourethroscopy was performed with a 22 Citizen [place] rigid cystourethroscope. The bladder was free of any bladder stones, tumors, abnormal lesions. A sensor wire was then passed into the right ureteral orifice, up the ureter and into the renal pelvis under fluoroscopic guidance. The indwelling stent was brought to the meatus. A second sensor wire was placed into the renal pelvis through the stent. Over the sensor wire, a 1146 Citizen [place] access sheath was introduced into the renal pelvis. The wire was removed and a retrograde pyelogram was performed through the sheath. See findings above for details. A flexible ureteroscope was then introduced into the renal pelvis. A complete pyeloscopy was performed. I encountered the kidney stone in the expected location and fragmented the stone with a excaliber laser fiber with settings of 8 hz and 0.8J and I was able to grasp and remove all visible stone fragments using a stone basket. Care was taken to only minimally use inflow irrigation to prevent pyelovenous backflow. The tip of the scope was then placed just outside the tip of the access sheath and the scope and access sheath were removed in tandem, taking care to visualize the proximal, mid, and distal ureter which was free of additional stone disease. The scope was withdrawn under direct vision, taking care to visualize the proximal, mid, distal ureter which was free of additional stone disease. The double-J ureteral stent was passed over the safety wire in the standard fashion, where an extra curl was observed in the renal pelvis in proper positions as well as in the bladder under direct vision when the wire was removed. The string was left on the stent. The bladder was drained. The patient was returned to the supine position, awoken, extubated, and transferred to the recovery room, having tolerated the procedure well, without complication. documented in this encounter Addendum created 06/13/201040 by Pawel Heath MD Cosign clinical note documented in this encounter RN and patient reviewed AVS. All questions answered at this time and patient verbalized understanding. IV removed. Patient appears stable in recovery room. Her vital signs are stable. I contacted her Maggie, and updated him on the patient's surgical findings and outline plan for definitive therapy with ESWL with Dr. Pa in [place]. I have also sent to her [facility] pharmacy the followin [place] 2 Zofran 3 Pyridium 4 Colace 5 Levaquin I believe the patient should be observed for at least 6 to 8 hours to ensure that she does not develop sepsis. Patient remained stable at this this period of time, I believe it would be safe for her to go home with the above-noted medications. I have sent updated note to Dr. Pa in [place]. Thank you, Duong Ibarra MD [facility] U[facility] - [facility] Office: [phone] Patient Name: Gisele Gallagher Admit Date: [id number] : 1980 OPERATIVE REPORT SURGEON DUONG IBARRA MD PREOPERATIVE DIAGNOSIS Pyelonephritis and proximal right ureteral calculus. POSTOPERATIVE DIAGNOSES Pyelonephritis and proximal right ureteral calculus . OPERATIVE PROCEDURES PERFORMED Cystoscopy, right retrograde pyelogram, and right ureteral stent placement. ANESTHESIA General. INDICATIONS FOR THE OPERATION The patient presents with a symptomatic pyelonephritis associated with obstructing proximal right ureteral calculus. The patient has been unsuccessful in passing the calculus. The patient has developed pyelonephritis with elevated white count of 24,000 associated with flank pain fever, nausea and vomiting. Patient was transferred from [place] emergency room overnight. I have recommended decompression of infected kidney with cystoscopy, right retrograde pyelogram, right ureteral stent placement. The details and potential side effects and complications of the operation have been discussed with the patient. The patient has elected to proceed ahead. DESCRIPTION OF PROCEDURE The patient was brought to the operating room on the day of surgery following administration of preoperative antibiotic coverage. Once in the operating room, the patient was placed supine on the operating table and provided a general anesthetic. A timeout procedure was initiated. The laterality of stone and planned surgery was confirmed by myself, anesthesia service and circulating nurse. The patient was then carefully repositioned into a modified lithotomy position. We made sure that the patient's legs, buttocks, and lower back were all appropriately padded. The patient's lower abdomen, external genitalia, and inner thighs were prepped and draped in usual sterile fashion using Betadine. Cystoscopy was performed, and a survey of the lower urinary tract was conducted. I found no urethral pathology. The bladder appeared to be without any papillary tumors or stones. Both ureteral orifices were normal in their appearance and location. The right ureteral orifice was intubated with a 5-Citizen [place] open-ended ureteral catheter, and retrograde pyelography was performed using contrast. I found the patient to have a Radiopaque 9 x 6 mm obstructing right ureteropelvic junction calculus. I was able to advance a 0.35 Glidewire up the ureter and followed this with a 6 [place], double-J, variable length right ureteral stent. Stent position was confirmed by fluoroscopy. Upon placement of stent, purulent urine emanated from the stent. The bladder was now emptied, and the cystoscope was withdrawn. The patient was returned to a supine position, awakened, and transferred to recovery room in stable condition. DUONG IBARRA MD documented in this encounter Heidi Pa MD - 06/11/2020 1:20 PM Heidi Shah MD - 06/04/2020 10:31 AM Frank Allred MD - 05/27/2020 5:08 AM EST H&P Notes (unrecognized sect ion and content) INTERVAL HISTORY AND PHYSICAL Patient Name: Gisele Gallagher Admit Date: [id number] MR #: [id number] : 1980 The H&P has been reviewed and the patient has been examined. I concur with the findings of the H&P. There are no significant changes. It is appropriate to proceed with the planned procedure. Heidi Pa MD 06/11/2020 1:20 PM Urology Clinic Note ? Reason for visit/Chief complaint: nephrolithiasis ? Urologic history: Lesn-Husty-Aoo CTRSS- 1.5 r renal pelvic stone No left ureteral stones No left renal stone WBC- 13 GFR- WNL INITIAL VISIT R ureteral stent placement Fluoroscopy reviewed- stone not easily visualized Urine culture- no growth Pending: Right URS History of present illness: Gisele Gallagher is a 39 y.o. female who was diagnosed with a R UPJ stone over the weekend. No fevers/chills since then. Pain has been minimal and is doing well at this time. NO gross hematuria. Interval- Went to the hospital on May 27 for pyelonephritis and had an urgent stent placed by Dr. Ibarra. Doing fine with the stent other than frequency and occasional dysuria. Starting to have flank discomfort today. Review of systems: Const: Denies weight loss, bone pain Endocrine- no night sweats HEENT: Denies new changes in vision CV: Denies C/P Pulm: Denies SOB Abd: Denies constipation, diarrhea, nausea, vomiting Neuro: Denies numbness, tingling MSK: Denies weakness Psych- denies depression : See HPI Medical History: none Surgical History: Hernia repair as a kid ? Social History: ? Place of residence: [place] ? Occupation: [employer] ? Marital status: ? Tobacco: yes ? EtOH:no ? Illicit drugs: no Family History: ? History of nephrolithiasis- no ECO Anticoagulation- no ? Life expectancy: greater than10 years Physical Exam: There were no vitals filed for this visit. Gen: WDWN Psych- alert and oriented Neuro- Grossly intact Eyes- No jaundice MSK- Normal Gait. Normal range of motion. Resp: non-labored. ?No increased work of breathing. Records review: Independently reviewed Stone analysis- none Laboratory results review: Chemistry Component Value Date/Time NA 136 05/26/20201937 K 4.8 05/26/20201937 CL 106 05/26/20201937 BUN 10 05/26/20201937 CREATININE 1.01 05/26/20201937 Component Value Date/Time CALCIUM 9.7 05/26/20201937 ALKPHOS 56 05/26/20201937 AST 33 05/26/20201937 ALT 27 05/26/20201937 BILITOT 0.5 05/26/20201937 ? Radiograph review: Images and report independently reviewed See timeline above for details. ? Assessment: Gisele Gallagher is a 39 y.o. female with a 1.4 cm right renal pelvis stone. Stent in place - Discussed all options for the patients stone disease. Discussed PCNL, URS, ESWL. I did not definitively see her stone on fluoroscopy during her stent placement by Dr. Ibarra. I offered her PCNL but considering the size I think that her best option would be ureteroscopy. Discussed behavioral modifications and dietary changes with the patient including drinking >2L water/day, and eating a low salt diet. Plan: - To the OR for R URS stent exchange this coming Thursday, - urine culture ? ? I discussed diagnostics options, treatment options and risks and benefits of all options. Discussed alternative opinions and referral for 2nd/3rd opinion. Also discussed availability of clinical trial when/if appropriate. ? Patients recommended to read all package inserts for any medications prescribed and schedule another appointment should they have any concerns. Heidi Pa MD documented in this encounter HMS HISTORY AND PHYSICAL Patient Name: Gisele Gallagher : 1980 MR #: [id number] Admit Date: [id number] Physicians: Physician Etelvina (Family); Angelica Burnett PA-C (Referring) Gisele Gallagher is a 39 y.o. female patient of Physician Etelvina with hno significant past medical history who presented with right flank pain. Right flank pain Nephrolithiasis Hydronephrosis Worsening right flank pain with chills WBC 23K, afebrile Creatinine 1.01 CT abdomen pelvis from May 19, 2020 with mild prominence of the right intra renal collecting system with 13 x 5 mm stone within the right renal pelvis, no ureteral or bladder stone Ultrasound renal and bladder from May 26, 2020 with calculus x-ray ureteropelvic junction/renal pelvis involving the right kidney measuring 7 x 8 x 3 mm in size with hydronephrosis of mild degree involving the right kidney, unchanged since previous CT examination; normal left kidney and bladder, small 60% post void residual Urinalysis with many bacteria, large leukocyte esterase, moderate blood Started on ceftriaxone, will continue; urine culture pending Urology consulted in the ER, appreciate recommendations N.p.o., IV fluids, pain control Obesity BMI 40 Encourage weight loss, exercise Tobacco dependence 1/2 ppd cigarette smoker Counseled on cessation for 4 min Declined nicotine replacement Admitted From: Home Medication Reconciliation: Verified Code Status: Full Code Quality Measures DVT Prophylaxis: Ambulation Davis Catheter: None Disposition Outpatient Testing: Pending clinical course Chief Complaint right flank pain History of Present Illness The patient is a 39-year-old female who presents with a 1 week history of worsening right flank pain. She was seen in the emergency room on May 19, 2020 and diagnosed with a 13 mm right nephrolithiasis and sent home with follow-up on May 28, 2020 as well as a prescription for Keflex. The patient completed Keflex, however symptoms did not improve. She states that earlier this evening she developed chills and exacerbation of her right flank pain. She denies overt fever, dysuria, or hematuria. She admits to increased urinary frequency. She denies nausea or vomiting at home, but had emesis upon her arrival to [facility]. She denies chest pain, shortness of breath, abdominal pain, or diarrhea. She denies a prior history of kidney stones. Past Medical History No past medical history on file. Past Surgical History Past Surgical History: Procedure Laterality Date HERNIA REPAIR Family History Diabetes Social History Social History Tobacco Use Smoking Status Current Every Day Smoker Packs/day: 0.50 Types: Cigarettes Smokeless Tobacco Never Used Social History Substance and Sexual Activity Alcohol Use Never Frequency: Never Social History Substance and Sexual Activity Drug Use Never Allergy Information I have reviewed the patient's allergies. No known allergies Home Medications Home medications were reviewed. Review Of Systems All systems have been reviewed and are negative except as noted in HPI or below Physical Examination Resp 16 Ht 4' 11 Wt 90.7 kg (200 lb) BMI 40.40 kg/m General Appearance: alert, well appearing, and in no acute distress HEENT: Head- normocephalic; Eyes- PERRLA, EOMI Cardiovascular: regular rate and rhythm; normal S1, S2; no peripheral edema Respiratory: lungs clear to auscultation; without wheezes, rales or rhonchi Abdomen: soft, non-tender, non-distended; positive bowel sounds; mild right flank tenderness to palpation Neurological: alert, oriented x 3, normal speech; no focal findings or movement disorder noted Musculoskeletal: no significant deformity or tenderness to palpation Skin: normal coloration, texture and turgor; no lesions or eruptions Psych: normal mood and affect Laboratory and Additional Data Reviewed Laboratory 05/27/20 5:17 AM Microbiology 05/27/20 5:17 AM Radiology 05/27/20 5:17 AM Medications 05/27/20 5:17 AM documented in this encounter Procedure Summary Anesthesia Record (unrecogni zed section and content) Procedure Name Responsible Anesthesiologist Anesthesia Start Time Anesthesia Stop Time CYSTOSCOPY WITH RETROGRADE STONE MANIPULATION STENT INSERTION Laser lithotripsy Fluoroscopy- C Arm (Right ) Pawel Heath MD 06/11/20 1641 06/11/20 1811 Events Date Time Event Comment 06/11/2020 1319 1638 AN Equip Check 1641 An Start 1641 Patient Verification 1642 An Start Data 1645 An Induction 1646 An LMA 1647 Anesthesia Ready 1800 Emergence MH OR 08 1800 An LMA Removed 1805 an stop data 1810 Handoff 181 An Stop MedsMeds Name Total Name Total midazolam 2 mg fentaNYL 200 mcg lidocaine 2% 100 mg propofol 200 mg ondansetron 4 mg dexamethasone 8 mg ceFAZolin (ANCEF) IVPB 2 g (premix) 2,00 0 mg normal saline 900 mL Agents No agents on file. Blood No blood administrations on file. Lines, Drains, and Airways Type Details Placement Removal Ureteral Drain/Stent 05/27/20; 0815; Rig ht ureter; 6 Fr. 05/27/20 0815 by Zelda Pritchett RN Wound 05/27/20; 0835; Surg ical Wou; Perineum 05/27/20 0835 by Zelda Pritchett RN Wound 06/11/20; 1701; Surg ical Wou; Perineum; Right; DRESSING 10 X 12CM TRANSPARENT TEGADERM 1626W (x1) 06/11/20 170 by Dari Encarnacion RN Peripheral IV Placement Date: 06/11/20; Orientation: Posterior, Right; Location: Hand; Removal Date: 06/11/20; Removal Time: 1916; Removal Reason: Per order 06/11/20 0000 by Vidya Newell RN 06/11/20 191 by Kerry Keen RN Supraglottic Airway Placement Date: 06/11/20; Placement Time: 164 (created via procedure documentation); Mask Ventilation: Ventilated by mask; Size: 3; Insertion Attempts: 1; Removal Date: 06/11/20; Removal Time: 1800 06/11/20 1647 by ABEL Cole 06/11/20 1800 by Virgen Webb CRNA Anesthesia Postprocedure Evaluation - Pawel Heath MD - 06/11/2020 8:21 PM ESTAnesthesia Preprocedure Evaluation - Michaela Ojeda MD - 06/11/2020 1:17 PM EST OR Notes (unrecognized secti on and content) Anesthesia Post Evaluation PACU Vitals 06/11/2020 1805 - 06/11/2020 1811 06/11/2020 1809 BP: (!) 169/103 Temp: 36.3 C Resp: (!) 24 MAP (mmHg): 131 * * Refer to nursing documentation for PACU vitals * * Patient participation: patient participated Mental status: sleepy but conscious Pain management: adequate Anesthetic complications: no Nausea / vomiting: no Cardiovascular status: hemodynamically stable Respiratory / airway status: airway patent and nasal cannula Postoperative hydration: acceptable Comment: Patient has satisfactorily recovered from her anesthetic. ANESTHESIA PREPROCEDURE EVALUATION Anesthesia Plan ASA: 2 Type: general Airway: supraglottic airway Induction: intravenous Anesthetic plan and risks as outlined in the consent discussed with: patient Plan discussed with: MILLING SUPERVISOR Physical Exam Airway Mallampati: I Neck ROM: full Cardiovascular Rhythm: regular Pulmonary Breath sounds are clear to auscultation Neurological Mental Status: alert Upper extremities strength is normal Lower extremities: strength is normal Dental Dental exam is normal and age appropriate Review of Systems / Medical History - Reviewed: ECG, patient summary, anesthesia history, nursing notes, medical history, H&P and labs / results - No history of anesthetic complications Pulmonary - negative Neurological / Psychological - negative Cardiovascular - negative Exercise tolerance: good Gastrointestinal / Hepatic / Renal NPO Status > 8 hours Comment: BPH Positive: renal disease (Nephrolithiasis) Endocrine / Musculoskeletal Positive: obesity Other Positive: a smoker documented in this encounter Anesthesia Post Evaluation PACU Vitals 06/11/2020 1805 - 06/11/2020 1811 06/11/2020 1809 BP: (!) 169/103 Temp: 36.3 C Resp: (!) 24 MAP (mmHg): 131 * * Refer to nursing documentation for PACU vitals * * Patient participation: patient participated Mental status: sleepy but conscious Pain management: adequate Anesthetic complications: no Nausea / vomiting: no Cardiovascular status: hemodynamically stable Respiratory / airway status: airway patent and nasal cannula Postoperative hydration: acceptable Comment: Patient has satisfactorily recovered from her anesthetic. Associated Order(s): Supraglottic Airway Supraglottic Airway Mask ventilation: ventilated by mask Final type: LMA Final size: 3 Insertion attempts: 1 Placement verification: auscultation and end tidal CO2 Secured by: tape Lip/tooth/tongue trauma: no *See MAR for medication administration ANESTHESIA PREPROCEDURE EVALUATION Anesthesia Plan ASA: 2 Type: general Airway: supraglottic airway Induction: intravenous Anesthetic plan and risks as outlined in the consent discussed with: patient Plan discussed with: MILLING SUPERVISOR Physical Exam Airway Mallampati: I Neck ROM: full Cardiovascular Rhythm: regular Pulmonary Breath sounds are clear to auscultation Neurological Mental Status: alert Upper extremities strength is normal Lower extremities: strength is normal Dental Dental exam is normal and age appropriate Review of Systems / Medical History - Reviewed: ECG, patient summary, anesthesia history, nursing notes, medical history, H&P and labs / results - No history of anesthetic complications Pulmonary - negative Neurological / Psychological - negative Cardiovascular - negative Exercise tolerance: good Gastrointestinal / Hepatic / Renal NPO Status > 8 hours Comment: BPH Positive: renal disease (Nephrolithiasis) Endocrine / Musculoskeletal Positive: obesity Other Positive: a smoker documented in this encounter INFORMATION SOURCE (unrecogn ized section and content) DATE CREATED AUTHOR 06/23/2020 [facility] DATE CREATED AUTHOR AUTHOR'S ORGANIZ ATION 12/29/2023 [facility] DATE CREATED AUTHOR AUTHOR'S ORGANIZ ATION 12/30/2023 [facility] DATE CREATED AUTHOR AUTHOR'S ORGANIZ ATION 08/14/2024 [facility] DATE CREATED AUTHOR AUTHOR'S ORGANIZ ATION 11/02/2024 [facility] DATE CREATED AUTHOR AUTHOR'S ORGANIZ ATION 12/19/2024 [facility] Duong Calderon MD - 05/27/2020 8:22 AM EST Consult Notes (unrecognized section and content) Associated Order(s): IP CONSULT TO UROLOGY CONSULT NOTE Patient Name: Gisele Gallagher Admit Date: [id number] MR #: [id number] : 1980 Physicians: Angelica Burnett PA-C (Referring), Heidi Pa MD Chief Complaint/Reason for Visit: Pyelonephritis and obstructing right proximal ureteral stone History of Present Illness: Gisele Gallagher is a 39 y.o. y/o G0, P0 female presenting from [place] emergency room in transfer with c/o right severe flank pain for the past 8 day(s). The pain is associated with flank pain. The pain does not radiate to the lower abdomen. The pain is aggravated by nothing. The patient has a prior history of stones . The pateint's discomfort is relieved by analgesics. The patient has the following associated symptoms: chills, fever, nausea and vomiting. History: History reviewed. No pertinent past medical history. Past Surgical History: Procedure Laterality Date HERNIA REPAIR History reviewed. No pertinent family history. Social History Socioeconomic History Marital status: Spouse name: Not on file Number of children: Not on file Years of education: Not on file Highest education level: Not on file Occupational History Not on file Social Needs Financial resource strain: Not on file Food insecurity Worry: Not on file Inability: Not on file Transportation needs Medical: Not on file Non-medical: Not on file Tobacco Use Smoking status: Current Every Day Smoker Packs/day: 0.50 Types: Cigarettes Smokeless tobacco: Never Used Substance and Sexual Activity Alcohol use: Never Frequency: Never Drug use: Never Sexual activity: Not on file Lifestyle Physical activity Days per week: Not on file Minutes per session: Not on file Stress: Not on file Relationships Social connections Talks on phone: Not on file Gets together: Not on file Attends taoist service: Not on file Active member of club or organization: Not on file Attends meetings of clubs or organizations: Not on file Relationship status: Not on file Other Topics Concern Not on file Social History Narrative Not on file Allergy Information: I have reviewed the patient's allergies. No known allergies Home Medications: Outpatient Medications as of 05/27/2020 Medication Sig [place], 28, 0.15-0.03 mg per tablet Take 1 tablet by mouth daily . naproxen (EC NAPROSYN) 500 MG EC tablet Take 1 (one) tablet (500 mg total) by mouth 2 (two) times a day as needed . spironolactone (ALDACTONE) 50 MG tablet Take 50 mg by mouth daily . [] cephALEXin (KEFLEX) 500 MG capsule Take 1 (one) capsule (500 mg total) by mouth 4 (four) times a day for 7 days . ondansetron (Zofran ODT) 4 MG disintegrating tablet Dissolve 1 (one) tablet (4 mg total) on top of tongue every 4 (four) hours as needed for nausea . ROS Positives and pertinent negatives as per HPI. All other systems were reviewed and are negative. Physical Examination: Vital Signs: BP (!) 163/103 (BP Location: Left arm, Patient Position: Sitting) Pulse 87 Temp 97.8 F (36.6 C) (Oral) Resp 16 Ht 4' 11 Wt 90.7 kg (200 lb) No BMI 40.40 kg/m General: Alert, cooperative, moderate distress, appears stated age Head: Normocephalic, without obvious abnormality, atraumatic Eyes: PERRL, conjunctiva/corneas clear, EOM's intact, fundi benign both eyes Throat: Lips, mucosa, and tongue normal; teeth and gums normal Neck: Supple, symmetrical, trachea midline, no adenopathy; thyroid: no enlargement/tenderness/nodules; no carotid bruit or JVD Back: Symmetric, no curvature, ROM normal, no CVA tenderness Lungs: Normal respiratory effort Chest Wall: No tenderness or deformity : No vaginal lesions or discharges. Abdomen: Soft, non-tender, bowel sounds active all four quadrants,no masses, no organomegaly. Mild right CVA tenderness Extremities: Normal, atraumatic, no cyanosis or edema Skin: Skin color, texture, turgor normal, no rashes or lesions Musculoskeletal: Full range of motion of all extremities; no joint edema Neurologic: CNII-XII intact; normal strength, sensation and reflexes throughout Psych: Mood and affect appropriate Laboratory and Additional Data Reviewed: Results from last 7 days Lab Units 05/26/201937 SODIUM mmol/L 136 POTASSIUM mmol/L 4.8 CHLORIDE mmol/L 106 BUN mg/dL 10 CREATININE mg/dL 1.01 GLUCOSE mg/dL 148* CALCIUM mg/dL 9.7 Results from last 7 days Lab Units 05/26/201937 WBC K/mcL 23.33* HGB g/dL 15.1 HCT % 47.5* PLT K/mcL 309 MONOS% % 3.9 Us Renal And Bladder Result Date: 05/27/2020 EXAMINATION: RENAL, BLADDER ULTRASOUND: 05/26/2020 HISTORY: Stone. Right flank pain last Thursday and today. COMPARISON FILMS: Enhanced CT scan of the abdomen and pelvis: 05/20/2020. FINDINGS: Static images from real-time examination using grayscale, color sonography are provided which demonstrate there is mild hydronephrosis of the right kidney. There is no mass, perinephric fluid collections. The overall size of the right kidney is 12.7 x 5.2 x 6.7 cm with a volume of 230.9 mL. The cortical thickness is 1.1 cm. There is a echogenic focus with shadowing at the renal pelvis corresponding to the calculus seen on the previous examination, measuring 7.4 x 8.3 x 2.6 mm. No other calculi are seen. Left kidney measures 12.1 x 6.0 x 5.1 cm with a volume of 195.2 mL with cortical thickness of 1.6 cm. There is no mass, hydronephrosis, nephrolithiasis or perinephric fluid collections. The bladder is not well distended. The bladder measures 5.6 x 4.2 x 5.2 cm without thickening of the wall, internal echoes or septations. The prevoid volume is 63.7 mL. Due to incomplete distention the nondependent wall measures 5.4 mm. Left ureteral jet was noted. No right ureteral jet was seen under real-time. Postvoid the bladder measures 5.1 x 1.6 x 1.9 cm with residual volume of 8.1 mL. 1. There is a calculus at the ureteropelvic junction/renal pelvis involving the right kidney measuring 7 x 8 x 3 mm in size with hydronephrosis of mild degree involving the right kidney, unchanged since the previous CT examination. 2. Normal left kidney and bladder. 3. Small approximately 16% postvoid residual. 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 Coronal and sagittal reformations are performed. Dose reduction techniques were achieved by using automated exposure control and/or adjustment of mA and/or kV according to patient size and/or use of iterative reconstruction technique. FINDINGS: Lung bases are clear. Abdomen: Liver is homogeneous in attenuation without evidence for a focal lesion. Cholelithiasis. No pericholecystic inflammatory changes by CT. No abnormal biliary dilatation. Portal vein is patent. The spleen, adrenal glands and pancreas are unremarkable. No abdominal lymphadenopathy. There is motion degradation at the level of the kidneys. Symmetric enhancement of the kidneys. There is a stone within the right renal pelvis measuring 13 x 5 mm with density of 452 Hounsfield units. There is mild prominence of the right intrarenal collecting system. No left hydronephrosis. Pelvis: No hydroureter. No ureteral or bladder stone. Uterus and adnexa are unremarkable for age. No pelvic free fluid. No pelvic lymphadenopathy. Normal appendix. Small and large bowel without evidence for abnormal bowel thickening, masses or obstruction. No free air. No suspicious osteolytic or osteoblastic lesion. 1. Mild prominence of the right intrarenal collecting system with 13 x 5 mm stone within the right renal pelvis. No ureteral or bladder stone. 2. Cholelithiasis. No pericholecystic inflammatory changes by CT. 3. Normal appendix. [facility]/ Workstation ID: [id number] Assessment Detail: The patient appears to have right pyelonephritis manifested by flank pain, fever chills and leukocytosis of 23,000 by CBC. The patient has been in and out of [place] emergency room 3 times in the last 8 days. Overnight, she became acutely ill, and accepted her in transfer. Patient also appears to have a obstructing proximal right ureteral stone measuring 13 x 5 mm. Patient remains symptomatic following analgesics upon arriving at [facility]. Patient was hypertensive rated her pain as 8 out of 10. I have recommended that a ureteral stent be placed immediately to decompress the obstructed infected right kidney. Specifically I advised cystoscopy, right retrograde pyelogram with right ureteral stent placement. I have warned her that instrumentation the lower urinary tract during pyelonephritis may result in sepsis. However without decompressing the infected obstructed kidney, she will continue to get worse. The details and potential side effects and complications of the planned surgery were discussed with her. She wishes to proceed. If surgical intervention is successful, she should be monitored for at least 6 to 8 hours to ensure she does not develop sepsis. Prior to going to surgery, we also discussed definitive therapy which would be extracorporeal shockwave lithotripsy. Patient would prefer to do this in her hometown in [place]. Patient indicates she has an upcoming appointment with Dr. Heidi Pa. Thus I will copy him on this note for him to schedule right ESWL once her clinical status improves. Lastly, I have also personally called the patient's Maggie, and updated him on the plan. He agrees with plan. A total of 62 minutes were spent reviewing pertinent medical notes from other providers as well as testing and labs in preparation for [id number] visit with the patient today. During this encounter, counseling and coordination of care were also conducted. Specifically we address the risk, benefits, and alternatives to the therapies discussed above.address the risk, benefits, and alternatives to the therapies discussed above. Duong Ibarra MD [facility] Office: [phone] documented in this encounter Care Teams (unrecognized sec tion and content) Senior Web Applications Developer Relationship Specialty Start Date End Date No, Physician [facility] PCP - General 05/19/20 Senior Web Applications Developer Relationship Specialty Start Date End Date No, Physician [facility] PCP - General 05/19/20 Senior Web Applications Developer Relationship Specialty Start Date End Date No, Physician [facility] PCP - General 05/19/20 Senior Web Applications Developer Relationship Specialty Start Date End Date Aleksandar Montalvo MD [id number] [place], [place] [id number] PCP - General Internal Medicine 01/23/21 Senior Web Applications Developer Relationship Specialty Start Date End Date Aleksandar Montalvo MD [id number] [place], [place] [id number] PCP - General Internal Medicine 01/23/21 Senior Web Applications Developer Relationship Specialty Start Date End Date No, Physician [facility] PCP - General 05/19/20 Senior Web Applications Developer Relationship Specialty Start Date End Date No, Physician [facility] - General 05/19/20 Senior Web Applications Developer Relationship Specialty Start Date End Date Aleksandar Montalvo MD [address] [place] [address] PCP - General Internal Medicine 01/23/21 Senior Web Applications Developer Relationship Specialty Start Date End Date Aleksandar Montalvo MD [address] [place] [address] PCP - General Internal Medicine 01/23/21 Senior Web Applications Developer Relationship Specialty Start Date End Date No, Physician [facility] PCP - General 05/19/20 Senior Web Applications Developer Relationship Specialty Start Date End Date Aleksandar Montalvo MD [address] [place] [address] PCP - General Internal Medicine 01/23/21 Senior Web Applications Developer Relationship Specialty Start Date End Date Aleksandar Montalvo MD [address] [place] [address] PCP - General Internal Medicine 01/23/21 Senior Web Applications Developer Relationship Specialty Start Date End Date Aleksandar Montalvo MD [address] [place] [address] PCP - General Internal Medicine 01/23/21 Senior Web Applications Developer Relationship Specialty Start Date End Date Aleksandar Montalvo MD [address] [place] [address] PCP - General Internal Medicine 01/23/21 Team Status: Active Member Role Status Dates Dr. Zahra Hendrix MD Primary Care Provider Active Team Status: Inactive Member Role Status Dates Dr. Zahra Hendrix MD Attending Provider Active Team Status: Active Member Role Status Dates Dr. Zahra Hendrix MD Primary Care Pr gely, Attending Provider, Referring Provider Active Team Status: Inactive Member Role Status Dates Dr. Zahra Hendrix MD Primary Care Pr ovider, Attending Provider, Referring Provider Active Senior Web Applications Developer Relationship Specialty Start Date End Date No, Physician [facility] PCP - General 05/19/20 Senior Web Applications Developer Relationship Specialty Start Date End Date Zahra Hendrix MD [address] [place] [address] PCP - General Primary Care 11/27/23 Senior Web Applications Developer Relationship Specialty Start Date End Date Zahra Hendrix MD [address] [place] [address] PCP - General Primary Care 11/27/23 Senior Web Applications Developer Relationship Specialty Start Date End Date Zahra Hendrix MD [address] [place] [address] PCP - General Primary Care 11/27/23 Senior Web Applications Developer Relationship Specialty Start Date End Date Zahra Hendrix MD [address] [place] [address] PCP - General Primary Care 11/27/23 Senior Web Applications Developer Relationship Specialty Start Date End Date Zahra Hendrix MD [address] [facility], [place] [address] [phone] PCP - General Primary Care 11/27/23 Senior Web Applications Developer Relationship Specialty Start Date End Date PcpEtelvina APRN PCP - General Adult Health 05/26/24 05/26/24 Team Status: Inactive Member Role Status Dates Dr. Zahra Hendrix MD Primary Care Provider Active Start: September 30, 2024 End: September 30, 2024 Dr. Zahra Hendrix MD Attending Provider Active Start: September 30, 2024 End: September 30, 2024 Dr. Zahra Hendrix MD Referring Provider Active Start: September 30, 2024 End: September 30, 2024 Source Comments (unrecognize d section and content) In the event this informatio n is protected by the Federal Confidentiality of Alcohol and Drug Abuse Patient Records regulations: The Federal rules restrict any use of the information to criminally investigate or prosecute any alcohol or drug abuse patient.[facility] the event this information is protected by the Federal Confidentiality of Alcohol and Drug Abuse Patient Records regulations: The Federal rules restrict any use of the information to criminally investigate or prosecute any alcohol or drug abuse patient.[facility] the event this information is protected by the Federal Confidentiality of Alcohol and Drug Abuse Patient Records regulations: The Federal rules restrict any use of the information to criminally investigate or prosecute any alcohol or drug abuse patient.[facility] the event this information is protected by the Federal Confidentiality of Alcohol and Drug Abuse Patient Records regulations: The Federal rules restrict any use of the information to criminally investigate or prosecute any alcohol or drug abuse patient.[facility] the event this information is protected by the Federal Confidentiality of Alcohol and Drug Abuse Patient Records regulations: The Federal rules restrict any use of the information to criminally investigate or prosecute any alcohol or drug abuse patient.[facility] the event this information is protected by the Federal Confidentiality of Alcohol and Drug Abuse Patient Records regulations: The Federal rules restrict any use of the information to criminally investigate or prosecute any alcohol or drug abuse patient.[facility] Center[facility] the event this information is protected by the Federal Confidentiality of Alcohol and Drug Abuse Patient Records regulations: The Federal rules restrict any use of the information to criminally investigate or prosecute any alcohol or drug abuse patient.[facility] Center[facility] the event this information is protected by the Federal Confidentiality of Alcohol and Drug Abuse Patient Records regulations: The Federal rules restrict any use of the information to criminally investigate or prosecute any alcohol or drug abuse patient.[facility] the event this information is protected by the Federal Confidentiality of Alcohol and Drug Abuse Patient Records regulations: The Federal rules restrict any use of the information to criminally investigate or prosecute any alcohol or drug abuse patient.[facility] Center[facility] the event this information is protected by the Federal Confidentiality of Alcohol and Drug Abuse Patient Records regulations: The Federal rules restrict any use of the information to criminally investigate or prosecute any alcohol or drug abuse patient.[facility] Center[facility] the event this information is protected by the Federal Confidentiality of Alcohol and Drug Abuse Patient Records regulations: The Federal rules restrict any use of the information to criminally investigate or prosecute any alcohol or drug abuse patient.[facility] Center[facility] the event this information is protected by the Federal Confidentiality of Alcohol and Drug Abuse Patient Records regulations: The Federal rules restrict any use of the information to criminally investigate or prosecute any alcohol or drug abuse patient.[facility] CenterIn the event this information is protected by the Federal Confidentiality of Alcohol and Drug Abuse Patient Records regulations: The Federal rules restrict any use of the information to criminally investigate or prosecute any alcohol or drug abuse patient.[facility] Goals (unrecognized section and content) Goals may be documented in a n alternate sectionGoals may be documented in an alternate sectionGoals may be documented in an alternate section FOR RECORDS PERTAINING TO PATIENTS WHO ARE OR HAVE BEEN ENROLLED IN A CHEMICAL DEPENDENCY/SUBSTANCEABUSE PROGRAM, SOME INFORMATION MAY BE OMITTED. This clinical summary was aggregated from multiple sources. Caution should be exercised in using it in the provision of clinical care. This summary normalizes information from multiple sources, and as a consequence, information in this document may materially change the coding, format and clinical context of patient data. In addition, data may be omitted in some cases. CLINICAL DECISIONS SHOULD BE BASED ON THE PRIMARY CLINICAL RECORDS. [facility] [employer] [facility]. provides no warranty or guarantee of the accuracy or completeness of information in this document.
[2024-12-26 05:28] VITALS: BP 101/70; PULSE 72; RESP 16; TEMP 36.8; O2SAT 98
== END 2024-12-26 05:29 | disposition home or self-care (01) ==
PROVIDERS: Emergency Provider Emergency Medicine; PCP Family Medicine; Visit Provider Emergency Medicine
DX: S01.01XA Laceration without foreign body of scalp, initial encounter (principal); E11.9 Type 2 diabetes mellitus without complications; S61.452A Open bite of left hand, initial encounter; Z87.891 Personal history of nicotine dependence; Z23 Encounter for immunization; W55.01XA Bitten by cat, initial encounter; Y92.009 Unspecified place in unspecified non-institutional (private) residence as the place of occurrence of the external cause; Z79.84 Long term (current) use of oral hypoglycemic drugs
CPT/HCPCS: 90471; 90715; 99282

== ENCOUNTER → 2025-02-01 | Outpatient (CLI) | payer BC, SELFPAY ==
[2025-02-01 08:45] LABS: Mucous, Urine 0 SEEN /hpf (<or=2+); Red Blood Cells-Urine 0 SEEN /hpf (0-5)
[2025-02-01 10:45] LABS: Hematocrit 40.2 % (37-47); Hemoglobin 13.2 g/dL (12.0-15.0); Immature Granulocytes Count 0.040 X10^3/uL (0.0-0.0); Mean Corp Hgb Conc 32.8 g/dL (32-36); Mean Corpuscular Volume 78.7 fL (81-99); Mean Platelet Vol. 10.4 fl (6.2-12.0); NRBC Flagged by Analyzer 0 % (0-5); Platelet Count 280 K/mm3 (150-450); RBC Distribution Width CV 13.1 % (11.6-14.6); RBC Distribution Width SD 37.1 fl (35.1-43.9); Red Blood Count 5.11 M/mm3 (4.2-5.4); White Blood Count 10.4 K/mm3 (4.4-11.0)
[2025-02-01 10:47] LABS: Color, Urine Yellow (Yellow); Glucose, Dipstick Normal (Normal); Ketone-Dipstick Negative (Negative); Leukocyte Esterase-Dipstick 100 /ul (Negative); Nitrite-Dipstick Negative (Negative); Occult Blood-Urine Negative /ul (Negative); Protein-Dipstick 30 mg/dl (Negative); Specific Gravity, Urine 1.025 (1.002-1.030); Urine Bilirubin Dipstick Negative (Negative)
[2025-02-01 11:09] LABS: AST(SGOT) 21 U/L (<=31); Alanine Aminotransfer ALT/SGPT 22 U/L (<=34); Albumin, Serum 4.6 g/dL (3.5-5.0); Alkaline Phosphatase 50 U/L (35-104); Anion Gap 14 (5-15); BUN 15 mg/dL (4-19); BUN/Creat Ratio 21.1 RATIO (10-20); Calcium,Total 9.5 mg/dL (7.6-11.0); Carbon Dioxide 21.7 mmol/L (21.0-32.0); Chloride 103 mmol/L (98-108); Cholesterol 122 mg/dL (<=200); Globulin 3.1 g/dL (2.2-4.2); Glucose 96 mg/dL (70-99); Low Density Lipoprotein Calc. 60 mg/dL; Potassium 4.0 mmol/L (3.3-5.1); Triglycerides 86 mg/dL; Very Low Density Lipoprotein 17 mg/dL (5-40); cholesterol:hdl ratio screen 2.72
[2025-02-01 11:10] LABS: Creatinine, Urine (random) 202.00 mg/dL (28.00-217.00); Microalbumin,Random Urine 57.5 mg/L (<20 mg/L)
[2025-02-01 11:22] LABS: Squamous Epithelial Cells - UA 0-5 SEEN /hpf (5-10)
== END | disposition home or self-care (01) ==
LOC: MTLAB 08:37
PROVIDERS: PCP Family Medicine; Referring Provider Family Medicine; Visit Provider Family Medicine
DX: E11.29 Type 2 diabetes mellitus with other diabetic kidney complication (principal)
CPT/HCPCS: 36415; 80053; 80061; 81001; 82043; 82570; 83036; 85025

== ENCOUNTER → 2025-02-08 | Outpatient (CLI) | payer BC, SELFPAY ==
[2025-02-08 18:27] LABS: Ferritin 52 ng/mL (22-378); Iron 52 ug/dL (50-170); Iron Binding Capacity,Total 330 ug/dL (250-450); Iron Binding Capacity,Unsat 278 ug/dL (228-428)
== END | disposition home or self-care (01) ==
LOC: MTLAB 16:24
PROVIDERS: PCP Family Medicine; Referring Provider Family Medicine; Visit Provider Family Medicine
DX: R71.8 Other abnormality of red blood cells (principal)
CPT/HCPCS: 36415; 82728; 83540; 83550